=== PATIENT | male | born 1940 | race Caucasian/White ===

== ENCOUNTER → 2016-07-17 | Outpatient (CLI) | payer MEDICARE, BC ==
--- NOTE | 2016-07-17 11:35 | ECHOS ---
DATE OF SERVICE: 07/17/2016 AGE: 75Y SEX: M HT: 70" WT: 207 lbs. Protocol Paul: X Others: Stress Echo Stage: 1 Dur. of Exercise: 3:00 *Heart Rate Blood Pressure *Rest: 87 Rest: 161/63 * *Max. Achieved: 138 Maximum BP: 162/93 85% PMHR: 122 100% PMHR: 144 *METS: 3.8 INDICATIONS: Heart disease. MEDICATIONS: Metoprolol, Benazepril, Glipizide, atorvastatin. The test is being done to evaluate cardiac status. Patient had a history of previous bypass surgery. Baseline EKG showed a left bundle branch block pattern. Blood pressure at rest is 161/63 with a pulse rate of 87. Patient walked on the Paul protocol for about 3 minutes achieving a maximum heart rate of 138 with a blood pressure of 162/93. EKGs taken during and after the exercise did not reveal any significant changes from the baseline and continued to be showing left bundle branch block pattern. ECHO DATA: Baseline echo images showed atypical motion of the septum and the hypokinesia of the inferobasal segment. Exercise echo images showed augmentation of the wall motion and thickening in all the segments except mid and apical lateral wall. The inferobasal segment remained hypokinetic throughout its the test. FINAL IMPRESSION: 1. Inconclusive stress test because of left bundle branch block and also low workload. 2. Abnormal stress echo. There is evidence of hypokinesia of the inferobasal segment both on the stress and REST views suggestive of possible previous myocardial infarction. There also appears to be stress induced hypokinesia of the lateral wall suggestive of possible ischemia. This study was done with contrast because of suboptimal views. VAIBHAV
== END | disposition home or self-care (01) ==
LOC: RADNMMAIN 09:02
PROVIDERS: ATTEND Internal Medicine Geriatric Medicine
DX: I25.10 Atherosclerotic heart disease of native coronary artery without angina pectoris (principal)
CPT/HCPCS: 93017; C8928; Q9957; 93350

== ENCOUNTER 2016-08-12 10:43 | Day surgery (SDC) | payer MEDICARE, BC ==
[2016-08-07 15:10] VITALS: BMI 31.8
[~2016-08-12 10:43] MED LIST: ALPRAZolam 0.25 MG TAB PO PRN; ASPIRIN 325 MG TAB PO ONE; SODIUM CHLORIDE 0.9% 1,000 ML in EMPTY BAG 1 BAG IV ONE
[2016-08-12] MEDS ORDERED: SODIUM CHLORIDE 0.9% 500 ML IV ONE (12:17)
[2016-08-12] MEDS ORDERED: MIDAZOLAM 2 MG/2 ML VIAL IV ONE (12:31)
[2016-08-12] MEDS ORDERED: fentaNYL (PF) 50 MCG/ML 2 ML AMP IV ONE (12:32)
[2016-08-12] MEDS ORDERED: LIDOCAINE 2% INJ 20 MG/ML SQ ONE (12:37)
[2016-08-12] MEDS ORDERED: IOHEXOL 350 MG/ML 100 ML BOTTLE INJ ONE (13:36)
[2016-08-12 13:55] LABS: Glucose,Whole Blood 102 mg/dL (75-99)
[2016-08-12] MEDS ORDERED: RX INFO: IV CONTRAST WAS GIVEN 1 EACH MISC MISCELLANE PRN (14:59)
[2016-08-12] MEDS ORDERED: SODIUM CHLORIDE 0.9% 1,000 ML IV SCH (15:00)
[2016-08-12 17:18] LABS: Glucose,Whole Blood 230 mg/dL (75-99)
[2016-08-12] MEDS: ATORVASTATIN 20 MG TAB PO SCH (17:19)
[2016-08-12] MEDS: ASPIRIN 81 MG CHEW PO SCH (17:19)
[2016-08-12] MEDS: LISINOPRIL 10 MG TAB PO SCH (17:20)
[2016-08-12] MEDS: METOPROLOL TARTRATE 25 MG TAB PO SCH (20:17)
[2016-08-12 21:10] LABS: Glucose,Whole Blood 155 mg/dL (75-99)
--- NOTE | 2016-08-12 22:48 | CC ---
DATE OF SERVICE: Mr. Trinh is a 75-year-old gentleman who was seen in the office for the evaluation of the cardiac evaluation. Patient recently had a stress test which showed evidence of some apical lateral ischemia. Old inferior wall myocardial infarction. Patient has a past history of coronary artery bypass surgery with HERNANDEZ graft to the LAD and saphenous vein graft to the RCA and OM and diagonal branch. In view of the occasional angina and positive stress test, patient was recommended to have a cardiac catheterization for definitive diagnosis. PROCEDURE: The right groin was prepped and draped in the usual manner and the skin was infiltrated with 2% Xylocaine. The right femoral artery was entered using Seldinger technique. A #6 Arabic sheath was placed in. Subsequently selective coronary angiography as well as graft was made. Patient's aortic root was dilated and multiple catheters used. The JL 6 Catheter was used to engage to the left main coronary artery, Pasha catheter was used to engage to the HERNANDEZ and the right saphenous vein graft to the right coronary artery. Multiple catheters were used to selectively engage the saphenous vein graft to OM and diagonal branch, which were unsuccessful so the aortic root injection was performed which show that the grafts were patent, in the proximal and midportion. The distal anastomosis of the graft cannot be assess. The patient tolerated the procedure well. Total sedation time was one hour and 10 minutes. Sheath was removed and good hemostasis was achieved with the use of Angio-Seal. SELECTIVE CORONARY ANGIOGRAPHY: LEFT MAIN: Left main coronary artery is normal and patent. LEFT ANTERIOR DESCENDING CORONARY ARTERY: LAD is totally occluded in its proximal portion. There is a good-sized obtuse marginal branch, which is patent with mild irregularity is noted. RIGHT CORONARY ARTERY: Right coronary artery is totally occluded. The HERNANDEZ graft to the LAD is patent with good flow noted in the distal LAD and there is a retrograde flow noted in the proximal LAD. Saphenous vein graft to the right coronary artery is a large caliber vessel and it is patent to the PDA branch beyond the anastomosis is a small-caliber blood vessel. The saphenous vein graft to the obtuse marginal branch and diagonal branch are patent in the proximal and midportion. The distal anastomosis could not be assessed. RECOMMENDATIONS: We will recommend to continue the patient on medical treatment as all the grafts are patent and symptomatic medical therapy is suggested.
[2016-08-13 06:54] LABS: Glucose,Whole Blood 142 mg/dL (75-99)
[2016-08-13] MEDS: LISINOPRIL 10 MG TAB PO SCH (07:52)
[2016-08-13] MEDS: ASPIRIN 81 MG CHEW PO SCH (07:53)
[2016-08-13] MEDS: METOPROLOL TARTRATE 25 MG TAB PO SCH (07:53)
[2016-08-13] MEDS: ATORVASTATIN 20 MG TAB PO SCH (07:53)
[2016-08-13 07:59] VITALS: RESP 18
[2016-08-13] MEDS ORDERED: VIT A,C & E-LUTEIN-MINERALS 1 EACH TAB PO SCH (09:00)
[2016-08-13] MEDS ORDERED: NON-FORMULARY DRUG (Ubidecarenone [Co Q-10] 100 MG) PO SCH (09:00)
[2016-08-13 11:53] VITALS: BP 172/81; PULSE 55; TEMP 98.1
[2016-08-13 12:09] LABS: Glucose,Whole Blood 154 mg/dL (75-99)
--- NOTE | 2016-08-13 12:16 | PN ---
This patient was admitted in the hospital for cardiac catheterization because of the abnormal stress test. All the grafts were found to be patent. In view of that, the patient was advised medical treatment. He is feeling well. Right groin is normal. First and second heart sounds are normal. Lungs are clear to auscultation and percussion. Patient's cath findings were discussed with the patient. We will schedule him for a CT scan of the thoracic and abdominal aorta to rule out any aneurysm as an outpatient and patient would be seen in the office in one week.
== END 2016-08-13 13:31 | disposition home or self-care (01) ==
LOC: CATHCVL 10:43 → 3OBS 13:48 → CATHCVL 08-13 13:31
PROVIDERS: ATTEND Internal Medicine Cardiovascular Disease
DX: I25.110 Atherosclerotic heart disease of native coronary artery with unstable angina pectoris (principal); I25.82 Chronic total occlusion of coronary artery; I10 Essential (primary) hypertension; E78.2 Mixed hyperlipidemia; Z82.49 Family history of ischemic heart disease and other diseases of the circulatory system; E11.9 Type 2 diabetes mellitus without complications; Z79.84 Long term (current) use of oral hypoglycemic drugs; Z95.1 Presence of aortocoronary bypass graft; I25.2 Old myocardial infarction; Z79.82 Long term (current) use of aspirin; Z79.899 Other long term (current) drug therapy; Z88.0 Allergy status to penicillin
CPT/HCPCS: 93455; 93567; C1760; C1894; C1769; J2001; J2250; Q9967; J3010

== ENCOUNTER → 2016-08-28 | Outpatient (CLI) | payer MEDICARE, BC ==
[2016-08-28 13:37] LABS: Blood Urea Nitrogen 17 mg/dL (9-20); Non-African American GFR(MDRD) >60 (>60 ml/min/1.73 sqM)
--- NOTE | 2016-08-28 16:33 | CT ---
EXAMINATION TYPE: CT angio thoracic/abd aorta DATE OF EXAM: 08/28/2016 3:07 PM COMPARISON: NONE HISTORY: AAA CT DLP: 3250 mGycm Automated exposure control for dose reduction was used. CONTRAST: Performed without and with IV Contrast, patient injected with 100 ml mL of Omnipaque 350. FINDINGS: Study is performed without and with intravenous contrast. Three-D reconstructed images through the ao rta is performed by the technologist on the S[employer] computer. Three-D reconstructed images are reviewe d. The ascending thoracic aorta at the level of main pulmonary artery is 4.3 cm. The main pulmonary iris ry bifurcation is 3.4 cm. The descending thoracic aorta tapers normally through its visualized course . The celiac axis and superior mesenteric arteries appear normal. Renal arteries appear normal. The r ight renal artery is retrocaval. Plaquing is present. Aortic bifurcation is normal. Internal and exte rnal iliac vessels visualized normal. The common femoral arteries visualized are normal. Proximal pro balaji femoris and superficial femoral arteries present bilaterally are normal Incidental note is made of a right inguinal hernia. Portion of the thyroid visualized is normal. Lung windows appear clear. No enlarged mediastinal or hi lar adenopathy is evident. CT ABDOMEN: During this early phase contrast liver spleen pancreas and kidneys appear normal. Inferio r vena cava is unremarkable. Loops of bowel without contrast are unremarkable Diverticular changes are within the sigmoid colon. Urinary bladder appears normal. Prostate is promin ent. Facet changes are noted within the lumbar spine. Spondylosis within the thoracic spine. Vascular calcification is within the aorta as well as coronary vessels. 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 NO ANEURYSMAL DILATATION DESCENDING THORACIC AORTA OR ABDOMINAL AORTA. 2. RIGHT INGUINAL HERNIA WITHOUT LOOPS OF BOWEL INVOLVED.
== END ==
LOC: RADCTMAIN 12:48
PROVIDERS: ATTEND Internal Medicine Cardiovascular Disease
DX: I71.2 Thoracic aortic aneurysm, without rupture (principal)
CPT/HCPCS: 82565; 84520; 75635; 71275; 36415; Q9967

== ENCOUNTER 2016-11-10 16:09 | Emergency (ER) | payer MEDICARE, BC ==
--- NOTE | 2016-11-10 16:30 | ED ---
General Adult HPI - General Chief complaint: Extremity Problem,Nontraumatic Stated complaint: Swollen Leg, Leg Pain Time Seen by Provider: 11/10/16 16:16 Source: patient, RN notes reviewed Mode of arrival: ambulatory Limitations: no limitations - History of Present Illness Initial comments: 75-year-old male who presents emergency room today with chief complaint of pain in the right hip that radiates down into the right leg. He does admit that it seems to be into the right groin. He states it seems to be worse with certain positions. He is Is that when he standing up for long periods time. Also admits that was driving his car he felt some pain to this area that seemed to be worse when he was pumping gas or break. Patient denies any back pain. He denies any bowel or bladder incontinence retention. He denies any saddle anesthesia. Patient denies any other complaints. Patient denies any recent fever, chills, shortness of breath, chest pain, back pain, abdominal pain, nausea or vomiting, numbness or tingling, dysuria or hematuria, constipation or diarrhea, headaches or visual changes, or any other complaints. - Related Data Home Medications Medication Instructions Recorded Confirmed Aspirin 81 mg PO DAILY 08/07/16 11/10/16 Atorvastatin [Lipitor] 20 mg PO DAILY 08/07/16 11/10/16 Benazepril [Lotensin] 10 mg PO DAILY 08/07/16 11/10/16 Metoprolol Tartrate [Lopressor] 25 mg PO BID 08/07/16 11/10/16 glipiZIDE XL [Glucotrol Xl] 2.5 mg PO BID 11/10/16 11/10/16 Allergies Allergy/AdvReac Type Severity Reaction Status Date / Time Penicillins Allergy Rash/Hives Verified 11/10/16 16:27 Review of Systems ROS Statement: Those systems with pertinent positive or pertinent negative responses have been documented in the HPI. ROS Other: All systems not noted in ROS Statement are negative. Past Medical History Past Medical History: Cancer, Diabetes Mellitus, Hyperlipidemia, Hypertension Additional Past Medical History / Comment(s): had some kind of cancer removed as a teen-not sure what kind, no problems since History of Any Multi-Drug Resistant Organisms: None Reported Past Surgical History: Coronary Bypass/CABG, Heart Catheterization Additional Past Surgical History / Comment(s): open heart 2013 Past Anesthesia/Blood Transfusion Reactions: No Reported Reaction Past Psychological History: No Psychological Hx Reported Smoking Status: Unknown if ever smoked Past Alcohol Use History: Occasional Past Drug Use History: None Reported - Past Family History Mother Family Medical History: No Reported History General Exam - General Exam Comments Initial Comments: General: The patient is awake and alert, in no distress, and does not appear acutely ill. Eye: Pupils are equal, round and reactive to light, extra-ocular movements are intact. No nystagmus. There is normal conjunctiva bilaterally. No signs of icterus. Ears, nose, mouth and throat: There are moist mucous membranes and no oral lesions. Neck: The neck is supple, there is no tenderness or JVD. Cardiovascular: There is a regular rate and rhythm. No murmur, rub or gallop is appreciated. Respiratory: Lungs are clear to auscultation, respirations are non-labored, breath sounds are equal. No wheezes, stridor, rales, or rhonchi. Musculoskeletal: Normal appearance of the thoracic, lumbar spine. No step- offs forms appreciated. No tenderness of the lumbar spine. No bony tenderness. No point tenderness to the right hip. Shows full range of motion. Sensation intact. Pulses equal bilaterally 2+. Strength 5/5. Sensation intact. Pulses equal bilaterally 2+. Neurological: A&O x 3. CN II-XII intact, There are no obvious motor or sensory deficits. Coordination appears grossly intact. Speech is normal. Skin: Skin is warm and dry and no rashes or lesions are noted. Psychiatric: Cooperative, appropriate mood & affect, normal judgment. Limitations: no limitations Course Vital Signs 11/10/16 16:12 Temperature 97.3 F L Pulse Rate 92 Respiratory 18 Rate Blood Pressure 179/81 O2 Sat by Pulse 99 Oximetry Medical Decision Making - Medical Decision Making Patient reexamined at this time shows no signs of distress. Ultrasound is negative for any evidence of DVT. X-rays of were reviewed and are negative for any acute abnormalities. Results were discussed with the patient. At this time patient is advised to use Aleve for his pain. Advised to follow-up with his family doctor for further evaluation. Advised return here to the emergency room symptoms increase or worsen or for any other concerns. Disposition Clinical Impression: Lumbar radiculopathy, acute Disposition: HOME SELF-CARE Condition: Good Instructions: Lumbar Radiculopathy (ED) Additional Instructions: Please use medication as discussed. Please follow-up with family doctor in the next 2 days of symptoms have not improved. Please return to emergency room if the symptoms increase or worsen or for any other concerns. Referrals: Pantera Gomez MD [Primary Care Provider] - 1-2 days Time of Disposition: 17:48
--- NOTE | 2016-11-10 17:09 | XR ---
EXAMINATION TYPE: XR Hip RT and AP Pelvis DATE OF EXAM: 11/10/2016 4:42 PM COMPARISON: NONE HISTORY: Pain TECHNIQUE: A single AP view of the pelvis is obtained. Two views of the right hip are obtained. FINDINGS: The pelvic ring is intact. Proximal right femur and hip joint appear intact. I see no frac ture. Sacroiliac joints appear normal. IMPRESSION: Negative pelvis and right hip exam.
--- NOTE | 2016-11-10 17:10 | US ---
EXAMINATION TYPE: US venous doppler duplex LE RT DATE OF EXAM: 11/10/2016 4:56 PM COMPARISON: NONE CLINICAL HISTORY: Pain. Right leg pain and swelling SIDE PERFORMED: Right TECHNIQUE: The lower extremity deep venous system is examined utilizing real time linear array sonog franky with graded compression, doppler sonography and color-flow sonography. VESSELS IMAGED: External Iliac Vein (EIV) Common Femoral Vein Deep Femoral Vein Greater Saphenous Vein * Femoral Vein Popliteal Vein Small Saphenous Vein * Proximal Calf Veins (* superficial vessels) Right Leg: Appears negative for DVT IMPRESSION: Grayscale, color doppler, spectral doppler imaging performed of the deep veins of the lo wer extremities. There is normal flow, compressibility, vascular waveforms bilaterally. Normal exam. No evidence of deep venous thrombosis in the right leg.
--- NOTE | 2016-11-10 17:12 | XR ---
EXAMINATION TYPE: XR lumbar spine 2 or 3V DATE OF EXAM: 11/10/2016 4:42 PM COMPARISON: NONE HISTORY: Right hip pain TECHNIQUE: 3 views FINDINGS: Vertebra have fairly normal alignment. There is moderately severe narrowing at L4-5 L2-3 di sc spaces. There is extensive spurring at the endplates throughout the lumbar spine. Posterior elemen ts are intact. Sacroiliac joints appear intact. IMPRESSION: Severe multilevel spondylosis. No fracture.
[2016-11-10 18:02] VITALS: BP 165/79; PULSE 66; RESP 16; TEMP 97.7
== END 2016-11-10 18:03 | disposition home or self-care (01) ==
LOC: EC 16:09
DX: M54.16 Radiculopathy, lumbar region (principal); E11.9 Type 2 diabetes mellitus without complications; E78.5 Hyperlipidemia, unspecified; I10 Essential (primary) hypertension; Z85.9 Personal history of malignant neoplasm, unspecified; Z88.0 Allergy status to penicillin; Z79.82 Long term (current) use of aspirin; Z79.84 Long term (current) use of oral hypoglycemic drugs; Z79.899 Other long term (current) drug therapy
CPT/HCPCS: 72100; 73502; 99284

== ENCOUNTER 2017-09-12 08:30 | Emergency (ER) | payer MEDICARE, BC ==
[2017-09-12 08:35] VITALS: TEMP 98
[2017-09-12] MEDS ORDERED: IPRATROPIUM-ALBUTEROL 3 ML NEB INHALATION STA (08:41)
--- NOTE | 2017-09-12 08:51 | ED ---
SOB HPI - General Source: patient, RN notes reviewed Mode of arrival: ambulatory Limitations: no limitations <Solitario Mcdaniel - Last Filed: 09/12/17 10:58> <Rivera López - Last Filed: 09/12/17 11:04> - General Chief Complaint: Shortness of Breath Stated Complaint: SOB Time Seen by Provider: 09/12/17 08:36 - History of Present Illness Initial Comments: This a 76-year-old male presents emergency Department chief complaint of shortness of breath. Patient states shortness breath the last 3 days. He does admit to a cough and congestion. Patient states that he was outside in states he started having worsening shortness of breath and is having difficulty with activities at that time which became alarming. White did state that he keep she got he was sweaty during the car ride here but denies any chest pain or chest pressure. Patient's had a prior. Bypass in 2013, current private tutor is Dr. Mendez. Patient denies any known fever or chills night sweats. Patient denies any headache, dizziness, nausea vomiting diarrhea constipation. Patient has no known lung disease denies COPD, asthma. Patient denies orthopnea. (Solitario Mcdaniel) - Related Data Home Medications Medication Instructions Recorded Confirmed Aspirin 81 mg PO DAILY 08/07/16 11/10/16 Atorvastatin [Lipitor] 20 mg PO DAILY 08/07/16 11/10/16 Benazepril [Lotensin] 10 mg PO DAILY 08/07/16 11/10/16 Metoprolol Tartrate [Lopressor] 25 mg PO BID 08/07/16 11/10/16 glipiZIDE XL [Glucotrol Xl] 2.5 mg PO BID 11/10/16 11/10/16 Previous Rx's Medication Instructions Recorded Albuterol Sulfate [Proair Hfa] 1 - 2 puff INHALATION Q4HR PRN #1 09/12/17 inhaler Levofloxacin [Levaquin] 500 mg PO DAILY #10 tab 09/12/17 methylPREDNISolone [Medrol Dose 4 mg PO DIRECTED #1 pack 09/12/17 Pack] Allergies Allergy/AdvReac Type Severity Reaction Status Date / Time Penicillins Allergy Rash/Hives Verified 09/12/17 08:34 Review of Systems ROS Other: All systems not noted in ROS Statement are negative. <Solitario Mcdaniel - Last Filed: 09/12/17 10:58> ROS Other: All systems not noted in ROS Statement are negative. <Rivera López - Last Filed: 09/12/17 11:04> ROS Statement: Those systems with pertinent positive or pertinent negative responses have been documented in the HPI. Past Medical History Past Medical History: Cancer, Diabetes Mellitus, Hyperlipidemia, Hypertension Additional Past Medical History / Comment(s): had some kind of cancer removed as a teen-not sure what kind, no problems since History of Any Multi-Drug Resistant Organisms: None Reported Past Surgical History: Coronary Bypass/CABG, Heart Catheterization Additional Past Surgical History / Comment(s): open heart 2014 Past Anesthesia/Blood Transfusion Reactions: No Reported Reaction Past Psychological History: No Psychological Hx Reported Smoking Status: Never smoker Past Alcohol Use History: Occasional Past Drug Use History: None Reported - Past Family History Mother Family Medical History: No Reported History <Solitario Mcdaniel - Last Filed: 09/12/17 10:58> General Exam Limitations: no limitations General appearance: alert, in no apparent distress Head exam: Present: atraumatic, normocephalic, normal inspection Eye exam: Present: normal appearance, PERRL, EOMI. Absent: scleral icterus, conjunctival injection, periorbital swelling ENT exam: Present: normal exam, normal oropharynx, mucous membranes moist Neck exam: Present: normal inspection, full ROM. Absent: tenderness, meningismus, lymphadenopathy Respiratory exam: Present: wheezes. Absent: normal lung sounds bilaterally, respiratory distress, rales, rhonchi, stridor Cardiovascular Exam: Present: regular rate, normal rhythm, normal heart sounds. Absent: systolic murmur, diastolic murmur, rubs, gallop, clicks Neurological exam: Present: alert, oriented X3, CN II-XII intact Skin exam: Present: warm, dry, intact, normal color. Absent: rash <Solitario Mcdaniel - Last Filed: 09/12/17 10:58> Course <Solitario Mcdaniel - Last Filed: 09/12/17 10:58> <Rivera López - Last Filed: 09/12/17 11:04> Vital Signs 09/12/17 09/12/17 09/12/17 08:33 08:59 09:09 Temperature 98.0 F Pulse Rate 77 76 76 Respiratory 20 Rate Blood Pressure 166/84 O2 Sat by Pulse 96 Oximetry 09/12/17 10:01 Temperature Pulse Rate Respiratory 18 Rate Blood Pressure O2 Sat by Pulse Oximetry - Reevaluation(s) Reevaluation #1: 09/12/17 11:03 PA supervision I did personally do a [id number] evaluation the patient did discuss the findings with his and him. He did receive an updraft treatment he has symptoms of dyspnea when he goes outside from an warm environment to the outdoors. No chest pain. 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 He has any history of aneurysm is stable. CAT scan. CAT scan also showed groundglass appearance of the lingula. Reevaluation patient reveals good aeration with slight crepitation at the left base. He will be placed on steroids breathing treatment and follow-up with Dr. Gomez. He is invited to come back if any thing changes. He did have a cardiac stress test. One year ago that he did well on. (Rivera López) Medical Decision Making - Lab Data Result diagrams: 09/12/17 08:50 09/12/17 08:50 <Solitario Mcdaniel - Last Filed: 09/12/17 10:58> - Lab Data Result diagrams: 09/12/17 08:50 09/12/17 08:50 <Rivera López - Last Filed: 09/12/17 11:04> - Medical Decision Making 76-year-old male present emergency department for shortness of breath. Patient did had notable wheezing on exam. Patient was given region which is improved his symptoms. Patient lab work reviewed. CT shows groundglass appear of normal finger stable aneurysm. Patient has primary care physician Dr. Conn. Patient follow-up on Thursday. We discussed return parameters. (Solitario Mcdaniel) - Lab Data Lab Results 09/12/17 09/12/17 09/12/17 Range/Units 08:50 08:50 08:50 WBC 5.9 (3.8-10.6) k/uL RBC 4.79 (4.30-5.90) m/uL Hgb 14.4 (13.0-17.5) gm/dL Hct 43.6 (39.0-53.0) % MCV 91.2 (80.0-100.0) fL MCH 30.1 (25.0-35.0) pg MCHC 33.0 (31.0-37.0) g/dL RDW 12.8 (11.5-15.5) % Plt Count 195 (150-450) k/uL Neutrophils % 65 % Lymphocytes % 19 % Monocytes % 9 % Eosinophils % 4 % Basophils % 1 % Neutrophils # 3.9 (1.3-7.7) k/uL Lymphocytes # 1.1 (1.0-4.8) k/uL Monocytes # 0.5 (0-1.0) k/uL Eosinophils # 0.2 (0-0.7) k/uL Basophils # 0.0 (0-0.2) k/uL PT (9.0-12.0) sec INR (<1.2) APTT (22.0-30.0) sec D-Dimer (<0.60) mg/L FEU Sodium 139 (137-145) mmol/L Potassium 4.5 (3.5-5.1) mmol/L Chloride 103 (98-107) mmol/L Carbon Dioxide 23 (22-30) mmol/L Anion Gap 13 mmol/L BUN 15 (9-20) mg/dL Creatinine 0.65 L (0.66-1.25) mg/dL Est GFR (CKD-EPI)AfAm >90 (>60 ml/min/1.73 sqM) Est GFR (CKD-EPI)NonAf >90 (>60 ml/min/1.73 sqM) Glucose 156 H (74-99) mg/dL Calcium 8.9 (8.4-10.2) mg/dL Magnesium 1.8 (1.6-2.3) mg/dL Total Bilirubin 1.2 (0.2-1.3) mg/dL AST 34 (17-59) U/L ALT 31 (21-72) U/L Alkaline Phosphatase 48 (38-126) U/L Total Creatine Kinase 246 H (55-170) U/L CK-MB (CK-2) 3.7 H* (0.0-2.4) ng/mL CK-MB (CK-2) Rel Index 1.5 Troponin I <0.012 (0.000-0.034) ng/mL NT-Pro-B Natriuret Pep pg/mL Total Protein 6.9 (6.3-8.2) g/dL Albumin 4.0 (3.5-5.0) g/dL Influenza Type A RNA (Not Detectd) Influenza Type B (PCR) (Not Detectd) 09/12/17 09/12/17 09/12/17 Range/Units 08:50 08:50 08:50 WBC (3.8-10.6) k/uL RBC (4.30-5.90) m/uL Hgb (13.0-17.5) gm/dL Hct (39.0-53.0) % MCV (80.0-100.0) fL MCH (25.0-35.0) pg MCHC (31.0-37.0) g/dL RDW (11.5-15.5) % Plt Count (150-450) k/uL Neutrophils % % Lymphocytes % % Monocytes % % Eosinophils % % Basophils % % Neutrophils # (1.3-7.7) k/uL Lymphocytes # (1.0-4.8) k/uL Monocytes # (0-1.0) k/uL Eosinophils # (0-0.7) k/uL Basophils # (0-0.2) k/uL PT 9.9 (9.0-12.0) sec INR 1.0 (<1.2) APTT 22.6 (22.0-30.0) sec D-Dimer (<0.60) mg/L FEU Sodium (137-145) mmol/L Potassium (3.5-5.1) mmol/L Chloride (98-107) mmol/L Carbon Dioxide (22-30) mmol/L Anion Gap mmol/L BUN (9-20) mg/dL Creatinine (0.66-1.25) mg/dL Est GFR (CKD-EPI)AfAm (>60 ml/min/1.73 sqM) Est GFR (CKD-EPI)NonAf (>60 ml/min/1.73 sqM) Glucose (74-99) mg/dL Calcium (8.4-10.2) mg/dL Magnesium (1.6-2.3) mg/dL Total Bilirubin (0.2-1.3) mg/dL AST (17-59) U/L ALT (21-72) U/L Alkaline Phosphatase (38-126) U/L Total Creatine Kinase (55-170) U/L CK-MB (CK-2) (0.0-2.4) ng/mL CK-MB (CK-2) Rel Index Troponin I (0.000-0.034) ng/mL NT-Pro-B Natriuret Pep 1250 pg/mL Total Protein (6.3-8.2) g/dL Albumin (3.5-5.0) g/dL Influenza Type A RNA Not Detected (Not Detectd) Influenza Type B (PCR) Not Detected (Not Detectd) 09/12/17 Range/Units 09:10 WBC (3.8-10.6) k/uL RBC (4.30-5.90) m/uL Hgb (13.0-17.5) gm/dL Hct (39.0-53.0) % MCV (80.0-100.0) fL MCH (25.0-35.0) pg MCHC (31.0-37.0) g/dL RDW (11.5-15.5) % Plt Count (150-450) k/uL Neutrophils % % Lymphocytes % % Monocytes % % Eosinophils % % Basophils % % Neutrophils # (1.3-7.7) k/uL Lymphocytes # (1.0-4.8) k/uL Monocytes # (0-1.0) k/uL Eosinophils # (0-0.7) k/uL Basophils # (0-0.2) k/uL PT (9.0-12.0) sec INR (<1.2) APTT (22.0-30.0) sec D-Dimer 0.70 H (<0.60) mg/L FEU Sodium (137-145) mmol/L Potassium (3.5-5.1) mmol/L Chloride (98-107) mmol/L Carbon Dioxide (22-30) mmol/L Anion Gap mmol/L BUN (9-20) mg/dL Creatinine (0.66-1.25) mg/dL Est GFR (CKD-EPI)AfAm (>60 ml/min/1.73 sqM) Est GFR (CKD-EPI)NonAf (>60 ml/min/1.73 sqM) Glucose (74-99) mg/dL Calcium (8.4-10.2) mg/dL Magnesium (1.6-2.3) mg/dL Total Bilirubin (0.2-1.3) mg/dL AST (17-59) U/L ALT (21-72) U/L Alkaline Phosphatase (38-126) U/L Total Creatine Kinase (55-170) U/L CK-MB (CK-2) (0.0-2.4) ng/mL CK-MB (CK-2) Rel Index Troponin I (0.000-0.034) ng/mL NT-Pro-B Natriuret Pep pg/mL Total Protein (6.3-8.2) g/dL Albumin (3.5-5.0) g/dL Influenza Type A RNA (Not Detectd) Influenza Type B (PCR) (Not Detectd) - EKG Data EKG Comments: EKG performed at 8:52 sinus rhythm with sinus arrhythmia and left bundle tam block, rate of 69 [place] was 54 QRS 162, QT/QTC 4:30/460 (Solitario Mcdaniel) Disposition Time of Disposition: 11:03 <Solitario Mcdaniel - Last Filed: 09/12/17 10:58> <Rivera López - Last Filed: 09/12/17 11:04> Clinical Impression: Acute bronchitis with bronchospasm, Dyspnea Disposition: HOME SELF-CARE Instructions: Acute Bronchitis (ED), Bronchospasm (ED) Additional Instructions: Please return to the Emergency Department if symptoms worsen or any other concerns. Prescriptions: Albuterol Sulfate [Proair Hfa] 1 - 2 puff INHALATION Q4HR PRN #1 inhaler PRN Reason: difficulty in breathing Levofloxacin [Levaquin] 500 mg PO DAILY #10 tab methylPREDNISolone [Medrol Dose Pack] 4 mg PO DIRECTED #1 pack Referrals: Pantera Gomez MD [Primary Care Provider] - 1-2 days
[2017-09-12 09:04] LABS: Basophils % (A) 1 %; Eosinophils # (A) 0.2 k/uL (0-0.7); Eosinophils % (A) 4 %; HCT 43.6 % (39.0-53.0); HGB 14.4 gm/dL (13.0-17.5); Lymphocytes # (A) 1.1 k/uL (1.0-4.8); Lymphocytes % (A) 19 %; MCH 30.1 pg (25.0-35.0); MCV 91.2 fL (80.0-100.0); Mean Platelet Volume 8.7; Monocytes # (A) 0.5 k/uL (0-1.0); Monocytes % (A) 9 %; Neutrophils # (A) 3.9 k/uL (1.3-7.7); Neutrophils % (A) 65 %; Platelet Count 195 k/uL (150-450); RBC 4.79 m/uL (4.30-5.90); RDW 12.8 % (11.5-15.5); WBC 5.9 k/uL (3.8-10.6)
[2017-09-12 09:13] LABS: Partial Thromboplastin Time 22.6 sec (22.0-30.0); Prothrombin Time 9.9 sec (9.0-12.0)
[2017-09-12 09:15] LABS: ALT 31 U/L (21-72); AST 34 U/L (17-59); Alkaline Phosphatase 48 U/L (38-126); Anion Gap 13 mmol/L; Blood Urea Nitrogen 15 mg/dL (9-20); Calcium 8.9 mg/dL (8.4-10.2); Carbon Dioxide 23 mmol/L (22-30); Chloride 103 mmol/L (98-107); Glucose 156 mg/dL (74-99); Magnesium 1.8 mg/dL (1.6-2.3); Potassium 4.5 mmol/L (3.5-5.1); Sodium 139 mmol/L (137-145); Total Bilirubin 1.2 mg/dL (0.2-1.3); Total Protein 6.9 g/dL (6.3-8.2)
[2017-09-12 09:33] LABS: Creatine Kinase 246 U/L (55-170)
[2017-09-12] MEDS ORDERED: RX INFO: IV CONTRAST WAS GIVEN 1 EACH MISC MISCELLANE PRN (09:40)
[2017-09-12 09:45] LABS: Troponin I <0.012 ng/mL (0.000-0.034)
--- NOTE | 2017-09-12 09:50 | XR ---
EXAMINATION TYPE: XR chest 2V DATE OF EXAM: 09/12/2017 HISTORY: difficulty breathing. REFERENCE: Previous study dated 09/26/2013. FINDINGS: There has been a midline sternotomy. Lungs are overinflated. The heart is mildly enlarged. There is chronic interstitial change. Pleural s paces are clear. IMPRESSION: 1. COPD. 2. MILD CARDIOMEGALY.
[2017-09-12 09:51] LABS: Creatine Kinase MB 3.7 ng/mL (0.0-2.4)
[2017-09-12 10:02] VITALS: RESP 18
--- NOTE | 2017-09-12 10:33 | CT ---
EXAMINATION TYPE: CT chest angio for PE DATE OF EXAM: 09/12/2017 COMPARISON: Previous study dated 08/28/2016. HISTORY: SOB CT DLP: 430.9 mGycm Automated exposure control for dose reduction was used. CONTRAST: CT Chest for pulmonary embolism performed with with IV Contrast, patient injected with 100 mL of Omni paque 350. FINDINGS: There is atelectatic change present at the lung bases. There is groundglass consolidation i n the left lingula. The lungs are otherwise clear. There is a 1.4 cm right paratracheal lymph node. Previously this measured 1.1 cm. There is no other s ignificant adenopathy. There is no evidence of pulmonary embolus. The root of the aorta is dilated measuring 4.2 cm. Previously this measured 4 cm. The proximal arch m easures 4 cm. The proximal descending thoracic aorta measures 3.2 cm. At the level of the aortic hiat us, the aorta is normal in caliber measuring 2.6 cm. The heart is mildly enlarged. There are small, bilateral effusions. There is no pericardial effusion. There is some thickening of the distal esophagus. There is a small hiatal hernia. Visualized portions of the upper abdomen are otherwise unremarkable. There is degenerative disc disease and hypertrophic spondylosis within the spine. IMPRESSION: 1. Groundglass consolidation in the left lingula. 2. This examination is negative for pulmonary embolus. 3. Ascending thoracic aortic aneurysm with maximal transverse diameter 4.2 cm. 4. Cardiomegaly. 5. Small, bilateral effusions. 6. Thickening of the distal esophagus and a small hiatal hernia. 7. Degenerative changes within the spine.
[2017-09-12 11:22] VITALS: BP 137/73; PULSE 60
== END 2017-09-12 11:21 | disposition home or self-care (01) ==
LOC: EC 08:30
DX: J20.9 Acute bronchitis, unspecified (principal); E11.9 Type 2 diabetes mellitus without complications; E78.5 Hyperlipidemia, unspecified; I10 Essential (primary) hypertension; Z85.9 Personal history of malignant neoplasm, unspecified; Z95.1 Presence of aortocoronary bypass graft; Z95.5 Presence of coronary angioplasty implant and graft; Z79.82 Long term (current) use of aspirin; Z79.84 Long term (current) use of oral hypoglycemic drugs; Z79.899 Other long term (current) drug therapy; Z88.0 Allergy status to penicillin
CPT/HCPCS: 36415; 94640; 93005; 85379; 83880; 80053; 82550; 82553; 83735; 84484; 85025; 85610; 85730; 87040; 87502; 71046; 71275; 99285; Q9967

== ENCOUNTER 2017-09-13 20:46 | Inpatient (IN) | payer MEDICARE, BC ==
--- NOTE | 2017-09-13 21:21 | ED ---
General Adult HPI - General Chief complaint: Shortness of Breath Stated complaint: bronchitis/SOB-revisit Time Seen by Provider: 09/13/17 21:02 Source: EMS, RN notes reviewed, old records reviewed Mode of arrival: EMS Limitations: no limitations - History of Present Illness Initial comments: This is a 76-year-old male the ER for evasive severe shortness of breath severe cough, episodic fever. Patient was in ER yesterday for similar symptoms. Patient states his symptoms are progressively worse. Patient states he cannot breathe. He with activity. Denies any specific chest pain. Patient is doing treatment at home, symptoms not improving - Related Data Home Medications Medication Instructions Recorded Confirmed Aspirin 81 mg PO DAILY 08/07/16 09/13/17 Atorvastatin [Lipitor] 20 mg PO DAILY 08/07/16 09/13/17 Benazepril [Lotensin] 10 mg PO DAILY 08/07/16 09/13/17 Metoprolol Tartrate [Lopressor] 50 mg PO DAILY 08/07/16 09/13/17 Cholecalciferol [Vitamin D3] 1,000 unit PO DAILY 09/12/17 09/13/17 glipiZIDE/METFORMIN HCL 1 tab PO BID 09/12/17 09/13/17 [glipiZIDE/METFORMIN HCL 2.5-500 mg] Albuterol Sulfate [Proair Hfa] 1 - 2 puff INHALATION RT-Q4H PRN 09/13/17 methylPREDNISolone [Medrol Dose See Taper PO DIRECTED 09/13/17 09/13/17 Pack] Previous Rx's Medication Instructions Recorded Levofloxacin [Levaquin] 500 mg PO DAILY #10 tab 09/12/17 Allergies Allergy/AdvReac Type Severity Reaction Status Date / Time Penicillins Allergy Rash/Hives Verified 09/13/17 21:20 Review of Systems ROS Statement: Those systems with pertinent positive or pertinent negative responses have been documented in the HPI. ROS Other: All systems not noted in ROS Statement are negative. Past Medical History Past Medical History: Cancer, Diabetes Mellitus, Hyperlipidemia, Hypertension Additional Past Medical History / Comment(s): had some kind of cancer removed as a teen-not sure what kind, no problems since History of Any Multi-Drug Resistant Organisms: None Reported Past Surgical History: Coronary Bypass/CABG, Heart Catheterization Additional Past Surgical History / Comment(s): open heart 2014 Past Anesthesia/Blood Transfusion Reactions: No Reported Reaction Past Psychological History: No Psychological Hx Reported Smoking Status: Never smoker Past Alcohol Use History: Occasional Past Drug Use History: None Reported - Past Family History Mother Family Medical History: No Reported History General Exam Limitations: no limitations General appearance: alert, in no apparent distress Head exam: Present: atraumatic, normocephalic, normal inspection Eye exam: Present: normal appearance, PERRL, EOMI. Absent: scleral icterus, conjunctival injection, periorbital swelling ENT exam: Present: normal exam, mucous membranes moist Neck exam: Present: normal inspection. Absent: tenderness, meningismus, lymphadenopathy Respiratory exam: Present: normal lung sounds bilaterally. Absent: respiratory distress, wheezes, rales, rhonchi, stridor Cardiovascular Exam: Present: regular rate, normal rhythm, normal heart sounds. Absent: systolic murmur, diastolic murmur, rubs, gallop, clicks GI/Abdominal exam: Present: soft, normal bowel sounds. Absent: distended, tenderness, guarding, rebound, rigid Extremities exam: Present: normal inspection, full ROM, normal capillary refill. Absent: tenderness, pedal edema, joint swelling, calf tenderness Back exam: Present: normal inspection Neurological exam: Present: alert, oriented X3, CN II-XII intact Psychiatric exam: Present: normal affect, normal mood Skin exam: Present: warm, dry, intact, normal color. Absent: rash Course Vital Signs 09/13/17 09/13/17 09/13/17 20:54 21:14 22:17 Temperature 98.2 F Pulse Rate 85 78 Respiratory 18 18 18 Rate Blood Pressure 161/81 149/81 O2 Sat by Pulse 95 97 Oximetry - Reevaluation(s) Reevaluation #1: 09/13/17 22:40 ER visit from yesterday is reviewed Reevaluation #2: 09/13/17 22:40 Patient does have improvement in symptoms with breathing treatments EKG Findings - EKG Comments: EKG Findings:: EKG shows sinus rhythm rate of 98, MD 174, QRS 150, QTc 474 Medical Decision Making - Medical Decision Making 76 female to be admitted for treatment of pneumonia with severe shortness of breath. Patient be given breathing treatments and cardiopulmonary support - Lab Data Result diagrams: 09/13/17 21:10 03/25/18 21:10 Lab Results 09/13/17 09/13/17 09/13/17 Range/Units 21:10 21:10 21:10 WBC 7.7 (3.8-10.6) k/uL RBC 4.55 (4.30-5.90) m/uL Hgb 13.8 (13.0-17.5) gm/dL Hct 40.7 (39.0-53.0) % MCV 89.5 (80.0-100.0) fL MCH 30.4 (25.0-35.0) pg MCHC 34.0 (31.0-37.0) g/dL RDW 12.7 (11.5-15.5) % Plt Count 191 (150-450) k/uL Neutrophils % 84 % Lymphocytes % 8 % Monocytes % 6 % Eosinophils % 0 % Basophils % 0 % Neutrophils # 6.5 (1.3-7.7) k/uL Lymphocytes # 0.6 L (1.0-4.8) k/uL Monocytes # 0.5 (0-1.0) k/uL Eosinophils # 0.0 (0-0.7) k/uL Basophils # 0.0 (0-0.2) k/uL PT 10.3 (9.0-12.0) sec INR 1.1 (<1.2) APTT 23.1 (22.0-30.0) sec D-Dimer 0.70 H (<0.60) mg/L FEU Sodium 132 L (137-145) mmol/L Potassium 4.5 (3.5-5.1) mmol/L Chloride 95 L (98-107) mmol/L Carbon Dioxide 22 (22-30) mmol/L Anion Gap 15 mmol/L BUN 15 (9-20) mg/dL Creatinine 0.80 (0.66-1.25) mg/dL Est GFR (CKD-EPI)AfAm >90 (>60 ml/min/1.73 sqM) Est GFR (CKD-EPI)NonAf 87 (>60 ml/min/1.73 sqM) Glucose 169 H (74-99) mg/dL Calcium 9.4 (8.4-10.2) mg/dL Magnesium 1.6 (1.6-2.3) mg/dL Total Bilirubin 1.2 (0.2-1.3) mg/dL AST 31 (17-59) U/L ALT 25 (21-72) U/L Alkaline Phosphatase 50 (38-126) U/L Total Protein 6.7 (6.3-8.2) g/dL Albumin 4.0 (3.5-5.0) g/dL - Radiology Data Radiology results: report reviewed (Chest x-rays positive for pneumonia), image reviewed Disposition Clinical Impression: Acute bronchitis with bronchospasm, Dyspnea, Community acquired pneumonia Disposition: ADMITTED IP TO THIS HOSP Condition: Fair Referrals: Pantera Gomez MD [Primary Care Provider] - 1-2 days
[2017-09-13 21:54] LABS: Basophils % (A) 0 %; Eosinophils % (A) 0 %; HCT 40.7 % (39.0-53.0); HGB 13.8 gm/dL (13.0-17.5); Lymphocytes # (A) 0.6 k/uL (1.0-4.8); Lymphocytes % (A) 8 %; MCH 30.4 pg (25.0-35.0); MCV 89.5 fL (80.0-100.0); Mean Platelet Volume 8.9; Monocytes # (A) 0.5 k/uL (0-1.0); Monocytes % (A) 6 %; Neutrophils # (A) 6.5 k/uL (1.3-7.7); Neutrophils % (A) 84 %; Platelet Count 191 k/uL (150-450); RBC 4.55 m/uL (4.30-5.90); RDW 12.7 % (11.5-15.5); WBC 7.7 k/uL (3.8-10.6)
[2017-09-13 22:04] LABS: D-Dimer 0.7 mg/L FEU (<0.60)
--- NOTE | 2017-09-13 22:06 | XR ---
EXAMINATION TYPE: XR chest 2V DATE OF EXAM: 09/13/2017 COMPARISON: 09/12/2017 HISTORY: Bronchitis. Short of breath. TECHNIQUE: Frontal and lateral views of the chest are obtained. FINDINGS: There is some patchy pneumonic airspace infiltrate in the left lower lobe. There is no hea rt failure. Thoracic aorta is atheromatous. There is no pleural effusion. There are sternal wires. Th ere are chest leads. Bony thorax is intact. There is blunting of the posterior costophrenic angles. IMPRESSION: There is increasing left lower lobe pneumonia compared to yesterday. No gross heart fail ure. Small pleural effusions are slightly increased compared to yesterday.
[2017-09-13 22:10] LABS: ALT 25 U/L (21-72); AST 31 U/L (17-59); Alkaline Phosphatase 50 U/L (38-126); Anion Gap 15 mmol/L; Blood Urea Nitrogen 15 mg/dL (9-20); Calcium 9.4 mg/dL (8.4-10.2); Carbon Dioxide 22 mmol/L (22-30); Chloride 95 mmol/L (98-107); Glucose 169 mg/dL (74-99); Magnesium 1.6 mg/dL (1.6-2.3); Potassium 4.5 mmol/L (3.5-5.1); Sodium 132 mmol/L (137-145); Total Bilirubin 1.2 mg/dL (0.2-1.3); Total Protein 6.7 g/dL (6.3-8.2)
[2017-09-13 22:11] LABS: INR 1.1 (<1.2); Partial Thromboplastin Time 23.1 sec (22.0-30.0); Prothrombin Time 10.3 sec (9.0-12.0)
[2017-09-13] MEDS ORDERED: LEVOFLOXACIN 750MG-D5W PMX 750 MG in DEXTROSE/WATER 1 150ML.BAG IVPB STA (22:37)
[2017-09-13] MEDS ORDERED: PNEUMONIA PROTOCOL UTILIZED 1 EACH MISC PO PRN (22:37)
[2017-09-13 22:43] LABS: Creatine Kinase MB 1.7 ng/mL (0.0-2.4); Troponin I 0.017 ng/mL (0.000-0.034)
[2017-09-13] MEDS: SODIUM CHLORIDE 0.9% 1,000 ML IV SCH (23:13)
[2017-09-13 23:57] VITALS: BMI 29.2
[2017-09-14] MEDS: MELATONIN 3 MG TABLET PO SCH ×2 (00:37→21:25)
[2017-09-14 07:58] LABS: Glucose,Whole Blood 136 mg/dL (75-99)
[2017-09-14] MEDS: IPRATROPIUM-ALBUTEROL 3 ML NEB INHALATION SCH ×4 (08:17→19:40)
[2017-09-14] MEDS: INSULIN ASPART 100 UNIT/ML 1 ML 10 ML VIAL SQ SCH ×4 (08:33→21:24)
[2017-09-14] MEDS: SODIUM CHLORIDE 0.9% 1,000 ML IV SCH (08:33)
[2017-09-14] MEDS: ENOXAPARIN 40 MG/0.4 ML SYRINGE SQ SCH (08:33)
--- NOTE | 2017-09-14 11:11 | XR ---
EXAMINATION TYPE: XR chest 2V DATE OF EXAM: 09/14/2017 COMPARISON: Prior chest 09/13/[address] 09/12/2017. HISTORY: Pneumonia and shortness of breath TECHNIQUE: Frontal and lateral views of the chest are obtained. FINDINGS: Patient is post median sternotomy. Airspace disease persists in the left lower lobe. Inter stitium is prominent. Lung volumes are prominent. Heart is enlarged and stable. No pneumothorax or pl eural effusion. IMPRESSION: Correlate for left lower lobe pneumonia, follow-up is recommended. Aortic aneurysm.
[2017-09-14 11:41] LABS: Glucose,Whole Blood 141 mg/dL (75-99)
[2017-09-14] MEDS ORDERED: IPRATROPIUM-ALBUTEROL 3 ML NEB INHALATION PRN (14:14)
[2017-09-14] MEDS ORDERED: ACETAMINOPHEN TAB 325 MG TAB PO PRN (14:14)
--- NOTE | 2017-09-14 16:23 | P.HPIM ---
History of Present Illness H&P Date: 09/14/17 Chief Complaint: Shortness of breath 76 years old male patient of Dr. Gomez with past medical history of hypertension, type 2 diabetes, history of coronary artery disease status post CABG 3 years ago comes in with worsening shortness of breath associated with cough and episode of fever for the past 3 days. He was seen in the ER 2 days ago and was started on levofloxacin, steroids and albuterol treatments. Patient called the on-call pager and was concerned about the increased blood sugar on steroids. Since there was not any recovery or improvement of patient' s symptoms, patient decided to come to the ER. Chest x-ray suggested left lower lobe pneumonia. Patient continued on levofloxacin. On my evaluation, patient was found to be very wheezing, resting comfortably on 2 L of nasal cannula. He endorses cough which is productive with an episode of blood tinged sputum with shortness of breath at rest. Patient was reluctant to be on prednisone due to the side effects of jitteriness but was willing to try one dose. Sputum culture ordered. Patient initiated on Pulmicort and Perforomist nebulization. Review of Systems Constitutional: Denies chills, Denies fever, Denies lethargy, Denies malaise, Denies poor appetite, Denies weakness, Denies weight loss Eyes: denies decreased vision, denies diplopia, denies discharge, denies pain Ears: deny: decreased hearing Ears, nose, mouth and throat: Denies dental pain, Denies headache, Denies nasal discharge, Denies nose pain Cardiovascular: Denies chest pain, Denies decreased exercise tolerance, Denies edema, Denies high blood pressure, Denies irregular heart beat, Denies palpitations, Denies paroxysmal nocturnal dyspnea, Denies rapid heart beat, endorses shortness of breath Respiratory: Endorses congestion, cough or sputum production, dyspnea, wheezing denies home oxygen Gastrointestinal: Denies abdominal pain, Denies change in bowel habits, Denies coffee ground emesis, Denies early satiety, Denies excessive gas, Denies heartburn, Denies hematemesis, Denies hematochezia, Denies loss of appetite, Denies nausea, Denies vomiting Genitourinary: Denies dysuria, Denies flank pain, Denies kidney stones, Denies menorrhagia, Denies urgency, Denies urinary frequency Musculoskeletal: Denies gait dysfunction, Denies limitation of motion, Denies morning stiffness, Denies muscle cramps Integumentary: Denies rash, Denies wounds, Denies brittle nails, Denies change in hair/nails, Denies darkening of skin Neurological: Denies balance difficulties, Denies change in speech, Denies double vision, Denies gait dysfunction, Denies loss of vision, Denies motor disturbance, Denies numbness, Denies paralysis, Denies paresthesias, Denies seizures Psychiatric: Denies anxiety, Denies depression Endocrine: Denies excessive sweating, Denies excessive thirst, Denies high blood sugars, Denies palpitations Hematologic/Lymphatic: Denies easy bruising, Denies lymphadenopathy Past Medical History Past Medical History: Cancer, Diabetes Mellitus, Hyperlipidemia, Hypertension Additional Past Medical History / Comment(s): had some kind of cancer removed as a teen-not sure what kind, no problems since History of Any Multi-Drug Resistant Organisms: None Reported Past Surgical History: Coronary Bypass/CABG, Heart Catheterization Additional Past Surgical History / Comment(s): open heart 2014 Past Anesthesia/Blood Transfusion Reactions: No Reported Reaction Past Psychological History: No Psychological Hx Reported Smoking Status: Never smoker Past Alcohol Use History: Occasional Past Drug Use History: None Reported - Past Family History Mother Family Medical History: No Reported History, Diabetes Mellitus Father Family Medical History: Hypertension Brother(s) Family Medical History: Hypertension Son(s) Family Medical History: Coronary Artery Disease (CAD) Additional Family Medical History / Comment(s): Then of heart attack was stopped patient has 2 daughters with underlying COPD Medications and Allergies Home Medications Medication Instructions Recorded Confirmed Type Aspirin 81 mg PO DAILY 08/07/16 09/13/17 History Atorvastatin [Lipitor] 20 mg PO DAILY 08/07/16 09/13/17 History Benazepril [Lotensin] 10 mg PO DAILY 08/07/16 09/13/17 History Metoprolol Tartrate [Lopressor] 50 mg PO DAILY 08/07/16 09/13/17 History Cholecalciferol [Vitamin D3] 1,000 unit PO DAILY 09/12/17 09/13/17 History Levofloxacin [Levaquin] 500 mg PO DAILY #10 tab 09/12/17 09/13/17 Rx glipiZIDE/METFORMIN HCL 1 tab PO BID 09/12/17 09/13/17 History [glipiZIDE/METFORMIN HCL 2.5-500 mg] Albuterol Sulfate [Proair Hfa] 1 - 2 puff INHALATION RT-Q4H PRN 09/13/17 History methylPREDNISolone [Medrol Dose See Taper PO DIRECTED 09/13/17 09/13/17 History Pack] Allergies Allergy/AdvReac Type Severity Reaction Status Date / Time Penicillins Allergy Rash/Hives Verified 09/13/17 21:20 Physical Exam Vitals: Vital Signs Temp Pulse Pulse Resp BP BP Pulse Ox 09/14/17 11:35 77 09/14/17 11:25 76 09/14/17 08:27 82 09/14/17 08:17 80 09/14/17 05:52 99.1 F 74 16 127/67 97 09/14/17 01:14 18 09/13/17 23:19 97.9 F 82 18 143/72 96 09/13/17 23:15 95 09/13/17 22:17 78 18 149/81 97 09/13/17 21:14 18 09/13/17 20:54 98.2 F 85 18 161/81 95 Intake and Output 09/14/17 09/14/17 09/14/17 06:59 14:59 22:59 Other: # Voids 1 Weight 90 kg - Constitutional General appearance: average body habitus, mild distress - EENT Eyes: no edentulous, EOMI, PERRLA, no photophobia Ears: bilateral: normal - Neck Neck: no lymphadenopathy, no normal ROM, no rigidity Carotids: bilateral: upstroke normal Thyroid: bilateral: normal size - Respiratory Respiratory: bilateral: diminished, dullness, wheezing - Cardiovascular Rhythm: regular Heart sounds: normal: S1, S2 Abnormal Heart Sounds: no systolic murmur, no diastolic murmur, no S3 Gallop, no S4 Gallop foot Peripheral Edema: bilateral: None dorsalis pedis Peripheral Pulses: bilateral: Normal - Gastrointestinal General gastrointestinal: distended, normal bowel sounds, soft, no tenderness - Integumentary Integumentary: no calor, no cellulitis, no cyanotic - Neurologic Neurologic: CNII-XII intact - Musculoskeletal Musculoskeletal: gait normal, no generalized weakness, strength equal bilaterally - Psychiatric Psychiatric: A&O x's 3, appropriate affect Results CBC & Chem 7: 09/13/17 21:10 09/13/17 21:10 Labs: Abnormal Lab Results - Last 24 Hours (Table) 09/13/17 09/13/17 09/13/17 Range/Units 21:10 21:10 21:10 Lymphocytes # 0.6 L (1.0-4.8) k/uL D-Dimer (<0.60) mg/L FEU Sodium 132 L (137-145) mmol/L Chloride 95 L (98-107) mmol/L Glucose 169 H (74-99) mg/dL POC Glucose (mg/dL) (75-99) mg/dL Total Creatine Kinase 317 H (55-170) U/L 09/13/17 09/14/17 09/14/17 Range/Units 21:10 07:31 11:38 Lymphocytes # (1.0-4.8) k/uL D-Dimer 0.70 H (<0.60) mg/L FEU Sodium (137-145) mmol/L Chloride (98-107) mmol/L Glucose (74-99) mg/dL POC Glucose (mg/dL) 136 H 141 H (75-99) mg/dL Total Creatine Kinase (55-170) U/L Thrombosis Risk Factor Assmnt - DVT/VTE Prophylaxis DVT/VTE Prophylaxis: Pharmacologic Prophylaxis ordered - Choose All That Apply Each Risk Factor Represents 3 Points: Age 75 years or older Thrombosis Risk Factor Assessment Total Risk Factor Score: 3 Thrombosis Risk Factor Assessment Level: Moderate Risk Assessment and Plan Plan: #1 acute bronchitis with community-acquired pneumonia likely secondary to gram- positive bacteria. Sputum cultures sent. Continue telemetry treatment with levofloxacin 750 mg daily. Hold IV fluids. Continue incentive spirometry. DuoNeb as needed for shortness of breath. Pulmicort and Perforomist initiated. Started on low-dose of prednisone as patient feels jittery on methylprednisone. #2 type 2 diabetes hold glipizide and metformin can initiate insulin sliding scale while the patient in the hospital #3 hypertension continue metoprolol 50 mg and benazepril 10 mg daily #4 history of coronary artery disease with coronary artery bypass grafting 3 years ago. Continue aspirin, Lipitor, metoprolol. #5 DVT prophylaxis with heparin every 12 #6 GI prophylaxis with Pepcid 20 mg by mouth daily CODE STATUS full code Disposition patient need at least 2 inpatient nights for recovery
[2017-09-14 17:35] LABS: Glucose,Whole Blood 151 mg/dL (75-99)
[2017-09-14] MEDS: ATORVASTATIN 20 MG TAB PO SCH (17:47)
[2017-09-14] MEDS: predniSONE 20 MG TAB PO SCH (17:47)
[2017-09-14] MEDS: guaiFENesin 600 MG TABLET.ER PO SCH ×2 (17:47→20:27)
[2017-09-14] MEDS: METOPROLOL TARTRATE 50 MG TAB PO SCH (17:47)
[2017-09-14] MEDS: FORMOTEROL FUMARATE 20 MCG/2 ML NEBU INHALATION SCH (19:40)
[2017-09-14] MEDS: BUDESONIDE 0.5 MG/2 ML NEBU INHALATION SCH (19:40)
[2017-09-14 20:27] LABS: Glucose,Whole Blood 235 mg/dL (75-99)
[2017-09-14] MEDS: FAMOTIDINE 20 MG TAB PO SCH (20:27)
[2017-09-14] MEDS ORDERED: ALPRAZolam 0.25 MG TAB PO PRN (20:56)
[2017-09-14] MEDS ORDERED: HEPARIN SODIUM,PORCINE 5,000 UNIT/ML 1 ML VIAL SQ SCH (21:00)
[2017-09-14] MEDS ORDERED: LEVOFLOXACIN 750MG-D5W PMX 750 MG in DEXTROSE/WATER 1 150ML.BAG IVPB SCH (21:00)
[2017-09-14 23:01] VITALS: RESP 16
[2017-09-15 03:53] LABS: Basophils % (A) 0 %; Eosinophils % (A) 0 %; HCT 36.6 % (39.0-53.0); HGB 12.7 gm/dL (13.0-17.5); Lymphocytes # (A) 0.5 k/uL (1.0-4.8); Lymphocytes % (A) 11 %; MCH 31.7 pg (25.0-35.0); MCHC 34.7 g/dL (31.0-37.0); MCV 91.5 fL (80.0-100.0); Mean Platelet Volume 8.2; Monocytes # (A) 0.3 k/uL (0-1.0); Monocytes % (A) 6 %; Neutrophils # (A) 3.5 k/uL (1.3-7.7); Neutrophils % (A) 81 %; Platelet Count 156 k/uL (150-450); RDW 12.7 % (11.5-15.5); WBC 4.4 k/uL (3.8-10.6)
[2017-09-15 04:12] LABS: ALT 22 U/L (21-72); AST 27 U/L (17-59); Albumin 3.2 g/dL (3.5-5.0); Alkaline Phosphatase 38 U/L (38-126); Anion Gap 11 mmol/L; Blood Urea Nitrogen 16 mg/dL (9-20); Calcium 8.7 mg/dL (8.4-10.2); Carbon Dioxide 24 mmol/L (22-30); Chloride 99 mmol/L (98-107); Glucose 196 mg/dL (74-99); Potassium 4.5 mmol/L (3.5-5.1); Sodium 134 mmol/L (137-145); Total Bilirubin 0.8 mg/dL (0.2-1.3); Total Protein 5.7 g/dL (6.3-8.2)
[2017-09-15 05:53] VITALS: BP 131/67; TEMP 97.4
[2017-09-15 07:06] LABS: Glucose,Whole Blood 159 mg/dL (75-99)
[2017-09-15] MEDS: FORMOTEROL FUMARATE 20 MCG/2 ML NEBU INHALATION SCH (08:00)
[2017-09-15] MEDS: IPRATROPIUM-ALBUTEROL 3 ML NEB INHALATION SCH ×2 (08:00→11:59)
[2017-09-15] MEDS: BUDESONIDE 0.5 MG/2 ML NEBU INHALATION SCH (08:00)
[2017-09-15] MEDS: predniSONE 20 MG TAB PO SCH (08:13)
[2017-09-15] MEDS: guaiFENesin 600 MG TABLET.ER PO SCH (08:13)
[2017-09-15] MEDS: FAMOTIDINE 20 MG TAB PO SCH (08:13)
[2017-09-15] MEDS: ENOXAPARIN 40 MG/0.4 ML SYRINGE SQ SCH (08:13)
[2017-09-15] MEDS: ATORVASTATIN 20 MG TAB PO SCH (08:13)
[2017-09-15] MEDS: METOPROLOL TARTRATE 50 MG TAB PO SCH (08:13)
[2017-09-15] MEDS: INSULIN ASPART 100 UNIT/ML 1 ML 10 ML VIAL SQ SCH ×2 (08:14→12:40)
[2017-09-15 08:26] VITALS: PULSE 76
[2017-09-15] MEDS ORDERED: LISINOPRIL 10 MG TAB PO SCH (09:00)
[2017-09-15] MEDS ORDERED: predniSONE 20 MG TAB PO SCH (09:00)
[2017-09-15] MEDS ORDERED: ASPIRIN 81 MG PO SCH (09:00)
[2017-09-15] MEDS ORDERED: CHOLECALCIFEROL 1,000 UNIT TAB PO SCH (09:00)
[2017-09-15] MEDS ORDERED: CEFDINIR 300 MG CAP PO STA (11:58)
[2017-09-15 13:09] LABS: Glucose,Whole Blood 204 mg/dL (75-99)
--- NOTE | 2017-09-15 16:01 | P.DS ---
Providers Date of admission: 09/13/17 22:37 Attending physician: Pantera Gomez Primary care physician: [facility] Course: 76 years old male patient of Dr. Gomez with past medical history of hypertension, type 2 diabetes, history of coronary artery disease status post CABG 3 years ago comes in with worsening shortness of breath associated with cough and episode of fever for the past 3 days. He was seen in the ER 2 days ago and was started on levofloxacin, steroids and albuterol treatments. Patient called the on-call pager and was concerned about the increased blood sugar on steroids. Since there was not any recovery or improvement of patient' s symptoms, patient decided to come to the ER. Chest x-ray suggested left lower lobe pneumonia. Patient continued on levofloxacin. On my evaluation, patient was found to be very wheezing, resting comfortably on 2 L of nasal cannula. He endorses cough which is productive with an episode of blood tinged sputum with shortness of breath at rest. Patient was reluctant to be on prednisone due to the side effects of jitteriness but was willing to try one dose. Sputum culture ordered. Patient initiated on Pulmicort and Perforomist nebulization. 09/15: Patient was seen and evaluated today. He reports breathing has improved, he is tolerating oral prednisone. Patient noted to have a penicillin ALLERGY, 1 dose of Cefpodoxime given, no reactions were noted after 2 hours. Patient will be discharged on cefpodoxime and prednisone. #1 acute bronchitis with community-acquired pneumonia likely secondary to gram- positive bacteria. #2 type 2 diabetes #3 hypertension #4 history of coronary artery disease with coronary artery bypass grafting 3 years ago. The above impression and plan of care have been discussed and directed by signing physician. Terra Conway nurse practitioner acting as scribe for signing physician. Patient Condition at Discharge: Good Plan - Discharge Summary Discharge Rx Participant: Yes New Discharge Prescriptions: New Cefpodoxime Proxetil [Vantin] 100 mg PO Q12HR #10 tab Famotidine [Pepcid] 20 mg PO BID #60 tab guaiFENesin [Mucinex] 600 mg PO Q12HR #14 tablet.er predniSONE 40 mg PO DAILY #8 tab Continue Metoprolol Tartrate [Lopressor] 50 mg PO DAILY Benazepril [Lotensin] 10 mg PO DAILY Atorvastatin [Lipitor] 20 mg PO DAILY Aspirin 81 mg PO DAILY Cholecalciferol [Vitamin D3] 1,000 unit PO DAILY glipiZIDE/METFORMIN HCL [glipiZIDE/METFORMIN HCL 2.5-500 mg] 1 tab PO BID Albuterol Sulfate [Proair Hfa] 1 - 2 puff INHALATION RT-Q4H PRN PRN Reason: difficulty in breathing Discontinued Levofloxacin [Levaquin] 500 mg PO DAILY #10 tab methylPREDNISolone [Medrol Dose Pack] See Taper PO DIRECTED Discharge Medication List Aspirin 81 mg PO DAILY 08/07/16 [History] Atorvastatin [Lipitor] 20 mg PO DAILY 08/07/16 [History] Benazepril [Lotensin] 10 mg PO DAILY 08/07/16 [History] Metoprolol Tartrate [Lopressor] 50 mg PO DAILY 08/07/16 [History] Cholecalciferol [Vitamin D3] 1,000 unit PO DAILY 09/12/17 [History] glipiZIDE/METFORMIN HCL [glipiZIDE/METFORMIN HCL 2.5-500 mg] 1 tab PO BID [History] Albuterol Sulfate [Proair Hfa] 1 - 2 puff INHALATION RT-Q4H PRN 09/13/17 [ History] Cefpodoxime Proxetil [Vantin] 100 mg PO Q12HR #10 tab 09/15/17 [Rx] Famotidine [Pepcid] 20 mg PO BID #60 tab 09/15/17 [Rx] guaiFENesin [Mucinex] 600 mg PO Q12HR #14 tablet.er 09/15/17 [Rx] predniSONE 40 mg PO DAILY #8 tab 09/15/17 [Rx] Follow up Appointment(s)/Referral(s): Pantera Gomez MD [Primary Care Provider] - 09/21/17 2:00 pm Patient Instructions/Handouts: Acute Bronchitis (GEN) Activity/Diet/Wound Care/Special Instructions: Cardiac, diabetic diet. Activity as tolerated. Discharge Disposition: HOME SELF-CARE
[2017-09-15] MEDS ORDERED: LEVOFLOXACIN 750 MG TAB PO SCH (21:00)
== END 2017-09-15 14:25 | disposition home or self-care (01) | DRG 194 ==
LOC: EC 20:46 → 4MS4W 22:37
PROVIDERS: ADMIT Internal Medicine Geriatric Medicine; ATTEND Internal Medicine Geriatric Medicine
DX: J15.9 Unspecified bacterial pneumonia (principal); R04.2 Hemoptysis; E11.9 Type 2 diabetes mellitus without complications; J20.9 Acute bronchitis, unspecified; I10 Essential (primary) hypertension; I25.10 Atherosclerotic heart disease of native coronary artery without angina pectoris; Z88.0 Allergy status to penicillin; E78.5 Hyperlipidemia, unspecified; Z79.82 Long term (current) use of aspirin; Z79.84 Long term (current) use of oral hypoglycemic drugs; Z79.899 Other long term (current) drug therapy; Z85.9 Personal history of malignant neoplasm, unspecified; Z95.1 Presence of aortocoronary bypass graft
CPT/HCPCS: 36415; 71046; 71275; 80053; 82550; 82553; 83735; 83880; 84484; 85025; 85379; 85610; 85730; 87040; 87070; 87205; 87502; 93005; 94640; 94760; 99285

== ENCOUNTER → 2019-08-10 | Outpatient (CLI) | payer MEDICARE, BC ==
[2019-08-10 07:38] LABS: Basophils # (A) 0.1 k/uL (0-0.2); Basophils % (A) 1 %; Eosinophils # (A) 0.2 k/uL (0-0.7); Eosinophils % (A) 3 %; HCT 42.9 % (39.0-53.0); HGB 13.9 gm/dL (13.0-17.5); Lymphocytes % (A) 16 %; MCH 30.9 pg (25.0-35.0); MCHC 32.4 g/dL (31.0-37.0); MCV 95.2 fL (80.0-100.0); Mean Platelet Volume 9.2; Monocytes # (A) 0.4 k/uL (0-1.0); Monocytes % (A) 7 %; Neutrophils # (A) 4.4 k/uL (1.3-7.7); Neutrophils % (A) 71 %; Platelet Count 219 k/uL (150-450); RBC 4.51 m/uL (4.30-5.90); RDW 12.6 % (11.5-15.5); WBC 6.2 k/uL (3.8-10.6)
[2019-08-10 12:06] LABS: African American GFR (CKD) 93.8 (60.0-200.0); Albumin 4.5 g/dL (3.80-4.90); Albumin/Globulin Ratio 2.65 (1.60-3.17); Anion Gap 11.1 mmol/L (4.00-12.00); BUN/Creat Ratio 17.78 Ratio (12.00-20.00); Calcium 9.5 mg/dL (8.7-10.3); Carbon Dioxide 24.9 mmol/L (21.6-31.8); Globulin 1.7 g/dL (1.6-3.3); Non-African American GFR(CKD) 80.9 (60.0-200.0); Potassium 4.9 mmol/L (3.5-5.5); Total Bilirubin 1.9 mg/dL (0.3-1.2); Total Protein 6.2 g/dL (6.2-8.2)
== END | disposition home or self-care (01) ==
LOC: LABWHC1 06:54
PROVIDERS: ATTEND Internal Medicine Cardiovascular Disease
DX: I25.10 Atherosclerotic heart disease of native coronary artery without angina pectoris (principal); R07.9 Chest pain, unspecified
CPT/HCPCS: 36415; 80053; 85025

== ENCOUNTER 2019-08-15 06:33 | Day surgery (SDC) | payer MEDICARE, BC ==
[~2019-08-15 06:33] MED LIST changes: +ALPRAZolam 0.5 MG TAB PO PRN; -ASPIRIN 325 MG TAB PO ONE; +NITROGLYCERIN SL TABS 0.4 MG TAB SUBLINGUAL PRN
[2019-08-15] MEDS ORDERED: ASPIRIN 325 MG TAB PO ONE (07:00)
[2019-08-15] MEDS ORDERED: ATORVASTATIN 80 MG TAB PO ONE (07:00)
[2019-08-15] MEDS ORDERED: SODIUM CHLORIDE 0.9% 1,000 ML IV ONE ×2 (07:00→07:46)
[2019-08-15 07:02] LABS: Glucose,Whole Blood 150 mg/dL (75-99)
[2019-08-15] MEDS ORDERED: LIDOCAINE 1% INJ 10MG/ML (20 ML MDV) ONE (07:22)
[2019-08-15] MEDS ORDERED: fentaNYL (PF) 50 MCG/ML 2 ML AMP ONE (07:22)
[2019-08-15] MEDS ORDERED: fentaNYL (PF) 50 MCG/ML 2 ML AMP IV ONE (07:58)
[2019-08-15] MEDS ORDERED: MIDAZOLAM 2 MG/2 ML VIAL IVP ONE (07:58)
[2019-08-15] MEDS ORDERED: LIDOCAINE 1% INJ 10MG/ML (20 ML MDV) SQ ONE (08:02)
[2019-08-15] MEDS ORDERED: IOPAMIDOL-370 125ML BTL INJ ONE (08:34)
--- NOTE | 2019-08-15 09:20 | P.CARDCATH ---
Date of Procedure: 08/15/19 Preoperative Diagnosis: Exertional angina and history of previous bypass Postoperative Diagnosis: Total occlusion of the [place] vessels. Suspicious critical lesion involving the anastomosis of the RCA to the PDA Procedure(s) Performed: Left heart catheterization with selective coronary arteriography and selective injection of the 3 vein grafts and the HERNANDEZ graft. No LV gram Description of Procedure: HISTORY: This is a 78-year-old gentleman with history of ischemic heart disease with previous bypass surgery with the HERNANDEZ to the LAD, vein graft to the diagonal, vein graft to the OM branch and vein graft to the RCA. Patient was recently seen in the office with complaints of exertional shortness of breath and chest tightness. Patient is advised to have a cardiac catheterization for definitive diagnosis CONSENT:I have discussed the risks, benefits and alternative therapies for the above-mentioned procedure and for both sedation/analgesia as well as necessary blood product administration, if indicated, as they pertain to this patient. The patient has indicated understanding and acceptance of the risks and procedures discussed. [] PROCEDURE: Patient was brought to the lab in a fasting state. Patient was given some IV sedation. The right groin is infiltrated with lidocaine and right femoral artery was entered using Seldinger technique. A 6-Vietnamese catheter was left in place and selective coronary arteriography and selective injection of the 3 vein grafts and HERNANDEZ graft was performed. Patient tolerated the procedure well. Femoral angiogram was performed and Angio-Seal was applied for hemostasis. No immediate complications were noted and patient is waiting to have possible stenting of the junction of the vein graft to the PDA Conscious Sedation: Versed 1mg Fentanyl 50 g Duration 50 minutes HEMODYNAMICS:. The aortic pressure is about 130/70. The left ventricle end- diastolic pressure is about 10. There was no gradient across the aortic valve SELECTIVE CORONARY ARTERIOGRAPHY: LEFT MAIN: Long and calcified and difficult to engage the left main because of the tortuosity andremodeling and uncoiling of the aorta THE LEFT ANTERIOR DESCENDING CORONARY ARTERY: This seemed to be totally occluded in the proximal portion THE LEFT CIRCUMFLEX AND IS CORONARY ARTERY:. This seemed to be totally occluded in the proximal portion THE RIGHT CORONARY ARTERY:. This is totally occluded in the proximal portion THE INTERMEDIATE CORONARY ARTERY: This is a moderate caliber vessel and calcified and seems to be free of any significant focal lesions. THE VEIN GRAFT TO THE DIAGONAL: This is patent throughout its length and also at the proximal and distal anastomosis. THE VEIN GRAFT TO THE OM BRANCH: This is also patent at the proximal and distal anastomosis and throughout its length. THE VEIN GRAFT TO THE RCA: This is a huge caliber vessel and patent at the proximal anastomosis. There appears to be stenosis at the distal anastomosis to the PDA with filling defect. To be evaluated by Dr. Garcia for possible stenting. THE HERNANDEZ GRAFT TO THE LAD: This is a not selectively studied because of difficulty advancing the catheters. Subselectively injection showed a patent proximal portion of the HERNANDEZ. The distal portion is not well visualized LEFT VENTRICULOGRAPHY: Not performed FINAL IMPRESSION: Patent vein graft to the diagonal OM branch and also RCA with critical lesion at that distal anastomosis of the vein graft to the RCA. The HERNANDEZ graft is presumed to function normally. The proximal portion seems to be patent. The distal portion is not well visualized. PLAN: Dr. Allred' is going to evaluate patient for possible stenting of the distal anastomotic site of the RCA graft. PROGNOSIS: Guarded
[2019-08-15] MEDS ORDERED: BIVALIRUDIN BOLUS 250 MG/50 ML IV ONE (09:30)
[2019-08-15] MEDS ORDERED: BIVALIRUDIN 250 MG in SODIUM CHLORIDE 0.9% 50 ML IV ONE (09:30)
[2019-08-15] MEDS ORDERED: CLOPIDOGREL 75 MG TAB ONE (09:35)
[2019-08-15] MEDS ORDERED: NITROGLYCERIN 1000MCG/10ML SYRINGE INTRACORON ONE (09:36)
[2019-08-15] MEDS: niCARdipine Syringe (1,000 mcg/10 mL) INTRACORON ONE ×2 (09:37→09:43)
[2019-08-15] MEDS ORDERED: CLOPIDOGREL 75 MG TAB PO ONE (09:38)
[2019-08-15] MEDS ORDERED: IOPAMIDOL-370 100ML BTL INJ ONE (09:42)
[2019-08-15] MEDS ORDERED: IOPAMIDOL-370 50ML BTL INJ ONE (09:48)
[2019-08-15] MEDS ORDERED: ATROPINE SULFATE 0.1 MG/ML 10ML SYRINGE IV PRN (09:51)
[2019-08-15] MEDS ORDERED: ZOLPIDEM 5 MG TAB PO PRN (09:51)
[2019-08-15] MEDS ORDERED: MAG HYDROX/AL HYDROX/SIMETH 30 ML CUP PO PRN (09:51)
[2019-08-15] MEDS ORDERED: RX INFO: IV CONTRAST WAS GIVEN 1 EACH MISC MISCELLANE PRN (09:51)
[2019-08-15] MEDS ORDERED: SODIUM CHLORIDE 0.9% 1,000 ML IV SCH (10:00)
--- NOTE | 2019-08-15 10:08 | PTCA ---
PERCUTANEOUSTRANS CORORONARY ANGIOGRAPHY PERFORMING PHYSICIAN: Bud Allred MD. PROCEDURE PERFORMED: Successful stenting of the distal anastomosis of SVG to RCA using 2.25 x 12 mm Xience KYLEE with an excellent angiographic results. INDICATION: This is a 78-year-old gentleman who sees Dr. Haas in the office as an outpatient with coronary artery disease and prior coronary artery bypass grafting, who was experiencing symptoms of chest discomfort with exertion concerning for angina. He underwent a heart catheterization by Dr. Haas and was found to have severe disease involving the distal anastomosis of SVG to RCA. APPROACH: Right common femoral artery. COMPLICATION: None. LEVEL OF SEDATION: Moderate with sedation length of 15 minutes. PROCEDURE DESCRIPTION: Please refer to diagnostic heart catheterization was performed by Dr. Haas. Anticoagulation was initiated using Angiomax. Subsequently I did engage the graft using multipurpose catheter. I did wire it using a whisper wire. After that, I did direct stenting using x 12 mm Xience drug-eluting stent where the stent was positioned under fluoroscopy guidance and deployed under 18 atmospheres for 20 seconds with the following angiogram showing excellent angiographic results. The procedure was completed without any complication. POSTPROCEDURE MANAGEMENT: 1. Dual anti-platelet therapy. 2. Risk factors modifications. 3. Follow up with the patient. MMODL / IJN: [id number] /
[2019-08-15 11:42] VITALS: BMI 32.3
[2019-08-15 12:28] LABS: Glucose,Whole Blood 133 mg/dL (75-99)
--- NOTE | 2019-08-15 12:55 | P.CONS ---
History of Present Illness - Reason for Consult Consult date: 08/15/19 Medical management, post PCI and stent placement, ischemic cardiomyopathy. Requesting physician: Alison Haas - Chief Complaint Recurrent angina and chest pain with significant shortness of breath. - History of Present Illness 78-year-old male one of my office patient with past medical history of CAD, type 2 diabetes, hypertension, hyperlipidemia who had history of CABG 4 vessel back in 2013 has been doing well till lab last few weeks when he developed to have worsening symptom with exertion consistent with mild angina and significant shortness of breath with mild PND and orthopnea not feeling himself ended up going to see cardiology stress test and echo came back significantly abnormal with significant decrease in ejection fraction was referred to cardiology for possible intervention ended up coming to the hospital today and had an angiogram with Dr. Haas which found to have total occlusion of the RCA to the PDA. Patient ended up going for PCI and stent placement which was done successfully with Dr. Allred patient was admitted to the floor afterward feeling well no anginal chest pain no bleeding from the catheter site. Review of Systems CONSTITUTIONAL: Well-developed no acute respiratory distress. EYES: No icterus sclerae, no conjunctivitis. EARS, NOSE, MOUTH, THROAT, and FACE: No sore throat, lymphadenopathy, carotid bruits or deformity. RESPIRATORY: Positive chest pain with mild shortness of breath. CARDIOVASCULAR: Positive angina with palpitation mild orthopnea and PND GASTROINTESTINAL: No Abd pain, Nausea or vomiting, no Diarrhea or constipation, No GI Bleed, no distention or masses. GENITOURINARY: Negative for Hematuria or UTI, no kidney stones. INTEGUMENT/BREAST: Negative for any muscular injury with mild osteoarthritis.. HEMATOLOGIC/LYMPHATIC: Negative for bleed or purpura. MUSCULOSKELTAL: Negative for Myalgia or arthralgia. NEURLOGICAL: No LOC, Sz or syncope, blurred vision dizziness or abnormality.. BEHAVIORAL/PSYCH: Negative. ENDOCRINE: Negative. Past Medical History Past Medical History: Coronary Artery Disease (CAD), Cancer, Diabetes Mellitus, Hyperlipidemia, Hypertension Additional Past Medical History / Comment(s): See Dr Haas's H&P, had some kind of cancer removed as a teen-not sure what kind, no problems since History of Any Multi-Drug Resistant Organisms: None Reported Past Surgical History: Coronary Bypass/CABG, Heart Catheterization Additional Past Surgical History / Comment(s): open heart 2014 CABGX4 Past Anesthesia/Blood Transfusion Reactions: No Reported Reaction Past Psychological History: No Psychological Hx Reported Smoking Status: Never smoker Past Alcohol Use History: Occasional Past Drug Use History: None Reported - Past Family History Mother Family Medical History: No Reported History, Diabetes Mellitus Father Family Medical History: Hypertension Brother(s) Family Medical History: Hypertension Son(s) Family Medical History: Coronary Artery Disease (CAD) Additional Family Medical History / Comment(s): Then of heart attack was stopped patient has 2 daughters with underlying COPD Medications and Allergies Home Medications Medication Instructions Recorded Confirmed Type Atorvastatin [Lipitor] 20 mg PO DAILY 08/07/16 08/15/19 History Benazepril [Lotensin] 20 mg PO DAILY 08/07/16 08/15/19 History glipiZIDE/METFORMIN HCL 1 tab PO BID 09/12/17 08/15/19 History [glipiZIDE/METFORMIN HCL 2.5-500 mg] Cholecalciferol [Vitamin D3 (25 5,000 unit PO DAILY 08/10/19 08/15/19 History Mcg = 1000 Iu)] Spironolactone 12.5 mg PO DAILY 08/10/19 08/15/19 History Allergies Allergy/AdvReac Type Severity Reaction Status Date / Time Penicillins Allergy Rash/Hives Verified 08/10/19 12:06 Physical Exam Vitals: Vital Signs Temp Pulse Pulse Resp BP BP BP 08/15/19 11:36 59 L 20 123/69 08/15/19 11:05 62 20 125/69 08/15/19 10:36 56 L 20 126/69 08/15/19 10:21 60 20 125/66 08/15/19 10:06 59 L 20 139/65 08/15/19 08:50 12 08/15/19 07:00 97.5 F L 84 16 124/62 159/84 Pulse Ox 08/15/19 11:36 97 08/15/19 11:05 95 08/15/19 10:36 96 08/15/19 10:21 95 08/15/19 10:06 96 08/15/19 08:50 98 08/15/19 07:00 96 Intake and Output 08/14/19 08/15/19 08/15/19 22:59 06:59 14:59 Intake Total 300 Balance 300 Intake: IV 300 Other: # Voids 0 Weight 93.8 kg 93.8 kg General Appearance: Alert, cooperative, no distress, appears stated age. Neck HEENT: Supple, no lymphadenopathy, no thyroid enlargement, no carotid bruits. Lungs: Decreased breath some bilateral rhonchi no crackles possible mild expiratory wheezes. Chest Wall: Decrease expansion with deep inspiration no tenderness and no deformity was found on exam, no costochondral pain or discomfort. Heart: Regular rate and rhythm, S1, S2 normal, positive S3 positive JVD with ejection murmur in the Back: Symmetric, no curvature, ROM normal, no CVA tenderness. Abdomen: Soft, non-tender, bowel sounds active all four quadrants, no masses, no organomegaly. Extremities: Extremities normal, atraumatic, no cyanosis or edema. Pulses: 2+ and symmetric. Skin: Skin color, texture, tugor normal, no rashes or lesions. Neurologic: Alert oriented x3 cranial nerves II through XII intact, no motor deficit, no abnormal balance or gait. Results Labs: Abnormal Lab Results - Last 24 Hours (Table) 08/15/19 08/15/19 Range/Units 06:59 12:26 POC Glucose (mg/dL) 150 H 133 H (75-99) mg/dL Assessment and Plan Plan: 1 recurrent angina: With significant stenosis of the RCA to the PDA post angioplasty and stent placement today successfully with no complication. 2 ischemic cardiopathy: With low ejection fraction running around 55 percentile might require ICD at some point in the meanwhile continue medical management after angioplasty see if there is any improvement, patient remain on Benzapril, spironolactone, can benefit from adding smaller dose of beta ky if able to tolerate. 3 hypertension: Has been doing well on Benzapril previous 20 mg daily. 4 type 2 diabetes: Continue patient on glipizide and metformin continue Accu- Chek with sliding skill is coverage since angiogram done at this point patient will be off metformin for 48 hours we'll continue Accu-Chek with sliding scales coverage. 5 hyperlipidemia: Remain on atorvastatin 20 mg a day. 6 BPH watch for any retention. 7 GI prophylaxis: Can benefit from Pepcid 20 mg daily. CODE STATUS: Full code. Dr. Haas thank you much for the consult psych can be any further help to please him enough.
[2019-08-15 17:19] LABS: Glucose,Whole Blood 212 mg/dL (75-99)
[2019-08-15 20:08] LABS: Glucose,Whole Blood 176 mg/dL (75-99)
[2019-08-15 20:30] VITALS: TEMP 97.8
[2019-08-15] MEDS: INSULIN ASPART (NovoLOG) 100 UNIT/ML VIAL SQ SCH (20:44)
[2019-08-15] MEDS: METOPROLOL TARTRATE 12.5 MG TAB PO SCH (20:44)
[2019-08-15] MEDS ORDERED: ATORVASTATIN 80 MG TAB PO SCH (21:00)
[2019-08-16 06:12] LABS: Basophils # (A) 0.1 k/uL (0-0.2); Basophils % (A) 1 %; Eosinophils # (A) 0.2 k/uL (0-0.7); Eosinophils % (A) 2 %; HCT 42.2 % (39.0-53.0); HGB 13.6 gm/dL (13.0-17.5); Lymphocytes # (A) 1.3 k/uL (1.0-4.8); Lymphocytes % (A) 17 %; MCH 30.4 pg (25.0-35.0); MCHC 32.1 g/dL (31.0-37.0); MCV 94.4 fL (80.0-100.0); Mean Platelet Volume 9.3; Monocytes # (A) 0.6 k/uL (0-1.0); Monocytes % (A) 8 %; Neutrophils # (A) 5.2 k/uL (1.3-7.7); Neutrophils % (A) 70 %; Platelet Count 210 k/uL (150-450); RBC 4.47 m/uL (4.30-5.90); RDW 12.6 % (11.5-15.5); WBC 7.5 k/uL (3.8-10.6)
[2019-08-16 06:12] LABS: Glucose,Whole Blood 153 mg/dL (75-99)
[2019-08-16] MEDS: INSULIN ASPART (NovoLOG) 100 UNIT/ML VIAL SQ SCH (06:17)
[2019-08-16 06:25] LABS: African American GFR (CKD) >90 (>60 ml/min/1.73 sqM); Anion Gap 9 mmol/L; Blood Urea Nitrogen 18 mg/dL (9-20); Carbon Dioxide 24 mmol/L (22-30); Chloride 102 mmol/L (98-107); Glucose 165 mg/dL (74-99); Non-African American GFR(CKD) 88 (>60 ml/min/1.73 sqM); Potassium 4.5 mmol/L (3.5-5.1); Sodium 135 mmol/L (137-145)
[2019-08-16] MEDS: METOPROLOL TARTRATE 12.5 MG TAB PO SCH (08:35)
[2019-08-16 08:57] VITALS: BP 157/76; PULSE 79; RESP 20
[2019-08-16] MEDS ORDERED: FUROSEMIDE 10 MG/ML 4 ML VIAL IV SCH (09:00)
[2019-08-16] MEDS ORDERED: PNEUMOCOCCAL VACC-PNEUMOVAX 23 25 MCG/0.5 ML VIAL IM ONE (09:00)
[2019-08-16] MEDS ORDERED: LISINOPRIL 20 MG TAB PO SCH (09:00)
[2019-08-16] MEDS ORDERED: SPIRONOLACTONE 25 MG TAB PO SCH (09:00)
[2019-08-16] MEDS ORDERED: CHOLECALCIFEROL 1,000 UNIT TAB PO SCH (09:00)
[2019-08-16] MEDS ORDERED: ASPIRIN 325 MG TAB PO SCH (09:00)
[2019-08-16] MEDS ORDERED: CLOPIDOGREL 75 MG TAB PO SCH (09:53)
--- NOTE | 2019-08-16 13:28 | P.DS ---
Providers Date of admission: 08/15/19 Attending physician: Alison Haas Consults: 08/15/19 09:51 Consult Physician Routine Consulting Provider: [facility] Consult Reason/Comments: Post Interventional patient Do you want consulting provider notified?: Already Contacted Primary care physician: Pantera Gomez - Discharge Diagnosis(es) (1) Crescendo angina Status: Acute (2) Status post placement of stent in right coronary artery Status: Acute (3) History of four vessel coronary artery bypass graft Status: Acute (4) Ischemic cardiomyopathy Status: Acute Hospital Course: This patient with history of previous bypass surgery was recently seen in the office with complaints of exertional chest pain and shortness of breath. Patient was advised to have a cardiac catheterization. This revealed evidence of a critical lesion involving the junction of the vein graft to the distal RCA. The 2 vein grafts to the diagonal and OM branch were patent. The HERNANDEZ graft was studied is subselectively and seemed to be patent. Patient had stent placement of the RCA at the distal anastomotic site. The patient remains stable. His groin is soft. Denies any chest pain, still has some exertional shortness of breath. Patient has evidence of left bundle-branch block, cardiomyopathy and moderate to severe mitral regurgitation. If his symptoms don't improve, may consider biventricular pacemaker with AICD. Patient will have follow-up in the office in one week. We'll continue current medical therapy with the addition of Plavix daily and Lasix and metoprolol. Patient will avoid any AV exertional activities. His groin is soft without any hematoma. We will also hold metformin for 48 hours Patient Condition at Discharge: Stable Plan - Discharge Summary Discharge Rx Participant: Yes New Discharge Prescriptions: New Aspirin 81 mg PO DAILY tab Atorvastatin [Lipitor] 80 mg PO HS tab Metoprolol Tartrate [Lopressor] 12.5 mg PO BID #60 tab Nitroglycerin Sl Tabs [Nitrostat] 0.4 mg SUBLINGUAL Q5M PRN #100 tab PRN Reason: Chest Pain Furosemide [Lasix] 40 mg PO DAILY #30 tablet Clopidogrel Bisulfate [Plavix] 75 mg PO DAILY #30 tab Continue Benazepril [Lotensin] 20 mg PO DAILY glipiZIDE/METFORMIN HCL [glipiZIDE/METFORMIN HCL 2.5-500 mg] 1 tab PO BID Cholecalciferol [Vitamin D3 (25 Mcg = 1000 Iu)] 5,000 unit PO DAILY Spironolactone 12.5 mg PO DAILY Discharge Medication List Benazepril [Lotensin] 20 mg PO DAILY 08/07/16 [History] glipiZIDE/METFORMIN HCL [glipiZIDE/METFORMIN HCL 2.5-500 mg] 1 tab PO BID 09/12/17 [History] Cholecalciferol [Vitamin D3 (25 Mcg = 1000 Iu)] 5,000 unit PO DAILY 08/10/19 [History] Spironolactone 12.5 mg PO DAILY 08/10/19 [History] Aspirin 81 mg PO DAILY tab 08/16/19 [Rx] Atorvastatin [Lipitor] 80 mg PO HS tab 08/16/19 [Rx] Clopidogrel Bisulfate [Plavix] 75 mg PO DAILY #30 tab 08/16/19 [Rx] Furosemide [Lasix] 40 mg PO DAILY #30 tablet 08/16/19 [Rx] Metoprolol Tartrate [Lopressor] 12.5 mg PO BID #60 tab 08/16/19 [Rx] Nitroglycerin Sl Tabs [Nitrostat] 0.4 mg SUBLINGUAL Q5M PRN #100 tab 08/16/19 [Rx] Follow up Appointment(s)/Referral(s): Pantera Gomez MD [Primary Care Provider] - 1 Week (Spoke to pt's . She will call and make this appointment) Alison Haas MD [STAFF PHYSICIAN] - 08/25/19 4:15 pm () Patient Instructions/Handouts: *[facility] - After Heart Catheterization - Acute Specialist Instructions, Heart Healthy Diet (DC) Activity/Diet/Wound Care/Special Instructions: HOLD DIABETIC MEDICATION UNTIL THURSDAY Discharge Disposition: HOME SELF-CARE
== END 2019-08-16 10:32 | disposition home or self-care (01) ==
LOC: CATHCVL 06:33 → 3SCARD 09:46 → CATHCVL 08-16 10:32
PROVIDERS: ATTEND Internal Medicine Cardiovascular Disease
DX: I25.710 Atherosclerosis of autologous vein coronary artery bypass graft(s) with unstable angina pectoris (principal); I25.110 Atherosclerotic heart disease of native coronary artery with unstable angina pectoris; I25.84 Coronary atherosclerosis due to calcified coronary lesion; I25.82 Chronic total occlusion of coronary artery; I10 Essential (primary) hypertension; I77.1 Stricture of artery; R94.39 Abnormal result of other cardiovascular function study; I34.0 Nonrheumatic mitral (valve) insufficiency; I44.7 Left bundle-branch block, unspecified; I25.5 Ischemic cardiomyopathy; E78.2 Mixed hyperlipidemia; E11.9 Type 2 diabetes mellitus without complications; N40.0 Benign prostatic hyperplasia without lower urinary tract symptoms; Z82.49 Family history of ischemic heart disease and other diseases of the circulatory system; Z83.3 Family history of diabetes mellitus; Z82.5 Family history of asthma and other chronic lower respiratory diseases; Z95.1 Presence of aortocoronary bypass graft; Z79.84 Long term (current) use of oral hypoglycemic drugs; Z79.899 Other long term (current) drug therapy; Z88.0 Allergy status to penicillin
CPT/HCPCS: 93459; 80048; 85025; 90732; C9604; C1769 ×4; C1760; C1887; C1894; C1874; G0009; J2250; J2001; J3010; J0583; Q9967 ×3; 93458

== ENCOUNTER 2019-08-23 14:44 | Observation (INO) | payer MEDICARE, BC ==
[2019-08-23] MEDS ORDERED: ASPIRIN 81 MG PO STA (15:07)
--- NOTE | 2019-08-23 15:34 | ED ---
Chest Pain HPI - General Chief Complaint: Chest Pain Stated Complaint: Chest pain Time Seen by Provider: 08/23/19 15:06 Source: patient, RN notes reviewed Mode of arrival: ambulatory Limitations: no limitations - History of Present Illness Initial Comments: 78-year-old male presents emergency Department chief complaint of chest pressure, shortness of breath, fatigue. Patient states he had a stent placed by Dr. Allred on 08/15/2019. Patient states he just has not felt well he had some increasing chest pressure today which he took a nitro one hour prior arrival symptoms have resolved. He states that he has been very fatigued, tired at this time. Patient also had a cardiac bypass proximal 5-6 years ago. Patient denies any leg swelling, abdominal pain, nausea vomiting. - Related Data Home Medications Medication Instructions Recorded Confirmed Benazepril [Lotensin] 20 mg PO DAILY 08/07/16 08/15/19 glipiZIDE/METFORMIN HCL 1 tab PO BID 09/12/17 08/15/19 [glipiZIDE/METFORMIN HCL 2.5-500 mg] Cholecalciferol [Vitamin D3 (25 5,000 unit PO DAILY 08/10/19 08/15/19 Mcg = 1000 Iu)] Spironolactone 12.5 mg PO DAILY 08/10/19 08/15/19 Previous Rx's Medication Instructions Recorded Aspirin 81 mg PO DAILY tab 08/16/19 Atorvastatin [Lipitor] 80 mg PO HS tab 08/16/19 Clopidogrel Bisulfate [Plavix] 75 mg PO DAILY #30 tab 08/16/19 Furosemide [Lasix] 40 mg PO DAILY #30 tablet 08/16/19 Metoprolol Tartrate [Lopressor] 12.5 mg PO BID #60 tab 08/16/19 Nitroglycerin Sl Tabs [Nitrostat] 0.4 mg SUBLINGUAL Q5M PRN #100 tab 08/16/19 Allergies Allergy/AdvReac Type Severity Reaction Status Date / Time Penicillins Allergy Rash/Hives Verified 08/23/19 14:50 Review of Systems ROS Statement: Those systems with pertinent positive or pertinent negative responses have been documented in the HPI. ROS Other: All systems not noted in ROS Statement are negative. EKG Findings - EKG Comments: EKG Findings:: EKG interpreted by me performed at 14:59 sinus rhythm with first- degree AV block and a left bundle rate of 65 UT 210 QRS 178 QT/QTC 452/470 there are no acute changes from prior EKG on 03/16/2020 Past Medical History Past Medical History: Coronary Artery Disease (CAD), Cancer, Diabetes Mellitus, Hyperlipidemia, Hypertension Additional Past Medical History / Comment(s): See Dr Haas's H&P, had some kind of cancer removed as a teen-not sure what kind, no problems since History of Any Multi-Drug Resistant Organisms: None Reported Past Surgical History: Coronary Bypass/CABG, Heart Catheterization, Heart Catheterization With Stent Additional Past Surgical History / Comment(s): open heart 2014 CABGX4 Past Anesthesia/Blood Transfusion Reactions: No Reported Reaction Past Psychological History: No Psychological Hx Reported Smoking Status: Never smoker Past Alcohol Use History: Occasional Past Drug Use History: None Reported - Past Family History Mother Family Medical History: No Reported History, Diabetes Mellitus Father Family Medical History: Hypertension Brother(s) Family Medical History: Hypertension Son(s) Family Medical History: Coronary Artery Disease (CAD) Additional Family Medical History / Comment(s): Then of heart attack was stopped patient has 2 daughters with underlying COPD General Exam Limitations: no limitations General appearance: alert, in no apparent distress Head exam: Present: atraumatic, normocephalic, normal inspection Neck exam: Present: normal inspection. Absent: tenderness, meningismus, lymphadenopathy Respiratory exam: Present: normal lung sounds bilaterally. Absent: respiratory distress, wheezes, rales, rhonchi, stridor Cardiovascular Exam: Present: regular rate, normal rhythm, normal heart sounds. Absent: systolic murmur, diastolic murmur, rubs, gallop, clicks GI/Abdominal exam: Present: soft, normal bowel sounds. Absent: distended, tenderness, guarding, rebound, rigid Extremities exam: Absent: pedal edema Neurological exam: Present: alert, oriented X3, CN II-XII intact Skin exam: Present: warm, dry, intact, normal color. Absent: rash Course Vital Signs 08/23/19 08/23/19 14:48 15:35 Temperature 98.0 F Pulse Rate 66 60 Respiratory 16 18 Rate Blood Pressure 110/58 119/74 O2 Sat by Pulse 96 93 L Oximetry Chest Pain MDM - [facility] 78-year-old male presented for chest pain. Patient's chest and resolved after nitro. Patient recent stent placed. Patient will be admitted for further evaluation by cardiology. Disposition Clinical Impression: Chest pain, Status post placement of stent in right coronary artery Disposition: ADMITTED IP TO THIS HOSP Condition: Fair Referrals: Pantera Gomez MD [Primary Care Provider] - 1-2 days
[2019-08-23 15:36] VITALS: RESP 18
[2019-08-23 16:02] LABS: HCT 41.5 % (39.0-53.0); HGB 13.8 gm/dL (13.0-17.5); MCH 30.7 pg (25.0-35.0); MCHC 33.2 g/dL (31.0-37.0); MCV 92.5 fL (80.0-100.0); Mean Platelet Volume 9.1; Platelet Count 228 k/uL (150-450); RBC 4.49 m/uL (4.30-5.90); RDW 12.4 % (11.5-15.5); WBC 7.1 k/uL (3.8-10.6)
--- NOTE | 2019-08-23 16:02 | XR ---
EXAMINATION TYPE: XR chest 2V DATE OF EXAM: 08/23/2019 COMPARISON: 09/14/2017 HISTORY: Hypotension and lethargy. Chest pain. Recent cardiac stent placement. TECHNIQUE: Frontal and lateral views of the chest are obtained. FINDINGS: The enlarged cardiomediastinal silhouette does appear similar to the prior of 09/14/2017. P ost CABG changes are seen of the chest. Lungs are well aerated with eventration of the right hemidiap hragm. Moderate degenerative change of the spine. IMPRESSION: No acute cardiopulmonary process. Enlarged cardiac mediastinal silhouette appear stable from the prior of 09/14/2017.
[2019-08-23 16:08] LABS: Albumin 4.3 g/dL (3.5-5.0); Calcium 9.7 mg/dL (8.4-10.2); Magnesium 1.8 mg/dL (1.6-2.3); Potassium 4.8 mmol/L (3.5-5.1); Total Bilirubin 1.1 mg/dL (0.2-1.3); Total Protein 7.1 g/dL (6.3-8.2)
[2019-08-23 16:09] LABS: Partial Thromboplastin Time 22.3 sec (22.0-30.0); Prothrombin Time 10.3 sec (9.0-12.0)
[2019-08-23 16:19] LABS: Band Neutrophils % 1 %; Eosinophils # (M) 0.36 k/uL (0-0.7); Lymphocytes # (M) 1.14 k/uL (1.0-4.8); Monocytes # (M) 0.36 k/uL (0-1.0); Neutrophils % (M) 73 %; Nucleated Red Blood Cells 0 /100 WBC (0-0); Total Cells Counted 100
[2019-08-23 16:22] LABS: Poikilocytosis (M) Present
[2019-08-23] MEDS ORDERED: HEPARIN SODIUM,PORCINE 5,000 UNIT/ML 1 ML VIAL IV ONE (17:16)
[2019-08-23] MEDS ORDERED: HEPARIN SODIUM,PORCINE 5,000 UNIT/ML 1 ML VIAL IV PRN (17:16)
[2019-08-23] MEDS ORDERED: NITROGLYCERIN SL TABS 0.4 MG TAB SUBLINGUAL PRN (17:16)
--- NOTE | 2019-08-23 17:29 | ED ---
Medical Decision Making - Lab Data Result diagrams: 08/23/19 15:22 08/23/19 15:22 Lab Results 08/23/19 08/23/19 08/23/19 Range/Units 15:22 15:22 15:22 WBC 7.1 (3.8-10.6) k/uL RBC 4.49 (4.30-5.90) m/uL Hgb 13.8 (13.0-17.5) gm/dL Hct 41.5 (39.0-53.0) % MCV 92.5 (80.0-100.0) fL MCH 30.7 (25.0-35.0) pg MCHC 33.2 (31.0-37.0) g/dL RDW 12.4 (11.5-15.5) % Plt Count 228 (150-450) k/uL Neutrophils % (Manual) 73 % Band Neutrophils % 1 % Lymphocytes % (Manual) 16 % Monocytes % (Manual) 5 % Eosinophils % (Manual) 5 % Neutrophils # (Manual) 5.20 (1.3-7.7) k/uL Lymphocytes # (Manual) 1.14 (1.0-4.8) k/uL Monocytes # (Manual) 0.36 (0-1.0) k/uL Eosinophils # (Manual) 0.36 (0-0.7) k/uL Nucleated RBCs 0 (0-0) /100 WBC Manual Slide Review Performed Poikilocytosis (manual Present PT 10.3 (9.0-12.0) sec INR 1.0 (<1.2) APTT 22.3 (22.0-30.0) sec Sodium 134 L (137-145) mmol/L Potassium 4.8 (3.5-5.1) mmol/L Chloride 100 (98-107) mmol/L Carbon Dioxide 23 (22-30) mmol/L Anion Gap 11 mmol/L BUN 39 H (9-20) mg/dL Creatinine 1.00 (0.66-1.25) mg/dL Est GFR (CKD-EPI)AfAm 82 (>60 ml/min/1.73 sqM) Est GFR (CKD-EPI)NonAf 71 (>60 ml/min/1.73 sqM) Glucose 176 H (74-99) mg/dL Calcium 9.7 (8.4-10.2) mg/dL Magnesium 1.8 (1.6-2.3) mg/dL Total Bilirubin 1.1 (0.2-1.3) mg/dL AST 34 (17-59) U/L ALT 20 (4-49) U/L Alkaline Phosphatase 51 (38-126) U/L Troponin I (0.000-0.034) ng/mL NT-Pro-B Natriuret Pep pg/mL Total Protein 7.1 (6.3-8.2) g/dL Albumin 4.3 (3.5-5.0) g/dL Lipase 129 (23-300) U/L 08/23/19 08/23/19 Range/Units 15:22 15:22 WBC (3.8-10.6) k/uL RBC (4.30-5.90) m/uL Hgb (13.0-17.5) gm/dL Hct (39.0-53.0) % MCV (80.0-100.0) fL MCH (25.0-35.0) pg MCHC (31.0-37.0) g/dL RDW (11.5-15.5) % Plt Count (150-450) k/uL Neutrophils % (Manual) % Band Neutrophils % % Lymphocytes % (Manual) % Monocytes % (Manual) % Eosinophils % (Manual) % Neutrophils # (Manual) (1.3-7.7) k/uL Lymphocytes # (Manual) (1.0-4.8) k/uL Monocytes # (Manual) (0-1.0) k/uL Eosinophils # (Manual) (0-0.7) k/uL Nucleated RBCs (0-0) /100 WBC Manual Slide Review Poikilocytosis (manual PT (9.0-12.0) sec INR (<1.2) APTT (22.0-30.0) sec Sodium (137-145) mmol/L Potassium (3.5-5.1) mmol/L Chloride (98-107) mmol/L Carbon Dioxide (22-30) mmol/L Anion Gap mmol/L BUN (9-20) mg/dL Creatinine (0.66-1.25) mg/dL Est GFR (CKD-EPI)AfAm (>60 ml/min/1.73 sqM) Est GFR (CKD-EPI)NonAf (>60 ml/min/1.73 sqM) Glucose (74-99) mg/dL Calcium (8.4-10.2) mg/dL Magnesium (1.6-2.3) mg/dL Total Bilirubin (0.2-1.3) mg/dL AST (17-59) U/L ALT (4-49) U/L Alkaline Phosphatase (38-126) U/L Troponin I <0.012 (0.000-0.034) ng/mL NT-Pro-B Natriuret Pep 971 pg/mL Total Protein (6.3-8.2) g/dL Albumin (3.5-5.0) g/dL Lipase (23-300) U/L Critical Care Time Critical Care Time: Yes Total Critical Care Time: 35 Critical Care Time: 35 minutes of critical-care time her use initially evaluated patient, reviewed past medical history, ordered EKG, labs and chest x-ray. Patient had relief of symptoms with nitro. Patient was given his aspirin. Patient was started on heparin low-dose at this time. Troponin is negative, EKG shows left bundle and some old changes. Patient has unstable angina will be admitted for cardiac rule out, cardiology evaluation. Disposition Clinical Impression: Status post placement of stent in right coronary artery, Unstable angina Disposition: ADMITTED IP TO THIS HOSP Condition: Fair Referrals: Pantera Gomez MD [Primary Care Provider] - 1-2 days
[2019-08-23] MEDS ORDERED: HEPARIN SOD,PORK IN 0.45% NACL 25,000 UNIT in 0.45% NACL 1 250ML.BAG IV SCH (17:30)
[2019-08-24] MEDS: METOPROLOL TARTRATE 12.5 MG TAB PO SCH ×2 (00:50→09:09)
[2019-08-24 00:51] LABS: Glucose,Whole Blood 244 mg/dL (75-99)
[2019-08-24] MEDS: metFORMIN 500 MG TAB PO SCH ×2 (00:51→09:09)
[2019-08-24 03:36] LABS: Mean Platelet Volume 8.8; Platelet Count 203 k/uL (150-450)
[2019-08-24 06:21] LABS: Glucose,Whole Blood 123 mg/dL (75-99)
[2019-08-24] MEDS ORDERED: SODIUM CHLORIDE 0.9% 1,000 ML IV STA (08:20)
[2019-08-24] MEDS ORDERED: FUROSEMIDE 40 MG TAB PO SCH (09:00)
[2019-08-24] MEDS ORDERED: SPIRONOLACTONE 25 MG TAB PO SCH (09:00)
[2019-08-24] MEDS ORDERED: LISINOPRIL 20 MG TAB PO SCH (09:00)
[2019-08-24] MEDS ORDERED: CLOPIDOGREL 75 MG TAB PO SCH (09:00)
[2019-08-24] MEDS ORDERED: ASPIRIN 325 MG TAB PO SCH (09:00)
[2019-08-24] MEDS ORDERED: ASPIRIN 81 MG PO SCH (09:00)
--- NOTE | 2019-08-24 10:25 | P.CRDCN ---
History of Present Illness History of present illness: HISTORY OF PRESENTING ILLNESS This is a pleasant 78-year-old male past medical history significant for coronary artery disease s/p bypass grafting and recent PCI to the SVG-RCA 08/15, hypertension, chronic systolic and diastolic heart failure, diabetes mellitus and dyslipidemia. He follows in the office with Dr. Haas. We have been asked to see in consultation for chest pain. He states yesterday while driving to and from his rental units he felt an odd pressure sensation in his chest. The discomfort was brief and his descriptions is quite vague. He more complained of feeling overall fatigue and weakness as the day went on. He denies any shortness of breath, dizziness or palpitations. EKG on arrival reveal left bundle branch block, chest xray was unremarkable, laboratory data reviewed, cardiac enzymes negative x3, BUN 39, CBC unremarkable, sodium 134, potassium 4. 8, NTproBNP 971. On discharge after his recent PCI he was initiated on PO lasix along with dual anti-platelet therapy. Echocardiogram obtained in the office prior to PCI revealed impaired LV systolic function with EF 35%, ,mild-moderate AR, moderate MR and grade III diastolic dysfunction. REVIEW OF SYSTEMS At the time of my exam: CONSTITUTIONAL: Denies fever or chills. CARDIOVASCULAR: Denies chest pain, shortness of breath, orthopnea, PND or palpitations. RESPIRATORY: Denies cough. GASTROINTESTINAL: Denies abdominal pain, diarrhea, constipation, nausea or vomiting. MUSCULOSKELETAL: Denies myalgias. NEUROLOGIC: Denies numbness, tingling or weakness. ENDOCRINE: Denies fatigue, weight change, polydipsia or polyurina. GENITOURINARY: Denies burning, hematuria or urgency with micturation. HEMATOLOGIC: Denies history of anemia or bleeding. PHYSICAL EXAMINATION Blood pressure 135/69 heart rate 56 afebrile and maintaining oxygen saturation on room air. CONSTITUTIONAL: No apparent distress. HEENT: Head is normocephalic. Pupils are equal, round. Sclerae anicteric. Mucous membranes of the mouth are moist. No JVD. No carotid bruit. CHEST EXAMINATION: Lungs are clear to auscultation. No chest wall tenderness is noted on palpation or with deep breathing. HEART EXAMINATION: Regular rate and rhythm. S1, S2 heard. No murmurs, gallops or rub. ABDOMEN: Soft, nontender. Positive bowel sounds. EXTREMITIES: 2+ peripheral pulses, no lower extremity edema and no calf tenderness. NEUROLOGIC EXAMINATION: Patient is awake, alert and oriented x3. ASSESSMENT Chest pain, atypical. An acute coronary event has been ruled out. Dehydration secondary to diuretic therapy Coronary artery disease s/p recent PCI on dual anti-platelet therapy Hypertension Dyslipidemia Diabetes mellitus Chronic diastolic and systolic heart failure, currently euvolemic PLAN An acute coronary event has been ruled out. Repeat 2D echocardiogram. Symptoms of fatigue and weakness likely related to mild dehydration. Recommend holding lasix and hydrating the patient. Increase activity and likely discharge this afternoon if he is feeling better. Follow up with Dr. Haas in the office next week. Thank you kindly for this consultation. Nurse Practitioner note has been reviewed, I agree with a documented findings and plan of care. Patient was seen and examined. Past Medical History Past Medical History: Coronary Artery Disease (CAD), Cancer, Diabetes Mellitus, Hyperlipidemia, Hypertension Additional Past Medical History / Comment(s): See Dr Haas's H&P, had some kind of cancer removed as a teen-not sure what kind, no problems since History of Any Multi-Drug Resistant Organisms: None Reported Past Surgical History: Coronary Bypass/CABG, Heart Catheterization, Heart Catheterization With Stent Additional Past Surgical History / Comment(s): open heart 2014 CABGX4 Past Anesthesia/Blood Transfusion Reactions: No Reported Reaction Date of Last Stent Placement:: 08/11/2019 Past Psychological History: No Psychological Hx Reported Smoking Status: Never smoker Past Alcohol Use History: Occasional Past Drug Use History: None Reported - Past Family History Mother Family Medical History: No Reported History, Diabetes Mellitus Father Family Medical History: Hypertension Brother(s) Family Medical History: Hypertension Son(s) Family Medical History: Coronary Artery Disease (CAD) Additional Family Medical History / Comment(s): Then of heart attack was stopped patient has 2 daughters with underlying COPD Medications and Allergies Home Medications Medication Instructions Recorded Confirmed Type Benazepril [Lotensin] 20 mg PO DAILY 08/07/16 08/23/19 History glipiZIDE/METFORMIN HCL 1 tab PO BID 09/12/17 08/23/19 History [glipiZIDE/METFORMIN HCL 2.5-500 mg] Cholecalciferol [Vitamin D3 (25 5,000 unit PO DAILY 08/10/19 08/23/19 History Mcg = 1000 Iu)] Spironolactone 12.5 mg PO DAILY 08/10/19 08/23/19 History Aspirin 81 mg PO DAILY tab 08/16/19 08/23/19 Rx Atorvastatin [Lipitor] 80 mg PO HS tab 08/16/19 08/23/19 Rx Clopidogrel Bisulfate [Plavix] 75 mg PO DAILY #30 tab 08/16/19 08/23/19 Rx Furosemide [Lasix] 40 mg PO DAILY #30 tablet 08/16/19 08/23/19 Rx Nitroglycerin Sl Tabs [Nitrostat] 0.4 mg SUBLINGUAL Q5M PRN #100 tab 08/16/19 0 08/23/19 Rx ALPRAZolam [Xanax] 0.25 mg PO DAILY PRN 08/23/19 08/23/19 History Metoprolol Tartrate [Lopressor] 12.5 mg PO BID 08/23/19 08/23/19 History Allergies Allergy/AdvReac Type Severity Reaction Status Date / Time Penicillins Allergy Rash/Hives Verified 08/23/19 19:03 Physical Exam Vitals: Vital Signs Temp Pulse Pulse Resp BP BP Pulse Ox 08/24/19 06:59 97.9 F 56 L 18 135/69 99 08/24/19 04:42 98.2 F 74 18 148/79 98 08/24/19 03:30 70 18 08/23/19 23:58 98.2 F 70 18 118/51 97 08/23/19 23:31 63 18 08/23/19 21:00 97.7 F 63 18 164/82 97 08/23/19 20:00 98.0 F 58 L 63 18 117/80 96 08/23/19 19:00 98.0 F 62 18 137/82 98 08/23/19 17:30 97.9 F 63 18 125/58 95 08/23/19 15:35 60 18 119/74 93 L 08/23/19 14:48 98.0 F 66 16 110/58 96 Intake and Output 08/23/19 08/24/19 08/24/19 22:59 06:59 14:59 Intake Total 70.298 Balance 70.298 Intake: Intake, IV Titration 70.298 Amount Heparin Sod,Pork in 0.45% 70.298 NaCl 25,000 unit In 0.45 % NaCl 1 250ml.bag @ 11.3 UNITS/KG/HR 9.995 mls/hr IV .Q24H [facility] Rx#: [id number] Other: Voiding Method Toilet # Voids 1 Weight 88.451 kg 90.9 kg Results 08/24/19 03:20 08/23/19 15:22 Cardiac Enzymes 08/23/19 08/23/19 08/23/19 Range/Units 15:22 15:22 21:21 AST 34 (17-59) U/L Troponin I <0.012 <0.012 (0.000-0.034) ng/mL 08/24/19 Range/Units 03:20 AST (17-59) U/L Troponin I <0.012 (0.000-0.034) ng/mL Coagulation 08/23/19 08/23/19 Range/Units 15:22 23:42 PT 10.3 (9.0-12.0) sec APTT 22.3 30.4 H (22.0-30.0) sec CBC 08/23/19 08/24/19 Range/Units 15:22 03:20 WBC 7.1 (3.8-10.6) k/uL RBC 4.49 (4.30-5.90) m/uL Hgb 13.8 (13.0-17.5) gm/dL Hct 41.5 (39.0-53.0) % Plt Count 228 203 (150-450) k/uL Comprehensive Metabolic Panel 08/23/19 Range/Units 15:22 Sodium 134 L (137-145) mmol/L Potassium 4.8 (3.5-5.1) mmol/L Chloride 100 (98-107) mmol/L Carbon Dioxide 23 (22-30) mmol/L BUN 39 H (9-20) mg/dL Creatinine 1.00 (0.66-1.25) mg/dL Glucose 176 H (74-99) mg/dL Calcium 9.7 (8.4-10.2) mg/dL AST 34 (17-59) U/L ALT 20 (4-49) U/L Alkaline Phosphatase 51 (38-126) U/L Total Protein 7.1 (6.3-8.2) g/dL Albumin 4.3 (3.5-5.0) g/dL Current Medications Generic Name Dose Route Start Last Admin Trade Name Freq PRN Reason Stop Dose Admin Aspirin 81 mg 08/24/19 09:00 08/24/19 09:08 Aspirin PO 81 mg DAILY [facility] Administration Atorvastatin Calcium 80 mg 08/24/19 21:00 Lipitor PO HS [facility] Clopidogrel Bisulfate 75 mg 08/24/19 09:00 08/24/19 09:08 Plavix PO 75 mg DAILY [facility] Administration Glipizide 2.5 mg 08/24/19 09:00 08/24/19 10:10 Glucotrol PO 2.5 mg BID [facility] Administration Heparin Sodium (Porcine) 0 unit 08/23/19 17:16 08/24/19 00:51 Heparin IV 4,000 unit Q6HR PRN Administration Low PTT Protocol Sodium Chloride 1,000 mls @ 75 mls/hr 08/24/19 08:20 08/24/19 09:09 Saline 0.9% IV 08/24/19 21:39 75 mls/hr .[id number] [facility] Administration Lisinopril 20 mg 08/24/19 09:00 08/24/19 09:09 Zestril PO 20 mg DAILY [facility] Administration Metformin HCl 500 mg 08/24/19 00:30 08/24/19 09:09 Glucophage PO 500 mg BID [facility] Administration Metoprolol Tartrate 12.5 mg 08/24/19 00:30 08/24/19 09:09 Lopressor PO 12.5 mg BID [facility] Administration Nitroglycerin 0.4 mg 08/23/19 17:16 Nitrostat SUBLINGUAL Q5M PRN Chest Pain Spironolactone 12.5 mg 08/24/19 09:00 08/24/19 09:08 Aldactone PO 12.5 mg DAILY [facility] Administration Intake and Output 08/23/19 08/24/19 08/24/19 22:59 06:59 14:59 Intake Total 70.298 Balance 70.298 Intake: Intake, IV Titration 70.298 Amount Heparin Sod,Pork in 0.45% 70.298 NaCl 25,000 unit In 0.45 % NaCl 1 250ml.bag @ 11.3 UNITS/KG/HR 9.995 mls/hr IV .Q24H [facility] Rx#: [id number] Other: Voiding Method Toilet # Voids 1 Weight 88.451 kg 90.9 kg 08/24/19 03:20 08/23/19 15:22
[2019-08-24 11:29] LABS: Glucose,Whole Blood 271 mg/dL (75-99)
[2019-08-24 13:24] VITALS: BP 130/68; PULSE 59; TEMP 97.6
--- NOTE | 2019-08-24 13:32 | P.HPIM ---
History of Present Illness H&P Date: 08/24/19 Chief Complaint: chest pain HISTORY AND PHYSICAL AND DISCHARGE SUMMARY: This is a 78-year-old male patient of Dr. Gomez and Dr. Haas with past medical history of coronary artery disease s/p bypass grafting and recent PCI to the SVG-RCA 08/15, hypertension, chronic systolic and diastolic heart failure, diabetes mellitus and dyslipidemia. The patient complains of shortness of breath that he thought was age related. He states he has recently lost a little bit of weight. He states that he woke up he did not feel well. He states he gets up in the morning daily and has breakfast with his friends. He states he drinks coffee but does not drink any water. He states in general he started not feeling well feeling like he was hit by a semitruck. He did develop pressure in the chest area along with fatigue. At the time of this evaluation, patient states that he is feeling well and is anxious to be discharged home. Patient came into [facility] emergency center for evaluation. EKG revealed left bundle branch block, chest xray was unremarkable, troponins negative x3, BUN 39, CBC unremarkable, sodium 134, potassium 4.8, NTproBNP 971. The patient has been seen by cardiology with recommendations to discontinue Lasix and hydrate the patient. Repeat echocardiogram reveals EF 35%, mild- moderate AR, moderate MR and grade III diastolic dysfunction. Patient will be discharged home today in stable condition. Review of Systems Constitutional: Reports fatigue, Reports lethargy, Reports malaise, Reports weight loss, Denies anorexia, Denies chills, Denies fever Eyes: denies blurred vision, denies pain Ears, nose, mouth and throat: Denies headache, Denies sore throat, Denies vertigo Cardiovascular: Reports dyspnea on exertion, Denies chest pain, Denies shortness of breath, Denies syncope Respiratory: Denies cough, Denies cough with sputum, Denies dyspnea, Denies excessive sputum, Denies hemoptysis, Denies home oxygen, Denies respiratory infections, Denies wheezing Gastrointestinal: Denies abdominal pain, Denies diarrhea, Denies loss of appetite, Denies nausea, Denies vomiting Genitourinary: Denies dysuria, Denies urinary retention Musculoskeletal: Denies frequent falls, Denies gait dysfunction, Denies muscle weakness, Denies myalgias Integumentary: Denies pruritus, Denies rash, Denies wounds Neurological: Denies change in mentation, Denies change in speech, Denies numbness, Denies weakness Psychiatric: Denies anxiety, Denies confusion, Denies depression Endocrine: Denies fatigue, Denies weight change Past Medical History Past Medical History: Coronary Artery Disease (CAD), Cancer, Diabetes Mellitus, Hyperlipidemia, Hypertension Additional Past Medical History / Comment(s): See Dr Haas's H&P, had some kind of cancer removed as a teen-not sure what kind, no problems since History of Any Multi-Drug Resistant Organisms: None Reported Past Surgical History: Coronary Bypass/CABG, Heart Catheterization, Heart Catheterization With Stent Additional Past Surgical History / Comment(s): open heart 2014 CABGX4 Past Anesthesia/Blood Transfusion Reactions: No Reported Reaction Date of Last Stent Placement:: 08/11/2019 Past Psychological History: No Psychological Hx Reported Smoking Status: Never smoker Past Alcohol Use History: Occasional Additional Past Alcohol Use History / Comment(s): Patient is a lifelong nonsmoker. Patient drinks 3 ounces of wine every other day, no marijuana or illicit drug use. Patient was at home with his . Past Drug Use History: None Reported - Past Family History Mother Family Medical History: No Reported History, Diabetes Mellitus Additional Family Medical History / Comment(s): Mother at age 84 with history of diabetes. Father Family Medical History: Hypertension Additional Family Medical History / Comment(s): Father at age 86 from old age with history of hypertension. Brother(s) Family Medical History: Hypertension Additional Family Medical History / Comment(s): Patient has a total of 4 brothers. 2 brothers have passed, one from leukemia and one from liver cancer. Son(s) Family Medical History: Coronary Artery Disease (CAD) Additional Family Medical History / Comment(s): Then of heart attack was stopped patient has 1 daughter with underlying COPD Sister(s) Additional Family Medical History / Comment(s): Patient has 1 sister with no major medical problems. Medications and Allergies Home Medications Medication Instructions Recorded Confirmed Type Benazepril [Lotensin] 20 mg PO DAILY 08/07/16 08/23/19 History glipiZIDE/METFORMIN HCL 1 tab PO BID 09/12/17 08/23/19 History [glipiZIDE/METFORMIN HCL 2.5-500 mg] Cholecalciferol [Vitamin D3 (25 5,000 unit PO DAILY 08/10/19 08/23/19 History Mcg = 1000 Iu)] Spironolactone 12.5 mg PO DAILY 08/10/19 08/23/19 History Aspirin 81 mg PO DAILY tab 08/16/19 08/23/19 Rx Atorvastatin [Lipitor] 80 mg PO HS tab 08/16/19 08/23/19 Rx Clopidogrel Bisulfate [Plavix] 75 mg PO DAILY #30 tab 08/16/19 08/23/19 Rx Furosemide [Lasix] 40 mg PO DAILY #30 tablet 08/16/19 08/23/19 Rx Nitroglycerin Sl Tabs [Nitrostat] 0.4 mg SUBLINGUAL Q5M PRN #100 tab 08/16/19 08/23/19 Rx ALPRAZolam [Xanax] 0.25 mg PO DAILY PRN 08/23/19 08/23/19 History Metoprolol Tartrate [Lopressor] 12.5 mg PO BID 08/23/19 08/23/19 History Allergies Allergy/AdvReac Type Severity Reaction Status Date / Time Penicillins Allergy Rash/Hives Verified 08/23/19 19:03 Physical Exam Vitals: Vital Signs Temp Pulse Pulse Resp BP BP Pulse Ox 08/24/19 06:59 97.9 F 56 L 18 135/69 99 08/24/19 04:42 98.2 F 74 18 148/79 98 08/24/19 03:30 70 18 08/23/19 23:58 98.2 F 70 18 118/51 97 08/23/19 23:31 63 18 08/23/19 21:00 97.7 F 63 18 164/82 97 08/23/19 20:00 98.0 F 58 L 63 18 117/80 96 08/23/19 19:00 98.0 F 62 18 137/82 98 08/23/19 17:30 97.9 F 63 18 125/58 95 08/23/19 15:35 60 18 119/74 93 L 08/23/19 14:48 98.0 F 66 16 110/58 96 Intake and Output 08/23/19 08/24/19 08/24/19 22:59 06:59 14:59 Intake Total 70.298 Balance 70.298 Intake: Intake, IV Titration 70.298 Amount Heparin Sod,Pork in 0.45% 70.298 NaCl 25,000 unit In 0.45 % NaCl 1 250ml.bag @ 11.3 UNITS/KG/HR 9.995 mls/hr IV .Q24H JUD Rx#: [id number] Other: Voiding Method Toilet # Voids 1 1 Weight 88.451 kg 90.9 kg Gen: This is a 78-year-old male. Patient is resting in bed and appears to be in no acute distress. Patient's is at bedside. HEENT: Head is atraumatic, normocephalic. Pupils equal, round. Sclerae is anict víctor. NECK: Supple. No JVD. No lymphadenopathy. No thyromegaly. LUNGS: Clear to auscultation. No wheezes or rhonchi. No intercostal retractions. HEART: Regular rate and rhythm. No murmur. ABDOMEN: Soft. Bowel sounds are present. No masses. No tenderness. EXTREMITIES: No pedal edema. No calf tenderness. NEUROLOGICAL: Patient is awake, alert and oriented x3. Cranial nerves 2 through 12 are grossly intact. Results CBC & Chem 7: 08/24/19 03:20 08/23/19 15:22 Labs: Abnormal Lab Results - Last 24 Hours (Table) 08/23/19 08/23/19 08/24/19 Range/Units 15:22 23:42 00:49 APTT 30.4 H (22.0-30.0) sec Sodium 134 L (137-145) mmol/L BUN 39 H (9-20) mg/dL Glucose 176 H (74-99) mg/dL POC Glucose (mg/dL) 244 H (75-99) mg/dL 08/24/19 08/24/19 Range/Units 06:12 11:26 APTT (22.0-30.0) sec Sodium (137-145) mmol/L BUN (9-20) mg/dL Glucose (74-99) mg/dL POC Glucose (mg/dL) 123 H 271 H (75-99) mg/dL Thrombosis Risk Factor Assmnt - Choose All That Apply Any of the Below Risk Factors Present?: Yes Each Factor Represents 1 point: Acute [place], Obesity (BMI >25) Other Risk Factors: Yes Each Risk Factor Represents 3 Points: Age 75 years or older Other congenital or acquired thrombophilia - If yes, enter type in comment: No Thrombosis Risk Factor Assessment Total Risk Factor Score: 5 Thrombosis Risk Factor Assessment Level: High Risk Assessment and Plan Plan: 1. Chest pain. Acute coronary syndrome ruled out. Cardiology consult appreciated. 2. Dehydration secondary to diuretic use and poor oral intake of water. Lasix to be discontinued. 3. History of coronary artery disease with previous CABG with recent PCI. 4. Hypertension. 5. Hyperlipidemia. 6. Diabetes mellitus type 2. 7. Chronic systolic and diastolic heart failure, stable. Patient placed on the observation unit. Discharge plan: home Discharge Medication List Benazepril [Lotensin] 20 mg PO DAILY 08/07/16 [History] glipiZIDE/METFORMIN HCL [glipiZIDE/METFORMIN HCL 2.5-500 mg] 1 tab PO BID 09/12/17 [History] Cholecalciferol [Vitamin D3 (25 Mcg = 1000 Iu)] 5,000 unit PO DAILY 08/10/19 [History] Spironolactone 12.5 mg PO DAILY 08/10/19 [History] Aspirin 81 mg PO DAILY tab 08/16/19 [Rx] Atorvastatin [Lipitor] 80 mg PO HS tab 08/16/19 [Rx] Clopidogrel Bisulfate [Plavix] 75 mg PO DAILY #30 tab 08/16/19 [Rx] Nitroglycerin Sl Tabs [Nitrostat] 0.4 mg SUBLINGUAL Q5M PRN #100 tab 08/16/19 [Rx] ALPRAZolam [Xanax] 0.25 mg PO DAILY PRN 08/23/19 [History] Metoprolol Tartrate [Lopressor] 12.5 mg PO BID 08/23/19 [History] Impression and plan of care have been directed as dictated by the signing physician. Shayy Rolon nurse practitioner acting as scribe for signing physician.
--- NOTE | 2019-08-24 14:00 | ECHOF ---
Referral Reason:cp MEASUREMENTS -------- HEIGHT: 175.3 cm WEIGHT: 90.7 kg BP: 132/80 RVIDd: 3.4 cm (< 3.3) IVSd: 1.3 cm (0.6 - 1.1) LVIDd: 4.9 cm (3.9 - 5.3) LVPWd: 1.3 cm (0.6 - 1.1) IVSs: 1.7 cm LVIDs: 3.9 cm LVPWs: 1.2 cm LA Diam: 5.1 cm (2.7 - 3.8) Ao Diam: 4.0 cm (2.0 - 3.7) AV Cusp: 2.1 cm (1.5 - 2.6) MV EXCURSION: 18.162 mm (> 18.000) MV EF SLOPE: 72 mm/s (70 - 150) MV E David: 1.03 m/s MV DecT: 225 ms MV A David: 1.48 m/s MV E/A Ratio: 0.70 AV maxP.03 mmHg AV meanP.15 mmHg AR PHT: 447 ms RAP: 15.00 mmHg RVSP: 33.61 mmHg FINDINGS -------- Sinus rhythm. This was a technically good study. The left ventricle is mildly dilated. There is mild concentric left ventricular hypertrophy. Ther e is moderate global hypokinesis of LV . Overall left ventricular systolic function is moderate-sev erely impaired with, an EF between 30 - 35 %. The right ventricle is normal in size and function. The left atrium is mildly dilated. The right atrium is normal in size. 5.0mg of Lumason was utilized for enhancement of images There is moderate aortic valve sclerosis. There is moderate aortic regurgitation. Mild aortic clau nosis with peak/mean pressure gradient of 18.03mmHg / 9.15mmHg , the aortic valve area by continuity equation is 1.6cm. The aortic valve area by continuity equation is {DREA}. The maximum pressure g radient across the aortic valve is 18.03mmHg. The mitral valve is normal. Rvip-[id number]-[id number] mitral regurgitation is present. Mild tricuspid regurgitation present. Right ventricular systolic pressure is normal at < 35 mmHg. There is no evidence of pulmonary hypertension. Pulmonic valve appears structurally normal. The aortic root, ascending aorta and aortic arch are normal. The pericardium is normal. There is no pericardial effusion. CONCLUSIONS -------- 1. Sinus rhythm. 2. This was a technically good study. 3. The left ventricle is mildly dilated. 4. There is mild concentric left ventricular hypertrophy. 5. There is moderate global hypokinesis of LV . 6. Overall left ventricular systolic function is moderate-severely impaired with, an EF between 30 - 35 %. 7. The right ventricle is normal in size and function. 8. The left atrium is mildly dilated. 9. The right atrium is normal in size. 10. 5.0mg of Lumason was utilized for enhancement of images 11. There is moderate aortic valve sclerosis. 12. There is moderate aortic regurgitation. 13. Mild aortic stenosis with peak/mean pressure gradient of 18.03mmHg / 9.15mmHg , the aortic valve area by continuity equation is 1.6cm. 14. The aortic valve area by continuity equation is {DREA}. 15. The maximum pressure gradient across the aortic valve is 18.03mmHg. 16. The mitral valve is normal. 17. Svev-ub-pdhofmli mitral regurgitation is present. 18. Mild tricuspid regurgitation present. 19. Right ventricular systolic pressure is normal at < 35 mmHg. 20. There is no evidence of pulmonary hypertension. 21. Pulmonic valve appears structurally normal. 22. The aortic root, ascending aorta and aortic arch are normal. 23. The pericardium is normal. 24. There is no pericardial effusion. DOUBLE CUT OFF SAW OPERATOR: Akash Casas RDCS
[2019-08-24] MEDS ORDERED: ATORVASTATIN 80 MG TAB PO SCH (21:00)
== END 2019-08-24 14:20 | disposition home or self-care (01) ==
LOC: EC 14:44 → 1SOBS 17:36
PROVIDERS: ADMIT Internal Medicine Geriatric Medicine; ATTEND Internal Medicine Geriatric Medicine
DX: R07.89 Other chest pain (principal); E86.0 Dehydration; I25.10 Atherosclerotic heart disease of native coronary artery without angina pectoris; I11.0 Hypertensive heart disease with heart failure; I50.42 Chronic combined systolic (congestive) and diastolic (congestive) heart failure; Z95.1 Presence of aortocoronary bypass graft; Z95.5 Presence of coronary angioplasty implant and graft; E78.5 Hyperlipidemia, unspecified; E11.9 Type 2 diabetes mellitus without complications; Z82.49 Family history of ischemic heart disease and other diseases of the circulatory system; Z79.82 Long term (current) use of aspirin; Z79.899 Other long term (current) drug therapy; Z79.02 Long term (current) use of antithrombotics/antiplatelets; Z79.84 Long term (current) use of oral hypoglycemic drugs; Z88.0 Allergy status to penicillin; Z83.3 Family history of diabetes mellitus; Z80.6 Family history of leukemia; Z80.0 Family history of malignant neoplasm of digestive organs
CPT/HCPCS: 93005 ×2; 96366 ×3; 96376 ×2; 96365; 99291; 36415; 83880; 80053; 83690; 83735; 84484 ×2; 85025; 85049; 85610; 85730; 71046; G0378 ×2; C8929; J1644 ×3; Q9950; 93306

== ENCOUNTER 2020-09-18 21:12 | Inpatient (IN) | payer MEDICARE, BC ==
[2020-09-18] MEDS ORDERED: ALBUTEROL HFA INHALER INHALATION STA (21:26)
[2020-09-18] MEDS ORDERED: ACETAMINOPHEN TAB 500 MG TAB PO STA (21:26)
[2020-09-18] MEDS ORDERED: DEXAMETHASONE SOD PHOSPHATE 10 MG/ML 1 ML VIAL IV STA (21:26)
[2020-09-18] MEDS ORDERED: SODIUM CHLORIDE 0.9% 1,000 ML IV STA ×2 (21:26)
[2020-09-18] MEDS ORDERED: KETOROLAC 15 MG/ML 1 ML VIAL IVP STA (21:26)
--- NOTE | 2020-09-18 21:28 | ED ---
SOB HPI - General Chief Complaint: Shortness of Breath Stated Complaint: CARROLL Time Seen by Provider: 09/18/20 21:21 Source: patient, RN notes reviewed, old records reviewed Mode of arrival: ambulatory - History of Present Illness Initial Comments: This is an 79-year-old male to the ER presents today for evaluation. Patient Dese for evaluation regards to shortness of breath. Patient has significant history of shortness of breath with history of diabetes COPD high blood pressure cholesterol as well as fever today. Patient believes he may have coronavirus positive known sick contacts. MD Complaint: shortness of breath, cough, anxiety -: days(s) Severity: moderate Severity scale (1-10): 6 Quality: aching Consistency: constant Worsens With: exertion, movement Known History Of: congestive heart failure Context: recent URI, anxiety, recent illness Associated Symptoms: pain with inspiration, fever, cough, sputum production Treatments Prior to Arrival: none - Related Data Home Medications Medication Instructions Recorded Confirmed Benazepril [Lotensin] 10 mg PO BID 08/07/16 09/18/20 glipiZIDE/METFORMIN HCL 1 tab PO BID 09/12/17 09/18/20 [glipiZIDE/METFORMIN HCL 2.5-500 mg] Cholecalciferol [Vitamin D3 (25 5,000 unit PO DAILY 08/10/19 09/18/20 Mcg = 1000 Iu)] Spironolactone 12.5 mg PO DAILY 08/10/19 09/18/20 ALPRAZolam [Xanax] 0.25 mg PO BID PRN 08/23/19 09/18/20 Metoprolol Tartrate [Lopressor] 25 mg PO BID 08/23/19 09/18/20 Aspirin EC [Ecotrin Low Dose] 81 mg PO DAILY 09/18/20 09/18/20 Furosemide [Lasix] 40 mg PO DAILY 09/18/20 09/18/20 Previous Rx's Medication Instructions Recorded Atorvastatin [Lipitor] 80 mg PO HS tab 08/16/19 Clopidogrel Bisulfate [Plavix] 75 mg PO DAILY #30 tab 08/16/19 Nitroglycerin Sl Tabs [Nitrostat] 0.4 mg SUBLINGUAL Q5M PRN #100 tab 08/16/19 Allergies Allergy/AdvReac Type Severity Reaction Status Date / Time Penicillins Allergy Rash/Hives Verified 09/18/20 21:21 Review of Systems ROS Statement: Those systems with pertinent positive or pertinent negative responses have been documented in the HPI. ROS Other: All systems not noted in ROS Statement are negative. Past Medical History Past Medical History: Coronary Artery Disease (CAD), Cancer, Diabetes Mellitus, Hyperlipidemia, Hypertension Additional Past Medical History / Comment(s): See Dr Haas's H&P, had some kind of cancer removed as a teen-not sure what kind, no problems since History of Any Multi-Drug Resistant Organisms: None Reported Past Surgical History: Coronary Bypass/CABG, Heart Catheterization, Heart Catheterization With Stent Additional Past Surgical History / Comment(s): open heart 2014 CABGX4 Past Anesthesia/Blood Transfusion Reactions: No Reported Reaction Date of Last Stent Placement:: 08/11/2019 Past Psychological History: No Psychological Hx Reported Past Alcohol Use History: Occasional Past Drug Use History: None Reported - Past Family History Mother Family Medical History: No Reported History, Diabetes Mellitus Additional Family Medical History / Comment(s): Mother at age 84 with history of diabetes. Father Family Medical History: Hypertension Additional Family Medical History / Comment(s): Father at age 86 from old age with history of hypertension. Brother(s) Family Medical History: Hypertension Additional Family Medical History / Comment(s): Patient has a total of 4 brother s. 2 brothers have passed, one from leukemia and one from liver cancer. Son(s) Family Medical History: Coronary Artery Disease (CAD) Additional Family Medical History / Comment(s): Then of heart attack was stopped patient has 1 daughter with underlying COPD Sister(s) Additional Family Medical History / Comment(s): Patient has 1 sister with no major medical problems. General Exam General appearance: alert, in no apparent distress, anxious, in distress Head exam: Present: atraumatic, normocephalic, normal inspection Eye exam: Present: normal appearance, PERRL, EOMI. Absent: scleral icterus, conjunctival injection, periorbital swelling ENT exam: Present: normal exam, mucous membranes moist Neck exam: Present: normal inspection. Absent: tenderness, meningismus, lymphadenopathy Respiratory exam: Present: respiratory distress, decreased breath sounds, prolonged expiratory. Absent: wheezes, rales, rhonchi, stridor Cardiovascular Exam: Present: normal rhythm, tachycardia, normal heart sounds. Absent: systolic murmur, diastolic murmur, rubs, gallop, clicks GI/Abdominal exam: Present: soft, normal bowel sounds. Absent: distended, tenderness, guarding, rebound, rigid Extremities exam: Present: normal inspection, full ROM, normal capillary refill. Absent: tenderness, pedal edema, joint swelling, calf tenderness Back exam: Present: normal inspection Neurological exam: Present: alert, oriented X3, CN II-XII intact Psychiatric exam: Present: normal affect, normal mood Skin exam: Present: warm, dry, intact, normal color. Absent: rash Course Vital Signs 09/18/20 09/18/20 09/18/20 21:17 21:43 22:49 Temperature 100.4 F H 100.4 F H Pulse Rate 102 H 82 93 Respiratory 18 18 20 Rate Blood Pressure 127/70 136/79 117/72 O2 Sat by Pulse 98 97 96 Oximetry 09/19/20 00:00 Temperature Pulse Rate 65 Respiratory 18 Rate Blood Pressure 109/66 O2 Sat by Pulse 95 Oximetry - Reevaluation(s) Reevaluation #1: 09/18/20 22:23 Medical record is reviewed Reevaluation #2: 09/19/20 00:39 Patient is improving with supplemental care, fever control Reevaluation #3: 09/19/20 00:39 Spoke patient regarding findings and results, questions answered - Consultations Consultation #1: Spoke with Dr. Robin and Dr. Goemz regarding admission, agreeable Medical Decision Making - Medical Decision Making 79 male DF for evaluation patient is for shortness of breath fever, positive for coronavirus covert and pneumonia. Will admit for continued supportive care - Lab Data Result diagrams: 09/18/20 21:28 09/18/20 21:28 Lab Results 09/18/20 09/18/20 09/18/20 Range/Units 21:28 21:28 21:28 WBC 4.6 (3.8-10.6) k/uL RBC 3.79 L (4.30-5.90) m/uL Hgb 12.5 L (13.0-17.5) gm/dL Hct 34.6 L (39.0-53.0) % MCV 91.3 (80.0-100.0) fL MCH 33.0 (25.0-35.0) pg MCHC 36.2 (31.0-37.0) g/dL RDW 12.8 (11.5-15.5) % Plt Count 144 L (150-450) k/uL MPV 9.3 Neutrophils % 84 % Lymphocytes % 8 % Monocytes % 6 % Eosinophils % 0 % Basophils % 1 % Neutrophils # 3.8 (1.3-7.7) k/uL Lymphocytes # 0.4 L (1.0-4.8) k/uL Monocytes # 0.3 (0-1.0) k/uL Eosinophils # 0.0 (0-0.7) k/uL Basophils # 0.0 (0-0.2) k/uL PT 10.3 (9.0-12.0) sec INR 1.0 (<1.2) APTT 23.2 (22.0-30.0) sec D-Dimer 0.79 H (<0.60) mg/L FEU Sodium 132 L (137-145) mmol/L Potassium 4.3 (3.5-5.1) mmol/L Chloride 100 (98-107) mmol/L Carbon Dioxide 20 L (22-30) mmol/L Anion Gap 12 mmol/L BUN 28 H (9-20) mg/dL Creatinine 0.85 (0.66-1.25) mg/dL Est GFR (CKD-EPI)AfAm >90 (>60 ml/min/1.73 sqM) Est GFR (CKD-EPI)NonAf 82 (>60 ml/min/1.73 sqM) Glucose 228 H (74-99) mg/dL Plasma Lactic Acid Jefferson (0.7-2.0) mmol/L Calcium 8.5 (8.4-10.2) mg/dL Magnesium 1.4 L (1.6-2.3) mg/dL Total Bilirubin 0.9 (0.2-1.3) mg/dL AST 36 (17-59) U/L ALT 18 (4-49) U/L Alkaline Phosphatase 53 (38-126) U/L Lactate Dehydrogenase 631 H (313-618) U/L C-Reactive Protein 25.7 H (<10.0) mg/L Total Protein 6.3 (6.3-8.2) g/dL Albumin 3.7 (3.5-5.0) g/dL Coronavirus (PCR) (Not Detectd) 09/18/20 09/18/20 Range/Units 21:28 23:15 WBC (3.8-10.6) k/uL RBC (4.30-5.90) m/uL Hgb (13.0-17.5) gm/dL Hct (39.0-53.0) % MCV (80.0-100.0) fL MCH (25.0-35.0) pg MCHC (31.0-37.0) g/dL RDW (11.5-15.5) % Plt Count (150-450) k/uL MPV Neutrophils % % Lymphocytes % % Monocytes % % Eosinophils % % Basophils % % Neutrophils # (1.3-7.7) k/uL Lymphocytes # (1.0-4.8) k/uL Monocytes # (0-1.0) k/uL Eosinophils # (0-0.7) k/uL Basophils # (0-0.2) k/uL PT (9.0-12.0) sec INR (<1.2) APTT (22.0-30.0) sec D-Dimer (<0.60) mg/L FEU Sodium (137-145) mmol/L Potassium (3.5-5.1) mmol/L Chloride (98-107) mmol/L Carbon Dioxide (22-30) mmol/L Anion Gap mmol/L BUN (9-20) mg/dL Creatinine (0.66-1.25) mg/dL Est GFR (CKD-EPI)AfAm (>60 ml/min/1.73 sqM) Est GFR (CKD-EPI)NonAf (>60 ml/min/1.73 sqM) Glucose (74-99) mg/dL Plasma Lactic Acid Jefferson 1.6 (0.7-2.0) mmol/L Calcium (8.4-10.2) mg/dL Magnesium (1.6-2.3) mg/dL Total Bilirubin (0.2-1.3) mg/dL AST (17-59) U/L ALT (4-49) U/L Alkaline Phosphatase (38-126) U/L Lactate Dehydrogenase (313-618) U/L C-Reactive Protein (<10.0) mg/L Total Protein (6.3-8.2) g/dL Albumin (3.5-5.0) g/dL Coronavirus (PCR) Detected A (Not Detectd) - EKG Data -: EKG Interpreted by Me (EKG shows sinus rhythm 96 [place] 184 QRS 172 QTC 497) - Radiology Data Radiology results: report reviewed (Chest x-rays positive for coronavirus pneumonia), image reviewed Critical Care Time Critical Care Time: Yes Total Critical Care Time: 31 Disposition Clinical Impression: Acute bronchitis with bronchospasm, Coronavirus infection, Pneumonia due to COVID-19 virus, Hypoxia Disposition: ADMITTED IP TO THIS [facility] Condition: Serious Is patient prescribed a controlled substance at d/c from ED?: No Referrals: Pantera Gomez MD [Primary Care Provider] - 1-2 days
[2020-09-18 21:36] LABS: Basophils % (A) 1 %; Eosinophils % (A) 0 %; HCT 34.6 % (39.0-53.0); HGB 12.5 gm/dL (13.0-17.5); Lymphocytes # (A) 0.4 k/uL (1.0-4.8); Lymphocytes % (A) 8 %; MCHC 36.2 g/dL (31.0-37.0); MCV 91.3 fL (80.0-100.0); Mean Platelet Volume 9.3; Monocytes # (A) 0.3 k/uL (0-1.0); Monocytes % (A) 6 %; Neutrophils # (A) 3.8 k/uL (1.3-7.7); Neutrophils % (A) 84 %; Platelet Count 144 k/uL (150-450); RBC 3.79 m/uL (4.30-5.90); RDW 12.8 % (11.5-15.5); WBC 4.6 k/uL (3.8-10.6)
[2020-09-18 21:48] LABS: ALT 18 U/L (4-49); AST 36 U/L (17-59); African American GFR (CKD) >90 (>60 ml/min/1.73 sqM); Albumin 3.7 g/dL (3.5-5.0); Alkaline Phosphatase 53 U/L (38-126); Anion Gap 12 mmol/L; Blood Urea Nitrogen 28 mg/dL (9-20); C Reactive Protein 25.7 mg/L (<10.0); Calcium 8.5 mg/dL (8.4-10.2); Carbon Dioxide 20 mmol/L (22-30); Chloride 100 mmol/L (98-107); Glucose 228 mg/dL (74-99); LDH 631 U/L (313-618); Magnesium 1.4 mg/dL (1.6-2.3); Non-African American GFR(CKD) 82 (>60 ml/min/1.73 sqM); Potassium 4.3 mmol/L (3.5-5.1); Sodium 132 mmol/L (137-145); Total Bilirubin 0.9 mg/dL (0.2-1.3); Total Protein 6.3 g/dL (6.3-8.2)
[2020-09-18 21:53] LABS: Partial Thromboplastin Time 23.2 sec (22.0-30.0); Prothrombin Time 10.3 sec (9.0-12.0)
--- NOTE | 2020-09-18 22:16 | XR ---
EXAMINATION TYPE: XR chest 1V portable DATE OF EXAM: 09/18/2020 COMPARISON: 08/23/2019 HISTORY: Fever. Short of breath. TECHNIQUE: Single view FINDINGS: Heart is enlarged. The lungs are clear of consolidation. There are no hilar masses. There i s no heart failure. There are sternal wires. Thoracic aorta is atheromatous. Costophrenic angles are clear. IMPRESSION: No active cardiopulmonary disease. No adverse change.
[2020-09-19] MEDS ORDERED: IBUPROFEN 400 MG TAB PO PRN (00:37)
[2020-09-19] MEDS ORDERED: NALOXONE 0.4 MG/ML 1 ML VIAL IV PRN (00:37)
[2020-09-19] MEDS ORDERED: ACETAMINOPHEN TAB 325 MG TAB PO PRN (00:37)
[2020-09-19] MEDS: ALBUTEROL HFA INHALER INHALATION PRN ×3 (08:10→19:14)
[2020-09-19] MEDS: ENOXAPARIN 40 MG/0.4 ML SYRINGE SQ SCH (08:32)
[2020-09-19] MEDS: PANTOPRAZOLE 40 MG/10 ML VIAL IV SCH (08:32)
[2020-09-19] MEDS ORDERED: NITROGLYCERIN SL TABS 0.4 MG TAB SUBLINGUAL PRN (08:33)
[2020-09-19] MEDS: ASCORBIC ACID 500 MG TAB PO SCH (08:42)
[2020-09-19] MEDS: ZINC SULFATE 220 MG CAP PO SCH (08:43)
[2020-09-19] MEDS: CHOLECALCIFEROL 25 MCG (1000 IU) TABLET PO SCH (08:43)
[2020-09-19] MEDS: dexAMETHasone 2 MG TAB PO SCH (08:43)
[2020-09-19] MEDS: FUROSEMIDE 40 MG TAB PO SCH (09:04)
[2020-09-19] MEDS: SPIRONOLACTONE 25 MG TAB PO SCH (09:04)
[2020-09-19] MEDS: METOPROLOL TARTRATE 25 MG TAB PO SCH ×2 (09:04→21:20)
[2020-09-19] MEDS: ASPIRIN 81 MG PO SCH (09:05)
[2020-09-19] MEDS: lisinopriL 20 MG TAB PO SCH (09:05)
[2020-09-19] MEDS: CLOPIDOGREL 75 MG TAB PO SCH (09:05)
[2020-09-19 10:08] LABS: Ferritin 294.2 ng/mL (22.0-322.0)
[2020-09-19] MEDS ORDERED: BAMLANIVIMAB (EUA) 700 MG, ETESEVIMAB (EUA) 1,400 MG in SODIUM CHLORIDE 0.9% 50 ML IVPB ONE (10:30)
--- NOTE | 2020-09-19 10:38 | P.HPIM ---
History of Present Illness H&P Date: 09/19/20 HISTORY AND PHYSICAL AND DISCHARGE SUMMARY: HISTORY OF PRESENT ILLNESS This is a 79-year-old male patient of Dr. Gomez and Dr. Haas with past medical history of coronary artery disease s/p bypass grafting and recent PCI to the SVG-RCA 08/15/2019, hypertension, chronic systolic and diastolic heart failure, diabetes mellitus and dyslipidemia. Echocardiogram from 2019 revealed EF of 30-35%, moderate aortic regurgitation, mild to moderate mitral regurgitation, mild tricuspid regurgitation. The patient complains of shortness of breath, difficulty breathing with exertion, cough, sputum production, chest pain with deep inspiration and fever. Patient has known sick contacts with coronavirus symptoms started 2 days ago. Patient is seen today in the emergency center waiting for a bed, he has not required oxygen. He denies s hortness of breath, no significant cough, no fevers. He is most concerned about his who is at home and is asymptomatic as well. Patient came into [facility] emergency center for evaluation. Temperature max 100.4, heart rate 102, respiratory rate 18, blood pressure 127/70, pulse ox 98% WBC 4.6, hemoglobin 12.5, platelet count 144, lymphocytopenia at 0.4. Sodium 132, potassium 4.3, chloride 100, CO2 20, BUN 28 creatinine 0.85. Blood sugar 228. D-dimer 0.79. INR 1.0. Magnesium 1.4. Liver function tests are normal. LDH 631. C-reactive protein 25.7. COVID-19 positive. Lactic acid 1.6. EKG was sinus rhythm at rate of 96 with left bundle branch block. Chest x-ray reveals no active cardio pulmonary disease. Patient is status post 2 L of IV fluid, Toradol, IV Decadron, inhaler, placed to the MedSur floor awaiting for bed availability, consult with pulmonary medicine. Case discussed with Dr. Barclay and he is in agreement to start Bamlanivimab. Arm as he has been contacted to start medication. Anticipate discharge home later today. REVIEW OF SYSTEMS Constitutional: Reported fever, no chills, no night sweats. No weight change. No weakness, fatigue or lethargy. No daytime sleepiness. EENT: No headache. No blurred vision or double vision, no loss of vision. No loss of Hearing, no ringing in the ears, no dizziness. No nasal drainage or congestion. No epistaxis. No sore throat. Lungs: Reported shortness of breath, cough, no sputum production. No wheezing. Cardiovascular: No chest pain, no lower extremity edema. No palpitations. No paroxysmal nocturnal dyspnea. No orthopnea. No lightheadedness or dizziness. No syncopal episodes. Abdominal: No abdominal pain. No nausea, vomiting. No diarrhea. No constipat ion. No bloody or tarry stools.. No loss of appetite. Genitourinary: No dysuria, increased frequency, urgency. No urinary retention. Musculoskeletal: No myalgias. No muscle weakness, no gait dysfunction, no frequent falls. No back pain. No neck pain. Integumentary: No wounds, no lesions. No rash or pruritus. No unusual bruising. No change in hair or nails. Neurologic: No aphasia. No facial droop. No change in mentation. No head injury. No headache. No paralysis. No paresthesia. Psychiatric: No depression. No anxiety. No mood swings. Endocrine: No abnormal blood sugars. SOCIAL HISTORY Patient is a lifelong nonsmoker. Patient drinks 3 ounces of wine every other day, no marijuana or illicit drug use. Patient was at home with his . FAMILY HISTORY Mother at age 84 with history of diabetes. Father at age 86 from old age with history of hypertension. Patient has a total of 4 brothers. 2 brothers have passed, one from leukemia and one from liver cancer. Patient has 1 sister with no major medical problems. One son of heart attack. He has 1 daughter with underlying COPD PHYSICAL EXAMINATION Gen: This is a 79-year-old male. Patient is resting in bed and appears to be in no acute distress. Patient's is at bedside. HEENT: Head is atraumatic, normocephalic. Pupils equal, round. Sclerae is anicteric. NECK: Supple. No JVD. No lymphadenopathy. No thyromegaly. LUNGS: Clear to auscultation. No wheezes or rhonchi. No intercostal retractions. HEART: Regular rate and rhythm. No murmur. ABDOMEN: Soft. Bowel sounds are present. No masses. No tenderness. EXTREMITIES: No pedal edema. No calf tenderness. NEUROLOGICAL: Patient is awake, alert and oriented x3. Cranial nerves 2 through 12 are grossly intact. ASSESSMENT AND PLAN 1. Difficulty breathing secondary to Covid 19. Consult with pulmonary medicine appreciated, Bamlanivimab, dexamethasone 6 mg oral daily, Lovenox 40 mg subcu daily, vitamin C, vitamin D and zinc supplements. 2. Thrombocytopenia possibly related to Covid. Continue to monitor. 3. Elevated inflammatory markers secondary to COVID-19. 4. History of coronary artery disease with previous CABG with recent PCI. Continue aspirin 81 mg daily, atorvastatin, Lopressor 25 mg twice daily, Plavix 75 mg daily 5. Hypertension. Continue metoprolol 25 mg twice daily, benazepril 10 mg twice daily. 6. Hyperlipidemia. Continue atorvastatin 80 mg at bedtime. 7. Diabetes mellitus type 2. Continue glipizide/metformin 2.5/500 mg and NovoLog scale before meals and at bedtime 8. Chronic systolic and diastolic heart failure, stable. Continue Lasix 40 mg daily, Aldactone 12.5 mg daily. 9. Generalized anxiety disorder. Continue Xanax 0.25 mg twice daily as needed. 10. DVT prophylaxis. Lovenox 11. GI prophylaxis. Protonix. Patient placed as an OBV status. DISCHARGE PLAN Home later today if he remains stable. Impression and plan of care have been directed as dictated by the signing physician. Shayy Rolon nurse practitioner acting as scribe for signing physici an. Past Medical History Past Medical History: Coronary Artery Disease (CAD), Cancer, Diabetes Mellitus, Hyperlipidemia, Hypertension Additional Past Medical History / Comment(s): See Dr Haas's H&P, had some kind of cancer removed as a teen-not sure what kind, no problems since History of Any Multi-Drug Resistant Organisms: None Reported Past Surgical History: Coronary Bypass/CABG, Heart Catheterization, Heart Catheterization With Stent Additional Past Surgical History / Comment(s): open heart 2014 CABGX4 Past Anesthesia/Blood Transfusion Reactions: No Reported Reaction Date of Last Stent Placement:: 08/11/2019 Past Psychological History: No Psychological Hx Reported Past Alcohol Use History: Occasional Past Drug Use History: None Reported - Past Family History Mother Family Medical History: No Reported History, Diabetes Mellitus Additional Family Medical History / Comment(s): Mother at age 84 with history of diabetes. Father Family Medical History: Hypertension Additional Family Medical History / Comment(s): Father at age 86 from old age with history of hypertension. Brother(s) Family Medical History: Hypertension Additional Family Medical History / Comment(s): Patient has a total of 4 brothers. 2 brothers have passed, one from leukemia and one from liver cancer. Son(s) Family Medical History: Coronary Artery Disease (CAD) Additional Family Medical History / Comment(s): Then of heart attack was stopped patient has 1 daughter with underlying COPD Sister(s) Additional Family Medical History / Comment(s): Patient has 1 sister with no major medical problems. Medications and Allergies Home Medications Medication Instructions Recorded Confirmed Type Benazepril [Lotensin] 10 mg PO BID 08/07/16 09/18/20 History glipiZIDE/METFORMIN HCL 1 tab PO BID 09/12/17 09/18/20 History [glipiZIDE/METFORMIN HCL 2.5-500 mg] Cholecalciferol [Vitamin D3 (25 5,000 unit PO DAILY 08/10/19 09/18/20 History Mcg = 1000 Iu)] Spironolactone 12.5 mg PO DAILY 08/10/19 09/18/20 History Atorvastatin [Lipitor] 80 mg PO HS tab 08/16/19 09/18/20 Rx Clopidogrel Bisulfate [Plavix] 75 mg PO DAILY #30 tab 08/16/19 09/18/20 Rx Nitroglycerin Sl Tabs [Nitrostat] 0.4 mg SUBLINGUAL Q5M PRN #100 tab 08/16/19 09/18/20 Rx ALPRAZolam [Xanax] 0.25 mg PO BID PRN 08/23/19 09/18/20 History Metoprolol Tartrate [Lopressor] 25 mg PO BID 08/23/19 09/18/20 History Aspirin EC [Ecotrin Low Dose] 81 mg PO DAILY 09/18/20 09/18/20 History Furosemide [Lasix] 40 mg PO DAILY 09/18/20 09/18/20 History Allergies Allergy/AdvReac Type Severity Reaction Status Date / Time Penicillins Allergy Rash/Hives Verified 09/18/20 21:21 Physical Exam Vitals: Vital Signs Temp Pulse Resp BP Pulse Ox 09/19/20 07:41 98.1 F 77 18 132/71 96 09/19/20 06:00 51 L 18 09/19/20 05:00 50 L 18 09/19/20 01:29 98.7 F 74 18 132/75 98 09/19/20 00:00 65 18 109/66 95 09/18/20 22:49 100.4 F H 93 20 117/72 96 09/18/20 21:43 82 18 136/79 97 09/18/20 21:17 100.4 F H 102 H 18 127/70 98 Intake and Output 09/18/20 09/19/20 09/19/20 22:59 06:59 14:59 Other: Weight 88.451 kg Results CBC & Chem 7: 09/18/20 21:28 09/18/20 21:28 Labs: Abnormal Lab Results - Last 24 Hours (Table) 09/18/20 09/18/20 09/18/20 Range/Units 21:28 21:28 21:28 RBC 3.79 L (4.30-5.90) m/uL Hgb 12.5 L (13.0-17.5) gm/dL Hct 34.6 L (39.0-53.0) % Plt Count 144 L (150-450) k/uL Lymphocytes # 0.4 L (1.0-4.8) k/uL D-Dimer 0.79 H (<0.60) mg/L FEU Sodium 132 L (137-145) mmol/L Carbon Dioxide 20 L (22-30) mmol/L BUN 28 H (9-20) mg/dL Glucose 228 H (74-99) mg/dL Magnesium 1.4 L (1.6-2.3) mg/dL Lactate Dehydrogenase 631 H (313-618) U/L C-Reactive Protein 25.7 H (<10.0) mg/L Coronavirus (PCR) (Not Detectd) 09/18/20 Range/Units 23:15 RBC (4.30-5.90) m/uL Hgb (13.0-17.5) gm/dL Hct (39.0-53.0) % Plt Count (150-450) k/uL Lymphocytes # (1.0-4.8) k/uL D-Dimer (<0.60) mg/L FEU Sodium (137-145) mmol/L Carbon Dioxide (22-30) mmol/L BUN (9-20) mg/dL Glucose (74-99) mg/dL Magnesium (1.6-2.3) mg/dL Lactate Dehydrogenase (313-618) U/L C-Reactive Protein (<10.0) mg/L Coronavirus (PCR) Detected A (Not Detectd)
[2020-09-19 11:51] LABS: Glucose,Whole Blood 356 mg/dL (75-99)
[2020-09-19] MEDS: INSULIN ASPART (NovoLOG) 100 UNIT/ML VIAL SQ SCH ×3 (11:54→21:21)
[2020-09-19 17:29] LABS: Glucose,Whole Blood 217 mg/dL (75-99)
[2020-09-19 21:02] LABS: Glucose,Whole Blood 203 mg/dL (75-99)
[2020-09-19] MEDS: ATORVASTATIN 80 MG TAB PO SCH (21:20)
[2020-09-20 07:30] LABS: Glucose,Whole Blood 131 mg/dL (75-99)
[2020-09-20] MEDS: ALBUTEROL HFA INHALER INHALATION PRN ×2 (07:39→17:15)
[2020-09-20] MEDS: INSULIN ASPART (NovoLOG) 100 UNIT/ML VIAL SQ SCH ×4 (07:39→20:32)
[2020-09-20] MEDS: ENOXAPARIN 40 MG/0.4 ML SYRINGE SQ SCH (08:32)
[2020-09-20] MEDS: dexAMETHasone 2 MG TAB PO SCH (08:33)
[2020-09-20] MEDS: ASPIRIN 81 MG PO SCH (08:34)
[2020-09-20] MEDS: CHOLECALCIFEROL 25 MCG (1000 IU) TABLET PO SCH (08:34)
[2020-09-20] MEDS: METOPROLOL TARTRATE 25 MG TAB PO SCH ×2 (08:34→20:33)
[2020-09-20] MEDS: lisinopriL 20 MG TAB PO SCH (08:35)
[2020-09-20] MEDS: ASCORBIC ACID 500 MG TAB PO SCH (08:35)
[2020-09-20] MEDS: ZINC SULFATE 220 MG CAP PO SCH (08:35)
[2020-09-20] MEDS: SPIRONOLACTONE 25 MG TAB PO SCH (08:36)
[2020-09-20] MEDS: CLOPIDOGREL 75 MG TAB PO SCH (08:36)
[2020-09-20] MEDS: FUROSEMIDE 40 MG TAB PO SCH (08:37)
[2020-09-20] MEDS: ALPRAZolam 0.25 MG TAB PO PRN ×2 (08:37→20:33)
[2020-09-20] MEDS: PANTOPRAZOLE 40 MG/10 ML VIAL IV SCH (08:40)
[2020-09-20 11:09] LABS: Basophils # (A) 0.01 X 10*3/uL (0.00-0.10); Basophils % (A) 0.1 %; Eosinophils # (A) 0 X 10*3/uL (0.04-0.35); Eosinophils % (A) 0 %; HCT 38.7 % (39.6-50.0); HGB 12.6 g/dL (13.0-17.0); Lymphocytes # (A) 0.76 X 10*3/uL (0.90-5.00); MCH 30.7 pg (27.0-32.0); MCHC 32.6 g/dL (32.0-37.0); MCV 94.2 fL (80.0-97.0); Mean Platelet Volume 11.9 fL (9.5-12.2); Monocytes # (A) 0.37 X 10*3/uL (0.20-1.00); Monocytes % (A) 4.4 %; Neutrophils # (A) 7.26 X 10*3/uL (1.80-7.70); Platelet Count 160 X 10*3/uL (140-440); RBC 4.11 X 10*6/uL (4.40-5.60); RDW 13.3 % (11.5-14.5); WBC 8.44 X 10*3/uL (4.50-10.00)
[2020-09-20 11:46] LABS: Anion Gap 11.2 mmol/L (4.00-12.00); Calcium 8.5 mg/dL (8.7-10.3); Carbon Dioxide 23.8 mmol/L (21.6-31.8); Non-African American GFR(CKD) 70.8 (60.0-200.0)
--- NOTE | 2020-09-20 11:57 | P.PN ---
Subjective Progress Note Date: 09/20/20 HISTORY OF PRESENT ILLNESS This is a 79-year-old male patient of Dr. Gomez and Dr. Haas with past medical history of coronary artery disease s/p bypass grafting and recent PCI to the SVG-RCA 08/15/2019, hypertension, chronic systolic and diastolic heart failure, diabetes mellitus and dyslipidemia. Echocardiogram from 2019 revealed EF of 30-35%, moderate aortic regurgitation, mild to moderate mitral regurgitation, mild tricuspid regurgitation. The patient complains of shortness of breath, difficulty breathing with exertion, cough, sputum production, chest pain with deep inspiration and fever. Patient has known sick contacts with coronavirus symptoms started 2 days ago. Patient is seen today in the emergency center waiting for a bed, he has not required oxygen. He denies shortness of breath, no significant cough, no fevers. He is most concerned abou t his who is at home and is asymptomatic as well. Patient came into [facility] emergency center for evaluation. Temperature max 100.4, heart rate 102, respiratory rate 18, blood pressure 127/70, pulse ox 98% WBC 4.6, hemoglobin 12.5, platelet count 144, lymphocytopenia at 0.4. Sodium 132, potassium 4.3, chloride 100, CO2 20, BUN 28 creatinine 0.85. Blood sugar 228. D-dimer 0.79. INR 1.0. Magnesium 1.4. Liver function tests are normal. LDH 631. C-reactive protein 25.7. COVID-19 positive. Lactic acid 1.6. EKG was sinus rhythm at rate of 96 with left bundle branch block. Chest x-ray reveals no active cardio pulmonary disease. Patient is status post 2 L of IV fluid, Toradol, IV Decadron, inhaler, placed to the MedSur floor awaiting for bed availability, consult with pulmonary medicine. Case discussed with Dr. Barclay and he is in agreement to start Bamlanivimab. Arm as he has been contacted to start medication. Anticipate discharge home later today. 09/20: She received Bamlanivimab yesterday and his pulse ox was stable, and discharge was held for unclear reason. Patient states today that his breathing feels better and he does feel better today but when he gets up he is too weak to walk. He had difficulty getting from the stretcher to a chair. He states he did not get any sleep and then night because there is only people in the emergency center. He states he was feeling very down and depressed because of weakness. He states he does have a cough with phlegm production. He does have dizziness with standing. Patient has difficulty with balance. Patient has been afebrile, heart rate 90, blood pressure 132/78, pulse ox 93-97% on room air. Repeat blood work reveals hemoglobin 12.6, electrolytes normal. BUN 30 and creatinine 1, blood sugar running between 131 and 203. A repeat chest x-ray and inflammatory markers will be ordered. Patient will be placed on IV fluids at 75 mL per hour for now. REVIEW OF SYSTEMS Constitutional: Reported fever, no chills, no night sweats. No weight change. No weakness, fatigue or lethargy. No daytime sleepiness. EENT: No headache. No blurred vision or double vision, no loss of vision. No loss of Hearing, no ringing in the ears, no dizziness. No nasal drainage or congestion. No epistaxis. No sore throat. Lungs: Reported shortness of breath, cough, no sputum production. No wheezing. Cardiovascular: No chest pain, no lower extremity edema. No palpitations. No paroxysmal nocturnal dyspnea. No orthopnea. No lightheadedness or dizziness. No syncopal episodes. Abdominal: No abdominal pain. No nausea, vomiting. No diarrhea. No constipation. No bloody or tarry stools.. No loss of appetite. Genitourinary: No dysuria, increased frequency, urgency. No urinary retention. Musculoskeletal: No myalgias. No muscle weakness, no gait dysfunction, no freq uent falls. No back pain. No neck pain. Integumentary: No wounds, no lesions. No rash or pruritus. No unusual bruising. No change in hair or nails. Neurologic: No aphasia. No facial droop. No change in mentation. No head injury. No headache. No paralysis. No paresthesia. Psychiatric: No depression. No anxiety. No mood swings. Endocrine: No abnormal blood sugars. PHYSICAL EXAMINATION Gen: This is a 79-year-old male. Patient is resting in chair in the emergency center and appears to be in no acute distress at rest. HEENT: Head is atraumatic, normocephalic. Pupils equal, round. Sclerae is anicteric. NECK: Supple. No JVD. No lymphadenopathy. No thyromegaly. LUNGS: Bilateral crackles. No intercostal retractions. HEART: Regular rate and rhythm. No murmur. ABDOMEN: Soft. Bowel sounds are present. No masses. No tenderness. EXTREMITIES: No pedal edema. No calf tenderness. NEUROLOGICAL: Patient is awake, alert and oriented x3. Cranial nerves 2 through 12 are grossly intact. ASSESSMENT AND PLAN 1. Difficulty breathing secondary to Covid 19 pneumonia. Consult with pulmonary medicine appreciated, status post Bamlanivimab, continue dexamethasone 6 mg oral daily, Lovenox 40 mg subcu daily, vitamin C, vitamin D and zinc supplements. Add IV fluids 0.9 normal saline at 75 mL per hour, repeat chest x-ray. 2. Thrombocytopenia possibly related to Covid. Continue to monitor. 3. Elevated inflammatory markers secondary to COVID-19. Repeat inflammatory markers. 4. History of coronary artery disease with previous CABG with recent PCI. Continue aspirin 81 mg daily, atorvastatin, Lopressor 25 mg twice daily, Plavix 75 mg daily 5. Hypertension. Continue metoprolol 25 mg twice daily, benazepril 10 mg twice daily. 6. Hyperlipidemia. Continue atorvastatin 80 mg at bedtime. 7. Diabetes mellitus type 2. Continue glipizide/metformin 2.5/500 mg and NovoLog scale before meals and at bedtime 8. Chronic systolic and diastolic heart failure, stable. Continue Lasix 40 mg daily, Aldactone 12.5 mg daily. 9. Generalized anxiety disorder. Continue Xanax 0.25 mg twice daily as needed. 10. DVT prophylaxis. Lovenox 11. GI prophylaxis. Protonix. Patient placed as an OBV status. DISCHARGE PLAN Home Impression and plan of care have been directed as dictated by the signing physician. Shayy Rolon nurse practitioner acting as scribe for signing physician. Objective - Vital Signs Vital signs: Vital Signs Temp 98 F 09/20/20 08:14 Pulse 90 09/20/20 08:14 Resp 22 09/20/20 08:14 BP 132/78 09/20/20 08:14 Pulse Ox 97 09/20/20 08:14 - Labs CBC & Chem 7: 09/20/20 07:57 09/18/20 21:28 Labs: Abnormal Lab Results - Last 24 Hours (Table) 09/19/20 09/19/20 09/19/20 Range/Units 11:50 17:28 21:00 POC Glucose (mg/dL) 356 H 217 H 203 H (75-99) mg/dL 09/20/20 Range/Units 07:28 POC Glucose (mg/dL) 131 H (75-99) mg/dL Microbiology - Last 24 Hours (Table) 09/18/20 21:47 Blood Culture - Preliminary Blood No Growth after 24 hours 09/18/20 21:30 Blood Culture - Preliminary Blood No Growth after 24 hours
[2020-09-20 12:42] LABS: Glucose,Whole Blood 175 mg/dL (75-99)
--- NOTE | 2020-09-20 14:01 | XR ---
EXAMINATION TYPE: XR chest 1V portable DATE OF EXAM: 09/20/2020 COMPARISON: Chest x-ray 09/18/2020 HISTORY: Covid follow-up TECHNIQUE: Single frontal view of the chest is obtained. FINDINGS: Findings are similar to prior exam. Patient is again rotated. Suspect some patchy basilar density is present. Postop changes, cardiac mediastinal silhouette are again seen. IMPRESSION: Correlate for pneumonia.
[2020-09-20] MEDS: SODIUM CHLORIDE 0.9% 1,000 ML IV SCH (15:28)
[2020-09-20 16:26] LABS: Glucose,Whole Blood 236 mg/dL (75-99)
[2020-09-20 20:16] LABS: Glucose,Whole Blood 246 mg/dL (75-99)
[2020-09-20] MEDS: ATORVASTATIN 80 MG TAB PO SCH (20:33)
[2020-09-21] MEDS: SODIUM CHLORIDE 0.9% 1,000 ML IV SCH (03:05)
[2020-09-21 05:52] VITALS: RESP 18
[2020-09-21 07:15] LABS: Glucose,Whole Blood 143 mg/dL (75-99)
[2020-09-21] MEDS: ENOXAPARIN 40 MG/0.4 ML SYRINGE SQ SCH (07:53)
[2020-09-21] MEDS: INSULIN ASPART (NovoLOG) 100 UNIT/ML VIAL SQ SCH (07:53)
[2020-09-21] MEDS: SPIRONOLACTONE 25 MG TAB PO SCH (07:54)
[2020-09-21] MEDS: ZINC SULFATE 220 MG CAP PO SCH (07:54)
[2020-09-21] MEDS: PANTOPRAZOLE 40 MG/10 ML VIAL IV SCH (07:54)
[2020-09-21] MEDS: lisinopriL 20 MG TAB PO SCH (07:54)
[2020-09-21] MEDS: ASPIRIN 81 MG PO SCH (07:54)
[2020-09-21] MEDS: CHOLECALCIFEROL 25 MCG (1000 IU) TABLET PO SCH (07:54)
[2020-09-21] MEDS: CLOPIDOGREL 75 MG TAB PO SCH (07:55)
[2020-09-21] MEDS: ASCORBIC ACID 500 MG TAB PO SCH (07:55)
[2020-09-21] MEDS: dexAMETHasone 2 MG TAB PO SCH (07:55)
[2020-09-21] MEDS: FUROSEMIDE 40 MG TAB PO SCH (07:55)
[2020-09-21] MEDS: METOPROLOL TARTRATE 25 MG TAB PO SCH (07:55)
[2020-09-21] MEDS: ALBUTEROL HFA INHALER INHALATION PRN (08:10)
--- NOTE | 2020-09-21 10:14 | P.DS ---
Providers Date of admission: 09/20/20 09:46 Expected date of discharge: 09/21/20 Attending physician: Pantera Gomez Consults: 09/19/20 00:37 Consult Physician Routine Consulting Provider: Amari Mahoney Consult Reason/Comments: hypoxia Do you want consulting provider notified?: Yes Primary care physician: Pantera Jason [facility] Course: HISTORY OF PRESENT ILLNESS This is a 79-year-old male patient of Dr. Gomez and Dr. Haas with past medical history of coronary artery disease s/p bypass grafting and recent PCI to the SVG-RCA 08/15/2019, hypertension, chronic systolic and diastolic heart failure, diabetes mellitus and dyslipidemia. Echocardiogram from 2019 revealed EF of 30-35%, moderate aortic regurgitation, mild to moderate mitral regurgitation, mild tricuspid regurgitation. The patient complains of shortness of breath, difficulty breathing with exertion, cough, sputum production, chest pain with deep inspiration and fever. Patient has known sick contacts with coronavirus symptoms started 2 days ago. Patient is seen today in the emergency center waiting for a bed, he has not required oxygen. He denies shortness of breath, no significant cough, no fevers. He is most concerned about his who is at home and is asymptomatic as well. Patient came into [facility] emergency center for evaluation. Temperature max 100.4, heart rate 102, respiratory rate 18, blood pressure 127/70, pulse ox 98% WBC 4.6, hemoglobin 12.5, platelet count 144, lymphocytopenia at 0.4. Sodium 132, potassium 4.3, chloride 100, CO2 20, BUN 28 creatinine 0.85. Blood sugar 228. D-dimer 0.79. INR 1.0. Magnesium 1.4. Liver function tests are normal. LDH 631. C-reactive protein 25.7. COVID-19 positive. Lactic acid 1.6. EKG was sinus rhythm at rate of 96 with left bundle branch block. Chest x-ray reveals no active cardio pulmonary disease. Patient is status post 2 L of IV fluid, Toradol, IV Decadron, inhaler, placed to the MedSur floor awaiting for bed availability, consult with pulmonary medicine. Case discussed with Dr. Barclay and he is in agreement to start Bamlanivimab. Arm as he has been contacted to start medication. Anticipate discharge home later today. 09/20: She received Bamlanivimab yesterday and his pulse ox was stable, and discharge was held for unclear reason. Patient states today that his breathing feels better and he does feel better today but when he gets up he is too weak to walk. He had difficulty getting from the stretcher to a chair. He states he did not get any sleep and then night because there is only people in the emergency center. He states he was feeling very down and depressed because of weakness. He states he does have a cough with phlegm production. He does have dizziness with standing. Patient has difficulty with balance. Patient has been afebrile, heart rate 90, blood pressure 132/78, pulse ox 93-97% on room air. Repeat blood work reveals hemoglobin 12.6, electrolytes normal. BUN 30 and creatinine 1, blood sugar running between 131 and 203. A repeat chest x-ray and inflammatory markers will be ordered. Patient will be placed on IV fluids at 75 mL per hour for now. 09/21: Patient is feeling very well today. He denies any shortness of breath. He is not requiring oxygen. He has worked with physical therapy and has been ambulating without any difficulty. 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 He is very anxious to go home. Patient has been afebrile, heart rate 95, blood pressure 124/59, pulse ox 95% on room air. D-dimer 0.74. Blood sugars running between 140 357. Patient will be discharged home today in stable condition. ASSESSMENT AND PLAN 1. Difficulty breathing secondary to Covid 19 pneumonia. 2. Thrombocytopenia possibly related to Covid. 3. Elevated inflammatory markers secondary to COVID-19. 4. History of coronary artery disease with previous CABG with recent PCI. 5. Hypertension. 6. Hyperlipidemia. 7. Diabetes mellitus type 2. 8. Chronic systolic and diastolic heart failure, stable. 9. Generalized anxiety disorder. DISCHARGE PLAN Home Impression and plan of care have been directed as dictated by the signing physician. Shayy Rolon nurse practitioner acting as scribe for signing physician. Patient Condition at Discharge: Good Plan - Discharge Summary Discharge Rx Participant: Yes New Discharge Prescriptions: New Zinc Sulfate [Orazinc] 220 mg PO DAILY cap Ascorbic Acid [Vitamin C] 1,000 mg PO DAILY tab Continue Benazepril [Lotensin] 10 mg PO BID glipiZIDE/METFORMIN HCL [glipiZIDE/METFORMIN HCL 2.5-500 mg] 1 tab PO BID Cholecalciferol [Vitamin D3 (25 Mcg = 1000 Iu)] 5,000 unit PO DAILY Spironolactone 12.5 mg PO DAILY Atorvastatin [Lipitor] 80 mg PO HS tab Nitroglycerin Sl Tabs [Nitrostat] 0.4 mg SUBLINGUAL Q5M PRN #100 tab PRN Reason: Chest Pain Clopidogrel Bisulfate [Plavix] 75 mg PO DAILY #30 tab Metoprolol Tartrate [Lopressor] 25 mg PO BID ALPRAZolam [Xanax] 0.25 mg PO BID PRN PRN Reason: Anxiety Furosemide [Lasix] 40 mg PO DAILY Aspirin EC [Ecotrin Low Dose] 81 mg PO DAILY Discharge Medication List Benazepril [Lotensin] 10 mg PO BID 08/07/16 [History] glipiZIDE/METFORMIN HCL [glipiZIDE/METFORMIN HCL 2.5-500 mg] 1 tab PO BID 09/12/17 [History] Cholecalciferol [Vitamin D3 (25 Mcg = 1000 Iu)] 5,000 unit PO DAILY 08/10/19 [History] Spironolactone 12.5 mg PO DAILY 08/10/19 [History] Atorvastatin [Lipitor] 80 mg PO HS tab 08/16/19 [Rx] Clopidogrel Bisulfate [Plavix] 75 mg PO DAILY #30 tab 08/16/19 [Rx] Nitroglycerin Sl Tabs [Nitrostat] 0.4 mg SUBLINGUAL Q5M PRN #100 tab 08/16/19 [Rx] ALPRAZolam [Xanax] 0.25 mg PO BID PRN 08/23/19 [History] Metoprolol Tartrate [Lopressor] 25 mg PO BID 08/23/19 [History] Aspirin EC [Ecotrin Low Dose] 81 mg PO DAILY 09/18/20 [History] Furosemide [Lasix] 40 mg PO DAILY 09/18/20 [History] Ascorbic Acid [Vitamin C] 1,000 mg PO DAILY tab 09/19/20 [Rx] Zinc Sulfate [Orazinc] 220 mg PO DAILY cap 09/19/20 [Rx] Follow up Appointment(s)/Referral(s): Pantera Gomez MD [Primary Care Provider] - 1 Week (This is a virtual visit not in office with Sammie QUIÑONEZ If you have any questions about this visit please fell free to call the office before your appointment time) Patient Instructions/Handouts: Coronavirus Disease 2019 (COVID-19) Discharge Disposition: HOME SELF-CARE
[2020-09-21 10:29] VITALS: BP 124/59; PULSE 95; TEMP 98
[2020-09-21 11:21] LABS: Glucose,Whole Blood 151 mg/dL (75-99)
[2020-09-21 14:05] LABS: C Reactive Protein 2.8 mg/dL (0.0-0.8)
[2020-09-21 17:54] LABS: Ferritin 1477.9 ng/mL (22.0-322.0)
== END 2020-09-21 12:32 | disposition home or self-care (01) | DRG 177 ==
LOC: EC 21:12 → INTOOBSV 09-19 00:37 → 4SSUR 09-19 00:37 → OBSVTOIN 09-20 09:46 → 4SSUR 09-20 14:17
PROVIDERS: ADMIT Internal Medicine Geriatric Medicine; ATTEND Internal Medicine Geriatric Medicine
DX: U07.1 COVID-19 (principal); J12.82 Pneumonia due to coronavirus disease 2019; J44.0 Chronic obstructive pulmonary disease with (acute) lower respiratory infection; I50.42 Chronic combined systolic (congestive) and diastolic (congestive) heart failure; R09.02 Hypoxemia; J20.8 Acute bronchitis due to other specified organisms; D69.6 Thrombocytopenia, unspecified; D72.810 Lymphocytopenia; E11.9 Type 2 diabetes mellitus without complications; E78.5 Hyperlipidemia, unspecified; F41.1 Generalized anxiety disorder; I11.0 Hypertensive heart disease with heart failure; I25.10 Atherosclerotic heart disease of native coronary artery without angina pectoris; I44.7 Left bundle-branch block, unspecified; Z79.02 Long term (current) use of antithrombotics/antiplatelets; Z79.82 Long term (current) use of aspirin; Z79.899 Other long term (current) drug therapy; Z80.0 Family history of malignant neoplasm of digestive organs; Z80.6 Family history of leukemia; Z82.49 Family history of ischemic heart disease and other diseases of the circulatory system; Z83.3 Family history of diabetes mellitus; Z95.1 Presence of aortocoronary bypass graft; Z98.61 Coronary angioplasty status
CPT/HCPCS: 36415; 71045; 80053; 82728; 83036; 83605; 83615; 83735; 84145; 85025; 85379; 85610; 85730; 86140; 87040; 87635; 93005; 94640; 96361; 96374; 96375; 99285

== ENCOUNTER → 2021-01-17 | Outpatient (CLI) | payer MEDICARE, BC ==
--- NOTE | 2021-01-18 09:51 | XR ---
EXAMINATION TYPE: XR chest 2V DATE OF EXAM: 01/17/2021 COMPARISON: 09/20/2020 TECHNIQUE: PA and lateral views submitted. HISTORY: Shortness of breath FINDINGS: The lungs are clear and there is no pneumothorax, pleural effusion, or focal pneumonia. The heart i s enlarged. Postoperative change with ectasia of the aorta. No overt failure. Hypertrophic and degene rative changes of the spine. Atherosclerotic change aorta. IMPRESSION: 1. No acute process. 2. 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
== END | disposition home or self-care (01) ==
LOC: RADXRMAIN 16:18
PROVIDERS: ATTEND Internal Medicine Geriatric Medicine
DX: I77.819 Aortic ectasia, unspecified site (principal)
CPT/HCPCS: 71046

== ENCOUNTER 2022-04-28 14:17 | Emergency (ER) | payer MEDICARE, BC ==
[2022-04-28 14:50] VITALS: RESP 18; TEMP 98.6
[2022-04-28] MEDS ORDERED: IPRATROPIUM-ALBUTEROL 3 ML NEB INHALATION STA (15:17)
--- NOTE | 2022-04-28 15:19 | ED ---
General Adult HPI - General Chief complaint: Shortness of Breath Stated complaint: Chest Cold Time Seen by Provider: 04/28/22 15:01 Source: patient, family, RN notes reviewed Mode of arrival: ambulatory Limitations: no limitations - History of Present Illness Initial comments: Patient is a pleasant 81-year-old male presenting to the emergency department with difficulty breathing. Onset of symptoms was a couple of days ago. Patient does have cough with morillo sputum. No fever. Patient feels mildly short of breath. No history of chronic lung problems however patient does have history of CHF. No calf pain. No leg swelling. - Related Data Home Medications Medication Instructions Recorded Confirmed glipiZIDE/METFORMIN HCL 1 tab PO BID 09/12/17 04/28/22 [glipiZIDE/METFORMIN HCL 2.5-500 mg] Spironolactone 12.5 mg PO DAILY 08/10/19 04/28/22 Metoprolol Tartrate [Lopressor] 25 mg PO BID 08/23/19 04/28/22 Furosemide [Lasix] 40 mg PO DAILY 09/18/20 04/28/22 Clopidogrel Bisulfate [Plavix] 75 mg PO HS 04/28/22 04/28/22 Sacubitril/Valsartan [Entresto 24 1 tab PO BID 04/28/22 04/28/22 mg-26 mg Tablet] Previous Rx's Medication Instructions Recorded Atorvastatin [Lipitor] 80 mg PO HS tab 08/16/19 Nitroglycerin Sl Tabs [Nitrostat] 0.4 mg SUBLINGUAL Q5M PRN #100 tab 08/16/19 Albuterol Inhaler [Ventolin Hfa 2 puff INHALATION Q4HR PRN #1 each 04/28/22 Inhaler] Azithromycin [Zithromax Z Pack] 250 mg PO DAILY #6 tab 04/28/22 methylPREDNISolone Dose Pack 4 mg PO DIRECTED #21 tab 04/28/22 [Medrol Dose Pack] Allergies Allergy/AdvReac Type Severity Reaction Status Date / Time Penicillins Allergy Rash/Hives Verified 04/28/22 16:52 Review of Systems ROS Statement: Those systems with pertinent positive or pertinent negative responses have been documented in the HPI. ROS Other: All systems not noted in ROS Statement are negative. Constitutional: Denies: fever Eyes: Denies: eye pain ENT: Denies: ear pain Respiratory: Reports: as per HPI, cough Cardiovascular: Denies: chest pain Endocrine: Denies: fatigue Gastrointestinal: Denies: abdominal pain Genitourinary: Denies: dysuria Musculoskeletal: Denies: back pain Skin: Denies: rash Neurological: Denies: weakness Past Medical History Past Medical History: Coronary Artery Disease (CAD), Cancer, Diabetes Mellitus, Hyperlipidemia, Hypertension Additional Past Medical History / Comment(s): See Dr Haas's H&P, had some kind of cancer removed as a teen-not sure what kind, no problems since History of Any Multi-Drug Resistant Organisms: None Reported Past Surgical History: Coronary Bypass/CABG, Heart Catheterization, Heart Catheterization With Stent Additional Past Surgical History / Comment(s): open heart 2014 CABGX4 Past Anesthesia/Blood Transfusion Reactions: No Reported Reaction Date of Last Stent Placement:: 08/11/2019 Past Psychological History: No Psychological Hx Reported Past Alcohol Use History: Occasional Past Drug Use History: None Reported - Past Family History Mother Family Medical History: No Reported History, Diabetes Mellitus Additional Family Medical History / Comment(s): Mother at age 84 with history of diabetes. Father Family Medical History: Hypertension Additional Family Medical History / Comment(s): Father at age 86 from old age with history of hypertension. Brother(s) Family Medical History: Hypertension Additional Family Medical History / Comment(s): Patient has a total of 4 brothers. 2 brothers have passed, one from leukemia and one from liver cancer. Son(s) Family Medical History: Coronary Artery Disease (CAD) Additional Family Medical History / Comment(s): Then of heart attack was stopped patient has 1 daughter with underlying COPD Sister(s) Additional Family Medical History / Comment(s): Patient has 1 sister with no major medical problems. General Exam Limitations: no limitations General appearance: alert, in no apparent distress Head exam: Present: normocephalic Eye exam: Present: normal appearance Respiratory exam: Present: wheezes (Mild expiratory). Absent: respiratory distress Cardiovascular Exam: Present: regular rate, normal rhythm GI/Abdominal exam: Present: soft. Absent: tenderness Extremities exam: Present: normal inspection. Absent: pedal edema, calf te nderness Neurological exam: Present: alert Psychiatric exam: Present: normal affect, normal mood Skin exam: Present: normal color Course Vital Signs 04/28/22 04/28/22 04/28/22 14:47 15:50 15:59 Temperature 98.6 F Pulse Rate 65 62 63 Respiratory 18 Rate Blood Pressure 133/62 O2 Sat by Pulse 96 Oximetry 04/28/22 17:33 Temperature Pulse Rate 67 Respiratory 18 Rate Blood Pressure 111/60 O2 Sat by Pulse 95 Oximetry EKG Findings - EKG Comments: EKG Findings:: Sinus rhythm rate 64. First-degree AV block AK 235. QRS 173. QT 435. QTC 444. Normal axis. Left bundle branch block. Nonspecific ST-T. Medical Decision Making - Medical Decision Making Patient reevaluated and feeling somewhat better. Patient updated on results. Patient requests discharge home - Lab Data Result diagrams: 04/28/22 15:08 04/28/22 15:08 Lab Results 04/28/22 04/28/22 04/28/22 Range/Units 15:08 15:08 15:08 WBC 6.0 (3.8-10.6) k/uL RBC 3.93 L (4.30-5.90) m/uL Hgb 12.9 L (13.0-17.5) gm/dL Hct 36.7 L (39.0-53.0) % MCV 93.5 (80.0-100.0) fL MCH 32.9 (25.0-35.0) pg MCHC 35.3 (31.0-37.0) g/dL RDW 12.6 (11.5-15.5) % Plt Count 188 (150-450) k/uL MPV 9.0 Neutrophils % 65 % Lymphocytes % 19 % Monocytes % 10 % Eosinophils % 2 % Basophils % 1 % Neutrophils # 3.9 (1.3-7.7) k/uL Lymphocytes # 1.1 (1.0-4.8) k/uL Monocytes # 0.6 (0-1.0) k/uL Eosinophils # 0.2 (0-0.7) k/uL Basophils # 0.0 (0-0.2) k/uL PT 10.7 (9.0-12.0) sec INR 1.0 (<1.2) APTT 22.1 (22.0-30.0) sec D-Dimer 0.46 (<0.60) mg/L FEU Sodium 136 L (137-145) mmol/L Potassium 5.1 (3.5-5.1) mmol/L Chloride 105 (98-107) mmol/L Carbon Dioxide 23 (22-30) mmol/L Anion Gap 8 mmol/L BUN 23 H (9-20) mg/dL Creatinine 0.79 (0.66-1.25) mg/dL Est GFR (CKD-EPI)AfAm >90 (>60 ml/min/1.73 sqM) Est GFR (CKD-EPI)NonAf 84 (>60 ml/min/1.73 sqM) Glucose 163 H (74-99) mg/dL Plasma Lactic Acid Jefferson (0.7-2.0) mmol/L Calcium 8.8 (8.4-10.2) mg/dL Total Bilirubin 0.8 (0.2-1.3) mg/dL AST 30 (17-59) U/L ALT 28 (4-49) U/L Alkaline Phosphatase 47 (38-126) U/L Troponin I (0.000-0.034) ng/mL NT-Pro-B Natriuret Pep pg/mL Total Protein 6.6 (6.3-8.2) g/dL Albumin 4.2 (3.5-5.0) g/dL Coronavirus (PCR) (Not Detectd) Influenza Type A RNA (Not Detectd) Influenza Type B (PCR) (Not Detectd) 04/28/22 04/28/22 04/28/22 Range/Units 15:08 15:08 15:08 WBC (3.8-10.6) k/uL RBC (4.30-5.90) m/uL Hgb (13.0-17.5) gm/dL Hct (39.0-53.0) % MCV (80.0-100.0) fL MCH (25.0-35.0) pg MCHC (31.0-37.0) g/dL RDW (11.5-15.5) % Plt Count (150-450) k/uL MPV Neutrophils % % Lymphocytes % % Monocytes % % Eosinophils % % Basophils % % Neutrophils # (1.3-7.7) k/uL Lymphocytes # (1.0-4.8) k/uL Monocytes # (0-1.0) k/uL Eosinophils # (0-0.7) k/uL Basophils # (0-0.2) k/uL PT (9.0-12.0) sec INR (<1.2) APTT (22.0-30.0) sec D-Dimer (<0.60) mg/L FEU Sodium (137-145) mmol/L Potassium (3.5-5.1) mmol/L Chloride (98-107) mmol/L Carbon Dioxide (22-30) mmol/L Anion Gap mmol/L BUN (9-20) mg/dL Creatinine (0.66-1.25) mg/dL Est GFR (CKD-EPI)AfAm (>60 ml/min/1.73 sqM) Est GFR (CKD-EPI)NonAf (>60 ml/min/1.73 sqM) Glucose (74-99) mg/dL Plasma Lactic Acid Jefferson 1.5 (0.7-2.0) mmol/L Calcium (8.4-10.2) mg/dL Total Bilirubin (0.2-1.3) mg/dL AST (17-59) U/L ALT (4-49) U/L Alkaline Phosphatase (38-126) U/L Troponin I <0.012 (0.000-0.034) ng/mL NT-Pro-B Natriuret Pep 1940 pg/mL Total Protein (6.3-8.2) g/dL Albumin (3.5-5.0) g/dL Coronavirus (PCR) (Not Detectd) Influenza Type A RNA (Not Detectd) Influenza Type B (PCR) (Not Detectd) 04/28/22 04/28/22 Range/Units 15:20 15:20 WBC (3.8-10.6) k/uL RBC (4.30-5.90) m/uL Hgb (13.0-17.5) gm/dL Hct (39.0-53.0) % MCV (80.0-100.0) fL MCH (25.0-35.0) pg MCHC (31.0-37.0) g/dL RDW (11.5-15.5) % Plt Count (150-450) k/uL MPV Neutrophils % % Lymphocytes % % Monocytes % % Eosinophils % % Basophils % % Neutrophils # (1.3-7.7) k/uL Lymphocytes # (1.0-4.8) k/uL Monocytes # (0-1.0) k/uL Eosinophils # (0-0.7) k/uL Basophils # (0-0.2) k/uL PT (9.0-12.0) sec INR (<1.2) APTT (22.0-30.0) sec D-Dimer (<0.60) mg/L FEU Sodium (137-145) mmol/L Potassium (3.5-5.1) mmol/L Chloride (98-107) mmol/L Carbon Dioxide (22-30) mmol/L Anion Gap mmol/L BUN (9-20) mg/dL Creatinine (0.66-1.25) mg/dL Est GFR (CKD-EPI)AfAm (>60 ml/min/1.73 sqM) Est GFR (CKD-EPI)NonAf (>60 ml/min/1.73 sqM) Glucose (74-99) mg/dL Plasma Lactic Acid Jefferson (0.7-2.0) mmol/L Calcium (8.4-10.2) mg/dL Total Bilirubin (0.2-1.3) mg/dL AST (17-59) U/L ALT (4-49) U/L Alkaline Phosphatase (38-126) U/L Troponin I (0.000-0.034) ng/mL NT-Pro-B Natriuret Pep pg/mL Total Protein (6.3-8.2) g/dL Albumin (3.5-5.0) g/dL Coronavirus (PCR) Not Detected (Not Detectd) Influenza Type A RNA Not Detected (Not Detectd) Influenza Type B (PCR) Not Detected (Not Detectd) - Radiology Data Radiology results: image reviewed (Chest x-ray shows no acute process) Disposition Clinical Impression: Bronchitis Disposition: HOME SELF-CARE Condition: Stable Instructions (If sedation given, give patient instructions): Acute Bronchitis (ED) Additional Instructions: Please do follow-up to primary care physician in the next day or 2 for recheck. Return for difficulty in breathing, fevers, worsening symptoms or other concerns. Prescription sent to pharmacy. Prescriptions: methylPREDNISolone Dose Pack [Medrol Dose Pack] 4 mg PO DIRECTED #21 tab Albuterol Inhaler [Ventolin Hfa Inhaler] 2 puff INHALATION Q4HR PRN #1 each PRN Reason: Dyspnea Azithromycin [Zithromax Z Pack] 250 mg PO DAILY #6 tab Is patient prescribed a controlled substance at d/c from ED?: No Referrals: Pantera oGmez MD [Primary Care Provider] - 1-2 days Time of Disposition: 17:38
[2022-04-28 15:46] LABS: Basophils % (A) 1 %; Eosinophils # (A) 0.2 k/uL (0-0.7); Eosinophils % (A) 2 %; HCT 36.7 % (39.0-53.0); HGB 12.9 gm/dL (13.0-17.5); Lymphocytes # (A) 1.1 k/uL (1.0-4.8); Lymphocytes % (A) 19 %; MCH 32.9 pg (25.0-35.0); MCHC 35.3 g/dL (31.0-37.0); MCV 93.5 fL (80.0-100.0); Monocytes # (A) 0.6 k/uL (0-1.0); Monocytes % (A) 10 %; Neutrophils # (A) 3.9 k/uL (1.3-7.7); Neutrophils % (A) 65 %; Platelet Count 188 k/uL (150-450); RBC 3.93 m/uL (4.30-5.90); RDW 12.6 % (11.5-15.5)
[2022-04-28 16:00] LABS: ALT 28 U/L (4-49); AST 30 U/L (17-59); African American GFR (CKD) >90 (>60 ml/min/1.73 sqM); Albumin 4.2 g/dL (3.5-5.0); Alkaline Phosphatase 47 U/L (38-126); Anion Gap 8 mmol/L; Blood Urea Nitrogen 23 mg/dL (9-20); Calcium 8.8 mg/dL (8.4-10.2); Carbon Dioxide 23 mmol/L (22-30); Chloride 105 mmol/L (98-107); Glucose 163 mg/dL (74-99); Non-African American GFR(CKD) 84 (>60 ml/min/1.73 sqM); Potassium 5.1 mmol/L (3.5-5.1); Sodium 136 mmol/L (137-145); Total Bilirubin 0.8 mg/dL (0.2-1.3); Total Protein 6.6 g/dL (6.3-8.2)
[2022-04-28 16:06] LABS: Partial Thromboplastin Time 22.1 sec (22.0-30.0); Prothrombin Time 10.7 sec (9.0-12.0)
--- NOTE | 2022-04-28 16:18 | XR ---
EXAMINATION TYPE: XR chest 2V DATE OF EXAM: 04/28/2022 COMPARISON: Chest/January 17, 2021 HISTORY: Difficulty breathing. TECHNIQUE: Frontal and lateral views of the chest are obtained. FINDINGS: Overlying sternal wires are redemonstrated. There is chronic changes bilaterally without s uspicious focal air space opacity, pleural effusion, or pneumothorax seen. Stable cardiomegaly with e ctatic thoracic aorta. The osseous structures are intact. IMPRESSION: Chronic changes and cardiomegaly without acute pulmonary process.
[2022-04-28 17:34] VITALS: BP 111/60; PULSE 67
== END 2022-04-28 18:06 | disposition home or self-care (01) ==
LOC: EC 14:17
DX: J20.9 Acute bronchitis, unspecified (principal); I11.0 Hypertensive heart disease with heart failure; I50.9 Heart failure, unspecified; Z88.0 Allergy status to penicillin; E11.9 Type 2 diabetes mellitus without complications; E78.5 Hyperlipidemia, unspecified; Z79.02 Long term (current) use of antithrombotics/antiplatelets; Z79.84 Long term (current) use of oral hypoglycemic drugs; Z85.9 Personal history of malignant neoplasm, unspecified; Z95.1 Presence of aortocoronary bypass graft; Z95.5 Presence of coronary angioplasty implant and graft; I25.10 Atherosclerotic heart disease of native coronary artery without angina pectoris; Z79.899 Other long term (current) drug therapy; Z20.822 Contact with and (suspected) exposure to COVID-19
CPT/HCPCS: 36415; 71046; 80053; 83605; 83880; 84484; 85025; 85379; 85610; 85730; 87502; 87635; 93005; 94640; 99285

== ENCOUNTER → 2022-10-22 | Outpatient (CLI) | payer MEDICARE, BC ==
--- NOTE | 2022-10-22 11:40 | XR ---
EXAM TYPE: LUMBAR SPINE X RAY SERIES COMPARISON: NONE HISTORY: Pain TECHNIQUE: 3 views are submitted. FINDINGS: Alignment is anatomic. The pedicles are intact. The transverse processes are intact. There is zak re degenerative disc disease at levels L2-S1 with retrolisthesis L2 on L3 by approximately 5 mm an ap proximate 4 mm at L3-L4. There is severe facet arthropathy at multiple levels most marked at L4-L5 wi th bilateral foraminal encroachment suspected. Sclerosis involving the left sacrum likely on the basi s of bone island. IMPRESSION: 1. Severe multilevel degenerative disc disease and facet arthropathy with multilevel foraminal encroa chment suspected.
== END | disposition home or self-care (01) ==
LOC: RADXRMAIN 10:40
PROVIDERS: ATTEND Internal Medicine Geriatric Medicine
DX: M51.36 Other intervertebral disc degeneration, lumbar region (principal); M47.816 Spondylosis without myelopathy or radiculopathy, lumbar region; M48.061 Spinal stenosis, lumbar region without neurogenic claudication
CPT/HCPCS: 72100

== ENCOUNTER 2023-03-29 15:23 | Emergency (ER) | payer MEDICARE, BC ==
--- NOTE | 2023-03-29 15:43 | ED ---
Chest Pain HPI - General Source: patient, family, RN notes reviewed Mode of arrival: wheelchair Limitations: no limitations - History of Present Illness MD Complaint: chest pain <Talita Muhammad - Last Filed: 03/29/23 15:43> <Derick Beckett - Last Filed: 03/29/23 18:51> - General Chief Complaint: Chest Pain Stated Complaint: chest pressure SOB Time Seen by Provider: 03/29/23 15:39 - History of Present Illness Initial Comments: This is an 82 year old male who presents to the emergency department for chest pain. Also reports shortness of breath. Symptoms started 2 days ago. He does have a cardiac history, including a CABG in 2013. His is concerned that he may be downplaying his symptoms because he does not want to be here. (Talita Muhammad) Dictation was produced using [employer] dictation software. please excuse any grammatical, word or spelling errors. Chief Complaint: 82-year-old male presents with cough, generalized weakness shortness of breath History of Present Illness: Patient is an 82-year-old male presents to the department with chest pain and shortness of breath. Patient states that he feels weak. Patient has been having symptoms for the last 1-2 days. He has had a cough. States that whenever he coughs he has sharp pain to his anterior chest. No associated nausea or diaphoresis. Pain is not radiating. Patient denies any obvious sick contacts. Denies any fever or constitutional symptoms. Patient has history of CABG coronary artery disease. The ROS documented in this emergency department record has been reviewed and confirmed by me. Those systems with pertinent positive or negative responses have been documented in the HPI. All other systems are other negative and/or noncontributory. (Derick Beckett) - Related Data Home Medications Medication Instructions Recorded Confirmed glipiZIDE/METFORMIN HCL 1 tab PO BID 09/12/17 04/28/22 [glipiZIDE/METFORMIN HCL 2.5-500 mg] Spironolactone 12.5 mg PO DAILY 08/10/19 04/28/22 Metoprolol Tartrate [Lopressor] 25 mg PO BID 08/23/19 04/28/22 Furosemide [Lasix] 40 mg PO DAILY 09/18/20 04/28/22 Clopidogrel Bisulfate [Plavix] 75 mg PO HS 04/28/22 04/28/22 Sacubitril/Valsartan [Entresto 24 1 tab PO BID 04/28/22 04/28/22 mg-26 mg Tablet] Previous Rx's Medication Instructions Recorded Atorvastatin [Lipitor] 80 mg PO HS tab 08/16/19 Nitroglycerin Sl Tabs [Nitrostat] 0.4 mg SUBLINGUAL Q5M PRN #100 tab 08/16/19 Albuterol Inhaler [Ventolin Hfa 2 puff INHALATION Q4HR PRN #1 each 04/28/22 Inhaler] Azithromycin [Zithromax Z Pack] 250 mg PO DAILY #6 tab 04/28/22 methylPREDNISolone Dose Pack 4 mg PO DIRECTED #21 tab 04/28/22 [Medrol Dose Pack] Albuterol Inhaler [Ventolin Hfa 1 - 2 puff INHALATION RT-Q6H PRN 03/29/23 Inhaler] #1 each Azithromycin [Zithromax Z Pack] 1 tab PO DIRECTED #6 tab 03/29/23 methylPREDNISolone Dose Pack 4 mg PO DIRECTED #1 packet 03/29/23 [Medrol Dose Pack] Allergies Allergy/AdvReac Type Severity Reaction Status Date / Time Penicillins Allergy Rash/Hives Verified 04/28/22 16:52 Review of Systems ROS Other: All systems not noted in ROS Statement are negative. <Talita Muhammad - Last Filed: 03/29/23 15:43> ROS Other: All systems not noted in ROS Statement are negative. <Derick Beckett - Last Filed: 03/29/23 18:51> ROS Statement: Those systems with pertinent positive or pertinent negative responses have been documented in the HPI. EKG Findings - EKG Comments: EKG Findings:: My EKG interpretation: Ventricular rate 72, sinus rhythm,. Interval tonight, QRS 168, QTc 448. No NV prolongation, no QTC prolongation, no ST or T-wave changes noted. EKG compared to 04/28/2022 showing no changes. Overall, this EKG is unremarkable <Derick Beckett - Last Filed: 03/29/23 18:51> Past Medical History Past Medical History: Coronary Artery Disease (CAD), Cancer, Diabetes Mellitus, Hyperlipidemia, Hypertension Additional Past Medical History / Comment(s): See Dr Haas's H&P, had some kind of cancer removed as a teen-not sure what kind, no problems since History of Any Multi-Drug Resistant Organisms: None Reported Past Surgical History: Coronary Bypass/CABG, Heart Catheterization, Heart Catheterization With Stent Additional Past Surgical History / Comment(s): open heart 2014 CABGX4 Past Anesthesia/Blood Transfusion Reactions: No Reported Reaction Date of Last Stent Placement:: 08/11/2019 Past Psychological History: No Psychological Hx Reported Past Alcohol Use History: Occasional Past Drug Use History: None Reported - Past Family History Mother Family Medical History: No Reported History, Diabetes Mellitus Additional Family Medical History / Comment(s): Mother at age 84 with history of diabetes. Father Family Medical History: Hypertension Additional Family Medical History / Comment(s): Father at age 86 from old age with history of hypertension. Brother(s) Family Medical History: Hypertension Additional Family Medical History / Comment(s): Patient has a total of 4 brothers. 2 brothers have passed, one from leukemia and one from liver cancer. Son(s) Family Medical History: Coronary Artery Disease (CAD) Additional Family Medical History / Comment(s): Then of heart attack was stopped patient has 1 daughter with underlying COPD Sister(s) Additional Family Medical History / Comment(s): Patient has 1 sister with no major medical problems. <Talita Muhammad - Last Filed: 03/29/23 15:43> General Exam <Talita Muhammad - Last Filed: 03/29/23 15:43> <Derick Beckett - Last Filed: 03/29/23 18:51> - General Exam Comments Initial Comments: Visual Physical Exam Vital signs reviewed General: Well-appearing, nontoxic, no acute distress. Head: Normocephalic, atraumatic Eyes: PERRLA, EOMI ENT: Airway patent Chest: Nonlabored breathing Skin: No visual rash, normal skin tone Neuro: Alert and oriented 3 Musculoskeletal: No gross abnormalities I performed the QuickNote portion of this chart. Signed Talita Muhammad PA-C. (Talita Muhammad) PHYSICAL EXAM: General Impression: Alert and oriented x3, not in acute distress HEENT: Normocephalic atraumatic, extra-ocular movements intact, pupils equal and reactive to light bilaterally, mucous membranes moist. Cardiovascular: Heart regular rate and rhythm Chest: Able to complete full sentences, no retractions, no tachypnea, diffuse lung auscultatory wheezing Abdomen: abdomen soft, non-tender, non-distended, no organomegaly Musculoskeletal: Pulses present and equal in all extremities, no peripheral edema Motor: no focal deficits noted Neurological: CN II-XII grossly intact, no focal motor or sensory deficits noted Skin: Intact with no visualized rashes Psych: Normal affect and mood (Derick Beckett) Course Vital Signs 03/29/23 03/29/23 03/29/23 15:39 15:47 16:00 Temperature 97.7 F Pulse Rate 71 70 68 Respiratory 16 18 18 Rate Blood Pressure 115/63 143/74 143/74 O2 Sat by Pulse 96 96 95 Oximetry 03/29/23 03/29/23 03/29/23 16:30 17:00 17:25 Temperature Pulse Rate 72 67 73 Respiratory 16 18 Rate Blood Pressure 139/70 142/81 O2 Sat by Pulse 98 94 L Oximetry 03/29/23 03/29/23 17:30 17:34 Temperature Pulse Rate 75 74 Respiratory 16 Rate Blood Pressure 131/65 O2 Sat by Pulse 100 Oximetry Chest Pain MDM <Derick Beckett - Last Filed: 03/29/23 18:51> - MDM Was pt. sent in by a medical professional or institution (, PA, TOBACCO STRIPPER, urgent care, hospital, or half-way...) When possible be specific @ -No Did you speak to anyone other than the patient for history (EMS, parent, family, police, friend...)? What history was obtained from this source @ -No Did you review nursing and triage notes (agree or disagree)? Why? @ -I reviewed and agree with nursing and triage notes Were old charts reviewed (outside hosp., previous admission, EMS record, old EKG, old radiological studies, urgent care reports/EKG's, half-way records)? Report findings @ -No old charts were reviewed Differential Diagnosis (chest pain, altered mental status, abdominal pain women, abdominal pain men, vaginal bleeding, musculoskeletal, weakness, fever, dyspnea, syncope, headache, dizziness, GI bleed, back pain, seizure, CVA, palpatations, mental health)? @ -Differential Dyspnea: Coronary syndrome, arrhythmia, tamponade, asthma, COPD, pulmonary embolism, pneumonia, pneumothorax, pulmonary effusion, anaphylaxis, diabetic ketoacidosis, flailed chest, pulmonary contusion, diaphragmatic rupture, anemia, neuromuscular, this is not meant to be an all-inclusive list. EKG interpreted by me (3pts min.). @ -See above X-rays interpreted by me (1pt min.). @ -No acute processes CT interpreted by me (1pt min.). @ -None done U/S interpreted by me (1pt. min.). @ -None done What testing was considered but not performed or refused? (CT, X-rays, U/S, labs)? Why? @ -None What meds were considered but not given or refused? Why? @ -None Did you discuss the management of the patient with other professionals (professionals i.e. , PA, TOBACCO STRIPPER, lab, RT, psych nurse, public health social worker, latin american studies director, teacher, guest services officer, ed case manager)? Give summary @ -No Was smoking cessation discussed for >3mins.? @ -No Was critical care preformed (if so, how long)? @ -No Were there social determinants of health that impacted care today? How? (Homelessness, low income, unemployed, alcoholism, drug addiction, transportation, low edu. Level, literacy, decrease access to med. care, custodial, rehab)? @ -No Was there de-escalation of care discussed even if they declined (Discuss DNR or withdrawal of care, Hospice)? DNR status @ -No What co-morbidities impacted this encounter? (DM, HTN, Smoking, COPD, CAD, Cancer, CVA, ARF, Chemo, Hep., AIDS, mental health diagnosis, sleep apnea, morbid obesity)? @ -None Was patient admitted / discharged? Hospital course, mention meds given and route, prescriptions, significant lab abnormalities, going to OR and other pertinent info. @ -82-year-old male presents to the emergency Department with wheezing cough. Vital signs upon arrival are within acceptable limits. Patient does have history of heart failure seen on echo cardiac exam from 2019. Patient however does not have symptoms to suggest heart failure. He has a cough with URI type symptoms. Vital signs are stable. Laboratory evaluation obtained. No leukocytosis. Labs are within acceptable limits. BNP slightly elevated however clinically his symptoms more consistent with acute bronchitis. Given breathing treatment with significant improvement of his symptoms. Patient given Decadron. He is reevaluated at bedside at 6:50 PM found to be in stable medical co ndition. Patient is agreeable with discharge advised follow-up with primary care doctor. Undiagnosed new problem with uncertain prognosis? @ -No Drug Therapy requiring intensive monitoring for toxicity (Heparin, Nitro, Insulin, Cardizem)? @ -No Were any procedures done? @ -No Diagnosis/symptom? Acute, or Chronic, or Acute on Chronic? Uncomplicated (without systemic symptoms) or Complicated (systemic symptoms)? @ -Acute bronchitis Side effects of treatment? @ -No Exacerbation, Progression, or Severe Exacerbation? @ -No Poses a threat to life or bodily function? How? (Chest pain, [place], [place], pneumonia, PE, COPD, DKA, ARF, appy, cholecystitis, CVA, Diverticulitis, Homicidal, Suicidal, threat to staff... and all critical care pts) @ -No (Derick Beckett) Disposition <Talita Muhammad - Last Filed: 03/29/23 15:43> Is patient prescribed a controlled substance at d/c from ED?: No Time of Disposition: 18:51 <Derick Beckett - Last Filed: 03/29/23 18:51> Clinical Impression: Acute bronchitis Disposition: HOME SELF-CARE Condition: Good Instructions (If sedation given, give patient instructions): Acute Bronchitis (ED) Prescriptions: methylPREDNISolone Dose Pack [Medrol Dose Pack] 4 mg PO DIRECTED #1 packet Albuterol Inhaler [Ventolin Hfa Inhaler] 1 - 2 puff INHALATION RT-Q6H PRN #1 each PRN Reason: Dyspnea Azithromycin [Zithromax Z Pack] 1 tab PO DIRECTED #6 tab Referrals: Pantera Gomez MD [Primary Care Provider] - 1-2 days
[2023-03-29 16:26] VITALS: TEMP 97.7
--- NOTE | 2023-03-29 16:26 | XR ---
EXAMINATION TYPE: XR chest 2V DATE OF EXAM: 03/29/2023 COMPARISON: 04/28/2022 HISTORY: Chest pain TECHNIQUE: Frontal and lateral views of the chest are obtained. FINDINGS: There are median sternotomy wires. There is tortuosity of the thoracic aorta is stable. There is no focal air space opacity, pleural eff usion, or pneumothorax seen. The cardiac silhouette size is within normal limits. The osseous stru ctures are intact. IMPRESSION: No acute cardiopulmonary process.
[2023-03-29 16:48] LABS: Basophils % (A) 0 %; Eosinophils # (A) 0.3 k/uL (0-0.7); Eosinophils % (A) 3 %; HCT 39.1 % (39.0-53.0); HGB 12.9 gm/dL (13.0-17.5); Lymphocytes # (A) 0.9 k/uL (1.0-4.8); Lymphocytes % (A) 12 %; MCH 31.1 pg (25.0-35.0); MCHC 32.9 g/dL (31.0-37.0); MCV 94.5 fL (80.0-100.0); Mean Platelet Volume 8.7; Monocytes # (A) 0.6 k/uL (0-1.0); Monocytes % (A) 8 %; Neutrophils # (A) 5.8 k/uL (1.3-7.7); Neutrophils % (A) 74 %; Platelet Count 224 k/uL (150-450); RBC 4.14 m/uL (4.30-5.90); RDW 12.7 % (11.5-15.5); WBC 7.9 k/uL (3.8-10.6)
[2023-03-29] MEDS ORDERED: IPRATROPIUM-ALBUTEROL 3 ML NEB INHALATION STA (16:52)
[2023-03-29 17:12] LABS: ALT 26 U/L (4-49); AST 37 U/L (17-59); African American GFR (CKD) >90 (>60 ml/min/1.73 sqM); Albumin 4.3 g/dL (3.5-5.0); Alkaline Phosphatase 49 U/L (38-126); Anion Gap 13 mmol/L; Blood Urea Nitrogen 31 mg/dL (9-20); Calcium 9.7 mg/dL (8.4-10.2); Carbon Dioxide 23 mmol/L (22-30); Chloride 98 mmol/L (98-107); Glucose 146 mg/dL (74-99); Magnesium 1.5 mg/dL (1.6-2.3); Non-African American GFR(CKD) 79 (>60 ml/min/1.73 sqM); Sodium 134 mmol/L (137-145); Total Protein 7.2 g/dL (6.3-8.2)
[2023-03-29 17:14] LABS: Partial Thromboplastin Time 23.3 sec (22.0-30.0); Prothrombin Time 10.4 sec (9.0-12.0)
[2023-03-29 17:20] LABS: NT-Pro-B-Type Natriuretic Pept 2440 pg/mL
[2023-03-29] MEDS ORDERED: DEXAMETHASONE SOD PHOSPHATE 10 MG/ML 1 ML VIAL IV STA (18:45)
[2023-03-29 19:10] VITALS: BP 118/71; PULSE 73; RESP 19
== END 2023-03-29 19:19 | disposition home or self-care (01) ==
LOC: EC 15:23
DX: J20.9 Acute bronchitis, unspecified (principal); I25.10 Atherosclerotic heart disease of native coronary artery without angina pectoris; E11.9 Type 2 diabetes mellitus without complications; I10 Essential (primary) hypertension; Z79.84 Long term (current) use of oral hypoglycemic drugs; Z88.0 Allergy status to penicillin; Z95.1 Presence of aortocoronary bypass graft; Z20.822 Contact with and (suspected) exposure to COVID-19; Z79.01 Long term (current) use of anticoagulants
CPT/HCPCS: 36415; 94640; 93005; 83880; 80053; 83605; 83735; 84484; 85025; 85610; 85730; 87636; 71046; 99285; 96374; J1100

== ENCOUNTER 2023-05-09 12:25 | Inpatient (IN) | payer MEDICARE, BC ==
[2023-05-09] MEDS ORDERED: SODIUM CHLORIDE 0.9% 1,000 ML IV STA (12:52)
[2023-05-09 13:28] LABS: Basophils % (A) 1 %; Eosinophils # (A) 0.1 k/uL (0-0.7); Eosinophils % (A) 1 %; HGB 12.2 gm/dL (13.0-17.5); Lymphocytes # (A) 0.5 k/uL (1.0-4.8); Lymphocytes % (A) 7 %; MCH 31.4 pg (25.0-35.0); MCHC 33.8 g/dL (31.0-37.0); MCV 92.8 fL (80.0-100.0); Mean Platelet Volume 8.6; Monocytes # (A) 0.6 k/uL (0-1.0); Monocytes % (A) 8 %; Neutrophils # (A) 5.4 k/uL (1.3-7.7); Neutrophils % (A) 82 %; Platelet Count 200 k/uL (150-450); RBC 3.88 m/uL (4.30-5.90); RDW 13.4 % (11.5-15.5); WBC 6.7 k/uL (3.8-10.6)
--- NOTE | 2023-05-09 13:29 | ED ---
URI HPI - General Chief Complaint: Upper Respiratory Infection Stated Complaint: weakness/coughing Time Seen by Provider: 05/09/23 12:47 Source: patient, RN notes reviewed, old records reviewed, Caregiver Mode of arrival: ambulatory Limitations: no limitations - History of Present Illness Initial Comments: This is an 82-year-old male to the emergency department for shortness of breath today. Patient has mild underlying COPD. Patient comes in from being at a a [employer] camp With some friends and he noted that the friend upon leaving was not feeling well and didn't of testing positive for coronavirus. Patient feels weak with a cough and congestion is mainly complaining of upper respiratory type symptoms MD Complaint: cough, sore throat, nasal congestion, sinus pain -: days(s) Severity: moderate Severity scale (1-10): 5 Consistency: constant Improves With: nothing Worsens With: nothing Context: sick contacts, recent travel (Recent exposure to coronavirus) Associated Symptoms: chills, myalgias, nasal congestion, sore throat Treatments Prior to Arrival: none - Related Data Home Medications Medication Instructions Recorded Confirmed glipiZIDE/METFORMIN HCL 1 tab PO HS 09/12/17 05/09/23 [glipiZIDE/METFORMIN HCL 2.5-500 mg] Spironolactone 12.5 mg PO DAILY 08/10/19 05/09/23 Metoprolol Tartrate [Lopressor] 25 mg PO BID 08/23/19 05/09/23 Furosemide [Lasix] 40 mg PO DAILY PRN 09/18/20 05/09/23 Clopidogrel Bisulfate [Plavix] 75 mg PO HS 04/28/22 05/09/23 Sacubitril/Valsartan [Entresto 24 1 tab PO BID 04/28/22 05/09/23 mg-26 mg Tablet] glipiZIDE/METFORMIN HCL 2 tab PO DAILY 05/09/23 05/09/23 [glipiZIDE/METFORMIN HCL 2.5-500 mg] Previous Rx's Medication Instructions Recorded Atorvastatin [Lipitor] 80 mg PO HS tab 08/16/19 Nitroglycerin Sl Tabs [Nitrostat] 0.4 mg SUBLINGUAL Q5M PRN #100 tab 08/16/19 Albuterol Inhaler [Ventolin Hfa 2 puff INHALATION RT-Q6H #1 each 05/11/23 Inhaler] Aspirin 81 mg PO DAILY #30 tab 05/11/23 Cholecalciferol [Vitamin D3 (25 25 mcg PO DAILY #30 tab 05/11/23 Mcg = 1000 Iu)] Tiotropium 2.5 Mcg/Puff [Spiriva 2 puff INHALATION RT-DAILY #1 each 05/11/23 Respimat 2.5 Mcg] Zinc Sulfate [Orazinc] 220 mg PO DAILY #15 cap 05/11/23 dexAMETHasone [Decadron] 6 mg PO DAILY 8 Days #8 tab 05/11/23 guaiFENesin-DM 100-10MG/5ML 10 ml PO Q6HR PRN #120 ml 05/11/23 [Robitussin DM] Allergies Allergy/AdvReac Type Severity Reaction Status Date / Time Penicillins Allergy Rash/Hives Verified 05/09/23 15:11 Review of Systems ROS Statement: Those systems with pertinent positive or pertinent negative responses have been documented in the HPI. ROS Other: All systems not noted in ROS Statement are negative. Past Medical History Past Medical History: Coronary Artery Disease (CAD), Cancer, Diabetes Mellitus, Hyperlipidemia, Hypertension Additional Past Medical History / Comment(s): See Dr Haas's H&P, had some kind of cancer removed as a teen-not sure what kind, no problems since History of Any Multi-Drug Resistant Organisms: None Reported Past Surgical History: Coronary Bypass/CABG, Heart Catheterization, Heart Ca theterization With Stent Additional Past Surgical History / Comment(s): open heart 2014 CABGX4 Past Anesthesia/Blood Transfusion Reactions: No Reported Reaction Date of Last Stent Placement:: 08/11/2019 Past Psychological History: No Psychological Hx Reported Smoking Status: Never smoker Past Alcohol Use History: Occasional Past Drug Use History: None Reported - Past Family History Mother Family Medical History: No Reported History, Diabetes Mellitus Additional Family Medical History / Comment(s): Mother at age 84 with history of diabetes. Father Family Medical History: Hypertension Additional Family Medical History / Comment(s): Father at age 86 from old age with history of hypertension. Brother(s) Family Medical History: Hypertension Additional Family Medical History / Comment(s): Patient has a total of 4 brot hers. 2 brothers have passed, one from leukemia and one from liver cancer. Son(s) Family Medical History: Coronary Artery Disease (CAD) Additional Family Medical History / Comment(s): Then of heart attack was stopped patient has 1 daughter with underlying COPD Sister(s) Additional Family Medical History / Comment(s): Patient has 1 sister with no major medical problems. General Exam Limitations: no limitations General appearance: alert, in no apparent distress Head exam: Present: atraumatic, normocephalic, normal inspection Eye exam: Present: normal appearance, PERRL, EOMI. Absent: scleral icterus, conjunctival injection, periorbital swelling ENT exam: Present: normal exam, mucous membranes moist Neck exam: Present: normal inspection. Absent: tenderness, meningismus, lymphadenopathy Respiratory exam: Present: normal lung sounds bilaterally. Absent: respiratory distress, wheezes, rales, rhonchi, stridor Cardiovascular Exam: Present: regular rate, normal rhythm, normal heart sounds. Absent: systolic murmur, diastolic murmur, rubs, gallop, clicks GI/Abdominal exam: Present: soft, normal bowel sounds. Absent: distended, tenderness, guarding, rebound, rigid Extremities exam: Present: normal inspection, full ROM, normal capillary refill. Absent: tenderness, pedal edema, joint swelling, calf tenderness Back exam: Present: normal inspection Neurological exam: Present: alert, oriented X3, CN II-XII intact Psychiatric exam: Present: normal affect, normal mood Skin exam: Present: warm, dry, intact, normal color. Absent: rash Course Vital Signs 05/09/23 05/09/23 05/09/23 12:43 13:18 16:40 Temperature 99.0 F Pulse Rate 82 108 H Respiratory 17 18 20 Rate Blood Pressure 111/65 107/56 O2 Sat by Pulse 97 95 Oximetry 05/09/23 16:52 Temperature Pulse Rate 100 Respiratory Rate Blood Pressure O2 Sat by Pulse Oximetry - Reevaluation(s) Reevaluation #1: 05/09/23 16:30 Medical record is reviewed Reevaluation #2: 05/09/23 16:31 Patient symptoms relatively unchanged still feeling weak Reevaluation #3: 05/09/23 16:31 Patient informed results questions answered Reevaluation #4: 05/09/23 13:29 Was pt. sent in by a medical professional or institution (, PA, SUPERVISORY INVESTIGATIVE SPECIALIST, urgent care, hospital, or residential...) When possible be specific @ -no Did you speak to anyone other than the patient for history (EMS, parent, family, police, friend...)? What history was obtained from this source @ -no Did you review nursing and triage notes (agree or disagree)? Why? @ -agree Are old charts reviewed (outside hosp., previous admission, EMS record, old EKG, old radiological studies, urgent care reports/EKG's, residential records)? Report findings @ -yes Differential Diagnosis (chest pain, altered mental status, abdominal pain women, abdominal pain men, vaginal bleeding, weakness, fever, dyspnea, syncope, headache, dizziness, GI bleed, back pain, seizure, CVA, palpatations, mental health, musculoskeletal)? @ -prior EKG interpreted by me (3pts min.). @ -yes X-rays interpreted by me (1pt min.). @ -yes CT interpreted by me (1pt min.). @ -yes U/S interpreted by me (1pt. min.). @ -yes What testing was considered but not performed or refused? (CT, X-rays, U/S, labs)? Why? @ -none What meds were considered but not given or refused? Why? @ -none Did you discuss the management of the patient with other professionals (professionals i.e. , PA, SUPERVISORY INVESTIGATIVE SPECIALIST, lab, RT, psych nurse, social sciences chair, complaint operator, teacher, chief learning officer, case aide)? Give summary @ -no Was smoking cessation discussed for >3mins.? @ -no Was critical care preformed (if so, how long)? @ -no Were there social determinants of health that impacted care today? How? (Homelessness, low income, unemployed, alcoholism, drug addiction, transportation, low edu. Level, literacy, decrease access to med. care, intermediate, rehab)? @ -none Was there de-escalation of care discussed even if they declined (Discuss DNR or withdrawal of care, Hospice)? DNR status @ -no What co-morbidities impacted this encounter? (DM, HTN, Smoking, COPD, CAD, Cancer, CVA, ARF, Chemo, Hep., AIDS, mental health diagnosis, sleep apnea, morbid obesity)? @ -none Was patient admitted / discharged? Hospital course, mention meds given and route, prescriptions, significant lab abnormalities, going to OR and other pertinent info. @ - 82 male to the emergency department for evaluation of weakness uprespiratorynfection positive for coronavirus. Patient will be admitted for supportive care breathing treatments as needed and supportive oxygenation, patient does have elevated troponin which will admit and have cardiology see Admitted Undiagnosed new problem with uncertain prognosis? @ -no Drug Therapy requiring intensive monitoring for toxicity (Heparin, Nitro, Insulin, Cardizem)? @ -no Were any procedures done? @ -no Diagnosis/symptom? @ -Coronavirus non-STEMI Acute, or Chronic, or Acute on Chronic? @ -Acute Uncomplicated (without systemic symptoms) or Complicated (systemic symptoms)? @ -Complicated Side effects of treatment? @ -no Exacerbation, Progression, or Severe Exacerbation? @ -exacerbation Poses a threat to life or bodily function? How? (Chest pain, USA, CT, pneumonia, PE, COPD, DKA, ARF, appy, cholecystitis, CVA, Diverticulitis, Homicidal, Suicidal, threat to staff... and all critical care pts) @ -yes with significant respiratory distress coronavirus Reevaluation #5: 05/09/23 13:29 Differential Weakness: Hypoglycemia, shock, sepsis, hyponatremia, anemia, infection, CT, ETOH, adverse medicine reaction, overdose, stroke, this is not meant to be an all-inclusive list. - Consultations Consultation #1: Spoke with [facility] were agrees to admit the patient Medical Decision Making - Medical Decision Making 82 male to the emergency department for evaluation of weakness upres piratorynfection positive for coronavirus. Patient will be admitted for supportive care breathing treatments as needed and supportive oxygenation, patient does have elevated troponin which will admit and have cardiology see - Lab Data Result diagrams: 05/11/23 07:51 05/11/23 07:51 Lab Results 05/09/23 05/09/23 05/09/23 Range/Units 13:19 13:19 13:19 WBC 6.7 (3.8-10.6) k/uL RBC 3.88 L (4.30-5.90) m/uL Hgb 12.2 L (13.0-17.5) gm/dL Hct 36.0 L (39.0-53.0) % MCV 92.8 (80.0-100.0) fL MCH 31.4 (25.0-35.0) pg MCHC 33.8 (31.0-37.0) g/dL RDW 13.4 (11.5-15.5) % Plt Count 200 (150-450) k/uL MPV 8.6 Neutrophils % 82 % Lymphocytes % 7 % Monocytes % 8 % Eosinophils % 1 % Basophils % 1 % Neutrophils # 5.4 (1.3-7.7) k/uL Lymphocytes # 0.5 L (1.0-4.8) k/uL Monocytes # 0.6 (0-1.0) k/uL Eosinophils # 0.1 (0-0.7) k/uL Basophils # 0.0 (0-0.2) k/uL PT (10.0-12.5) sec INR (<1.2) APTT (22.0-30.0) sec D-Dimer (<0.60) mg/L FEU Sodium 136 L (137-145) mmol/L Potassium 4.0 (3.5-5.1) mmol/L Chloride 100 (98-107) mmol/L Carbon Dioxide 24 (22-30) mmol/L Anion Gap 12 mmol/L BUN 25 H (9-20) mg/dL Creatinine 0.90 (0.66-1.25) mg/dL Est GFR (CKD-EPI)AfAm >90 (>60 ml/min/1.73 sqM) Est GFR (CKD-EPI)NonAf 79 (>60 ml/min/1.73 sqM) Glucose 130 H (74-99) mg/dL Calcium 9.2 (8.4-10.2) mg/dL Phosphorus 3.2 (2.5-4.5) mg/dL Magnesium 1.4 L (1.6-2.3) mg/dL Total Bilirubin 0.9 (0.2-1.3) mg/dL AST 37 (17-59) U/L ALT 25 (4-49) U/L Alkaline Phosphatase 45 (38-126) U/L Troponin I (0.000-0.034) ng/mL NT-Pro-B Natriuret Pep 4730 pg/mL Total Protein 6.6 (6.3-8.2) g/dL Albumin 3.9 (3.5-5.0) g/dL Urine Color Colorless Urine Appearance Clear (Clear) Urine pH 5.0 (5.0-8.0) Ur Specific [place] 1.014 (1.001-1.035) Urine Protein Negative (Negative) Urine Glucose (UA) Negative (Negative) Urine Ketones Negative (Negative) Urine Blood Negative (Negative) Urine Nitrite Negative (Negative) Urine Bilirubin Negative (Negative) Urine Urobilinogen <2.0 (<2.0) mg/dL Ur Leukocyte Esterase Negative (Negative) Influenza Type A (PCR) (Not Detectd) Influenza Type B (PCR) (Not Detectd) RSV (PCR) (Not Detectd) SARS-CoV-2 (PCR) (Not Detectd) 05/09/23 05/09/23 05/09/23 Range/Units 13:19 13:19 14:15 WBC (3.8-10.6) k/uL RBC (4.30-5.90) m/uL Hgb (13.0-17.5) gm/dL Hct (39.0-53.0) % MCV (80.0-100.0) fL MCH (25.0-35.0) pg MCHC (31.0-37.0) g/dL RDW (11.5-15.5) % Plt Count (150-450) k/uL MPV Neutrophils % % Lymphocytes % % Monocytes % % Eosinophils % % Basophils % % Neutrophils # (1.3-7.7) k/uL Lymphocytes # (1.0-4.8) k/uL Monocytes # (0-1.0) k/uL Eosinophils # (0-0.7) k/uL Basophils # (0-0.2) k/uL PT 11.4 (10.0-12.5) sec INR 1.0 (<1.2) APTT 23.2 (22.0-30.0) sec D-Dimer (<0.60) mg/L FEU Sodium (137-145) mmol/L Potassium (3.5-5.1) mmol/L Chloride (98-107) mmol/L Carbon Dioxide (22-30) mmol/L Anion Gap mmol/L BUN (9-20) mg/dL Creatinine (0.66-1.25) mg/dL Est GFR (CKD-EPI)AfAm (>60 ml/min/1.73 sqM) Est GFR (CKD-EPI)NonAf (>60 ml/min/1.73 sqM) Glucose (74-99) mg/dL Calcium (8.4-10.2) mg/dL Phosphorus (2.5-4.5) mg/dL Magnesium (1.6-2.3) mg/dL Total Bilirubin (0.2-1.3) mg/dL AST (17-59) U/L ALT (4-49) U/L Alkaline Phosphatase (38-126) U/L Troponin I 0.654 H* (0.000-0.034) ng/mL NT-Pro-B Natriuret Pep pg/mL Total Protein (6.3-8.2) g/dL Albumin (3.5-5.0) g/dL Urine Color Urine Appearance (Clear) Urine pH (5.0-8.0) Ur Specific [place] (1.001-1.035) Urine Protein (Negative) Urine Glucose (UA) (Negative) Urine Ketones (Negative) Urine Blood (Negative) Urine Nitrite (Negative) Urine Bilirubin (Negative) Urine Urobilinogen (<2.0) mg/dL Ur Leukocyte Esterase (Negative) Influenza Type A (PCR) Not Detected (Not Detectd) Influenza Type B (PCR) Not Detected (Not Detectd) RSV (PCR) Not Detected (Not Detectd) SARS-CoV-2 (PCR) Detected A (Not Detectd) 05/09/23 Range/Units 14:15 WBC (3.8-10.6) k/uL RBC (4.30-5.90) m/uL Hgb (13.0-17.5) gm/dL Hct (39.0-53.0) % MCV (80.0-100.0) fL MCH (25.0-35.0) pg MCHC (31.0-37.0) g/dL RDW (11.5-15.5) % Plt Count (150-450) k/uL MPV Neutrophils % % Lymphocytes % % Monocytes % % Eosinophils % % Basophils % % Neutrophils # (1.3-7.7) k/uL Lymphocytes # (1.0-4.8) k/uL Monocytes # (0-1.0) k/uL Eosinophils # (0-0.7) k/uL Basophils # (0-0.2) k/uL PT (10.0-12.5) sec INR (<1.2) APTT (22.0-30.0) sec D-Dimer 0.64 H (<0.60) mg/L FEU Sodium (137-145) mmol/L Potassium (3.5-5.1) mmol/L Chloride (98-107) mmol/L Carbon Dioxide (22-30) mmol/L Anion Gap mmol/L BUN (9-20) mg/dL Creatinine (0.66-1.25) mg/dL Est GFR (CKD-EPI)AfAm (>60 ml/min/1.73 sqM) Est GFR (CKD-EPI)NonAf (>60 ml/min/1.73 sqM) Glucose (74-99) mg/dL Calcium (8.4-10.2) mg/dL Phosphorus (2.5-4.5) mg/dL Magnesium (1.6-2.3) mg/dL Total Bilirubin (0.2-1.3) mg/dL AST (17-59) U/L ALT (4-49) U/L Alkaline Phosphatase (38-126) U/L Troponin I (0.000-0.034) ng/mL NT-Pro-B Natriuret Pep pg/mL Total Protein (6.3-8.2) g/dL Albumin (3.5-5.0) g/dL Urine Color Urine Appearance (Clear) Urine pH (5.0-8.0) Ur Specific [place] (1.001-1.035) Urine Protein (Negative) Urine Glucose (UA) (Negative) Urine Ketones (Negative) Urine Blood (Negative) Urine Nitrite (Negative) Urine Bilirubin (Negative) Urine Urobilinogen (<2.0) mg/dL Ur Leukocyte Esterase (Negative) Influenza Type A (PCR) (Not Detectd) Influenza Type B (PCR) (Not Detectd) RSV (PCR) (Not Detectd) SARS-CoV-2 (PCR) (Not Detectd) - EKG Data -: EKG Interpreted by Me (EKG is sinus 83 MT 250 QRS 174 QTc 430) - Radiology Data Radiology results: report reviewed (Chest x-rays negative for acute disease), image reviewed Critical Care Time Critical Care Time: Yes Total Critical Care Time: 31 Disposition Clinical Impression: Coronavirus infection, Dyspnea, COPD (chronic obstructive pulmonary disease), Acute bronchitis with bronchospasm, Elevated troponin, NSTEMI (non-ST elevated myocardial infarction) Disposition: ADMITTED IP TO THIS HOSP Condition: Fair Is patient prescribed a controlled substance at d/c from ED?: No Time of Disposition: 16:30
[2023-05-09 13:47] LABS: ALT 25 U/L (4-49); AST 37 U/L (17-59); African American GFR (CKD) >90 (>60 ml/min/1.73 sqM); Albumin 3.9 g/dL (3.5-5.0); Alkaline Phosphatase 45 U/L (38-126); Anion Gap 12 mmol/L; Blood Urea Nitrogen 25 mg/dL (9-20); Calcium 9.2 mg/dL (8.4-10.2); Carbon Dioxide 24 mmol/L (22-30); Chloride 100 mmol/L (98-107); Glucose 130 mg/dL (74-99); Magnesium 1.4 mg/dL (1.6-2.3); Non-African American GFR(CKD) 79 (>60 ml/min/1.73 sqM); Phosphorus 3.2 mg/dL (2.5-4.5); Sodium 136 mmol/L (137-145); Total Bilirubin 0.9 mg/dL (0.2-1.3); Total Protein 6.6 g/dL (6.3-8.2)
[2023-05-09 13:50] LABS: NT-Pro-B-Type Natriuretic Pept 4730 pg/mL
--- NOTE | 2023-05-09 14:20 | XR ---
EXAMINATION TYPE: XR chest 2V DATE OF EXAM: 05/09/2023 COMPARISON: 03/29/2023 HISTORY: 82-year-old male with cough and weakness TECHNIQUE: PA and lateral views FINDINGS: Heart mildly enlarged. Tortuous/ectatic thoracic aorta. Mild hyperinflation. Mild interstitial promin ence is unchanged. No consolidation or pleural effusion. Median sternotomy wires. IMPRESSION: 1. Similar mild cardiomegaly, tortuous/ectatic thoracic aorta, and COPD. 2. There are chronic changes without acute process seen.
[2023-05-09 14:33] LABS: Partial Thromboplastin Time 23.2 sec (22.0-30.0); Prothrombin Time 11.4 sec (10.0-12.5)
[2023-05-09 15:44] LABS: Appearance,Urine Clear (Clear); Bilirubin,Urine Negative (Negative); Blood,Urine Negative (Negative); Color,Urine Colorless; Glucose,Urine (UA) Negative (Negative); Ketones,Urine Negative (Negative); Leukocyte Esterase,Urine Negative (Negative); Nitrite,Urine Negative (Negative); Protein,Urine Negative (Negative); Specific Gravity,Urine 1.014 (1.001-1.035); Urobilinogen,Urine <2.0 mg/dL (<2.0)
[2023-05-09] MEDS ORDERED: IPRATROPIUM-ALBUTEROL 3 ML NEB INHALATION STA (16:23)
[2023-05-09] MEDS ORDERED: IPRATROPIUM-ALBUTEROL 3 ML NEB INHALATION PRN (16:23)
[2023-05-09] MEDS ORDERED: methylPREDNISolone SOD SUCCI 125 MG/2 ML VIAL IV STA (16:23)
[2023-05-09] MEDS ORDERED: DEXAMETHASONE SOD PHOSPHATE 10 MG/ML 1 ML VIAL IVP STA (16:23)
[2023-05-09] MEDS ORDERED: MORPHINE SULFATE 4 MG/ML SYRINGE IV PRN (16:24)
[2023-05-09] MEDS ORDERED: NALOXONE 0.4 MG/ML 1 ML VIAL IV PRN (16:24)
[2023-05-09] MEDS ORDERED: ONDANSETRON 4 MG/2 ML VIAL IVP PRN (16:24)
[2023-05-09] MEDS: SODIUM CHLORIDE 0.9% 1,000 ML IV SCH (16:38)
--- NOTE | 2023-05-09 16:56 | CT ---
EXAMINATION TYPE: CT angio chest DATE OF EXAM: 05/09/2023 4:36 PM COMPARISON: 09/12/2017 HISTORY: cough, +covid CT DLP: 470.1 mGycm Automated exposure control for dose reduction was used. CONTRAST: CTA scan of the thorax is performed with IV Contrast, patient injected with 100 mL of Isovue 370, pul monary embolism protocol. 3-D postprocessing was performed.. FINDINGS: Lungs are clear of consolidative/airspace density or abnormal interstitial density. There is no pleural effusion, pleural thickening or pneumothorax. There is moderate to marked cardiomegaly with marked enlargement of the left atrium. There are no filling defects within the pulmonary arteries or branches to suggest pulmonary embolism. There is a small to moderate hiatal hernia. There is no mediastinal, hilar or axillary adenopathy. The osseous structures are intact. IMPRESSION: 1. No evidence of pulmonary embolism. 2. No acute cardiopulmonary disease. 3. Marked cardiomegaly with marked enlargement of the left atrium. 4. Small to moderate hiatal hernia.
--- NOTE | 2023-05-09 18:44 | US ---
EXAMINATION TYPE: US venous doppler duplex LE BI DATE OF EXAM: 05/09/2023 6:06 PM COMPARISON: NONE CLINICAL INDICATION: Male, 82 years old with history of dvt; Covid +. Not on blood thinners. No leg redness or swelling. SIDE PERFORMED: Bilateral TECHNIQUE: The lower extremity deep venous system is examined utilizing real time linear array sonog franky with graded compression, doppler sonography and color-flow sonography. Vessels imaged from the groin to the upper calf. VESSELS IMAGED: Common Femoral Vein Deep Femoral Vein Greater Saphenous Vein * Femoral Vein Popliteal Vein Small Saphenous Vein * Proximal Calf Veins (* superficial vessels) Right Leg: Negative for DVT Left Leg: Negative for DVT IMPRESSION: No sonographic evidence of DVT in either lower extremity.
[2023-05-09] MEDS ORDERED: ALBUTEROL HFA INHALER INHALATION PRN (20:06)
[2023-05-09] MEDS ORDERED: TIOTROPIUM 2.5 MCG INHALER INHALATION PRN (20:07)
[2023-05-09] MEDS: ATORVASTATIN 80 MG TAB PO SCH (22:23)
[2023-05-09] MEDS: CLOPIDOGREL 75 MG TAB PO SCH (22:23)
[2023-05-09] MEDS: DEXAMETHASONE SOD PHOSPHATE 4 MG/ML 1 ML VIAL IVP SCH (23:42)
[2023-05-10 05:50] LABS: Glucose,Whole Blood 289 mg/dL (70-110)
[2023-05-10] MEDS: SODIUM CHLORIDE 0.9% 1,000 ML IV SCH (05:53)
[2023-05-10] MEDS: DEXAMETHASONE SOD PHOSPHATE 4 MG/ML 1 ML VIAL IVP SCH ×3 (06:35→17:16)
[2023-05-10] MEDS: INSULIN ASPART (NovoLOG) 100 UNIT/ML VIAL SQ SCH ×4 (06:35→21:52)
[2023-05-10] MEDS: METOPROLOL TARTRATE 25 MG TAB PO SCH ×2 (08:38→21:52)
[2023-05-10] MEDS: SPIRONOLACTONE 25 MG TAB PO SCH (08:38)
[2023-05-10] MEDS: SACUBITRIL/VALSARTAN 24 MG-26 MG TABLET PO SCH ×2 (08:39→22:11)
[2023-05-10 08:41] LABS: Basophils # (A) 0.01 X 10*3/uL (0.00-0.10); Basophils % (A) 0.2 %; Eosinophils # (A) 0 X 10*3/uL (0.04-0.35); Eosinophils % (A) 0 %; HCT 32.4 % (39.6-50.0); HGB 10.8 g/dL (13.0-17.0); Lymphocytes # (A) 0.51 X 10*3/uL (0.90-5.00); Lymphocytes % (A) 10.1 %; MCH 30.1 pg (27.0-32.0); MCHC 33.3 g/dL (32.0-37.0); MCV 90.3 FL (80.0-97.0); Mean Platelet Volume 11.3 FL (9.5-12.2); NRBC Per 100 WBC 0 X 10*3/uL (0.00-0.01); Neutrophils # (A) 4.31 X 10*3/uL (1.80-7.70); Neutrophils % (A) 85.1 %; Platelet Count 186 X 10*3/uL (140-440); RBC 3.59 X 10*6/uL (4.40-5.60); RDW 13.6 % (11.5-14.5); WBC 5.06 X 10*3/uL (4.50-10.00)
[2023-05-10 08:50] LABS: BUN/Creat Ratio 23.56 Ratio (12.00-20.00); Blood Urea Nitrogen 21.2 mg/dL (9.0-27.0); Chloride 102 mmol/L (96-109); Glucose 259 mg/dL (70-110); Magnesium 1.6 mg/dL (1.5-2.4); Phosphorus 3.6 mg/dL (2.4-5.1); Potassium 4.1 mmol/L (3.5-5.5); Sodium 135 mmol/L (135-145)
[2023-05-10 08:51] LABS: ALT 22 U/L (10-49); AST 64 U/L (14-35); Albumin 3.6 g/dL (3.8-4.9); Albumin/Globulin Ratio 1.71 Ratio (1.60-3.17); Alkaline Phosphatase 46 U/L (41-126); Calcium 8.7 mg/dL (8.7-10.3); Carbon Dioxide 20.3 mmol/L (21.6-31.8); Globulin 2.1 g/dL (1.6-3.3); Total Bilirubin 0.7 mg/dL (0.3-1.2); Total Protein 5.7 g/dL (6.2-8.2)
[2023-05-10] MEDS ORDERED: HEPARIN SODIUM 1,000 UN/ML (10ML VL) IV PRN (09:48)
[2023-05-10] MEDS ORDERED: HEPARIN SODIUM 1,000 UN/ML (10ML VL) IV ONE (09:48)
[2023-05-10] MEDS ORDERED: NITROGLYCERIN SL TABS 0.4 MG TAB SUBLINGUAL PRN (11:24)
[2023-05-10] MEDS ORDERED: FUROSEMIDE 40 MG TAB PO PRN (11:24)
[2023-05-10 11:50] LABS: Glucose,Whole Blood 208 mg/dL (70-110)
--- NOTE | 2023-05-10 12:09 | HP ---
HISTORY AND PHYSICAL CHIEF COMPLAINT: Weakness and cough. HISTORY OF PRESENT ILLNESS: An 82-year-old gentleman with a past medical history of multiple medical problems, apparently was deer hunting and the friend with him was apparently sick and the patient is having cough and sputum for the last several days. The patient is extremely weak and the patient came back and found to have positive COVID-19 and admitted for evaluation and treatment. The patient also had COVID-19 pneumonia, bilateral. The patient also has a troponin elevated up to 5, indicating acute [id number]-elevation myocardial infarction also. D-dimer is elevated, but there is no evidence of pulmonary embolism. There is no history of any fever, rigors, or chills. PAST MEDICAL HISTORY: Reviewed include CAD, diabetes mellitus. Rest of the chart and rest of the history reviewed. MEDICATIONS: Aldactone, doses and rest of medications reviewed. ALLERGIES: Penicillin. FAMILY HISTORY: Diabetes mellitus in the family. SOCIAL HISTORY: Occasional alcohol intake. REVIEW OF SYSTEMS: Fourteen-point review of systems negative except as mentioned earlier. PHYSICAL EXAMINATION: VITAL SIGNS: Pulse is 65, blood pressure 114/57, respirations 16. HEENT: Conjunctivae normal. NECK: No jugular venous distention. CARDIOVASCULAR: S1 and S2. RESPIRATIONS: Few scattered rhonchi. ABDOMEN: Soft and nontender. LEGS: No edema, no cyanosis. NEUROLOGIC: No focal deficit. SKIN: No ulcer, rash, or swelling. JOINTS: No active deforming arthropathy. LABORATORY DATA: Reviewed. ASSESSMENT: 1. Acute COVID-19 infection with acute COVID-19 bilateral pneumonia. 2. Troponin elevated at 5.480, possibly acute jni-GE-midlnjz elevation myocardial infarction. 3. Diabetes mellitus, type 2. 4. History of coronary artery disease. 5. Hypertension. 6. Hyperlipidemia. RECOMMENDATIONS AND DISCUSSION: This 82-year-old gentleman presented with multiple complex medical issues, we will monitor the patient closely and recommend to continue the current medications and symptomatic treatment. I would recommend bronchodilators. Continue with heparin for now, steroids. Pulmonary, Infectious Disease, Cardiology evaluation, 2D echo with Doppler. Prognosis extremely guarded because of multiple complex medical conditions. Further recommendations to follow. See orders for details. MMODL / IJN: [id number] /
[2023-05-10 12:19] LABS: Partial Thromboplastin Time 24.3 sec (22.0-30.0); Prothrombin Time 11.2 sec (10.0-12.5)
[2023-05-10 12:25] LABS: Basophils % (A) 0 %; Eosinophils % (A) 0 %; HGB 11.2 gm/dL (13.0-17.5); Lymphocytes # (A) 0.6 k/uL (1.0-4.8); Lymphocytes % (A) 10 %; MCH 31.5 pg (25.0-35.0); MCV 92.6 fL (80.0-100.0); Mean Platelet Volume 9.3; Monocytes # (A) 0.4 k/uL (0-1.0); Monocytes % (A) 7 %; Neutrophils # (A) 5.2 k/uL (1.3-7.7); Neutrophils % (A) 83 %; Platelet Count 186 k/uL (150-450); RBC 3.57 m/uL (4.30-5.90); RDW 13.3 % (11.5-15.5); WBC 6.3 k/uL (3.8-10.6)
[2023-05-10] MEDS: ZINC SULFATE 220 MG CAP PO SCH (12:41)
[2023-05-10] MEDS: CHOLECALCIFEROL 25 MCG (1000 IU) TABLET PO SCH (12:41)
[2023-05-10] MEDS: ASPIRIN 81 MG PO SCH (12:41)
[2023-05-10] MEDS: HEPARIN SOD,PORK IN 0.45% NACL 25,000 UNIT in 0.45% NACL 1 250ML.BAG IV SCH (12:41)
[2023-05-10] MEDS: PANTOPRAZOLE 40 MG TABLET PO SCH (12:41)
--- NOTE | 2023-05-10 12:52 | P.CRDCN ---
History of Present Illness Consult date: 05/10/23 Reason for Consult (text): Elevated troponin History of present illness: This is Estrada Parham NP, I'm dictating on behalf of Dr. Conner's H&P and A&P The patient was interviewed and examined. HPI: Patient is a pleasant 82-year-old male with a past medical history of coronary artery disease, cancer, diabetes, hyperlipidemia, hypertension, coronary artery bypass, and heart catheterization who presented to the hospital with shortness of breath. Patient reports that he was at [facility], and states that another participant reported that he was positive for Covid-19 while there. Patient reports over the last couple days he noticed increasing shortness of breath with a cough. After he became significantly short of breath, the patient presented to the hospital for evaluation. He is mainly complaining of cough, sore throat, nasal congestion and some sinus pain. Patient did test positive for Covid in the emergency department. He also demonstrated an elevated troponin at 5.48. EKG was negative for any obvious STEMI criteria. D-dimer was elevated, CT and grandmother the chest was negative for pulmonary embolism. Cardiology was consulted for the elevated troponin. This morning the patient reports that he's feeling okay. He is currently denying chest pain, dizziness, lightheadedness, cough, phlegm production. Patient appears asymptomatic with the elevated troponin. ROS: [No fever, chills, or rigors] [no cough, phlegm, or expectoration] [no nausea, vomiting, or diarrhea] [no hematuria, dysuria] [no musculoskelatal complaints] [no strokes or seizures] [no skin lesions] EXAMINATION: GENERAL: Well-appearing, well-nourished and in no acute distress. NECK: Supple without JVD or thyromegaly. LUNGS: Breath sounds clear to auscultation bilaterally. Respiration equal and unlabored. No wheezes, rales or rhonchi. HEART: Regular rate and rhythm without murmurs, rubs or gallops. S1 and S2 heard. EXTREMITIES: Normal range of motion, no edema. No clubbing or cyanosis. Peripheral pulses intact and strong. REVIEW OF LABS, ECG & MEDICAL DATA: LABS: White count 6.3, hemoglobin 11.2, platelet 26, d-dimer 0.64, sodium 135, potassium 4.1, B1 21.2, creatinine 0.9, magnesium 1.6, troponin 5.480 EKG: Normal sinus rhythm with first-degree AV block, left bundle branch block IMAGING: Chest x-ray dated 05/09/2023 demonstrates similar mild cardiomegaly, tortuous/ectatic thoracic aorta, and COPD, there are chronic changes without acute processes seen. CT angiogram of the chest dated 05/09/2023 demonstrates no evidence of pulmonary and wasn't, no acute cardiopulmonary disease, marked cardiomegaly with marked enlargement of the left atrium, small to moderate hiatal hernia. Venous Doppler dated 05/09/2023 demonstrates no DVT bilaterally. VITALS: IMPRESSION: 1. COVID-19 infection 2. Shortness of breath 3. Elevated troponin PLAN: Start IV heparin per [facility] protocol as a precautionary measure. Obtain echocardiogram tomorrow area Further recommendations based on patient's clinical course. Thank you for the consult and allowing us to participate in the care of this patient. Past Medical History Past Medical History: Coronary Artery Disease (CAD), Cancer, Diabetes Mellitus, Hyperlipidemia, Hypertension Additional Past Medical History / Comment(s): See Dr Haas's H&P, had some kind of cancer removed as a teen-not sure what kind, no problems since History of Any Multi-Drug Resistant Organisms: None Reported Past Surgical History: Coronary Bypass/CABG, Heart Catheterization, Heart Catheterization With Stent Additional Past Surgical History / Comment(s): open heart 2014 CABGX4 Past Anesthesia/Blood Transfusion Reactions: No Reported Reaction Date of Last Stent Placement:: 08/11/2019 Past Psychological History: No Psychological Hx Reported Smoking Status: Never smoker Past Alcohol Use History: Occasional Additional Past Alcohol Use History / Comment(s): Patient is a lifelong nonsmoker. Patient drinks 3 ounces of wine every other day, no marijuana or illicit drug use. Patient was at home with his . Past Drug Use History: None Reported - Past Family History Mother Family Medical History: No Reported History, Diabetes Mellitus Additional Family Medical History / Comment(s): Mother at age 84 with history of diabetes. Father Family Medical History: Hypertension Additional Family Medical History / Comment(s): Father at age 86 from old age with history of hypertension. Brother(s) Family Medical History: Hypertension Additional Family Medical History / Comment(s): Patient has a total of 4 brothers. 2 brothers have passed, one from leukemia and one from liver cancer. Son(s) Family Medical History: Coronary Artery Disease (CAD) Additional Family Medical History / Comment(s): Then of heart attack was stopped patient has 1 daughter with underlying COPD Sister(s) Additional Family Medical History / Comment(s): Patient has 1 sister with no major medical problems. Medications and Allergies Home Medications Medication Instructions Recorded Confirmed Type glipiZIDE/METFORMIN HCL 1 tab PO HS 09/12/17 05/09/23 History [glipiZIDE/METFORMIN HCL 2.5-500 mg] Spironolactone 12.5 mg PO DAILY 08/10/19 05/09/23 History Atorvastatin [Lipitor] 80 mg PO HS tab 08/16/19 05/09/23 Rx Nitroglycerin Sl Tabs [Nitrostat] 0.4 mg SUBLINGUAL Q5M PRN #100 tab 08/16/19 05/09/23 Rx Metoprolol Tartrate [Lopressor] 25 mg PO BID 08/23/19 05/09/23 History Furosemide [Lasix] 40 mg PO DAILY PRN 09/18/20 05/09/23 History Clopidogrel Bisulfate [Plavix] 75 mg PO HS 04/28/22 05/09/23 History Sacubitril/Valsartan [Entresto 24 1 tab PO BID 04/28/22 05/09/23 History mg-26 mg Tablet] Albuterol Inhaler [Ventolin Hfa 1 - 2 puff INHALATION RT-Q6H PRN 03/29/23 05/09/23 Rx Inhaler] #1 each glipiZIDE/METFORMIN HCL 2 tab PO DAILY 05/09/23 05/09/23 History [glipiZIDE/METFORMIN HCL 2.5-500 mg] Allergies Allergy/AdvReac Type Severity Reaction Status Date / Time Penicillins Allergy Rash/Hives Verified 05/09/23 15:11 Physical Exam Vitals: Vital Signs Temp Pulse Pulse Resp BP BP Pulse Ox 05/10/23 08:40 97 05/10/23 08:33 97.7 F 65 16 114/57 96 05/10/23 07:21 98.0 F 86 18 119/68 93 L 05/10/23 01:20 99.1 F 91 18 107/65 92 L 05/09/23 19:58 99.0 F 94 18 133/44 91 L 05/09/23 16:52 100 05/09/23 16:40 108 H 20 107/56 95 05/09/23 13:18 18 05/09/23 12:43 99.0 F 82 17 111/65 97 Intake and Output 05/09/23 05/10/23 05/10/23 22:59 06:59 14:59 Other: # Voids 3 # Bowel Movements 1 Weight 87.09 kg Results 05/10/23 11:27 05/10/23 06:00 Cardiac Enzymes 05/09/23 05/09/23 05/10/23 Range/Units 13:19 13:19 06:00 AST 37 64 H (17-59) U/L Troponin I 0.654 H* (0.000-0.034) ng/mL 05/10/23 Range/Units 06:00 AST (17-59) U/L Troponin I 5.480 H* (0.000-0.034) ng/mL Coagulation 05/09/23 05/10/23 Range/Units 14:15 11: PT 11.4 11.2 (10.0-12.5) sec APTT 23.2 24.3 (22.0-30.0) sec CBC 05/09/23 05/10/23 05/10/23 Range/Units 13:19 06:00 11:27 WBC 6.7 5.06 6.3 (3.8-10.6) k/uL RBC 3.88 L 3.59 L 3.57 L (4.30-5.90) m/uL Hgb 12.2 L 10.8 L 11.2 L (13.0-17.5) gm/dL Hct 36.0 L 32.4 L 33.0 L (39.0-53.0) % Plt Count 200 186 186 (150-450) k/uL Comprehensive Metabolic Panel 05/09/23 05/10/23 Range/Units 13:19 06:00 Sodium 136 L 135 (137-145) mmol/L Potassium 4.0 4.1 (3.5-5.1) mmol/L Chloride 100 102 (98-107) mmol/L Carbon Dioxide 24 20.3 L (22-30) mmol/L BUN 25 H 21.2 (9-20) mg/dL Creatinine 0.90 0.9 (0.66-1.25) mg/dL Glucose 130 H 259 H (74-99) mg/dL Calcium 9.2 8.7 (8.4-10.2) mg/dL AST 37 64 H (17-59) U/L ALT 25 22 (4-49) U/L Alkaline Phosphatase 45 46 (38-126) U/L Total Protein 6.6 5.7 L (6.3-8.2) g/dL Albumin 3.9 3.6 L (3.5-5.0) g/dL Current Medications Generic Name Dose Route Start Last Admin Trade Name Freq PRN Reason Stop Dose Admin Albuterol Sulfate 2 puff 05/09/23 20:06 Albuterol Hfa Inhaler INHALATION RT-QID PRN Shortness Of Breath Or Wheezing Albuterol Sulfate 2 puff 05/10/23 14:00 Albuterol Hfa Inhaler INHALATION RT-Q6H [facility] Aspirin 81 mg 05/10/23 11:30 Aspirin 81 Mg PO DAILY JUD Atorvastatin Calcium 80 mg 05/09/23 22:00 05/09/23 22:23 Atorvastatin 80 Mg Tab PO 80 mg HS JUD Administration Cholecalciferol 25 mcg 05/10/23 11:30 Cholecalciferol 25 Mcg (1000 Iu) Tablet PO DAILY [facility] Clopidogrel Bisulfate 75 mg 05/09/23 22:00 05/09/23 22:23 Clopidogrel 75 Mg Tab PO 75 mg HS JUD Administration Dexamethasone Sodium Phosphate 6 mg 05/10/23 00:00 05/10/23 11:18 Dexamethasone Sod Phosphate 4 Mg/Ml 1 Ml Vial IVP 6 mg Q6HR JUD Administration Furosemide 40 mg 05/10/23 11:24 Furosemide 40 Mg Tab PO DAILY PRN Edema Heparin Sodium (Porcine) 0 unit 05/10/23 09:48 Heparin Sodium 1,000 Un/Ml (10ml Vl) IV PER PROTOCOL PRN Low PTT Protocol Sodium Chloride 1,000 mls @ 75 mls/hr 05/09/23 16:30 05/10/23 05:53 Saline 0.9% IV Not Given .[id number] [facility] Heparin Sodium/Sodium Chloride 250 mls @ 10.015 mls/hr 05/10/23 10:00 25,000 unit/ Sodium Chloride IV .Q24H [facility] Protocol 11.5 UNITS/KG/HR Insulin Aspart 0 unit 05/10/23 07:30 05/10/23 06:35 Insulin Aspart (Novolog) 100 Unit/Ml Vial SQ 6 unit ACHS JUD Administration Protocol Metoprolol Tartrate 25 mg 05/10/23 09:00 05/10/23 08:38 Metoprolol Tartrate 25 Mg Tab PO 25 mg BID JUD Administration Morphine Sulfate 4 mg 05/09/23 16:24 Morphine Sulfate 4 Mg/Ml Syringe IV Q4HR PRN Severe Pain (Scale 7 to 10) Naloxone HCl 0.2 mg 05/09/23 16:24 Naloxone 0.4 Mg/Ml 1 Ml Vial IV Q2M PRN Opioid Reversal Nitroglycerin 0.4 mg 05/10/23 11:24 Nitroglycerin Sl Tabs 0.4 Mg Tab SUBLINGUAL Q5M PRN Chest Pain Ondansetron HCl 4 mg 05/09/23 16:24 Ondansetron 4 Mg/2 Ml Vial IVP Q8HR PRN Nausea And Vomiting Pantoprazole Sodium 40 mg 05/10/23 11:30 Pantoprazole 40 Mg Tablet PO [id number] [facility] Sacubitril/Valsartan 1 each 05/10/23 09:00 05/10/23 08:39 Sacubitril/Valsartan 24 Mg-26 Mg Tablet PO 1 each BID JUD Administration Spironolactone 12.5 mg 05/10/23 09:00 05/10/23 08:38 Spironolactone 25 Mg Tab PO 12.5 mg DAILY JUD Administration Tiotropium [place] 2 puff 05/09/23 20:07 Tiotropium 2.5 Mcg Inhaler INHALATION RT-DAILY PRN Shortness Of Breath Or Wheezing Zinc Sulfate 220 mg 05/10/23 11:30 Zinc Sulfate 220 Mg Cap PO DAILY JUD Intake and Output 05/09/23 05/10/23 05/10/23 22:59 06:59 14:59 Other: # Voids 3 # Bowel Movements 1 Weight 87.09 kg 05/10/23 11:27 05/10/23 06:00
--- NOTE | 2023-05-10 15:19 | P.CNPUL ---
History of Present Illness Consult date: 05/10/23 Reason for consult: dyspnea History of present illness: 82-year-old male patient, hospitalized for shortness of breath and was found to have Covid 19 infection. A pulmonary consultation was requested. The patient is known to have CAD, diabetes mellitus type 2, hypertension hyperlipidemia and the patient has undergone previous coronary artery bypass surgery. The patient's has been complaining of cough and sore throat and nasal congestion and sinus congestion and drainage. He had a positive Covid 19 testing in emergency department. Patient reports that he was at [facility], and states that another participant reported that he was positive for Covid-19 while there. The patient has also been infected with Covid 19 and required hospitalization back in 2020. At that time, the patient was given a monoclonal antibodies and the patient was discharged. During this current admission, the patient's family chest pain. At the same time, the patient's troponin came back elevated at 5.48. EKG showed acute non-ST segment elevation myocardial infarction. D-dimer was 0.6. The white cell count 6.3 with a hemoglobin of 11.2 and a platelet count of 186. Creatinine was 0.9 with a BUN of 21. The CT antigram of the chest was done and it showed no evidence of any pulmonary embolism. No evidence of any acute cardiac pulmonary process. There was cardiomegaly and there is a small to moderate-sized hiatal hernia. Review of Systems Constitutional: Reported fever, no chills, no night sweats. No weight change. No weakness, fatigue or lethargy. No daytime sleepiness. EENT: No headache. No blurred vision or double vision, no loss of vision. No loss of Hearing, no ringing in the ears, no dizziness. No nasal drainage or congestion. No epistaxis. No sore throat. Lungs: Reported shortness of breath, cough, no sputum production. No wheezing. Cardiovascular: No chest pain, no lower extremity edema. No palpitations. No paroxysmal nocturnal dyspnea. No orthopnea. No lightheadedness or dizziness. No syncopal episodes. Abdominal: No abdominal pain. No nausea, vomiting. No diarrhea. No constipation. No bloody or tarry stools.. No loss of appetite. Genitourinary: No dysuria, increased frequency, urgency. No urinary retention. Musculoskeletal: No myalgias. No muscle weakness, no gait dysfunction, no frequent falls. No back pain. No neck pain. Integumentary: No wounds, no lesions. No rash or pruritus. No unusual bruising. No change in hair or nails. Neurologic: No aphasia. No facial droop. No change in mentation. No head injury. No headache. No paralysis. No paresthesia. Psychiatric: No depression. No anxiety. No mood swings. Endocrine: No abnormal blood sugars. Past Medical History Past Medical History: Coronary Artery Disease (CAD), Cancer, Diabetes Mellitus, Hyperlipidemia, Hypertension Additional Past Medical History / Comment(s): See Dr Haas's H&P, had some kind of cancer removed as a teen-not sure what kind, no problems since History of Any Multi-Drug Resistant Organisms: None Reported Past Surgical History: Coronary Bypass/CABG, Heart Catheterization, Heart Catheterization With Stent Additional Past Surgical History / Comment(s): open heart 2014 CABGX4 Past Anesthesia/Blood Transfusion Reactions: No Reported Reaction Date of Last Stent Placement:: 08/11/2019 Past Psychological History: No Psychological Hx Reported Smoking Status: Never smoker Past Alcohol Use History: Occasional Additional Past Alcohol Use History / Comment(s): Patient is a lifelong nonsmoker. Patient drinks 3 ounces of wine every other day, no marijuana or illicit drug use. Patient was at home with his . Past Drug Use History: None Reported - Past Family History Mother Family Medical History: No Reported History, Diabetes Mellitus Additional Family Medical History / Comment(s): Mother at age 84 with history of diabetes. Father Family Medical History: Hypertension Additional Family Medical History / Comment(s): Father at age 86 from old age with history of hypertension. Brother(s) Family Medical History: Hypertension Additional Family Medical History / Comment(s): Patient has a total of 4 brothers. 2 brothers have passed, one from leukemia and one from liver cancer. Son(s) Family Medical History: Coronary Artery Disease (CAD) Additional Family Medical History / Comment(s): Then of heart attack was stopped patient has 1 daughter with underlying COPD Sister(s) Additional Family Medical History / Comment(s): Patient has 1 sister with no major medical problems. Medications and Allergies Home Medications Medication Instructions Recorded Confirmed Type glipiZIDE/METFORMIN HCL 1 tab PO HS 09/12/17 05/09/23 History [glipiZIDE/METFORMIN HCL 2.5-500 mg] Spironolactone 12.5 mg PO DAILY 08/10/19 05/09/23 History Atorvastatin [Lipitor] 80 mg PO HS tab 08/16/19 05/09/23 Rx Nitroglycerin Sl Tabs [Nitrostat] 0.4 mg SUBLINGUAL Q5M PRN #100 tab 08/16/19 05/09/23 Rx Metoprolol Tartrate [Lopressor] 25 mg PO BID 08/23/19 05/09/23 History Furosemide [Lasix] 40 mg PO DAILY PRN 09/18/20 05/09/23 History Clopidogrel Bisulfate [Plavix] 75 mg PO HS 04/28/22 05/09/23 History Sacubitril/Valsartan [Entresto 24 1 tab PO BID 04/28/22 05/09/23 History mg-26 mg Tablet] Albuterol Inhaler [Ventolin Hfa 1 - 2 puff INHALATION RT-Q6H PRN 03/29/2305/09 Rx Inhaler] #1 each glipiZIDE/METFORMIN HCL 2 tab PO DAILY 05/09/23 05/09/23 History [glipiZIDE/METFORMIN HCL 2.5-500 mg] Allergies Allergy/AdvReac Type Severity Reaction Status Date / Time Penicillins Allergy Rash/Hives Verified 05/09/23 15:11 Physical Exam Vitals: Vital Signs Temp Pulse Pulse Resp BP BP Pulse Ox 05/10/23 12:30 59 L 16 111/61 93 L 05/10/23 08:40 97 05/10/23 08:33 97.7 F 65 16 114/57 96 05/10/23 07:21 98.0 F 86 18 119/68 93 L 05/10/23 01:20 99.1 F 91 18 107/65 92 L 05/09/23 19:58 99.0 F 94 18 133/44 91 L 05/09/23 16:52 100 05/09/23 16:40 108 H 20 107/56 95 Intake and Output 05/09/23 05/10/23 05/10/23 22:59 06:59 14:59 Intake Total 118 Balance 118 Intake: Oral 118 Other: # Voids 3 # Bowel Movements 1 Weight 87.09 kg Gen: This is a 82-year-old male. Patient is resting in chair in the emergency center and appears to be in no acute distress at rest. Head exam was generally normal. There was no scleral icterus or corneal arcus. Mucous membranes were moist. HEENT: Head is atraumatic, normocephalic. Pupils equal, round. Sclerae is anicteric. NECK: Supple. No JVD. No lymphadenopathy. No thyromegaly. LUNGS: Bilateral crackles. No intercostal retractions. HEART: Regular rate and rhythm. No murmur. ABDOMEN: Soft. Bowel sounds are present. No masses. No tenderness. EXTREMITIES: No pedal edema. No calf tenderness. NEUROLOGICAL: Patient is awake, alert and oriented x3. Cranial nerves 2 through 12 are grossly intact. Results - Laboratory Findings CBC and BMP: 05/10/23 11:05/10/23 06:00 PT/INR, D-dimer PT 11.2 sec (10.0-12.5) 05/10/23 11: INR 1.0 (<1.2) 05/10/23 11: D-Dimer 0.64 mg/L FEU (<0.60) H 05/09/23 14:15 Abnormal lab findings: Abnormal Labs 05/09/23 05/09/23 05/09/23 13:19 13:19 13:19 RBC 3.88 L Hgb 12.2 L Hct 36.0 L Lymphocytes # 0.5 L Eosinophils # D-Dimer Sodium 136 L Carbon Dioxide Anion Gap BUN 25 H BUN/Creatinine Ratio Glucose 130 H POC Glucose (mg/dL) Magnesium 1.4 L AST Troponin I 0.654 H* Total Protein Albumin SARS-CoV-2 (PCR) 05/09/23 05/09/23 05/10/23 13:19 14:15 05:49 RBC Hgb Hct Lymphocytes # Eosinophils # D-Dimer 0.64 H Sodium Carbon Dioxide Anion Gap BUN BUN/Creatinine Ratio Glucose POC Glucose (mg/dL) 289 H Magnesium AST Troponin I Total Protein Albumin SARS-CoV-2 (PCR) Detected A 05/10/23 05/10/23 05/10/23 06:00 06:00 06:00 RBC 3.59 L Hgb 10.8 L Hct 32.4 L Lymphocytes # 0.51 L Eosinophils # 0 L D-Dimer Sodium Carbon Dioxide 20.3 L Anion Gap 12.70 H BUN BUN/Creatinine Ratio 23.56 H Glucose 259 H POC Glucose (mg/dL) Magnesium AST 64 H Troponin I 5.480 H* Total Protein 5.7 L Albumin 3.6 L SARS-CoV-2 (PCR) 05/10/23 05/10/23 11:27 11:48 RBC 3.57 L Hgb 11.2 L Hct 33.0 L Lymphocytes # 0.6 L Eosinophils # D-Dimer Sodium Carbon Dioxide Anion Gap BUN BUN/Creatinine Ratio Glucose POC Glucose (mg/dL) 208 H Magnesium AST Troponin I Total Protein Albumin SARS-CoV-2 (PCR) - Diagnostic Findings Chest x-ray: image reviewed CT scan - chest: image reviewed Assessment and Plan Plan: Acute Covid 19 infection, no evidence of viral pneumonia or pulmonary embolism based on CT angiogram of the chest. Noted the patient was infected in the past with Covid 19 and the patient had a hospitalization back in 2020 for the same. At that time, the patient was treated with monoclonal antibodies. He was also given steroids. Acute non-ST segment elevation myocardial infarction Coronary artery disease, previous bypass surgery and previous PCI to the SVG-RCA 08/15/2019 Chronic systolic heart failure with ejection fraction of 35% and moderate aortic regurgitation and moderate mitral regurgitation and mild tricuspid regurgitation Diabetes mellitus type 2 Hypertension Hyperlipidemia Plan Agree on Decadron regarding his Covid 19 infection Add multivitamins IV heparin regarding the acute non-ST segment elevation myocardial infarction Repeat echocardiogram Continue aspirin Continue Lipitor Continue metoprolol Continue Entresto We'll continue to follow
[2023-05-10 16:38] LABS: Glucose,Whole Blood 230 mg/dL (70-110)
[2023-05-10] MEDS: guaiFENesin-DM 100-10MG/5ML 10 ML CUP PO PRN (18:33)
[2023-05-10] MEDS: ALBUTEROL HFA INHALER INHALATION SCH (18:56)
[2023-05-10 19:58] LABS: Glucose,Whole Blood 205 mg/dL (70-110)
[2023-05-10] MEDS: CLOPIDOGREL 75 MG TAB PO SCH (21:52)
[2023-05-10] MEDS: ATORVASTATIN 80 MG TAB PO SCH (21:52)
[2023-05-11] MEDS: guaiFENesin-DM 100-10MG/5ML 10 ML CUP PO PRN ×2 (00:07→21:54)
[2023-05-11] MEDS: ALBUTEROL HFA INHALER INHALATION SCH ×4 (05:43→19:42)
[2023-05-11 05:48] LABS: Glucose,Whole Blood 159 mg/dL (70-110)
[2023-05-11] MEDS: DEXAMETHASONE SOD PHOSPHATE 4 MG/ML 1 ML VIAL IVP SCH ×5 (06:27→23:16)
[2023-05-11] MEDS: INSULIN ASPART (NovoLOG) 100 UNIT/ML VIAL SQ SCH ×4 (06:28→21:33)
[2023-05-11] MEDS: PANTOPRAZOLE 40 MG TABLET PO SCH (06:28)
[2023-05-11 08:31] LABS: Basophils % (A) 0 %; Eosinophils % (A) 0 %; HCT 37.8 % (39.0-53.0); HGB 12.6 gm/dL (13.0-17.5); Lymphocytes % (A) 9 %; MCH 31.6 pg (25.0-35.0); MCHC 33.3 g/dL (31.0-37.0); MCV 94.9 fL (80.0-100.0); Mean Platelet Volume 9.3; Monocytes # (A) 0.5 k/uL (0-1.0); Monocytes % (A) 4 %; Neutrophils # (A) 9.7 k/uL (1.3-7.7); Neutrophils % (A) 87 %; Platelet Count 216 k/uL (150-450); RBC 3.99 m/uL (4.30-5.90); RDW 13.4 % (11.5-15.5); WBC 11.3 k/uL (3.8-10.6)
--- NOTE | 2023-05-11 08:43 | P.CONS ---
History of Present Illness - Reason for Consult Consult date: 05/10/23 covid 19 Requesting physician: Marcel Whitmore - Chief Complaint feeling weak and tired x few days - History of Present Illness Patient is a 82-year-old male with a past medical history significant for coronary artery disease diabetes mellitus hypertension hyperlipidemia recently came back from [facility] and is presenting to the hospital yesterday afternoon for evaluation of not feeling well patient complaining of feeling weak tired no energy he did have some runny nose congestion and did have a cough mild to moderate intensity dry in nature not bringing up any sputum denies any chest pain no nausea vomiting no abdominal pain or any diarrhea with the symptoms the patient has been evaluated on presentation to the hospital he did have a low-grade fever of 99 F patient was not tachycardic hypotensive did have mild hypoxemia with O2 sats of 91 however currently 97% on room air patient did have normal white count with lymphopenia creatinine has been normal AST was mildly elevated urine has been negative he did tested positive for COVID influe nza RSV was negative patient did have a chest x-ray mild cardiomegaly chronic changes without acute process CT angiogram of the chest evidence of pulm embolism no acute cardiopulmonary disease patient has been admitted to the hospital infectious disease was consulted regarding need for remdesivir or antibiotic therapy Review of Systems Positive point and negatives has been mentioned in the HPI, complete review of systems was performed and all other systems are negative Past Medical History Past Medical History: Coronary Artery Disease (CAD), Cancer, Diabetes Mellitus, Hyperlipidemia, Hypertension Additional Past Medical History / Comment(s): See Dr Haas's H&P, had some kind of cancer removed as a teen-not sure what kind, no problems since History of Any Multi-Drug Resistant Organisms: None Reported Past Surgical History: Coronary Bypass/CABG, Heart Catheterization, Heart Catheterization With Stent Additional Past Surgical History / Comment(s): open heart 2014 CABGX4 Past Anesthesia/Blood Transfusion Reactions: No Reported Reaction Date of Last Stent Placement:: 08/11/2019 Past Psychological History: No Psychological Hx Reported Smoking Status: Never smoker Past Alcohol Use History: Occasional Additional Past Alcohol Use History / Comment(s): Patient is a lifelong nonsmoker. Patient drinks 3 ounces of wine every other day, no marijuana or illicit drug use. Patient was at home with his . Past Drug Use History: None Reported - Past Family History Mother Family Medical History: No Reported History, Diabetes Mellitus Additional Family Medical History / Comment(s): Mother at age 84 with history of diabetes. Father Family Medical History: Hypertension Additional Family Medical History / Comment(s): Father at age 86 from old age with history of hypertension. Brother(s) Family Medical History: Hypertension Additional Family Medical History / Comment(s): Patient has a total of 4 brothers. 2 brothers have passed, one from leukemia and one from liver cancer. Son(s) Family Medical History: Coronary Artery Disease (CAD) Additional Family Medical History / Comment(s): Then of heart attack was stopped patient has 1 daughter with underlying COPD Sister(s) Additional Family Medical History / Comment(s): Patient has 1 sister with no major medical problems. Medications and Allergies Home Medications Medication Instructions Recorded Confirmed Type glipiZIDE/METFORMIN HCL 1 tab PO HS 09/12/17 05/09/23 History [glipiZIDE/METFORMIN HCL 2.5-500 mg] Spironolactone 12.5 mg PO DAILY 08/10/19 05/09/23 History Atorvastatin [Lipitor] 80 mg PO HS tab 08/16/19 05/09/23 Rx Nitroglycerin Sl Tabs [Nitrostat] 0.4 mg SUBLINGUAL Q5M PRN #100 tab 08/16/19 05/09/23 Rx Metoprolol Tartrate [Lopressor] 25 mg PO BID 08/23/19 05/09/23 History Furosemide [Lasix] 40 mg PO DAILY PRN 09/18/20 05/09/23 History Clopidogrel Bisulfate [Plavix] 75 mg PO HS 04/28/22 05/09/23 History Sacubitril/Valsartan [Entresto 24 1 tab PO BID 04/28/22 05/09/23 History mg-26 mg Tablet] glipiZIDE/METFORMIN HCL 2 tab PO DAILY 05/09/23 05/09/23 History [glipiZIDE/METFORMIN HCL 2.5-500 mg] Albuterol Inhaler [Ventolin Hfa 2 puff INHALATION RT-Q6H #1 each 05/11/23 Rx Inhaler] Aspirin 81 mg PO DAILY #30 tab 05/11/23 Rx Cholecalciferol [Vitamin D3 (25 25 mcg PO DAILY #30 tab 05/11/23 Rx Mcg = 1000 Iu)] Tiotropium 2.5 Mcg/Puff [Spiriva 2 puff INHALATION RT-DAILY #1 each 05/11/23 Rx Respimat 2.5 Mcg] Zinc Sulfate [Orazinc] 220 mg PO DAILY #15 cap 05/11/23 Rx dexAMETHasone [Decadron] 6 mg PO DAILY 8 Days #8 tab 05/11/23 Rx guaiFENesin-DM 100-10MG/5ML 10 ml PO Q6HR PRN #120 ml 05/11/23 Rx [Robitussin DM] Allergies Allergy/AdvReac Type Severity Reaction Status Date / Time Penicillins Allergy Rash/Hives Verified 05/09/23 15:11 Physical Exam Vitals: Vital Signs Temp Pulse Pulse Resp BP BP Pulse Ox 05/10/23 08:40 97 05/10/23 08:33 97.7 F 65 16 114/57 96 05/10/23 07:21 98.0 F 86 18 119/68 93 L 05/10/23 01:20 99.1 F 91 18 107/65 92 L 05/09/23 19:58 99.0 F 94 18 133/44 91 L 05/09/23 16:52 100 05/09/23 16:40 108 H 20 107/56 95 05/09/23 13:18 18 05/09/23 12:43 99.0 F 82 17 111/65 97 Intake and Output 05/09/23 05/10/23 05/10/23 22:59 06:59 14:59 Other: # Voids 3 # Bowel Movements 1 Weight 87.09 kg GENERAL DESCRIPTION: elderly male lying in bed, no distress. No tachypnea or accessory muscle of respiration use. HEENT: Shows Pallor , no scleral icterus. Oral mucous membrane is dry. NECK: Trachea central, no thyromegaly. LUNGS: Unlabored breathing. course breath sounds bilaterally with occasional wheeze HEART: S1, S2, regular rate and rhythm. No loud murmur ABDOMEN: Soft, no tenderness , EXTREMITIES: No edema of feet. SKIN: No rash, no masses palpable. NEUROLOGICAL: The patient is awake, alert, oriented x3, mood and affect normal. Results CBC & Chem 7: 05/11/23 07:51 05/11/23 07:51 Labs: Abnormal Lab Results - Last 24 Hours (Table) 05/09/23 05/09/23 05/09/23 Range/Units 13:19 13:19 13:19 RBC 3.88 L (4.30-5.90) m/uL Hgb 12.2 L (13.0-17.5) gm/dL Hct 36.0 L (39.0-53.0) % Lymphocytes # 0.5 L (1.0-4.8) k/uL Eosinophils # (0.04-0.35) X 10*3/uL D-Dimer (<0.60) mg/L FEU Sodium 136 L (137-145) mmol/L Carbon Dioxide (21.6-31.8) mmol/L Anion Gap (4.00-12.00) mmol/L BUN 25 H (9-20) mg/dL BUN/Creatinine Ratio (12.00-20.00) Ratio Glucose 130 H (74-99) mg/dL POC Glucose (mg/dL) (70-110) mg/dL Magnesium 1.4 L (1.6-2.3) mg/dL AST (14-35) U/L Troponin I 0.654 H* (0.000-0.034) ng/mL Total Protein (6.2-8.2) g/dL Albumin (3.8-4.9) g/dL SARS-CoV-2 (PCR) (Not Detectd) 05/09/23 05/09/23 05/10/23 Range/Units 13:19 14:15 05:49 RBC (4.30-5.90) m/uL Hgb (13.0-17.5) gm/dL Hct (39.0-53.0) % Lymphocytes # (1.0-4.8) k/uL Eosinophils # (0.04-0.35) X 10*3/uL D-Dimer 0.64 H (<0.60) mg/L FEU Sodium (137-145) mmol/L Carbon Dioxide (21.6-31.8) mmol/L Anion Gap (4.00-12.00) mmol/L BUN (9-20) mg/dL BUN/Creatinine Ratio (12.00-20.00) Ratio Glucose (74-99) mg/dL POC Glucose (mg/dL) 289 H (70-110) mg/dL Magnesium (1.6-2.3) mg/dL AST (14-35) U/L Troponin I (0.000-0.034) ng/mL Total Protein (6.2-8.2) g/dL Albumin (3.8-4.9) g/dL SARS-CoV-2 (PCR) Detected A (Not Detectd) 05/10/23 05/10/23 05/10/23 Range/Units 06:00 06:00 06:00 RBC 3.59 L (4.30-5.90) m/uL Hgb 10.8 L (13.0-17.5) gm/dL Hct 32.4 L (39.0-53.0) % Lymphocytes # 0.51 L (1.0-4.8) k/uL Eosinophils # 0 L (0.04-0.35) X 10*3/uL D-Dimer (<0.60) mg/L FEU Sodium (137-145) mmol/L Carbon Dioxide 20.3 L (21.6-31.8) mmol/L Anion Gap 12.70 H (4.00-12.00) mmol/L BUN (9-20) mg/dL BUN/Creatinine Ratio 23.56 H (12.00-20.00) Ratio Glucose 259 H (74-99) mg/dL POC Glucose (mg/dL) (70-110) mg/dL Magnesium (1.6-2.3) mg/dL AST 64 H (14-35) U/L Troponin I 5.480 H* (0.000-0.034) ng/mL Total Protein 5.7 L (6.2-8.2) g/dL Albumin 3.6 L (3.8-4.9) g/dL SARS-CoV-2 (PCR) (Not Detectd) 05/10/23 05/10/23 Range/Units 11:27 11:48 RBC 3.57 L (4.30-5.90) m/uL Hgb 11.2 L (13.0-17.5) gm/dL Hct 33.0 L (39.0-53.0) % Lymphocytes # 0.6 L (1.0-4.8) k/uL Eosinophils # (0.04-0.35) X 10*3/uL D-Dimer (<0.60) mg/L FEU Sodium (137-145) mmol/L Carbon Dioxide (21.6-31.8) mmol/L Anion Gap (4.00-12.00) mmol/L BUN (9-20) mg/dL BUN/Creatinine Ratio (12.00-20.00) Ratio Glucose (74-99) mg/dL POC Glucose (mg/dL) 208 H (70-110) mg/dL Magnesium (1.6-2.3) mg/dL AST (14-35) U/L Troponin I (0.000-0.034) ng/mL Total Protein (6.2-8.2) g/dL Albumin (3.8-4.9) g/dL SARS-CoV-2 (PCR) (Not Detectd) Assessment and Plan (1) Coronavirus infection Status: Acute Code(s): B34.2 - CORONAVIRUS INFECTION, UNSPECIFIED SNOMED Code(s): 996053660 Plan: 1patient presented to hospital with generalized weakness and did have p redominantly URI symptoms and mild cough in this patient tested positive for COVID-19 however both the chest x-ray as well as CT angiogram of the chest did not showed evidence of pneumonia or groundglass opacities likely morning for COVID-19 pneumonia, patient is currently not hypoxic and will not qualify for remdesivir per [facility] policy 2-patient to continue with heparin zinc ascorbic acid and steroid for underlying COPD exacerbation 3-we will check inflammatory markers 4-no need for systemic antibiotic therapy We will follow on clinical condition and cultures to further adjust medication if needed Thank you for this consultation we will follow the patient along with you Dictation was produced using [employer] dictation software. please excuse any grammatical, word or spelling errors. Time with Patient: Greater than 30
[2023-05-11 09:05] LABS: Prothrombin Time 11.1 sec (10.0-12.5)
[2023-05-11] MEDS: METOPROLOL TARTRATE 25 MG TAB PO SCH ×2 (09:32→21:33)
[2023-05-11] MEDS: SPIRONOLACTONE 25 MG TAB PO SCH (09:32)
[2023-05-11] MEDS: ASPIRIN 81 MG PO SCH (09:32)
[2023-05-11] MEDS: SACUBITRIL/VALSARTAN 24 MG-26 MG TABLET PO SCH ×2 (09:32→21:54)
[2023-05-11] MEDS: ZINC SULFATE 220 MG CAP PO SCH (09:33)
[2023-05-11] MEDS: CHOLECALCIFEROL 25 MCG (1000 IU) TABLET PO SCH (09:33)
[2023-05-11 09:36] LABS: ALT 35 U/L (4-49); AST 77 U/L (17-59); African American GFR (CKD) >90 (>60 ml/min/1.73 sqM); Albumin 3.3 g/dL (3.5-5.0); Alkaline Phosphatase 49 U/L (38-126); Anion Gap 13 mmol/L; Blood Urea Nitrogen 24 mg/dL (9-20); Calcium 8.2 mg/dL (8.4-10.2); Carbon Dioxide 16 mmol/L (22-30); Chloride 105 mmol/L (98-107); Glucose 287 mg/dL (74-99); Non-African American GFR(CKD) 83 (>60 ml/min/1.73 sqM); Potassium 3.8 mmol/L (3.5-5.1); Sodium 134 mmol/L (137-145); Total Bilirubin 0.7 mg/dL (0.2-1.3); Total Protein 5.8 g/dL (6.3-8.2)
[2023-05-11 11:37] LABS: Glucose,Whole Blood 304 mg/dL (70-110)
--- NOTE | 2023-05-11 12:19 | P.PN ---
Subjective Progress Note Date: 05/11/23 Principal diagnosis: Reason for follow-up is covid 19 Patient is a 82-year-old male with a past medical history significant for coronary artery disease diabetes mellitus hypertension hyperlipidemia recently came back from [facility], presented to the hospital with increasing weakness URI symptoms patient has been diagnosed with covid 19 On today's evaluation and that is 05/11/2023, the patient remains to be afebrile, the patient is breathing comfortably on room air and denies any shortness of breath, the patient denies chest pain did have mild dry cough, patient denies abdominal pain, no nausea/vomiting and no diarrhea, patient is feeling better and wants to go home Patient did have a white count of 11.3, creatinine 0.79 Objective - Vital Signs Vital signs: Vital Signs Temp 98.5 F 05/10/23 20:00 Pulse 64 05/11/23 08:00 Resp 16 05/11/23 08:00 BP 171/69 05/11/23 08:00 Pulse Ox 98 05/11/23 08:44 FiO2 Intake & Output 05/10/23 05/11/23 05/11/23 18:59 06:59 18:59 Intake Total 236 106.979 118 Balance 236 106.979 118 Intake: IV 10 Invasive Line 2 10 Intake, IV Titration 96.979 Amount Heparin Sod,Pork in 0.45% 96.979 NaCl 25,000 unit In 0.45 % NaCl 1 250ml.bag @ 11.5 UNITS/KG/HR 10.015 mls/ hr IV .Q24H JUD Rx#: [id number] Oral 236 118 Other: # Voids 2 1 - Exam GENERAL DESCRIPTION: An elderly male lying in bed in no distress RESPIRATORY SYSTEM: Unlabored breathing , occasional wheeze bilaterally HEART: S1 S2 regular rate and rhythm , ABDOMEN: Soft , no tenderness EXTREMITIES: No edema feet - Labs CBC & Chem 7: 05/11/23 07:51 05/11/23 07:51 Labs: Abnormal Lab Results - Last 24 Hours (Table) 05/10/23 05/10/23 05/10/23 Range/Units 11:27 16:30 19:17 WBC (3.8-10.6) k/uL RBC 3.57 L (4.30-5.90) m/uL Hgb 11.2 L (13.0-17.5) gm/dL Hct 33.0 L (39.0-53.0) % Neutrophils # (1.3-7.7) k/uL Lymphocytes # 0.6 L (1.0-4.8) k/uL APTT 65.2 H (22.0-30.0) sec Sodium (137-145) mmol/L Carbon Dioxide (22-30) mmol/L BUN (9-20) mg/dL Glucose (74-99) mg/dL POC Glucose (mg/dL) 230 H (70-110) mg/dL Calcium (8.4-10.2) mg/dL AST (17-59) U/L Total Protein (6.3-8.2) g/dL Albumin (3.5-5.0) g/dL 05/10/23 05/11/23 05/11/23 Range/Units 19:57 05:47 07:51 WBC 11.3 H (3.8-10.6) k/uL RBC 3.99 L (4.30-5.90) m/uL Hgb 12.6 L (13.0-17.5) gm/dL Hct 37.8 L (39.0-53.0) % Neutrophils # 9.7 H (1.3-7.7) k/uL Lymphocytes # (1.0-4.8) k/uL APTT (22.0-30.0) sec Sodium (137-145) mmol/L Carbon Dioxide (22-30) mmol/L BUN (9-20) mg/dL Glucose (74-99) mg/dL POC Glucose (mg/dL) 205 H 159 H (70-110) mg/dL Calcium (8.4-10.2) mg/dL AST (17-59) U/L Total Protein (6.3-8.2) g/dL Albumin (3.5-5.0) g/dL 05/11/23 05/11/23 05/11/23 Range/Units 07:51 07:51 11:35 WBC (3.8-10.6) k/uL RBC (4.30-5.90) m/uL Hgb (13.0-17.5) gm/dL Hct (39.0-53.0) % Neutrophils # (1.3-7.7) k/uL Lymphocytes # (1.0-4.8) k/uL APTT 78.7 H (22.0-30.0) sec Sodium 134 L (137-145) mmol/L Carbon Dioxide 16 L (22-30) mmol/L BUN 24 H (9-20) mg/dL Glucose 287 H (74-99) mg/dL POC Glucose (mg/dL) 304 H (70-110) mg/dL Calcium 8.2 L (8.4-10.2) mg/dL AST 77 H (17-59) U/L Total Protein 5.8 L (6.3-8.2) g/dL Albumin 3.3 L (3.5-5.0) g/dL Assessment and Plan (1) Coronavirus infection Current Visit: Yes Status: Acute Code(s): B34.2 - CORONAVIRUS INFECTION, UNSPECIFIED SNOMED Code(s): 874265083 Plan: 1patient presented to hospital with generalized weakness and did have predominantly URI symptoms and mild cough in this patient tested positive for COVID-19 however both the chest x-ray as well as CT angiogram of the chest did not showed evidence of pneumonia or groundglass opacities likely morning for COVID-19 pneumonia, patient is currently not hypoxic and will not qualify for remdesivir per [facility] policy 2-patient to continue with heparin zinc ascorbic acid and steroid for underlying COPD exacerbation, there is no need for systemic antibiotic therapy Dictation was produced using [employer] dictation software. please excuse any grammatical, word or spelling errors. Time with Patient: Less than 30
[2023-05-11] MEDS: SODIUM CHLORIDE 0.9% 1,000 ML IV SCH ×2 (13:14)
--- NOTE | 2023-05-11 13:55 | P.PN ---
Subjective Progress Note Date: 05/11/23 This is a pleasant 82-year-old male who was having a cough with congestion and not feeling well over the last few days taken with extreme weakness found to have COVID-19 and admitted with concerns of possible COVID-19 bilateral pneumonia. Troponins are elevated and repeat troponin is up at 5 and cardiology has been consulted and repeat 2-D echo was ordered and pending at this time. Patient is maintained on IV heparin and will continue for now. Patient does have significant past medical history of coronary artery disease and most recent EF was less than 40%. Infectious disease along with pulmonary and cardiology are following. Patient is maintained on IV steroids along with sliding scale and will continue along with vitamin and zinc supplementation. Patient is currently on room air denies chest pain or shortness of breath and asking if he can go home. Pulmonary has cleared the patient although awaiting cardiology clearance. Again 2-D echo was ordered and remains pending. Review of systems: Constitutional: No reports of fatigue, fever, or chills Cardiovascular: No reports of chest pain or palpitations Respiratory: No reports of shortness of breath or cough GI: No reports of nausea, no reports of vomiting, no diarrhea : No reports of dysuria or retention Neurovascular: No reports of generalized weakness, patient reports feeling improved and asking to go home All medications have been reviewed Active Medications Albuterol Sulfate (Albuterol Hfa Inhaler) 2 puff INHALATION RT-QID PRN PRN Reason: Shortness Of Breath Or Wheezing Albuterol Sulfate (Albuterol Hfa Inhaler) 2 puff INHALATION RT-Q6H [facility] Last Admin: 05/11/23 12:59 Dose: 2 puff Aspirin (Aspirin 81 Mg) 81 mg PO DAILY [facility] Last Admin: 05/11/23 09:32 Dose: 81 mg Atorvastatin Calcium (Atorvastatin 80 Mg Tab) 80 mg PO HS [facility] Last Admin: 05/10/23 21:52 Dose: 80 mg Cholecalciferol (Cholecalciferol 25 Mcg (1000 Iu) Tablet) 25 mcg PO DAILY [facility] Last Admin: 05/11/23 09:33 Dose: 25 mcg Clopidogrel Bisulfate (Clopidogrel 75 Mg Tab) 75 mg PO HS [facility] Last Admin: 05/10/23 21:52 Dose: 75 mg Dexamethasone Sodium Phosphate (Dexamethasone Sod Phosphate 4 Mg/Ml 1 Ml Vial) 6 mg IVP Q6HR [facility] Last Admin: 05/11/23 13:14 Dose: 6 mg Furosemide (Furosemide 40 Mg Tab) 40 mg PO DAILY PRN PRN Reason: Edema Guaifenesin/Dextromethorphan (Guaifenesin-Dm 100-10mg/5ml 10 Ml Cup) 10 ml PO Q6HR PRN PRN Reason: Cough Last Admin: 05/11/23 00:07 Dose: 10 ml Heparin Sodium (Porcine) (Heparin Sodium 1,000 Un/Ml (10ml Vl)) 0 unit IV PER PROTOCOL PRN; Protocol PRN Reason: Low PTT Sodium Chloride (Saline 0.9%) 1,000 mls @ 75 mls/hr IV .[id number] [facility] Last Admin: 05/11/23 13:14 Dose: 75 mls/hr Heparin Sodium/Sodium Chloride (25,000 unit/ Sodium Chloride) 250 mls @ 10.015 mls/hr IV .Q24H [facility]; Protocol Last Titration: 05/10/23 22:22 Dose: 11.5 units/kg/hr, 10.015 mls/hr Insulin Aspart (Insulin Aspart (Novolog) 100 Unit/Ml Vial) 0 unit SQ ACHS [facility]; Protocol Last Admin: 05/11/23 13:14 Dose: 8 unit Metoprolol Tartrate (Metoprolol Tartrate 25 Mg Tab) 25 mg PO BID [facility] Last Admin: 05/11/23 09:32 Dose: 25 mg Morphine Sulfate (Morphine Sulfate 4 Mg/Ml Syringe) 4 mg IV Q4HR PRN PRN Reason: Severe Pain (Scale 7 to 10) Naloxone HCl (Naloxone 0.4 Mg/Ml 1 Ml Vial) 0.2 mg IV Q2M PRN PRN Reason: Opioid Reversal Nitroglycerin (Nitroglycerin Sl Tabs 0.4 Mg Tab) 0.4 mg SUBLINGUAL Q5M PRN PRN Reason: Chest Pain Ondansetron HCl (Ondansetron 4 Mg/2 Ml Vial) 4 mg IVP Q8HR PRN PRN Reason: Nausea And Vomiting Pantoprazole Sodium (Pantoprazole 40 Mg Tablet) 40 mg PO [id number] [facility] Last Admin: 05/11/23 06:28 Dose: 40 mg Sacubitril/Valsartan (Sacubitril/Valsartan 24 Mg-26 Mg Tablet) 1 each PO BID [facility] Last Admin: 05/11/23 09:32 Dose: 1 each Spironolactone (Spironolactone 25 Mg Tab) 12.5 mg PO DAILY [facility] Last Admin: 05/11/23 09:32 Dose: 12.5 mg Tiotropium [place] (Tiotropium 2.5 Mcg Inhaler) 2 puff INHALATION RT-DAILY PRN PRN Reason: Shortness Of Breath Or Wheezing Zinc Sulfate (Zinc Sulfate 220 Mg Cap) 220 mg PO DAILY [facility] Last Admin: 05/11/23 09:33 Dose: 220 mg PHYSICAL EXAMINATION: GENERAL: The patient is alert and oriented x4, Well developed, well nourished. Elderly-appearing HEENT: Pupils are round and equally reacting to light. EOMI. no scleral icterus. No conjunctival pallor. Normocephalic, atraumatic. No pharyngeal erythema. No thyromegaly. CARDIOVASCULAR: S1 and S2 muffled PULMONARY: diminished breath sounds bilaterally with no wheezing or rhonchi noted. ABDOMEN: soft. Nontender on exam. obese. non-distended, normoactive bowel sounds. No palpable organomegaly. MUSCULOSKELETAL: No joint swelling or deformity. EXTREMITIES: No cyanosis, clubbing, or pedal edema. NEUROLOGICAL: Gross neurological examination did not reveal any focal deficits. SKIN: No rashes. Assessment: Acute COVID-19 infection with acute COVID-19 bilateral pneumonia Troponin elevated at 5.480, acute non-ST segment elevation myocardial infarction History of significant coronary artery disease Diabetes mellitus, type II, elevated with hyperglycemia possible steroid effect Hypertension history Hyperlipidemia GI prophylaxis DVT prophylaxis Full code Plan: Recommend to continue with current medications and management with infectious disease along with pulmonary and cardiology following Patient is continued on IV heparin and awaiting 2-D echo as troponin is up above 5 awaiting cardiology input recommendations Pulmonary has seen and evaluated the patient and patient is denying chest pain or shortness of breath on room air and has cleared the patient for discharge once cleared by other consultations Infectious disease following maintained on vitamin C supplementation along with IV steroids Continue Accu-Cheks before meals and at bedtime with sliding scale Encouraged increased activity as tolerated Will await cardiology input and recommendations and clearance prior to discharge as patient is asking to be discharged today reporting he feels well The impression and plan of care has been dictated by Anisa Garcia, nurse practitioner as directed. Dr. Haim MD I have performed a history and examination and MDM of this patient, discussed the same with the dictator, and agree with the dictator's assessment and plan as written ,documented as a scribe. Based on total visit time, I have performed more than 50% of the visit. Any additional findings or plans will be noted. Objective - Vital Signs Vital signs: Vital Signs Temp 98.5 F 05/10/23 20:00 Pulse 57 L 05/11/23 12:00 Resp 16 05/11/23 12:00 BP 128/62 05/11/23 12:00 Pulse Ox 96 05/11/23 12:00 FiO2 Intake & Output 05/10/23 05/11/23 05/11/23 18:59 06:59 18:59 Intake Total 236 106.979 118 Balance 236 106.979 118 Intake: IV 10 Invasive Line 2 10 Intake, IV Titration 96.979 Amount Heparin Sod,Pork in 0.45% 96.979 NaCl 25,000 unit In 0.45 % NaCl 1 250ml.bag @ 11.5 UNITS/KG/HR 10.015 mls/ hr IV .Q24H [facility] Rx#: [id number] Oral 236 118 Other: # Voids 2 1 - Labs CBC & Chem 7: 05/11/23 07:51 05/11/23 07:51 Labs: Abnormal Lab Results - Last 24 Hours (Table) 05/10/23 05/10/23 05/10/23 Range/Units 16:30 19:17 19:57 WBC (3.8-10.6) k/uL RBC (4.30-5.90) m/uL Hgb (13.0-17.5) gm/dL Hct (39.0-53.0) % Neutrophils # (1.3-7.7) k/uL APTT 65.2 H (22.0-30.0) sec Sodium (137-145) mmol/L Carbon Dioxide (22-30) mmol/L BUN (9-20) mg/dL Glucose (74-99) mg/dL POC Glucose (mg/dL) 230 H 205 H (70-110) mg/dL Calcium (8.4-10.2) mg/dL AST (17-59) U/L Total Protein (6.3-8.2) g/dL Albumin (3.5-5.0) g/dL 05/11/23 05/11/23 05/11/23 Range/Units 05:47 07:51 07:51 WBC 11.3 H (3.8-10.6) k/uL RBC 3.99 L (4.30-5.90) m/uL Hgb 12.6 L (13.0-17.5) gm/dL Hct 37.8 L (39.0-53.0) % Neutrophils # 9.7 H (1.3-7.7) k/uL APTT (22.0-30.0) sec Sodium 134 L (137-145) mmol/L Carbon Dioxide 16 L (22-30) mmol/L BUN 24 H (9-20) mg/dL Glucose 287 H (74-99) mg/dL POC Glucose (mg/dL) 159 H (70-110) mg/dL Calcium 8.2 L (8.4-10.2) mg/dL AST 77 H (17-59) U/L Total Protein 5.8 L (6.3-8.2) g/dL Albumin 3.3 L (3.5-5.0) g/dL 05/11/23 05/11/23 Range/Units 07:51 11:35 WBC (3.8-10.6) k/uL RBC (4.30-5.90) m/uL Hgb (13.0-17.5) gm/dL Hct (39.0-53.0) % Neutrophils # (1.3-7.7) k/uL APTT 78.7 H (22.0-30.0) sec Sodium (137-145) mmol/L Carbon Dioxide (22-30) mmol/L BUN (9-20) mg/dL Glucose (74-99) mg/dL POC Glucose (mg/dL) 304 H (70-110) mg/dL Calcium (8.4-10.2) mg/dL AST (17-59) U/L Total Protein (6.3-8.2) g/dL Albumin (3.5-5.0) g/dL
--- NOTE | 2023-05-11 15:24 | P.PN ---
Subjective Progress Note Date: 05/11/23 82-year-old male patient, hospitalized for shortness of breath and was found to have Covid 19 infection. A pulmonary consultation was requested. The patient is known to have CAD, diabetes mellitus type 2, hypertension hyperlipidemia and the patient has undergone previous coronary artery bypass surgery. The patient's has been complaining of cough and sore throat and nasal congestion and sinus congestion and drainage. He had a positive Covid 19 testing in emergency department. Patient reports that he was at [facility], and states that another participant reported that he was positive for Covid-19 while there. The patient has also been infected with Covid 19 and required hospitalization back in 2020. At that time, the patient was given a monoclonal antibodies and the patient was discharged. During this current admission, the patient's family chest pain. At the same time, the patient's troponin came back elevated at 5.48. EKG showed acute non-ST segment elevation myocardial infarction. D-dimer was 0.6. The white cell count 6.3 with a hemoglobin of 11.2 and a platelet count of 186. Creatinine was 0.9 with a BUN of 21. The CT antigram of the chest was done and it showed no evidence of any pulmonary embolism. No evidence of any acute cardiac pulmonary process. There was cardiomegaly and there is a small to moderate-sized hiatal hernia. The patient is seen today 05/11/2023 in follow-up on the selective care unit. He is currently sitting up in bed. Awake and alert in no acute distress. He is maintaining O2 saturations in the 90s on room air. His troponins did peak grea ter than 5.0. Echocardiogram is pending. He is currently on a heparin drip. ProBNP was 4730. White count 11.3. Hemoglobin 12.6. Platelets 216. Sodium 134. Potassium 3.8. Bicarb 16. BUN 24. Creatinine 0.79. Glucose 287. He is continued on Decadron, bronchodilators and vitamin supplements. Objective - Vital Signs Vital signs: Vital Signs Temp 98.5 F 05/10/23 20:00 Pulse 57 L 05/11/23 12:00 Resp 16 05/11/23 12:00 BP 128/62 05/11/23 12:00 Pulse Ox 96 05/11/23 12:00 FiO2 Intake & Output 11/05/11/23 05/11/23 18:59 06:59 18:59 Intake Total 236 106.979 236 Balance 236 106.979 236 Intake: IV 10 Invasive Line 2 10 Intake, IV Titration 96.979 Amount Heparin Sod,Pork in 0.45% 96.979 NaCl 25,000 unit In 0.45 % NaCl 1 250ml.bag @ 11.5 UNITS/KG/HR 10.015 mls/ hr IV .Q24H [facility] Rx#: [id number] Oral 236 236 Other: # Voids 2 1 - Exam GENERAL EXAM: Alert, pleasant 82-year-old male, on room air, comfortable in no apparent distress. HEAD: Normocephalic. EYES: Normal reaction of pupils, equal size. NOSE: Clear with pink turbinates. THROAT: No erythema or exudates. NECK: No masses, no JVD. CHEST: No chest wall deformity. LUNGS: Equal air entry with no crackles, wheeze, rhonchi or dullness. CVS: S1 and S2 normal with no audible murmur, regular rhythm. ABDOMEN: No hepatosplenomegaly, normal bowel sounds, no guarding or rigidity. SPINE: No scoliosis or deformity SKIN: No rashes CENTRAL NERVOUS SYSTEM: No focal deficits, tone is normal in all 4 extremities. EXTREMITIES: There is no peripheral edema. No clubbing, no cyanosis. Peripheral pulses are intact. - Labs CBC & Chem 7: 05/11/23 07:51 05/11/23 07:51 Labs: Abnormal Lab Results - Last 24 Hours (Table) 05/10/23 05/10/23 05/10/23 Range/Units 16:30 19:17 19:57 WBC (3.8-10.6) k/uL RBC (4.30-5.90) m/uL Hgb (13.0-17.5) gm/dL Hct (39.0-53.0) % Neutrophils # (1.3-7.7) k/uL APTT 65.2 H (22.0-30.0) sec Sodium (137-145) mmol/L Carbon Dioxide (22-30) mmol/L BUN (9-20) mg/dL Glucose (74-99) mg/dL POC Glucose (mg/dL) 230 H 205 H (70-110) mg/dL Calcium (8.4-10.2) mg/dL AST (17-59) U/L Total Protein (6.3-8.2) g/dL Albumin (3.5-5.0) g/dL 05/11/23 05/11/23 05/11/23 Range/Units 05:47 07:51 07:51 WBC 11.3 H (3.8-10.6) k/uL RBC 3.99 L (4.30-5.90) m/uL Hgb 12.6 L (13.0-17.5) gm/dL Hct 37.8 L (39.0-53.0) % Neutrophils # 9.7 H (1.3-7.7) k/uL APTT (22.0-30.0) sec Sodium 134 L (137-145) mmol/L Carbon Dioxide 16 L (22-30) mmol/L BUN 24 H (9-20) mg/dL Glucose 287 H (74-99) mg/dL POC Glucose (mg/dL) 159 H (70-110) mg/dL Calcium 8.2 L (8.4-10.2) mg/dL AST 77 H (17-59) U/L Total Protein 5.8 L (6.3-8.2) g/dL Albumin 3.3 L (3.5-5.0) g/dL 05/11/23 05/11/23 Range/Units 07:51 11:35 WBC (3.8-10.6) k/uL RBC (4.30-5.90) m/uL Hgb (13.0-17.5) gm/dL Hct (39.0-53.0) % Neutrophils # (1.3-7.7) k/uL APTT 78.7 H (22.0-30.0) sec Sodium (137-145) mmol/L Carbon Dioxide (22-30) mmol/L BUN (9-20) mg/dL Glucose (74-99) mg/dL POC Glucose (mg/dL) 304 H (70-110) mg/dL Calcium (8.4-10.2) mg/dL AST (17-59) U/L Total Protein (6.3-8.2) g/dL Albumin (3.5-5.0) g/dL Assessment and Plan Assessment: Acute Covid 19 infection, no evidence of viral pneumonia or pulmonary embolism based on CT angiogram of the chest. Noted the patient was infected in the past with Covid 19 and the patient had a hospitalization back in 2020 for the same. At that time, the patient was treated with monoclonal antibodies. He was also given steroids. Acute non-ST segment elevation myocardial infarction Coronary artery disease, previous bypass surgery and previous PCI to the SVG-RCA 08/15/2019 Chronic systolic heart failure with ejection fraction of 35% and moderate aortic regurgitation and moderate mitral regurgitation and mild tricuspid regurgitation Diabetes mellitus type 2 Hypertension Hyperlipidemia Plan: The patient was seen and evaluated Medications and labs reviewed Continue the current treatment plan Stable and on room air Remains on a heparin drip Echocardiogram pending Procalcitonin pending Continue Decadron, vitamin supplements We will continue to follow I have personally seen and examined the patient, performed the documentation and the assessment and plan as written. Number of minutes spent on the visit: 10.
[2023-05-11 16:34] LABS: Glucose,Whole Blood 240 mg/dL (70-110)
--- NOTE | 2023-05-11 16:39 | P.PN ---
Subjective Progress Note Date: 05/11/23 HPI: Patient is a pleasant 82-year-old male with a past medical history of coronary artery disease, cancer, diabetes, hyperlipidemia, hypertension, coronary artery bypass, and heart catheterization who presented to the hospital with shortness of breath. Patient reports that he was at [facility], and states that another participant reported that he was positive for Covid-19 while there. Patient reports over the last couple days he noticed increasing shortness of breath with a cough. After he became significantly short of breath, the patient presented to the hospital for evaluation. He is mainly complaining of cough, sore throat, nasal congestion and some sinus pain. Patient did test positive f or Covid in the emergency department. He also demonstrated an elevated troponin at 5.48. EKG was negative for any obvious STEMI criteria. D-dimer was elevated, CT and grandmother the chest was negative for pulmonary embolism. Cardiology was consulted for the elevated troponin. This morning the patient reports that he's feeling okay. He is currently denying chest pain, dizziness, lightheadedness, cough, phlegm production. Patient appears asymptomatic with the elevated troponin. REVIEW OF LABS, ECG & MEDICAL DATA: LABS: White count 6.3, hemoglobin 11.2, platelet 26, d-dimer 0.64, sodium 135, potassium 4.1, B1 21.2, creatinine 0.9, magnesium 1.6, troponin 5.480 EKG: Normal sinus rhythm with first-degree AV block, left bundle branch block IMAGING: Chest x-ray dated 05/09/2023 demonstrates similar mild cardiomegaly, tortuous/ectatic thoracic aorta, and COPD, there are chronic changes without acute processes seen. CT angiogram of the chest dated 05/09/2023 demonstrates no evidence of pulmonary and wasn't, no acute cardiopulmonary disease, marked cardiomegaly with marked enlargement of the left atrium, small to moderate hiatal hernia. Venous Doppler dated 05/09/2023 demonstrates no DVT bilaterally. 05/11 Patient is seen today in follow-up. He remains in Covid isolation. He's been in a sinus rhythm and vital signs have been stable. He denies having any chest pain. He is currently on a heparin drip, aspirin 81 mg daily, atorvastatin 80 mg at bedtime, Lopressor 25 mg twice daily, Entresto 2426 milligrams one twice daily, Aldactone 12.5 mg daily. Patient had significant elevation of his second troponin of 5.48. He continues to deny any chest pain however. He states he does have dyspnea on exertion which is worse since he's been here and possibly just worse from Covid. Echocardiogram is pending and will be changed to limited study. EXAMINATION: GENERAL: Well-appearing, well-nourished and in no acute distress. NECK: Supple without JVD or thyromegaly. LUNGS: Breath sounds clear to auscultation bilaterally. Respiration equal and unlabored. No wheezes, rales or rhonchi. HEART: Regular rate and rhythm without murmurs, rubs or gallops. S1 and S2 heard. EXTREMITIES: Normal range of motion, no edema. No clubbing or cyanosis. Peripheral pulses intact and strong. IMPRESSION: 1. COVID-19 infection 2. Shortness of breath Possible non-ST elevated myocardial infarction History of coronary artery disease with previous CABG and stenting Hypertension Hyperlipidemia Diabetes mellitus type 2 PLAN: Continue heparin drip Continue other cardiac medications Obtain limited echocardiogram Further recommendations based on patient's clinical course. Nurse practitioner note has been reviewed, I agree with the documented findings and plan of care. Patient was seen and examined. Objective - Vital Signs Vital signs: Vital Signs Temp 98.5 F 05/10/23 20:00 Pulse 57 L 05/11/23 12:00 Resp 16 05/11/23 12:00 BP 128/62 05/11/23 12:00 Pulse Ox 96 05/11/23 12:00 FiO2 Intake & Output 05/10/23 05/11/23 05/11/23 18:59 06:59 18:59 Intake Total 236 106.979 118 Balance 236 106.979 118 Intake: IV 10 Invasive Line 2 10 Intake, IV Titration 96.979 Amount Heparin Sod,Pork in 0.45% 96.979 NaCl 25,000 unit In 0.45 % NaCl 1 250ml.bag @ 11.5 UNITS/KG/HR 10.015 mls/ hr IV .Q24H [facility] Rx#: [id number] Oral 236 118 Other: # Voids 2 1 - Labs CBC & Chem 7: 05/11/23 07:51 05/11/23 07:51 Labs: Abnormal Lab Results - Last 24 Hours (Table) 05/10/23 05/10/2305/10/23 Range/Units 16:30 19:17 19:57 WBC (3.8-10.6) k/uL RBC (4.30-5.90) m/uL Hgb (13.0-17.5) gm/dL Hct (39.0-53.0) % Neutrophils # (1.3-7.7) k/uL APTT 65.2 H (22.0-30.0) sec Sodium (137-145) mmol/L Carbon Dioxide (22-30) mmol/L BUN (9-20) mg/dL Glucose (74-99) mg/dL POC Glucose (mg/dL) 230 H 205 H (70-110) mg/dL Calcium (8.4-10.2) mg/dL AST (17-59) U/L Total Protein (6.3-8.2) g/dL Albumin (3.5-5.0) g/dL 05/11/23 05/11/23 05/11/23 Range/Units 05:47 07:51 07:51 WBC 11.3 H (3.8-10.6) k/uL RBC 3.99 L (4.30-5.90) m/uL Hgb 12.6 L (13.0-17.5) gm/dL Hct 37.8 L (39.0-53.0) % Neutrophils # 9.7 H (1.3-7.7) k/uL APTT (22.0-30.0) sec Sodium 134 L (137-145) mmol/L Carbon Dioxide 16 L (22-30) mmol/L BUN 24 H (9-20) mg/dL Glucose 287 H (74-99) mg/dL POC Glucose (mg/dL) 159 H (70-110) mg/dL Calcium 8.2 L (8.4-10.2) mg/dL AST 77 H (17-59) U/L Total Protein 5.8 L (6.3-8.2) g/dL Albumin 3.3 L (3.5-5.0) g/dL 05/11/23 05/11/23 Range/Units 07:51 11:35 WBC (3.8-10.6) k/uL RBC (4.30-5.90) m/uL Hgb (13.0-17.5) gm/dL Hct (39.0-53.0) % Neutrophils # (1.3-7.7) k/uL APTT 78.7 H (22.0-30.0) sec Sodium (137-145) mmol/L Carbon Dioxide (22-30) mmol/L BUN (9-20) mg/dL Glucose (74-99) mg/dL POC Glucose (mg/dL) 304 H (70-110) mg/dL Calcium (8.4-10.2) mg/dL AST (17-59) U/L Total Protein (6.3-8.2) g/dL Albumin (3.5-5.0) g/dL
--- NOTE | 2023-05-11 17:47 | CA ---
Transthoracic Echo Report Name: Anibal Trinh Age: 82 Gender: M : 1940 Exam Date: 05/11/2023 14:26 Exam Location: [facility] Ht (in): 69 Wt (lb): 192 Ordering Physician: Estrada Parham Attending/Referring Phys: Plasterer Helper Madelin Harvey RDCS Procedure CPT: Indications: elevated troponin Cardiac Hx: Technical Quality: Technically difficult study Contrast 1: Definity Total Dose (mL): 1 Contrast 2: Total Dose (mL): MEASUREMENTS (Male / Female) Normal Values 2D ECHO LV Diastolic Diameter PLAX 6.1 cm 4.2 - 5.9 / 3.9 - 5.3 cm LV Systolic Diameter PLAX 4.8 cm IVS Diastolic Thickness 1.4 cm 0.6 - 1.0 / 0.6 - 0.9 cm LVPW Diastolic Thickness 1.4 cm 0.6 - 1.0 / 0.6 - 0.9 cm LV Relative Wall Thickness 0.5 RV Internal Dim ED PLAX 3.9 cm LVOT Diameter 2.6 cm LA Systolic Diameter LX 4.4 cm 3.0 - 4.0 / 2.7 - 3.8 cm LV Diastolic Volume MOD BP 126.1 cm??? 67 - 155 / 56 - 104 cm??? LV Systolic Volume MOD BP 81.7 cm??? - 58 / 19 - 49 cm??? LV Ejection Fraction MOD BP 35.2 % >= 55 % LV Cardiac Index MOD BP 1239.6 cm???/min???m??? LV Diastolic Volume MOD 4C 87.2 cm??? LV Systolic Volume MOD 4C 55.8 cm??? LV Ejection Fraction MOD 4C 36.0 % LV Cardiac Index MOD 4C 875.2 cm???/min???m??? LV Diastolic Length 4C 8.1 cm LV Systolic Length 4C 7.3 cm LV Diastolic Volume MOD 2C 165.8 cm??? LV Systolic Volume MOD 2C 116.4 cm??? LV Ejection Fraction MOD 2C 29.8 % LV Cardiac Index MOD 2C 1379.2 cm???/min???m??? LV Diastolic Length 2C 9.3 cm LV Systolic Length 2C 7.7 cm LA Volume 119.5 cm??? 18 - 58 / 22 - 52 cm??? LA Volume Index 57.5 cm???/m??? 16 - 28 cm???/m??? M-MODE Aortic Root Diameter MM 3.9 cm AV Cusp Separation MM 1.9 cm DOPPLER AV Peak Velocity 299.9 cm/s AV Peak Gradient 36.0 mmHg AV Mean Velocity 225.0 cm/s AV Mean Gradient 22.0 mmHg AV Velocity Time Integral 80.7 cm AI Peak Velocity 412.4 cm/s AI Peak Gradient 68.0 mmHg AI Pressure Half Time 519.4 ms LVOT Peak Velocity 104.9 cm/s LVOT Peak Gradient 4.4 mmHg AV Area Cont Eq pk 1.9 cm??? MV Area PHT 2.6 cm??? Mitral E Point Velocity 106.9 cm/s Mitral A Point Velocity 117.2 cm/s Mitral E to A Ratio 0.9 MV Deceleration Time 288.8 ms FINDINGS Left Ventricle Left ventricular ejection fraction is estimated at 30-35 %. Mildly increased septal wall thickness. Mildly increased left ventricular diastolic diameter. Moderately increased left ventricular systolic volume. Moderately decreased left ventricular ejection fraction. Apical anterior , apical septal hypokinesis Right Ventricle Moderate right ventricular dilatation. Unable to estimate the right ventricular systolic pressure. Right Atrium Right atrium not well visualized. Left Atrium Mildly increased left atrial diameter. Severely increased left atrial volume. Moderately increased left atrial area. Mitral Valve Mitral valve thickened. Mild mitral annular calcification. Aortic Valve Aortic valve sclerosis. Moderate aortic stenosis with a peak gradient of 36 mmHg and a mean gradient of 22 mmHg. Mild aortic regurgitation. Tricuspid Valve Tricuspid valve not well visualized. Pulmonic Valve Pulmonic valve not well visualized. Pericardium No pericardial effusion. Aorta Mild aortic dilatation at the level of the sinuses of valsalva 39 mm CONCLUSIONS Technically suboptimal study Severe LV systolic dysfunction with an ejection fraction of 30-35 pleasant Moderate aortic stenosis with a peak gradient of 36 mm and a mean gradient of 22 mm Inferior wall is hypokinetic suggestive of prior myocardial infarction Dilated aortic root Previewed by: Dr. Mihai Jovel MD (Electronically Signed) Final Date: 11 May 2023 17:46
[2023-05-11] MEDS: HEPARIN SOD,PORK IN 0.45% NACL 25,000 UNIT in 0.45% NACL 1 250ML.BAG IV SCH (17:51)
[2023-05-11 20:55] LABS: Glucose,Whole Blood 172 mg/dL (70-110)
[2023-05-11] MEDS: ATORVASTATIN 80 MG TAB PO SCH (21:33)
[2023-05-11] MEDS: CLOPIDOGREL 75 MG TAB PO SCH (21:33)
[2023-05-11] MEDS ORDERED: MELATONIN 5 MG TABLET PO PRN (23:35)
[2023-05-12] MEDS: ALBUTEROL HFA INHALER INHALATION SCH ×4 (02:33→21:27)
[2023-05-12 05:56] LABS: Glucose,Whole Blood 182 mg/dL (70-110)
[2023-05-12] MEDS: DEXAMETHASONE SOD PHOSPHATE 4 MG/ML 1 ML VIAL IVP SCH ×4 (06:09→23:03)
[2023-05-12] MEDS: PANTOPRAZOLE 40 MG TABLET PO SCH (06:09)
[2023-05-12] MEDS: INSULIN ASPART (NovoLOG) 100 UNIT/ML VIAL SQ SCH ×4 (06:09→20:38)
[2023-05-12] MEDS: ASPIRIN 81 MG PO SCH (08:57)
[2023-05-12] MEDS: METOPROLOL TARTRATE 25 MG TAB PO SCH ×2 (08:57→20:38)
[2023-05-12] MEDS: ZINC SULFATE 220 MG CAP PO SCH (08:57)
[2023-05-12] MEDS: CHOLECALCIFEROL 25 MCG (1000 IU) TABLET PO SCH (08:57)
[2023-05-12] MEDS: SPIRONOLACTONE 25 MG TAB PO SCH (08:57)
[2023-05-12] MEDS: SACUBITRIL/VALSARTAN 24 MG-26 MG TABLET PO SCH ×2 (08:57→20:50)
--- NOTE | 2023-05-12 11:57 | P.PN ---
Subjective Progress Note Date: 05/12/23 HPI: Patient is a pleasant 82-year-old male with a past medical history of coronary artery disease, cancer, diabetes, hyperlipidemia, hypertension, coronary artery bypass, and heart catheterization who presented to the hospital with shortness of breath. Patient reports that he was at [place] [facility], and states that another participant reported that he was positive for Covid-19 while there. Patient reports over the last couple days he noticed increasing shortness of breath with a cough. After he became significantly short of breath, the patient presented to the hospital for evaluation. He is mainly complaining of cough, sore throat, nasal congestion and some sinus pain. Patient did test positive f or Covid in the emergency department. He also demonstrated an elevated troponin at 5.48. EKG was negative for any obvious STEMI criteria. D-dimer was elevated, CT and grandmother the chest was negative for pulmonary embolism. Cardiology was consulted for the elevated troponin. This morning the patient reports that he's feeling okay. He is currently denying chest pain, dizziness, lightheadedness, cough, phlegm production. Patient appears asymptomatic with the elevated troponin. REVIEW OF LABS, ECG & MEDICAL DATA: LABS: White count 6.3, hemoglobin 11.2, platelet 26, d-dimer 0.64, sodium 135, potassium 4.1, B1 21.2, creatinine 0.9, magnesium 1.6, troponin 5.480 EKG: Normal sinus rhythm with first-degree AV block, left bundle branch block IMAGING: Chest x-ray dated 05/09/2023 demonstrates similar mild cardiomegaly, tortuous/ectatic thoracic aorta, and COPD, there are chronic changes without acute processes seen. CT angiogram of the chest dated 05/09/2023 demonstrates no evidence of pulmonary and wasn't, no acute cardiopulmonary disease, marked cardiomegaly with marked enlargement of the left atrium, small to moderate hiatal hernia. Venous Doppler dated 05/09/2023 demonstrates no DVT bilaterally. 05/11 Patient is seen today in follow-up. He remains in Covid isolation. He's been in a sinus rhythm and vital signs have been stable. He denies having any chest pain. He is currently on a heparin drip, aspirin 81 mg daily, atorvastatin 80 mg at bedtime, Lopressor 25 mg twice daily, Entresto 2426 milligrams one twice daily, Aldactone 12.5 mg daily. Patient had significant elevation of his second troponin of 5.48. He continues to deny any chest pain however. He states he does have dyspnea on exertion which is worse since he's been here and possibly just worse from Covid. Echocardiogram is pending and will be changed to limited study. 05/12 Patient states he does not have any chest pain. Breathing status is improved. He is not requiring oxygen. Heart rate is in the 50s to 70s, blood pressure 135/60. Patient remains on a heparin drip which will be 48 hours. Patient would like to be discharged today but in light of the elevated troponin and possible non-ST elevated AL, discussed with the patient that we would like him to stay another 24 hours for monitoring. The patient will require cardiac catheterization most likely once Covid has cleared. Echocardiogram reveals EF of 30-35%. Moderate aortic stenosis with peak gradient of 36 mm and mean gradient of 22 mm. Inferior wall is hypokinetic suggestive prior AL. Dilated aortic root. Results reviewed with the patient. Also reviewed previous echocardiogram performed in 2019 which also revealed an EF of 30-35%, mild to moderate mitral regurgitation, mild aortic stenosis. EXAMINATION: GENERAL: Well-appearing, well-nourished and in no acute distress. NECK: Supple without JVD or thyromegaly. LUNGS: Breath sounds clear to auscultation bilaterally. Respiration equal and unlabored. No wheezes, rales or rhonchi. HEART: Regular rate and rhythm without murmurs, rubs or gallops. S1 and S2 hear d. EXTREMITIES: Normal range of motion, no edema. No clubbing or cyanosis. Peripheral pulses intact and strong. IMPRESSION: 1. COVID-19 infection 2. Shortness of breath Possible non-ST elevated myocardial infarction History of coronary artery disease with previous CABG and stenting Hypertension Hyperlipidemia Diabetes mellitus type 2 PLAN: Discontinue heparin drip Continue other cardiac medications Monitor another 24 hours if patient is willing to stay in the hospital. Further recommendations based on patient's clinical course. Nurse practitioner note has been reviewed, I agree with the documented findings and plan of care. Patient was seen and examined. Objective - Vital Signs Vital signs: Vital Signs Temp 97.6 F 05/11/23 20:00 Pulse 58 L 05/12/23 08:00 Resp 16 05/12/23 08:00 BP 135/60 05/12/23 08:00 Pulse Ox 98 05/12/23 09:07 FiO2 Intake & Output 05/11/23 05/12/23 05/12/23 18:59 06:59 18:59 Intake Total 507.021 269.727 Balance 507.021 269.727 Intake: Intake, IV Titration 153.021 151.727 Amount Heparin Sod,Pork in 0.45% 153.021 151.727 NaCl 25,000 unit In 0.45 % NaCl 1 250ml.bag @ 11.5 UNITS/KG/HR 10.015 mls/ hr IV .Q24H [facility] Rx#: [id number] Oral 354 [id number] Other: # Voids 2 - Labs CBC & Chem 7: 05/11/23 07:51 05/11/23 07:51 Labs: Abnormal Lab Results - Last 24 Hours (Table) 05/11/23 05/11/23 05/12/23 Range/Units 16:33 20:54 05:55 APTT (22.0-30.0) sec POC Glucose (mg/dL) 240 H 172 H 182 H (70-110) mg/dL 05/12/23 Range/Units 06:45 APTT 173.2 H* (22.0-30.0) sec POC Glucose (mg/dL) (70-110) mg/dL
[2023-05-12 11:59] LABS: Glucose,Whole Blood 212 mg/dL (70-110)
--- NOTE | 2023-05-12 14:24 | P.PN ---
Subjective Progress Note Date: 05/12/23 Principal diagnosis: Reason for follow-up is covid 19 Patient is a 82-year-old male with a past medical history significant for coronary artery disease diabetes mellitus hypertension hyperlipidemia recently came back from [facility], presented to the hospital with increasing weakness URI symptoms patient has been diagnosed with covid 19 On today's evaluation and that is 05/12/2023, the patient continues to be afebrile, the patient is breathing comfortably on room air without the need for supplemental oxygen, the patient denies shortness of breath chest pain and no significant cough or sputum production , patient denies nausea/vomiting, no abdominal pain and no diarrhea Patient did have a white count of 11.3, creatinine 0.79 as of 05/11/2023 Objective - Vital Signs Vital signs: Vital Signs Temp 97.6 F 05/11/23 20:00 Pulse 57 L 05/12/23 12:00 Resp 16 05/12/23 12:00 BP 109/64 05/12/23 12:00 Pulse Ox 95 05/12/23 12:00 FiO2 Intake & Output 05/11/23 05/12/23 05/12/23 18:59 06:59 18:59 Intake Total 507.021 269.727 Balance 507.021 269.727 Intake: Intake, IV Titration 153.021 151.727 Amount Heparin Sod,Pork in 0.45% 153.021 151.727 NaCl 25,000 unit In 0.45 % NaCl 1 250ml.bag @ 11.5 UNITS/KG/HR 10.015 mls/ hr IV .Q24H [facility] Rx#: [id number] Oral 354 [id number] Other: # Voids 2 - Exam GENERAL DESCRIPTION: An elderly male lying in bed in no distress RESPIRATORY SYSTEM: Unlabored breathing , occasional wheeze bilaterally HEART: S1 S2 regular rate and rhythm , ABDOMEN: Soft , no tenderness EXTREMITIES: No edema feet - Labs CBC & Chem 7: 05/11/23 07:51 05/11/23 07:51 Labs: Abnormal Lab Results - Last 24 Hours (Table) 05/11/23 05/11/23 05/12/23 Range/Units 16:33 20:54 05:55 APTT (22.0-30.0) sec POC Glucose (mg/dL) 240 H 172 H 182 H (70-110) mg/dL 05/12/23 05/12/23 Range/Units 06:45 11:57 APTT 173.2 H* (22.0-30.0) sec POC Glucose (mg/dL) 212 H (70-110) mg/dL Assessment and Plan (1) Coronavirus infection Current Visit: Yes Status: Acute Code(s): B34.2 - CORONAVIRUS INFECTION, UNSPECIFIED SNOMED Code(s): 896631428 Plan: 1patient presented to hospital with generalized weakness and did have predominantly URI symptoms and mild cough in this patient tested positive for COVID-19 however both the chest x-ray as well as CT angiogram of the chest did not showed evidence of pneumonia or groundglass opacities likely morning for COVID-19 pneumonia, patient is currently not hypoxic and will not qualify for remdesivir per [facility] policy 2-patient has shown clinical improvement and will continue with heparin zinc ascorbic acid and steroid for underlying COPD exacerbation, there is no need for systemic antibiotic therapy on discharge Dictation was produced using [employer] dictation software. please excuse any grammatical, word or spelling errors. Time with Patient: Less than 30
--- NOTE | 2023-05-12 15:20 | P.PN ---
Subjective Progress Note Date: 05/12/23 82-year-old male patient, hospitalized for shortness of breath and was found to have Covid 19 infection. A pulmonary consultation was requested. The patient is known to have CAD, diabetes mellitus type 2, hypertension hyperlipidemia and the patient has undergone previous coronary artery bypass surgery. The patient's has been complaining of cough and sore throat and nasal congestion and sinus congestion and drainage. He had a positive Covid 19 testing in emergency department. Patient reports that he was at [facility], and states that another participant reported that he was positive for Covid-19 while there. The patient has also been infected with Covid 19 and required hospitalization back in 2020. At that time, the patient was given a monoclonal antibodies and the patient was discharged. During this current admission, the patient's family chest pain. At the same time, the patient's troponin came back elevated at 5.48. EKG showed acute non-ST segment elevation myocardial infarction. D-dimer was 0.6. The white cell count 6.3 with a hemoglobin of 11.2 and a platelet count of 186. Creatinine was 0.9 with a BUN of 21. The CT antigram of the chest was done and it showed no evidence of any pulmonary embolism. No evidence of any acute cardiac pulmonary process. There was cardiomegaly and there is a small to moderate-sized hiatal hernia. The patient is seen today 05/11/2023 in follow-up on the selective care unit. He is currently sitting up in bed. Awake and alert in no acute distress. He is maintaining O2 saturations in the 90s on room air. His troponins did peak grea ter than 5.0. Echocardiogram is pending. He is currently on a heparin drip. ProBNP was 4730. White count 11.3. Hemoglobin 12.6. Platelets 216. Sodium 134. Potassium 3.8. Bicarb 16. BUN 24. Creatinine 0.79. Glucose 287. He is continued on Decadron, bronchodilators and vitamin supplements. The patient is seen today 05/12/2023 in follow-up on the selective care unit. He is currently sitting up in bed. Awake and alert in no acute distress. Maintaining O2 saturations in the 90s on room air. Echocardiogram reveals severe left ventricular systolic dysfunction with ejection fraction of 30-35%. Moderate aortic stenosis with a mean gradient of 22 mm. Inferior wall is hypokinetic suggestive of prior myocardial infarction. Blood sugar 182. He is continued on Ventolin, Spiriva, Decadron, vitamin supplements. He remains on a heparin drip. Objective - Vital Signs Vital signs: Vital Signs Temp 97.6 F 05/11/23 20:00 Pulse 57 L 05/12/23 12:00 Resp 16 05/12/23 12:00 BP 109/64 05/12/23 12:00 Pulse Ox 95 05/12/23 12:00 FiO2 Intake & Output 05/11/23 05/12/23 05/12/23 18:59 06:59 18:59 Intake Total 507.021 809.727 Balance 507.021 809.727 Intake: Intake, IV Titration 153.021 151.727 Amount Heparin Sod,Pork in 0.45% 153.021 151.727 NaCl 25,000 unit In 0.45 % NaCl 1 250ml.bag @ 11.5 UNITS/KG/HR 10.015 mls/ hr IV .Q24H [facility] Rx#: [id number] Oral [id number] Other: # Voids 2 - Exam GENERAL EXAM: Alert, oriented 82-year-old male, on room air, comfortable in no apparent distress. HEAD: Normocephalic. EYES: Normal reaction of pupils, equal size. NOSE: Clear with pink turbinates. THROAT: No erythema or exudates. NECK: No masses, no JVD. CHEST: No chest wall deformity. LUNGS: Equal air entry with no crackles, wheeze, rhonchi or dullness. CVS: S1 and S2 normal with an audible murmur, regular rhythm. ABDOMEN: No hepatosplenomegaly, normal bowel sounds, no guarding or rigidity. SPINE: No scoliosis or deformity SKIN: No rashes CENTRAL NERVOUS SYSTEM: No focal deficits, tone is normal in all 4 extremities. EXTREMITIES: There is no peripheral edema. No clubbing, no cyanosis. Peripheral pulses are intact. - Labs CBC & Chem 7: 05/11/23 07:51 05/11/23 07:51 Labs: Abnormal Lab Results - Last 24 Hours (Table) 05/11/23 05/11/23 05/12/23 Range/Units 16:33 20:54 05:55 APTT (22.0-30.0) sec POC Glucose (mg/dL) 240 H 172 H 182 H (70-110) mg/dL 05/12/23 05/12/23 Range/Units 06:45 11:57 APTT 173.2 H* (22.0-30.0) sec POC Glucose (mg/dL) 212 H (70-110) mg/dL Assessment and Plan Assessment: Acute Covid 19 infection, no evidence of viral pneumonia or pulmonary embolism based on CT angiogram of the chest. Noted the patient was infected in the past with Covid 19 and the patient had a hospitalization back in 2020 for the same. At that time, the patient was treated with monoclonal antibodies. He was also given steroids. ProCalcitonin 0.08. Acute non-ST segment elevation myocardial infarction echocardiogram reveals severely impaired left ventricle systolic function with ejection fraction 30- 35%. Moderate aortic stenosis. Inferior wall global hypokinesia. Currently on a heparin drip Coronary artery disease, previous bypass surgery and previous PCI to the SVG-RCA 08/15/2019 Chronic systolic heart failure with ejection fraction of 35% and moderate aortic regurgitation and moderate mitral regurgitation and mild tricuspid regurgitation Diabetes mellitus type 2 Hypertension Hyperlipidemia Plan: The patient was seen and evaluated Medications, echocardiogram and labs reviewed Stable and on room air Procalcitonin is in normal limits Home once cleared by cardiology I have personally seen and examined the patient, performed the documentation and the assessment and plan as written. Number of minutes spent on the visit: 10.
[2023-05-12 16:27] LABS: Glucose,Whole Blood 278 mg/dL (70-110)
[2023-05-12] MEDS: HEPARIN SOD,PORK IN 0.45% NACL 25,000 UNIT in 0.45% NACL 1 250ML.BAG IV SCH (17:07)
[2023-05-12 20:15] LABS: Glucose,Whole Blood 266 mg/dL (70-110)
[2023-05-12] MEDS: SODIUM CHLORIDE 0.9% 1,000 ML IV SCH (20:32)
[2023-05-12] MEDS: CLOPIDOGREL 75 MG TAB PO SCH (20:38)
[2023-05-12] MEDS: ATORVASTATIN 80 MG TAB PO SCH (20:38)
[2023-05-12] MEDS: guaiFENesin-DM 100-10MG/5ML 10 ML CUP PO PRN (20:50)
[2023-05-12] MEDS ORDERED: ALBUTEROL HFA INHALER INHALATION PRN (21:28)
[2023-05-13] MEDS: DEXAMETHASONE SOD PHOSPHATE 4 MG/ML 1 ML VIAL IVP SCH (04:52)
[2023-05-13] MEDS: PANTOPRAZOLE 40 MG TABLET PO SCH (04:52)
[2023-05-13 06:02] LABS: Glucose,Whole Blood 208 mg/dL (70-110)
--- NOTE | 2023-05-13 06:13 | P.PN ---
Subjective Progress Note Date: 05/12/23 This is a pleasant 82-year-old male who was having a cough with congestion and not feeling well over the last few days taken with extreme weakness found to have COVID-19 and admitted with concerns of possible COVID-19 bilateral pneumonia. Troponins are elevated and repeat troponin is up at 5 and cardiology has been consulted and repeat 2-D echo was ordered and pending at this time. Patient is maintained on IV heparin and will continue for now. Patient does have significant past medical history of coronary artery disease and most recent EF was less than 40%. Infectious disease along with pulmonary and cardiology are following. Patient is maintained on IV steroids along with sliding scale and will continue along with vitamin and zinc supplementation. Patient is currently on room air denies chest pain or shortness of breath and asking if he can go home. Pulmonary has cleared the patient although awaiting cardiology clearance. Again 2-D echo was ordered and remains pending. 05/12/2023 Patient is seen in follow-up today with multiple medical consultations including pulmonary cardiology following. Patient did have a bump in troponin and maintained on IV heparin with concerns of nstemi An reporting chest pain. Patient will likely need cardiac catheterization and cardiology recommending monitoring overnight and continued IV heparin to monitor for any worsening chest pain. Patient will likely follow-up with his wine specialist Dr. Osorio in the outpatient setting once Covid has recovered for cardiac catheterization unless symptoms persist. Patient is afebrile with no reported chest pain or palpitations. Patient is on room air denying shortness of breath other than mildly with exertion but not requiring oxygen. Patient is extremely keen on going home until cardiology would like to monitor overnight. After discussion patient and family are agreeable and will follow-up in a.m. 2-D echo reported an EF of 35% with moderate aortic regurgitation and moderate mitral regur gitation along with mild tricuspid regurgitation noted. Patient and family report they were unaware of impaired heart function. Patient with extensive coronary artery disease and previous bypass surgery with stenting in 2019. Review of systems: Constitutional: No reports of fatigue, fever, or chills Cardiovascular: No reports of chest pain or palpitations Respiratory: No reports of worsening shortness of breath or cough GI: No reports of nausea, no reports of vomiting, no diarrhea : No reports of dysuria or retention Neurovascular: No reports of generalized weakness, patient reports feeling improved and asking to go home All medications have been reviewed PHYSICAL EXAMINATION: GENERAL: The patient is alert and oriented x4, Well developed, well nourished. Elderly-appearing HEENT: Pupils are round and equally reacting to light. EOMI. no scleral icterus. No conjunctival pallor. Normocephalic, atraumatic. No pharyngeal erythema. No thyromegaly. CARDIOVASCULAR: S1 and S2 muffled PULMONARY: diminished breath sounds bilaterally with no wheezing or rhonchi noted. ABDOMEN: soft. Nontender on exam. obese. non-distended, normoactive bowel sounds. No palpable organomegaly. MUSCULOSKELETAL: No joint swelling or deformity. EXTREMITIES: No cyanosis, clubbing, or pedal edema. NEUROLOGICAL: Gross neurological examination did not reveal any focal deficits. SKIN: No rashes. Assessment: Acute COVID-19 infection Troponin elevated at 5.480, acute non-ST segment elevation myocardial infarction History of significant coronary artery disease With previous bypass surgery and stenting in 2019 Chronic systolic heart failure with an EF of 35% with moderate aortic and mitral regurgitation along with mild tricuspid regurgitation Diabetes mellitus, type II, elevated with hyperglycemia possible steroid effect Hypertension history Hyperlipidemia GI prophylaxis DVT prophylaxis Full code Plan: Recommend to continue with current medications and management with infectious disease along with pulmonary and cardiology following Patient is continued on IV heparin and 2-D echo revealed severely impaired left ventricular systolic function with an EF of 30-35% with moderate aortic stenosis and inferior wall hypokinesia with moderate mitral regurgitation and mild tricuspid regurgitation along with moderate aortic regurgitation noted. Patient and report they were unaware of the extent of his impaired cardiac function although follows with Dr. Osorio outpatient. Patient continues on IV heparin and cardiology recommending monitoring overnight for any further episodes of chest pain and patient will likely require repeat cardiac catheterization once Covid has recovered. Patient is agreeable to stay overnight on telemetry monitoring. Will discuss further with cardiology about discharge planning 24 hours Pulmonaryfollowing and has evaluated the patient and patient is denying shortness of breath, continued on room air.pulmonary has cleared the patient for discharge once cleared by other consultations Infectious disease following maintained on vitamin C supplementation along with IV steroids Continue Accu-Cheks before meals and at bedtime with sliding scale Encouraged increased activity as tolerated Will await cardiology input and recommendations and clearance prior to discharge as patient is asking to be discharged today reporting he feels well. Continue telemetry monitoring overnight and again will discuss discharge planning in 24 hours Patient will need close outpatient follow-up with cardiology with Dr. Osorio in 1-2 weeks The impression and plan of care has been dictated by Anisa Garcia, nurse practitioner as directed. Dr. Marjorie MD I have performed a history and examination and MDM of this patient, discussed the same with the dictator, and agree with the dictator's assessment and plan as written ,documented as a scribe. Based on total visit time, I have performed more than 50% of the visit. Any additional findings or plans will be noted. Objective - Vital Signs Vital signs: Vital Signs Temp 97.6 F 05/11/23 20:00 Pulse 58 L 05/13/23 04:00 Resp 16 05/13/23 04:00 BP 132/65 05/13/23 04:00 Pulse Ox 95 05/13/23 04:00 FiO2 Intake & Output 05/12/23 05/12/23 05/13/23 06:59 18:59 06:59 Intake Total 1129.571 Balance 1129.571 Intake: Intake, IV Titration 231.571 Amount Heparin Sod,Pork in 0.45% 231.571 NaCl 25,000 unit In 0.45 % NaCl 1 250ml.bag @ 11.5 UNITS/KG/HR 10.015 mls/ hr IV .Q24H [facility] Rx#: [id number] Oral 898 Other: # Voids 2 1 - Labs CBC & Chem 7: 05/11/23 07:51 05/11/23 07:51 Labs: Abnormal Lab Results - Last 24 Hours (Table) 05/12/23 05/12/23 05/12/23 Range/Units 06:45 11:57 16:25 APTT 173.2 H* (22.0-30.0) sec POC Glucose (mg/dL) 212 H 278 H (70-110) mg/dL 05/12/23 05/12/23 05/13/23 Range/Units 17:37 20:14 01:12 APTT 84.3 H 75.4 H (22.0-30.0) sec POC Glucose (mg/dL) 266 H (70-110) mg/dL 05/13/23 Range/Units 06:00 APTT (22.0-30.0) sec POC Glucose (mg/dL) 208 H (70-110) mg/dL
[2023-05-13] MEDS: INSULIN ASPART (NovoLOG) 100 UNIT/ML VIAL SQ SCH (06:19)
[2023-05-13] MEDS: guaiFENesin-DM 100-10MG/5ML 10 ML CUP PO PRN (06:20)
[2023-05-13] MEDS ORDERED: ALBUTEROL HFA INHALER INHALATION SCH (08:00)
--- NOTE | 2023-05-13 08:37 | P.PN ---
Subjective Progress Note Date: 05/13/23 Principal diagnosis: CAD The patient is an 82-year-old gentleman with a CAD status post revascularization as well as cardiomyopathy and valvular heart disease was admitted to the hospital with COVID-19 infection. We consulted to see the patient because of abnormal cardiac enzymes. The echo showed cardiomyopathy with an ejection fraction around 55%. The patient remains asymptomatic in terms of chest pain or shortness of breath. May 132022 The patient was seen and evaluated this morning. He remains asymptomatic from a cardiac vascular standpoint overview. The patient would like to go home. I will suggest DC heparin and continue dual antiplatelet therapy and statin maximize medical treatment for cardiomyopathy as an outpatient for possible bleeding of severe CAD as an outpatient with either stress test or heart catheterization. The examination is remarkable for a systolic murmur. Assessment COVID-19 infection Evidence of myocardial injury Cardiomyopathy CAD with prior revascularization Multiple comorbid conditions Plan Continue the current medical regimen The patient can potentially be discharged Objective - Vital Signs Vital signs: Vital Signs Temp 97.6 F 05/11/23 20:00 Pulse 58 L 05/13/23 04:00 Resp 16 05/13/23 04:00 BP 132/65 05/13/23 04:00 Pulse Ox 95 05/13/23 04:00 FiO2 Intake & Output 05/12/23 05/13/23 05/13/23 18:59 06:59 18:59 Intake Total 1129.571 118 Balance 1129.571 118 Intake: Intake, IV Titration 231.571 Amount Heparin Sod,Pork in 0.45% 231.571 NaCl 25,000 unit In 0.45 % NaCl 1 250ml.bag @ 11.5 UNITS/KG/HR 10.015 mls/ hr IV .Q24H [facility] Rx#: [id number] Oral 898 118 Other: # Voids 1 - Labs CBC & Chem 7: 05/11/23 07:51 05/11/23 07:51 Labs: Abnormal Lab Results - Last 24 Hours (Table) 05/12/23 05/12/23 05/12/23 Range/Units 11:57 16:25 17:37 APTT 84.3 H (22.0-30.0) sec POC Glucose (mg/dL) 212 H 278 H (70-110) mg/dL 11/21/23 11/22/23 11/22/23 Range/Units 20:14 01:12 06:00 APTT 75.4 H (22.0-30.0) sec POC Glucose (mg/dL) 266 H 208 H (70-110) mg/dL
[2023-05-13] MEDS: ASPIRIN 81 MG PO SCH (09:41)
[2023-05-13] MEDS: SACUBITRIL/VALSARTAN 24 MG-26 MG TABLET PO SCH (09:41)
[2023-05-13] MEDS: ZINC SULFATE 220 MG CAP PO SCH (09:41)
[2023-05-13] MEDS: SPIRONOLACTONE 25 MG TAB PO SCH (09:41)
[2023-05-13] MEDS: CHOLECALCIFEROL 25 MCG (1000 IU) TABLET PO SCH (09:41)
[2023-05-13] MEDS: METOPROLOL TARTRATE 25 MG TAB PO SCH (09:41)
[2023-05-13 09:52] VITALS: BP 160/70; PULSE 65; RESP 18; TEMP 97.9
--- NOTE | 2023-05-13 12:18 | P.PN ---
Subjective Progress Note Date: 05/13/23 Principal diagnosis: Acute COVID-19 infection and acute non-ST elevation myocardial infarction 82-year-old male patient, hospitalized for shortness of breath and was found to have Covid 19 infection. A pulmonary consultation was requested. The patient is known to have CAD, diabetes mellitus type 2, hypertension hyperlipidemia and the patient has undergone previous coronary artery bypass surgery. The patient's has been complaining of cough and sore throat and nasal congestion and sinus congestion and drainage. He had a positive Covid 19 testing in emergency department. Patient reports that he was at [facility], and states that another participant reported that he was positive for Covid-19 while there. The patient has also been infected with Covid 19 and required hospitalization back in 2020. At that time, the patient was given a monoclonal antibodies and the patient was discharged. During this current admission, the patient's family chest pain. At the same time, the patient's troponin came back elevated at 5.48. EKG showed acute non-ST segment elevation myocardial infarction. D-dimer was 0.6. The white cell count 6.3 with a hemoglobin of 11.2 and a platelet count of 186. Creatinine was 0.9 with a BUN of 21. The CT antigram of the chest was done and it showed no evidence of any pulmonary embolism. No evidence of any acute cardiac pulmonary process. There was cardiomegaly and there is a small to moderate-sized hiatal hernia. The patient is seen today 05/11/2023 in follow-up on the selective care unit. He is currently sitting up in bed. Awake and alert in no acute distress. He is maintaining O2 saturations in the 90s on room air. His troponins did peak greater than 5.0. Echocardiogram is pending. He is currently on a heparin drip. ProBNP was 4730. White count 11.3. Hemoglobin 12.6. Platelets 216. Sodium 134. Potassium 3.8. Bicarb 16. BUN 24. Creatinine 0.79. Glucose 287. He is continued on Decadron, bronchodilators and vitamin supplements. The patient is seen today 05/12/2023 in follow-up on the selective care unit. He is currently sitting up in bed. Awake and alert in no acute distress. Maintaining O2 saturations in the 90s on room air. Echocardiogram reveals severe left ventricular systolic dysfunction with ejection fraction of 30-35%. Moderate aortic stenosis with a mean gradient of 22 mm. Inferior wall is hypokinetic suggestive of prior myocardial infarction. Blood sugar 182. He is continued on Ventolin, Spiriva, Decadron, vitamin supplements. He remains on a heparin drip. Patient was reevaluated today on 05/13/23, patient is doing well, he still wants to go home, pulmonary-li and clearing the patient to go home, and apparently he was cleared by cardiology and recommended outpatient workup for his cardiomyopathy and LV dysfunction as well as moderate aortic stenosis pulmonary- li no cough no wheezing no shortness of breath, patient is on room air, and relatively asymptomatic Objective - Vital Signs Vital signs: Vital Signs Temp 97.9 F 05/13/23 08:00 Pulse 65 05/13/23 08:00 Resp 18 05/13/23 08:00 BP 160/70 05/13/23 08:00 Pulse Ox 96 05/13/23 09:31 FiO2 Intake & Output 05/12/23 05/13/23 05/13/23 18:59 06:59 18:59 Intake Total 1129.571 216.524 Balance 1129.571 216.524 Intake: Intake, IV Titration 231.571 98.524 Amount Heparin Sod,Pork in 0.45% 231.571 98.524 NaCl 25,000 unit In 0.45 % NaCl 1 250ml.bag @ 11.5 UNITS/KG/HR 10.015 mls/ hr IV .Q24H [facility] Rx#: [id number] Oral 898 118 Other: # Voids 1 - Exam Physical Exam: Revealed an 82-year-old in no distress on Head: Atraumatic HEENT:[Neck is supple.] [No neck masses.] [No thyromegaly.] [No JVD.] Chest: [Clear throughout, no crackles, no rhonchi, no wheezes.] Cardiac Exam: [Normal S1 and S2, no S3 gallop, 2/6 systolic murmur thought the precordium Abdomen: [Soft, nontender, no megaly, no rebound, no guarding, normal bowel sounds.] Extremities: [No clubbing, no edema, no cyanosis.] Neurological Exam: [No focal neurologic deficit.] Alert and oriented 3 Psychiatric: Normal mood affect and normal mental status examination Skin: No - Labs CBC & Chem 7: 05/11/23 07:51 05/11/23 07:51 Labs: Abnormal Lab Results - Last 24 Hours (Table) 05/12/23 05/12/23 05/12/23 Range/Units 16:25 17:37 20:14 APTT 84.3 H (22.0-30.0) sec POC Glucose (mg/dL) 278 H 266 H (70-110) mg/dL 05/13/23 05/13/23 Range/Units 01:12 06:00 APTT 75.4 H (22.0-30.0) sec POC Glucose (mg/dL) 208 H (70-110) mg/dL Assessment and Plan Assessment: Impression: Acute Covid 19 infection Acute non-ST segment elevation myocardial infarction Severe cardiomyopathy and LV dysfunction possibly ischemic in nature Coronary artery disease, previous bypass surgery and previous PCI to the SVG-RCA 08/15/2019 Chronic systolic heart failure with ejection fraction of 35% and moderate aortic regurgitation and moderate mitral regurgitation and mild tricuspid regurgitation Diabetes mellitus type 2 Hypertension Hyperlipidemia Recommendation: Pulmonary-li the patient be cleared for discharge Needs further clearance by cardiology and follow up with a electrical designer drafter His pro-consider level was normal Will follow as needed Time with Patient: Less than 30
--- NOTE | 2023-05-18 04:35 | P.DS ---
Providers Date of admission: 05/09/23 16:24 Expected date of discharge: 05/13/23 Attending physician: Marcel Whitmore Consults: 05/09/23 16:24 Consult Physician Routine Consulting Provider: Isabel Mireles Consult Reason/Comments: elevTrop Do you want consulting provider notified?: Yes 05/10/23 11:23 Consult Physician Routine Consulting Provider: Aquilino Roberts Consult Reason/Comments: covid Do you want consulting provider notified?: Yes 05/10/23 11:24 Consult Physician Routine Consulting Provider: Amari Mahoney Consult Reason/Comments: covid Do you want consulting provider notified?: Yes Primary care physician: [facility] Course: Final diagnosis Acute COVID-19 infection Troponin elevated at 5.480, acute non-ST segment elevation myocardial infarction History of significant coronary artery disease With previous bypass surgery and stenting in 2019 Chronic systolic heart failure with an EF of 35% with moderate aortic and mitral regurgitation along with mild tricuspid regurgitation Diabetes mellitus, type II, elevated with hyperglycemia possible steroid effect Hypertension history Hyperlipidemia GI prophylaxis DVT prophylaxis Full code Discharge disposition Patient is being discharged in a stable condition with guarded prognosis to home. Patient will follow-up with Dr. Gomez in the outpatient setting upon discharge. Patient is to continue with medications and close outpatient follow- up with cardiology as scheduled. Patient to continue on vitamin and zinc supplements. Total time taken is greater than 35 minutes. Hospital course This is a 82-year-old male who was recently admitted with feelings of generalized weakness and not feeling well found to have acute COVID-19 infection. Patient reports was deer hunting with friends and friend was reportedly sick and had a Covid recently. Patient maintained on vitamin and zinc supplements also found to have a troponin that was elevated and evaluated by cardiology. Patient continued to have no chest pain and was feeling better wanting to go home and evaluated by cardiology recommending outpatient follow-up in the next 1-[address] Osorio for possible repeat stress testing and/or cardiac catheterization. Patient not requiring any oxygen and has been cleared by cardiology for discharge home. Please refer to consultation note for further HPI. Currently no reports of chest pain, shortness of breath, or palpitations. Patient is afebrile. No reports of nausea or vomiting and patient is tolerating diet. Patient will be discharged home today. Physical exam: Gen: This is a 82-year-old male who is awake, alert and oriented 3, well- nourished, well-developed HEENT: Head is atraumatic, normocephalic. Pupils equal, round. Sclerae is anicteric. NECK: Supple. No JVD. No lymphadenopathy. No thyromegaly. LUNGS: Clear to auscultation. No wheezes or rhonchi. No intercostal retractions. HEART: Regular rate and rhythm. No murmur. ABDOMEN: Soft. Bowel sounds are present. No masses. No tenderness. EXTREMITIES: No pedal edema. No calf tenderness. NEUROLOGICAL: Patient is awake, alert and oriented x3. Cranial nerves 2 through 12 are grossly intact. Please refer to medication reconciliation sheet for a list of medications. The impression and plan of care has been dictated by Anisa Garcia, Nurse Practitioner as directed. Dr. Marjorie MD I have performed a history and examination and MDM of this patient, discussed the same with the dictator, and agree with the dictator's assessment and plan as written ,documented as a scribe. Based on total visit time, I have performed more than 50% of the visit. Patient Condition at Discharge: Fair Plan - Discharge Summary Discharge Rx Participant: No New Discharge Prescriptions: New Zinc Sulfate [Orazinc] 220 mg PO DAILY #15 cap guaiFENesin-DM 100-10MG/5ML [Robitussin DM] 10 ml PO Q6HR PRN #120 ml PRN Reason: Cough Tiotropium 2.5 Mcg/Puff [Spiriva Respimat 2.5 Mcg] 2 puff INHALATION RT-DAILY #1 each Aspirin 81 mg PO DAILY #30 tab dexAMETHasone [Decadron] 6 mg PO DAILY 8 Days #8 tab Cholecalciferol [Vitamin D3 (25 Mcg = 1000 Iu)] 25 mcg PO DAILY #30 tab Continue glipiZIDE/METFORMIN HCL [glipiZIDE/METFORMIN HCL 2.5-500 mg] 1 tab PO HS Spironolactone 12.5 mg PO DAILY Atorvastatin [Lipitor] 80 mg PO HS tab Nitroglycerin Sl Tabs [Nitrostat] 0.4 mg SUBLINGUAL Q5M PRN #100 tab PRN Reason: Chest Pain Metoprolol Tartrate [Lopressor] 25 mg PO BID Furosemide [Lasix] 40 mg PO DAILY PRN PRN Reason: Edema glipiZIDE/METFORMIN HCL [glipiZIDE/METFORMIN HCL 2.5-500 mg] 2 tab PO DAILY Clopidogrel Bisulfate [Plavix] 75 mg PO HS Sacubitril/Valsartan [Entresto 24 mg-26 mg Tablet] 1 tab PO BID Changed Albuterol Inhaler [Ventolin Hfa Inhaler] 2 puff INHALATION RT-Q6H #1 each Discharge Medication List glipiZIDE/METFORMIN HCL [glipiZIDE/METFORMIN HCL 2.5-500 mg] 1 tab PO HS 09/12/17 [History] Spironolactone 12.5 mg PO DAILY 08/10/19 [History] Atorvastatin [Lipitor] 80 mg PO HS tab 08/16/19 [Rx] Nitroglycerin Sl Tabs [Nitrostat] 0.4 mg SUBLINGUAL Q5M PRN #100 tab 08/16/19 [Rx] Metoprolol Tartrate [Lopressor] 25 mg PO BID 08/23/19 [History] Furosemide [Lasix] 40 mg PO DAILY PRN 09/18/20 [History] Clopidogrel Bisulfate [Plavix] 75 mg PO HS 04/28/22 [History] Sacubitril/Valsartan [Entresto 24 mg-26 mg Tablet] 1 tab PO BID 04/28/22 [History] glipiZIDE/METFORMIN HCL [glipiZIDE/METFORMIN HCL 2.5-500 mg] 2 tab PO DAILY 05/09/23 [History] Albuterol Inhaler [Ventolin Hfa Inhaler] 2 puff INHALATION RT-Q6H #1 each 05/11/23 [Rx] Aspirin 81 mg PO DAILY #30 tab 05/11/23 [Rx] Cholecalciferol [Vitamin D3 (25 Mcg = 1000 Iu)] 25 mcg PO DAILY #30 tab 05/11/23 [Rx] Tiotropium 2.5 Mcg/Puff [Spiriva Respimat 2.5 Mcg] 2 puff INHALATION RT-DAILY #1 each 05/11/23 [Rx] Zinc Sulfate [Orazinc] 220 mg PO DAILY #15 cap 05/11/23 [Rx] dexAMETHasone [Decadron] 6 mg PO DAILY 8 Days #8 tab 05/11/23 [Rx] guaiFENesin-DM 100-10MG/5ML [Robitussin DM] 10 ml PO Q6HR PRN #120 ml 05/11/23 [Rx] Follow up Appointment(s)/Referral(s): [facility] [facility] [NON-STAFF] - Arthur Osorio DO [STAFF PHYSICIAN] - 05/27/23 2:30 pm (Follow-up with cardiology in 1-2 weeks for possible stress test and/or cardiac catheterization) Pantera Gomez MD [Primary Care Provider] - 05/22/23 2:30 pm (please wear mask and social distant in office ) Patient Instructions/Handouts: COPD (Chronic Obstructive Pulmonary Disease) (DC), COVID-19 (Coronavirus Disease 2019) (DC) Discharge/Stand Alone Forms: Who Do I Call? Discharge Disposition: HOME SELF-CARE
--- NOTE | 2023-05-20 18:18 | P.PN ---
Subjective Progress Note Date: 05/13/23 Principal diagnosis: Reason for follow-up is covid 19 Patient is a 82-year-old male with a past medical history significant for coronary artery disease diabetes mellitus hypertension hyperlipidemia recently came [facility], presented to the hospital with increasing weakness URI symptoms patient has been diagnosed with covid 19 On today's evaluation and that is 05/13/2023, the patient remains to be afebrile, the patient is breathing comfortably on room air and the patient denies any shortness of breath, the patient denies chest pain , did have occasional dry cough , patient denies abdominal pain, no nausea/vomiting and no diarrhea Patient did have a white count of 11.3, creatinine 0.79 as of 05/11/2023, no labs drawn today Objective - Vital Signs Vital signs: Vital Signs Temp 97.9 F 05/13/23 08:00 Pulse 65 05/13/23 08:00 Resp 18 05/13/23 08:00 BP 160/70 05/13/23 08:00 Pulse Ox 96 05/13/23 09:31 FiO2 Intake & Output 05/12/23 05/13/23 05/13/23 18:59 06:59 18:59 Intake Total 1129.571 216.524 Balance 1129.571 216.524 Intake: Intake, IV Titration 231.571 98.524 Amount Heparin Sod,Pork in 0.45% 231.571 98.524 NaCl 25,000 unit In 0.45 % NaCl 1 250ml.bag @ 11.5 UNITS/KG/HR 10.015 mls/ hr IV .Q24H [facility] Rx#: [id number] Oral [id number] Other: # Voids 1 - Exam GENERAL DESCRIPTION: An elderly male lying in bed in no distress RESPIRATORY SYSTEM: Unlabored breathing , occasional wheeze bilaterally HEART: S1 S2 regular rate and rhythm , ABDOMEN: Soft , no tenderness EXTREMITIES: No edema feet - Labs CBC & Chem 7: 05/11/23 07:51 05/11/23 07:51 Labs: Abnormal Lab Results - Last 24 Hours (Table) 05/12/23 05/12/23 05/12/23 Range/Units 11:57 16:25 17:37 APTT 84.3 H (22.0-30.0) sec POC Glucose (mg/dL) 212 H 278 H (70-110) mg/dL 05/12/23 05/13/23 05/13/23 Range/Units 20:14 01:12 06:00 APTT 75.4 H (22.0-30.0) sec POC Glucose (mg/dL) 266 H 208 H (70-110) mg/dL Assessment and Plan (1) Coronavirus infection Status: Acute Code(s): B34.2 - CORONAVIRUS INFECTION, UNSPECIFIED SNOMED Code(s): 914209053 Plan: 1patient presented to hospital with generalized weakness and did have predominantly URI symptoms and mild cough in this patient tested positive for C OVID-19 however both the chest x-ray as well as CT angiogram of the chest did not showed evidence of pneumonia or groundglass opacities likely morning for COVID-19 pneumonia, patient is currently not hypoxic and will not qualify for remdesivir per [facility] policy 2-patient has shown clinical improvement , to continue with current supportive treatment of heparin zinc ascorbic acid and steroid for underlying COPD exacerbation, there is no need for systemic antibiotic therapy on discharge, questions concerned were answered Dictation was produced using [employer] dictation software. please excuse any grammatical, word or spelling errors. Time with Patient: Less than 30
== END 2023-05-13 11:21 | disposition home or self-care (01) | DRG 177 ==
LOC: EC 12:25 → 4SSUR 16:24 → 3SCARD 05-10 08:08
PROVIDERS: ADMIT Hospitalist; ATTEND Hospitalist
PROC: 3E0333Z Introduction of Anti-inflammatory into Peripheral Vein, Percutaneous Approach (ICD-10-PCS; principal; 2023-05-09)
DX: U07.1 COVID-19 (principal); I21.4 Non-ST elevation (NSTEMI) myocardial infarction; J12.82 Pneumonia due to coronavirus disease 2019; I42.9 Cardiomyopathy, unspecified; I50.22 Chronic systolic (congestive) heart failure; J44.0 Chronic obstructive pulmonary disease with (acute) lower respiratory infection; I11.0 Hypertensive heart disease with heart failure; E11.65 Type 2 diabetes mellitus with hyperglycemia; I77.810 Thoracic aortic ectasia; I08.0 Rheumatic disorders of both mitral and aortic valves; T49.6X5A Adverse effect of otorhinolaryngological drugs and preparations, initial encounter; I25.10 Atherosclerotic heart disease of native coronary artery without angina pectoris; E78.5 Hyperlipidemia, unspecified; I44.0 Atrioventricular block, first degree; I44.7 Left bundle-branch block, unspecified; K44.9 Diaphragmatic hernia without obstruction or gangrene; Z95.1 Presence of aortocoronary bypass graft; Z95.5 Presence of coronary angioplasty implant and graft; Z79.84 Long term (current) use of oral hypoglycemic drugs; Z79.51 Long term (current) use of inhaled steroids; I25.2 Old myocardial infarction; Z79.899 Other long term (current) drug therapy; Z82.49 Family history of ischemic heart disease and other diseases of the circulatory system
CPT/HCPCS: 36415; 71046; 71275; 80053; 81003; 83735; 83880; 84100; 84145; 84484; 85025; 85379; 85610; 85730; 87636; 93005; 93306; 93970; 94640; 94760; 96374; 96375; 99291

== ENCOUNTER 2023-11-20 11:16 | Day surgery (SDC) | payer MEDICARE, BC ==
[2023-11-19 10:34] VITALS: BMI 28.0
[~2023-11-20 11:16] MED LIST changes: +ASPIRIN 325 MG TAB PO STA; -SODIUM CHLORIDE 0.9% 1,000 ML in EMPTY BAG 1 BAG IV ONE
[2023-11-20 12:02] LABS: Glucose,Whole Blood 165 mg/dL (70-110)
[2023-11-20] MEDS: SODIUM CHLORIDE 0.9% 1,000 ML in EMPTY BAG 1 BAG IV SCH (12:12)
[2023-11-20 12:14] LABS: Basophils # (A) 0.1 k/uL (0-0.2); Basophils % (A) 1 %; Eosinophils # (A) 0.2 k/uL (0-0.7); Eosinophils % (A) 3 %; HCT 38.8 % (39.0-53.0); HGB 12.8 gm/dL (13.0-17.5); Lymphocytes # (A) 1.5 k/uL (1.0-4.8); Lymphocytes % (A) 21 %; MCH 31.2 pg (25.0-35.0); MCHC 33.1 g/dL (31.0-37.0); MCV 94.5 fL (80.0-100.0); Mean Platelet Volume 8.8; Monocytes # (A) 0.5 k/uL (0-1.0); Monocytes % (A) 7 %; Neutrophils # (A) 4.7 k/uL (1.3-7.7); Neutrophils % (A) 66 %; Platelet Count 231 k/uL (150-450); RBC 4.11 m/uL (4.30-5.90); RDW 13.3 % (11.5-15.5); WBC 7.1 k/uL (3.8-10.6)
[2023-11-20 12:27] VITALS: TEMP 97.6
[2023-11-20 12:30] LABS: African American GFR (CKD) >90 (>60 ml/min/1.73 sqM); Anion Gap 7 mmol/L; Blood Urea Nitrogen 26 mg/dL (9-20); Calcium 9.2 mg/dL (8.4-10.2); Carbon Dioxide 25 mmol/L (22-30); Chloride 103 mmol/L (98-107); Glucose 148 mg/dL (74-99); Non-African American GFR(CKD) 86 (>60 ml/min/1.73 sqM); Potassium 4.6 mmol/L (3.5-5.1); Sodium 135 mmol/L (137-145)
[2023-11-20] MEDS ORDERED: fentaNYL (PF) 50 MCG/ML 2 ML AMP ONE (13:34)
[2023-11-20] MEDS ORDERED: LIDOCAINE 1% INJ 10MG/ML (20 ML MDV) ONE (13:34)
[2023-11-20] MEDS ORDERED: VERAPAMIL 2.5 MG/ML 2 ML AMP ONE (13:34)
[2023-11-20] MEDS: fentaNYL (PF) 50 MCG/ML 2 ML AMP IVP ONE (13:55)
[2023-11-20] MEDS: MIDAZOLAM 2 MG/2 ML VIAL IVP ONE (13:55)
[2023-11-20] MEDS: LIDOCAINE 1% INJ 10MG/ML (20 ML MDV) SQ ONE (13:59)
[2023-11-20] MEDS: VERAPAMIL SYRINGE (5 MG/10 ML) INTRAARTER ONE (14:00)
[2023-11-20] MEDS: HEPARIN SODIUM 1,000 UN/ML (10ML VL) IVP ONE (14:06)
[2023-11-20] MEDS: IOPAMIDOL-370 100ML BTL INJ ONE ×2 (14:24→14:30)
--- NOTE | 2023-11-20 15:20 | P.CARDCATH ---
Description of Procedure: PROCEDURES PERFORMED: Left coronary angiography, ultrasound guided arterial access, SVG to diagonal, SVG to ramus, SVG to PDA and HERNANDEZ to LAD angiography INDICATION: Abnormal stress test CONSENT:I have discussed the risks, benefits and alternative therapies for the above-mentioned procedure and for both sedation/analgesia as well as necessary blood product administration, if indicated, as they pertain to this patient. The patient has indicated understanding and acceptance of the risks and procedures discussed. PROCEDURE: After the risks, benefits and alternatives of the above mentioned procedure explained in detail with the patient, informed consent was obtained. Patient was taken to the catheterization lab and prepped and draped in usual fashion. Ultrasound guidance was used to assess for arterial access. 1% lidocaine was used to anesthetize the right radial artery. A 6-Greenlandic sheath was placed in the left radial artery using modified Seldinger technique and ultrasound guidance. Left coronary angiography was performed with a 6-Green[place]ic CLS 3.5 guide catheter. Right coronary angiography was not performed as is known to be 100% occluded. SVG to PDA angio was performed with a multipurpose B2, SVG to diagonal and SVG to ramus angio was performed with a 5Fr FR 5. HERNANDEZ to LAD was performed with a 6 FR BIJAN catheter. The left radial sheath was removed and a TR band was placed with hemostasis achieved. The patient tolerated the procedure well. Patient was transported back to the post catheterization holding area in stable condition. Conscious Sedation: Patient was monitored under the direct supervision of myself for conscious sedation using Versed and fentanyl for a total duration of 32 minutes HEMODYNAMICS: Ao: 107/61 SELECTIVE CORONARY ARTERIOGRAPHY: LEFT MAIN: The left main is a large caliber vessel which trifurcates (and nearly splits into 4) into the LAD, ramus and circumflex/ high OM1. There is mild 10- 20% calcified left main stenosis LEFT ANTERIOR DESCENDING CORONARY ARTERY: LAD is a large caliber vessel which wraps around to the apex. There is 100% ostial LAD stenosis. RAMUS INTERMEDIUS: The ramus is a moderate heavily calcified 80% stenosis LEFT CIRCUMFLEX CORONARY ARTERY: Left circumflex is a moderate caliber vessel without significant stenosis. There is a "high" OM1 with 99% calcified stenosis and a mid OM1 95% stenosis. The circumflex itself is small caliber and gives off AV circumflex and small caliber OM2 RIGHT CORONARY ARTERY: The right coronary artery was not imaged however known to be 100% occluded SVG to PDA: patent with patent stent at the anastamosis SVG to ramus: patent SVG to diagonal 1: patent HERNANDEZ to LAD: patent FINAL IMPRESSION: 1. [place] CAD as described above including 100% LAD, 80% ramus, 99% OM1, 100% RCA stenosis 2. Patent SVG x 3 and HERNANDEZ to LAD PLAN: 1. Aggressive risk factor modification per most recent ACC/AHA guidelines. 2. Continue with antianginals as tolerated. Heavily calcified OM1 at a trifurcation is only unprotected artery. If having consistent angina may consider intervention however appears chronic and would continued medical therapy at this time with likely difficult intervention
[2023-11-20 15:57] VITALS: RESP 18
[2023-11-20 17:31] VITALS: BP 111/75; PULSE 64
== END 2023-11-20 17:32 | disposition home or self-care (01) ==
LOC: CATHCVL 11:16
PROVIDERS: ATTEND Internal Medicine
DX: I25.10 Atherosclerotic heart disease of native coronary artery without angina pectoris (principal); I25.5 Ischemic cardiomyopathy
CPT/HCPCS: 93455; 76937; 80048; 85025; C1887; C1769; C1894; J2250; J2001; J3010; J1644; Q9967

== ENCOUNTER → 2024-02-05 | Outpatient (CLI) | payer MEDICARE, BC ==
--- NOTE | 2024-02-29 15:22 | MR ---
Patient: Anibal Trinh J Ordering Physician: Unknown, Unknown ID: [id number] Phone, Pager: Phone: N/A Pager: N/A : [phone] Age/Gender: 83Y, M Primary Location: N/A Procedure: MR cervical spine w o con Study Date: 02/05/2024 2:51:18 PM EXAMINATION TYPE: MR cervical spine wo con DATE OF EXAM: 02/08/2024 10:06 PM CLINICAL INDICATION: Spinal stenosis, neck pain COMPARISON: None TECHNIQUE: Multi planar, multi sequence imaging was performed utilizing: Interval healing with early no significant, T2-weighted, and turbo inversion recovery imaging of the cervical spine. IV Contrast: cc (none if empty) FINDINGS: Alignment: The cervical vertebral bodies have preserved heights. There is mild scoliosis alignment of the cervical spine. Grade 1 anterolisthesis of C4 on C5 and C7 on T1, and T1 on T2. Bones: Bone signal is within normal limits. No abnormal bone marrow edema on inversion recovery seque nces. Cord: The spinal cord is unremarkable with regards to their signal intensity and morphology. Discs: Intervertebral disc signal is maintained. C2-C3: A disc osteophyte complex is present with moderate spinal canal stenosis. Bilateral facet and uncovertebral joint arthropathy are present with moderate to severe right and mild left neural alex inal stenosis. C3-C4: A disc osteophyte complex is present with severe spinal canal stenosis. Bilateral facet and u ncovertebral joint arthropathy are present with severe left and moderate to severe right neural alxe inal stenosis. C4-C5: No significant disc pathology. The spinal canal is patent. Bilateral facet and uncovertebral joint arthropathy are present with moderate to severe left and moderate right neural foraminal stenos is. C5-C6: No significant disc pathology. The spinal canal is patent. Bilateral facet and uncovertebral joint arthropathy are present with mild right and mild to moderate left neural foraminal stenosis. C6-C7: A disc osteophyte complex is present with moderate spinal canal stenosis. Bilateral facet and uncovertebral joint arthropathy are present with mild bilateral neural foraminal stenosis. C7-T1: No significant disc pathology. The spinal canal is patent. No neural foraminal stenosis. Other: None. IMPRESSION: 1. Severe degeneration changes throughout the spine. 2. C3-C4 severe spinal canal stenosis. 3. C2-C3 and C6-C7 moderate spinal canal stenosis. 4. Multilevel moderate neural foraminal stenosis throughout spine as described above worse at C3-C4 with severe left, C4-C5 with moderate to severe left, C2-C3 with severe right stenosis. 5. Grade 1 anterolisthesis of C4 on C5, C7 on T1, and T1 on T2.
== END | disposition home or self-care (01) ==
LOC: RADMRIMAIN 15:27
PROVIDERS: ATTEND Internal Medicine Geriatric Medicine
DX: M48.02 Spinal stenosis, cervical region (principal); M43.12 Spondylolisthesis, cervical region; M47.812 Spondylosis without myelopathy or radiculopathy, cervical region; M50.31 Other cervical disc degeneration, high cervical region
CPT/HCPCS: 72141

== ENCOUNTER 2024-05-23 09:44 | Emergency (ER) | payer MEDICARE, BC ==
[2024-05-23 09:52] VITALS: RESP 18
--- NOTE | 2024-05-23 10:16 | ED ---
URI HPI - General Chief Complaint: Upper Respiratory Infection Stated Complaint: Cough Time Seen by Provider: 05/23/24 10:02 Source: patient, RN notes reviewed Mode of arrival: ambulatory Limitations: no limitations - History of Present Illness Initial Comments: This is an 83-year-old male with history of CAD, DM and cancer diagnosis presenting with for adductive cough, fatigue, wheezing and nasal congestion x 10 days. Patient endorses white/morillo sputum without hemoptysis. Also endorses dyspnea with exertion but denies dyspnea/shortness of breath at rest. Denies recent sick contact. Patient denies history of asthma or COPD. Endorses use of Mucinex with minimal relief. Patient denies the orthopnea, pleuritic chest pain, fever, chills. Denies chest pain, abdominal pain, N/V/D, dizziness. MD Complaint: cough, rhinorrhea, nasal congestion Onset/Timin -: days(s) Associated Symptoms: rhinorrhea, nasal congestion, cough Treatments Prior to Arrival: other (Mucinex) - Related Data Home Medications Medication Instructions Recorded Confirmed glipiZIDE/METFORMIN HCL 1 tab PO HS 09/12/11/19/23 [glipiZIDE/METFORMIN HCL 2.5-500 mg] Spironolactone 12.5 mg PO DAILY 08/10/19 11/19/23 Metoprolol Tartrate [Lopressor] 25 mg PO BID 08/23/19 11/19/23 Furosemide [Lasix] 40 mg PO DAILY PRN 09/18/20 11/19/23 Clopidogrel Bisulfate [Plavix] 75 mg PO HS 04/28/22 11/19/23 Sacubitril/Valsartan [Entresto 24 1 tab PO BID 04/28/22 11/19/23 mg-26 mg Tablet] glipiZIDE/METFORMIN HCL 2 tab PO DAILY 05/09/23 11/19/23 [glipiZIDE/METFORMIN HCL 2.5-500 mg] Aspirin 81 mg PO DAILY PRN 11/20/23 11/20/23 Previous Rx's Medication Instructions Recorded Atorvastatin [Lipitor] 80 mg PO HS tab 08/16/19 Nitroglycerin Sl Tabs [Nitrostat] 0.4 mg SUBLINGUAL Q5M PRN #100 tab 08/16/19 Cholecalciferol [Vitamin D3 (25 25 mcg PO DAILY #30 tab 05/11/23 Mcg = 1000 Iu)] Zinc Sulfate [Orazinc] 220 mg PO DAILY #15 cap 05/11/23 Albuterol Inhaler [Ventolin Hfa 1 - 2 puff INHALATION Q6H PRN #1 05/23/24 Inhaler] each Azithromycin [Zithromax Z Pack] 250 mg PO DAILY #4 tab 05/23/24 Allergies Allergy/AdvReac Type Severity Reaction Status Date / Time Penicillins Allergy Rash/Hives Verified 05/23/24 09:52 Review of Systems ROS Statement: Those systems with pertinent positive or pertinent negative responses have been documented in the HPI. ROS Other: All systems not noted in ROS Statement are negative. Past Medical History Past Medical History: Coronary Artery Disease (CAD), Cancer, Diabetes Mellitus, Hyperlipidemia, Hypertension Additional Past Medical History / Comment(s): See Dr Haas's H&P, had some kind of skin cancer removed as a teen-not sure what kind, no problems since. History of Any Multi-Drug Resistant Organisms: None Reported Past Surgical History: Coronary Bypass/CABG, Heart Catheterization, Heart Catheterization With Stent Additional Past Surgical History / Comment(s): open heart 2014 [id number] Past Anesthesia/Blood Transfusion Reactions: No Reported Reaction Date of Last Stent Placement:: 08/11/2019 Past Psychological History: No Psychological Hx Reported Smoking Status: Never smoker Past Alcohol Use History: Rare Past Drug Use History: None Reported - Past Family History Mother Family Medical History: No Reported History, Diabetes Mellitus Additional Family Medical History / Comment(s): Mother at age 84 with history of diabetes. Father Family Medical History: Hypertension Additional Family Medical History / Comment(s): Father at age 86 from old age with history of hypertension. Brother(s) Family Medical History: Hypertension Additional Family Medical History / Comment(s): Patient has a total of 4 brothers. 2 brothers have passed, one from leukemia and one from liver cancer. Son(s) Family Medical History: Coronary Artery Disease (CAD) Additional Family Medical History / Comment(s): Then of heart attack was stopped patient has 1 daughter with underlying COPD Sister(s) Additional Family Medical History / Comment(s): Patient has 1 sister with no major medical problems. General Exam Limitations: no limitations General appearance: alert, in no apparent distress Head exam: Present: atraumatic, normocephalic, normal inspection Eye exam: Present: normal appearance, PERRL, EOMI. Absent: scleral icterus, conjunctival injection, periorbital swelling ENT exam: Present: normal exam, normal oropharynx, mucous membranes moist, TM's normal bilaterally (Bilateral hearing aids noted) Neck exam: Present: normal inspection. Absent: tenderness, meningismus, lymphadenopathy Respiratory exam: Present: normal lung sounds bilaterally, wheezes, rhonchi, decreased breath sounds, prolonged expiratory. Absent: respiratory distress, rales, stridor Cardiovascular Exam: Present: regular rate, normal rhythm, normal heart sounds. Absent: systolic murmur, diastolic murmur, rubs, gallop, clicks GI/Abdominal exam: Present: soft, normal bowel sounds. Absent: distended, tenderness, guarding, rebound, rigid Extremities exam: Present: normal inspection, full ROM, normal capillary refill. Absent: tenderness, pedal edema, joint swelling, calf tenderness Back exam: Present: normal inspection Neurological exam: Present: alert, oriented X3, CN II-XII intact Psychiatric exam: Present: normal affect, normal mood Skin exam: Present: warm, dry, intact, normal color. Absent: rash, cyanosis Course Vital Signs 05/23/24 05/23/24 05/23/24 09:49 09:56 11:26 Temperature 97.5 F L Pulse Rate 71 62 Respiratory 18 18 18 Rate Blood Pressure 135/70 O2 Sat by Pulse 97 Oximetry 05/23/24 05/23/24 11:34 11:57 Temperature Pulse Rate 67 64 Respiratory 18 18 Rate Blood Pressure 119/65 O2 Sat by Pulse 93 L Oximetry Medical Decision Making - Medical Decision Making Was pt. sent in by a medical professional or institution (, PA, POT SANDER, urgent care, hospital, or care home...) When possible be specific @ -[No] Did you speak to anyone other than the patient for history (EMS, parent, family, police, friend...)? What history was obtained from this source @ -[No] Did you review nursing and triage notes (agree or disagree)? Why? @ -[I reviewed and agree with nursing and triage notes] Were old charts reviewed (outside hosp., previous admission, EMS record, old EKG, old radiological studies, urgent care reports/EKG's, care home records)? Report findings @ -[No old charts were reviewed] Differential Diagnosis (chest pain, altered mental status, abdominal pain women, abdominal pain men, vaginal bleeding, weakness, fever, dyspnea, syncope, headache, dizziness, GI bleed, back pain, seizure, CVA, palpatations, mental health, musculoskeletal)? @ -Differential Dyspnea: Coronary syndrome, arrhythmia, tamponade, asthma, COPD, pulmonary embolism, pneumonia, pneumothorax, pulmonary effusion, anaphylaxis, diabetic ketoacidosis, flailed chest, pulmonary contusion, diaphragmatic rupture, anemia, neuromuscular, this is not meant to be an all-inclusive list. EKG interpreted by me (3pts min.). @ -Sinus rhythm with first-degree AV block and left bundle branch block. T wave inversion noted in inferior and lateral leads. No ST changes. Ventricular rate 67 bpm, JAYLEEN 260 ms, QRS duration 174 ms, QTc 452 ms. EKG comparison to May 11, 2023 shows similar left bundle branch block with T wave inversion in same leads at that time. X-rays interpreted by me (1pt min.). @ -[None done] CT interpreted by me (1pt min.). @ -[None done] U/S interpreted by me (1pt. min.). @ -[None done] What testing was considered but not performed or refused? (CT, X-rays, U/S, labs)? Why? @ -[None] What meds were considered but not given or refused? Why? @ -[None] Did you discuss the management of the patient with other professionals (professionals i.e. , PA, POT SANDER, lab, RT, psych nurse, school social worker, ice cream mixer, teacher, unclaimed property officer, human services case manager)? Give summary @ -[No] Was smoking cessation discussed for >3mins.? @ -[No] Was critical care preformed (if so, how long)? @ -[No] Were there social determinants of health that impacted care today? How? (Homelessness, low income, unemployed, alcoholism, drug addiction, transportation, low edu. Level, literacy, decrease access to med. care, mcc, rehab)? @ -[No] Was there de-escalation of care discussed even if they declined (Discuss DNR or withdrawal of care, Hospice)? DNR status @ -[No] What co-morbidities impacted this encounter? (DM, HTN, Smoking, COPD, CAD, Cancer, CVA, ARF, Chemo, Hep., AIDS, mental health diagnosis, sleep apnea, morbid obesity)? @ -[None] Was patient admitted / discharged? Hospital course, mention meds given and route, prescriptions, significant lab abnormalities, going to OR and other pertinent info. @ -[hospital course] Undiagnosed new problem with uncertain prognosis? @ -[No] Drug Therapy requiring intensive monitoring for toxicity (Heparin, Nitro, Insulin, Cardizem)? @ -[No] Were any procedures done? @ -[No] Diagnosis/symptom? @ -[default] Acute, or Chronic, or Acute on Chronic? @ -Acute Uncomplicated (without systemic symptoms) or Complicated (systemic symptoms)? @ -Uncomplicated Side effects of treatment? @ -[No] Exacerbation, Progression, or Severe Exacerbation? @ -[No] Poses a threat to life or bodily function? How? (Chest pain, [place], [place], pneumonia, PE, COPD, DKA, ARF, appy, cholecystitis, CVA, Diverticulitis, Homicidal, Suicidal, threat to staff... and all critical care pts) @ -[No] - Lab Data Result diagrams: 05/23/24 10:31 05/23/24 10:31 Lab Results 05/23/24 05/23/24 05/23/24 Range/Units 10:31 10:31 10:31 WBC 11.9 H (3.8-10.6) k/uL RBC 4.23 L (4.30-5.90) m/uL Hgb 13.2 (13.0-17.5) gm/dL Hct 39.9 (39.0-53.0) % MCV 94.3 (80.0-100.0) fL MCH 31.3 (25.0-35.0) pg MCHC 33.2 (31.0-37.0) g/dL RDW 12.7 (11.5-15.5) % Plt Count 231 (150-450) k/uL MPV 8.8 Neutrophils % 80 % Lymphocytes % 12 % Monocytes % 5 % Eosinophils % 1 % Basophils % 0 % Neutrophils # 9.5 H (1.3-7.7) k/uL Lymphocytes # 1.4 (1.0-4.8) k/uL Monocytes # 0.6 (0-1.0) k/uL Eosinophils # 0.2 (0-0.7) k/uL Basophils # 0.0 (0-0.2) k/uL D-Dimer (<0.60) mg/L FEU Sodium 137 (137-145) mmol/L Potassium 4.4 (3.5-5.1) mmol/L Chloride 105 (98-107) mmol/L Carbon Dioxide 23 (22-30) mmol/L Anion Gap 9 mmol/L BUN 29 H (9-20) mg/dL Creatinine 0.78 (0.66-1.25) mg/dL Est GFR (CKD-EPI)AfAm >90 (>60 ml/min/1.73 sqM) Est GFR (CKD-EPI)NonAf 83 (>60 ml/min/1.73 sqM) Glucose 174 H (74-99) mg/dL Calcium 9.0 (8.4-10.2) mg/dL Total Bilirubin 1.3 (0.2-1.3) mg/dL AST 25 (17-59) U/L ALT 20 (4-49) U/L Alkaline Phosphatase 54 (38-126) U/L Troponin I (0.000-0.034) ng/mL Total Protein 6.7 (6.3-8.2) g/dL Albumin 4.0 (3.5-5.0) g/dL Influenza Type A (PCR) Not Detected (Not Detectd) Influenza Type B (PCR) Not Detected (Not Detectd) RSV (PCR) Not Detected (Not Detectd) SARS-CoV-2 (PCR) Not Detected (Not Detectd) 05/23/24 05/23/24 Range/Units 10:58 10:58 WBC (3.8-10.6) k/uL RBC (4.30-5.90) m/uL Hgb (13.0-17.5) gm/dL Hct (39.0-53.0) % MCV (80.0-100.0) fL MCH (25.0-35.0) pg MCHC (31.0-37.0) g/dL RDW (11.5-15.5) % Plt Count (150-450) k/uL MPV Neutrophils % % Lymphocytes % % Monocytes % % Eosinophils % % Basophils % % Neutrophils # (1.3-7.7) k/uL Lymphocytes # (1.0-4.8) k/uL Monocytes # (0-1.0) k/uL Eosinophils # (0-0.7) k/uL Basophils # (0-0.2) k/uL D-Dimer 0.70 H (<0.60) mg/L FEU Sodium (137-145) mmol/L Potassium (3.5-5.1) mmol/L Chloride (98-107) mmol/L Carbon Dioxide (22-30) mmol/L Anion Gap mmol/L BUN (9-20) mg/dL Creatinine (0.66-1.25) mg/dL Est GFR (CKD-EPI)AfAm (>60 ml/min/1.73 sqM) Est GFR (CKD-EPI)NonAf (>60 ml/min/1.73 sqM) Glucose (74-99) mg/dL Calcium (8.4-10.2) mg/dL Total Bilirubin (0.2-1.3) mg/dL AST (17-59) U/L ALT (4-49) U/L Alkaline Phosphatase (38-126) U/L Troponin I <0.012 (0.000-0.034) ng/mL Total Protein (6.3-8.2) g/dL Albumin (3.5-5.0) g/dL Influenza Type A (PCR) (Not Detectd) Influenza Type B (PCR) (Not Detectd) RSV (PCR) (Not Detectd) SARS-CoV-2 (PCR) (Not Detectd) Disposition Clinical Impression: Pneumonia Disposition: HOME SELF-CARE Condition: Good Instructions (If sedation given, give patient instructions): Community Acquired Pneumonia (ED) Prescriptions: Albuterol Inhaler [Ventolin Hfa Inhaler] 1 - 2 puff INHALATION Q6H PRN #1 each PRN Reason: Wheezing Azithromycin [Zithromax Z Pack] 250 mg PO DAILY #4 tab Is patient prescribed a controlled substance at d/c from ED?: No Referrals: Pantera Gomez MD [Primary Care Provider] - 1-2 days Time of Disposition: 12:25
[2024-05-23 10:35] LABS: Basophils % (A) 0 %; Eosinophils # (A) 0.2 k/uL (0-0.7); Eosinophils % (A) 1 %; HCT 39.9 % (39.0-53.0); HGB 13.2 gm/dL (13.0-17.5); Lymphocytes # (A) 1.4 k/uL (1.0-4.8); Lymphocytes % (A) 12 %; MCH 31.3 pg (25.0-35.0); MCHC 33.2 g/dL (31.0-37.0); MCV 94.3 fL (80.0-100.0); Mean Platelet Volume 8.8; Monocytes # (A) 0.6 k/uL (0-1.0); Monocytes % (A) 5 %; Neutrophils # (A) 9.5 k/uL (1.3-7.7); Neutrophils % (A) 80 %; Platelet Count 231 k/uL (150-450); RBC 4.23 m/uL (4.30-5.90); RDW 12.7 % (11.5-15.5); WBC 11.9 k/uL (3.8-10.6)
[2024-05-23 11:01] LABS: ALT 20 U/L (4-49); AST 25 U/L (17-59); African American GFR (CKD) >90 (>60 ml/min/1.73 sqM); Alkaline Phosphatase 54 U/L (38-126); Anion Gap 9 mmol/L; Blood Urea Nitrogen 29 mg/dL (9-20); Carbon Dioxide 23 mmol/L (22-30); Chloride 105 mmol/L (98-107); Glucose 174 mg/dL (74-99); Non-African American GFR(CKD) 83 (>60 ml/min/1.73 sqM); Potassium 4.4 mmol/L (3.5-5.1); Sodium 137 mmol/L (137-145); Total Bilirubin 1.3 mg/dL (0.2-1.3); Total Protein 6.7 g/dL (6.3-8.2)
[2024-05-23] MEDS: IPRATROPIUM-ALBUTEROL 3 ML NEB INHALATION STA (11:25)
--- NOTE | 2024-05-23 11:32 | XR ---
EXAMINATION TYPE: XR chest 2V DATE OF EXAM: 05/23/2024 10:36 AM COMPARISON: Chest radiographs from 05/09/2023, CTA chest 05/09/2023 TECHNIQUE: XR chest 2V Frontal and lateral views of the chest. CLINICAL INDICATION:Male, 83 years old with history of Cough; FINDINGS: Lungs/Pleura: There is flattening of the diaphragm with increased lucency of the lungs. No evidence o f pneumothorax, pleural effusion or focal consolidation. Pulmonary vascularity: Unremarkable. Heart/mediastinum: Cardiomediastinal silhouette is enlarged and stable. Musculoskeletal: Multiple level degenerative disc disease changes seen throughout the spine. Midline sternotomy wires are noted and stable. IMPRESSION: 1. No acute cardiopulmonary disease process. 2. COPD changes. 3. Similar mild cardiomegaly. [facility], , 05/23/2024 11:30 AM
[2024-05-23] MEDS: SODIUM CHLORIDE 0.9% 1,000 ML IV STA (11:55)
[2024-05-23] MEDS: methylPREDNISolone SOD SUCCI 125 MG/2 ML VIAL IV STA (11:56)
[2024-05-23] MEDS: AZITHROMYCIN 500 MG TAB PO STA (12:41)
[2024-05-23 12:48] VITALS: BP 135/73; PULSE 69; TEMP 98.1
== END 2024-05-23 12:48 | disposition home or self-care (01) ==
LOC: EC 09:44
DX: J18.9 Pneumonia, unspecified organism (principal); E11.9 Type 2 diabetes mellitus without complications; I25.10 Atherosclerotic heart disease of native coronary artery without angina pectoris; Z88.0 Allergy status to penicillin; Z79.84 Long term (current) use of oral hypoglycemic drugs; Z95.1 Presence of aortocoronary bypass graft; Z95.5 Presence of coronary angioplasty implant and graft
CPT/HCPCS: 36415; 94640; 93005; 85379; 80053; 84484; 85025; 87636; 71046; 99284; 96374; 96361; J2919

== ENCOUNTER 2024-05-24 19:37 | Observation (INO) | payer MEDICARE, BC ==
--- NOTE | 2024-05-24 20:00 | ED ---
General Adult HPI - General Chief complaint: Shortness of Breath Stated complaint: CARROLL Time Seen by Provider: 05/24/24 19:42 Source: patient Mode of arrival: wheelchair Limitations: no limitations - History of Present Illness Initial comments: Dictation was produced using Upptalk dictation software. please excuse any grammatical, word or spelling errors. Chief Complaint: 83-year-old male presents emergency department with dyspnea and cough History of Present Illness: 83-year-old male he was seen here in the emergency department yesterday for similar issues. States that he has been having uncontrollable cough and shortness of breath. Patient [place] any history of COPD or asthma. Had workup yesterday had age-adjusted normal D-dimer. He had a no rmal x-ray at that time. He was given a dose of antibiotics and breathing treatment. States that he at home started to have some wheezing that pressure got worse today. Patient has been having some coughing. at the bedside states that patient has been having significant trouble breathing. The ROS documented in this emergency department record has been reviewed and confirmed by me. Those systems with pertinent positive or negative responses have been documented in the HPI. All other systems are other negative and/or noncontributory. - Related Data Home Medications Medication Instructions Recorded Confirmed glipiZIDE/METFORMIN HCL 1 tab PO DAILY 09/12/17 05/24/24 [glipiZIDE/METFORMIN HCL 2.5-500 mg] Spironolactone 12.5 mg PO DAILY 08/10/19 05/24/24 Metoprolol Tartrate [Lopressor] 25 mg PO BID 08/23/19 05/24/24 Clopidogrel Bisulfate [Plavix] 75 mg PO DAILY 04/28/22 05/24/24 Sacubitril/Valsartan [Entresto 24 1 tab PO BID 04/28/22 05/24/24 mg-26 mg Tablet] glipiZIDE/METFORMIN HCL 2 tab PO HS 05/09/23 05/24/24 [glipiZIDE/METFORMIN HCL 2.5-500 mg] Albuterol Inhaler [Ventolin Hfa 2 puff INHALATION RT-Q6H PRN 05/24/24 05/24/24 Inhaler] Previous Rx's Medication Instructions Recorded Atorvastatin [Lipitor] 80 mg PO HS tab 08/16/19 Azithromycin [Zithromax Z Pack] 250 mg PO DAILY #4 tab 05/23/24 Allergies Allergy/AdvReac Type Severity Reaction Status Date / Time Penicillins Allergy Rash/Hives Verified 05/24/24 20:12 Review of Systems ROS Statement: Those systems with pertinent positive or pertinent negative responses have been documented in the HPI. ROS Other: All systems not noted in ROS Statement are negative. Past Medical History Past Medical History: Coronary Artery Disease (CAD), Cancer, Diabetes Mellitus, Hyperlipidemia, Hypertension Additional Past Medical History / Comment(s): See Dr Haas's H&P, had some kind of skin cancer removed as a teen-not sure what kind, no problems since. History of Any Multi-Drug Resistant Organisms: None Reported Past Surgical History: Coronary Bypass/CABG, Heart Catheterization, Heart Catheterization With Stent Additional Past Surgical History / Comment(s): open heart 2014 CABGX4 Past Anesthesia/Blood Transfusion Reactions: No Reported Reaction Date of Last Stent Placement:: 08/11/2019 Past Psychological History: No Psychological Hx Reported Smoking Status: Never smoker Past Alcohol Use History: Rare Past Drug Use History: None Reported - Past Family History Mother Family Medical History: No Reported History, Diabetes Mellitus Additional Family Medical History / Comment(s): Mother at age 84 with history of diabetes. Father Family Medical History: Hypertension Additional Family Medical History / Comment(s): Father at age 86 from old age with history of hypertension. Brother(s) Family Medical History: Hypertension Additional Family Medical History / Comment(s): Patient has a total of 4 brothers. 2 brothers have passed, one from leukemia and one from liver cancer. Son(s) Family Medical History: Coronary Artery Disease (CAD) Additional Family Medical History / Comment(s): Then of heart attack was stopped patient has 1 daughter with underlying COPD Sister(s) Additional Family Medical History / Comment(s): Patient has 1 sister with no major medical problems. General Exam - General Exam Comments Initial Comments: PHYSICAL EXAM: General Impression: Alert and oriented x3, second distress secondary to coughing and dyspnea HEENT: Normocephalic atraumatic, extra-ocular movements intact, pupils equal and reactive to light bilaterally, mucous membranes moist. Cardiovascular: Heart regular rate and rhythm Chest: Diffuse lung end expiratory wheezing Abdomen: abdomen soft, non-tender, non-distended, no organomegaly Musculoskeletal: Pulses present and equal in all extremities, no peripheral edema Motor: no focal deficits noted Neurological: CN II-XII grossly intact, no focal motor or sensory deficits noted Skin: Intact with no visualized rashes Psych: Normal affect and mood Limitations: no limitations Course Vital Signs 05/24/24 05/24/24 05/24/24 19:39 20:28 20:36 Temperature 98.1 F Pulse Rate 82 76 72 Respiratory 16 Rate Blood Pressure 125/81 O2 Sat by Pulse 93 L Oximetry 05/24/24 21:30 Temperature Pulse Rate 64 Respiratory 18 Rate Blood Pressure 111/88 O2 Sat by Pulse 98 Oximetry EKG Findings - EKG Comments: EKG Findings:: My EKG interpretation: Ventricular rate 75, sinus rhythm, left bundle branch block, ND interval 223, cures 180, QTc 450. No ND prolongation, no QTC prolongation, no ST or T-wave changes noted. EKG compared to May 23, 2024 showing no changes. Overall, this EKG is unremarkable Medical Decision Making - Medical Decision Making Was pt. sent in by a medical professional or institution (, PA, PAN PUSHER, urgent care, hospital, or senior living...) When possible be specific @ -[No] Did you speak to anyone other than the patient for history (EMS, parent, family, police, friend...)? What history was obtained from this source @ -Some history obtained from at the bedside Did you review nursing and triage notes (agree or disagree)? Why? @ -[I reviewed and agree with nursing and triage notes] Were old charts reviewed (outside hosp., previous admission, EMS record, old EKG, old radiological studies, urgent care reports/EKG's, senior living records)? Report findings @ -[No old charts were reviewed] Differential Diagnosis (chest pain, altered mental status, abdominal pain women, abdominal pain men, vaginal bleeding, musculoskeletal, weakness, fever, dyspnea, syncope, headache, dizziness, GI bleed, back pain, seizure, CVA, palpatations, mental health)? @ -Differential Dyspnea: Coronary syndrome, arrhythmia, tamponade, asthma, COPD, pulmonary embolism, pneumonia, pneumothorax, pulmonary effusion, anaphylaxis, diabetic ketoacidosis, flailed chest, pulmonary contusion, diaphragmatic rupture, anemia, neuromuscular, this is not meant to be an all-inclusive list. EKG interpreted by me (3pts min.). @ -See above X-rays interpreted by me (1pt min.). @ -X-ray of the chest shows heart failure CT interpreted by me (1pt min.). @ -[None done] U/S interpreted by me (1pt. min.). @ -[None done] What testing was considered but not performed or refused? (CT, X-rays, U/S, labs)? Why? @ -[None] What meds were considered but not given or refused? Why? @ -[None] Was smoking cessation discussed for >3mins.? @ -[No] Were there social determinants of health that impacted care today? How? (Homelessness, low income, unemployed, alcoholism, drug addiction, transportation, low edu. Level, literacy, decrease access to med. care, half-way, rehab)? @ -[No] Was there de-escalation of care discussed even if they declined (Discuss DNR or withdrawal of care, Hospice)? DNR status @ -[No] What co-morbidities impacted this encounter? (DM, HTN, Smoking, COPD, CAD, Cancer, CVA, ARF, Chemo, Hep., AIDS, mental health diagnosis, sleep apnea, morbid obesity)? @ -Coronary artery disease Was patient admitted / discharged? Hospital course, mention meds given and route, prescriptions, significant lab abnormalities, going to OR and other pertinent info. @ -83-year-old male returns to the emergency department for shortness of kerry ath. Patient wheezy at the bedside mildly dyspneic. Vital signs upon arrival are within acceptable limits. Patient wheezing and coughing at the bedside. Laboratory evaluation obtained showing leukocytosis 14.6. He did receive a dose of steroids yesterday. Metabolic panel within acceptable limits. BNP elevated 4000. X-ray suggest heart failure. Patient given Lasix. He does have end expiratory wheezing with coughing raising suspicion of acute bronchitis. Patient given breathing treatment dose of Decadron and antibiotics. Will be admitted with consultation to pulmonology. Did you discuss the management of the patient with other professionals (professionals i.e. , PA, PAN PUSHER, lab, RT, psych nurse, sexual assault social worker, retail account executive, teacher, parole or probation officer, geriatric case manager)? Give summary @ -[No] Was critical care preformed (if so, how long)? @ -[No] Undiagnosed new problem with uncertain prognosis? @ -[No] Drug Therapy requiring intensive monitoring for toxicity (Heparin, Nitro, Insulin, Cardizem)? @ -[No] Were any procedures done? @ -[No] Diagnosis/symptom? Acute, or Chronic, or Acute on Chronic? Uncomplicated (without systemic symptoms) or Complicated (systemic symptoms)? @ -Dyspnea with increased work of breathing Side effects of treatment? @ -[No] Exacerbation, Progression, or Severe Exacerbation? @ -[No] Poses a threat to life or bodily function? How? (Chest pain, USA, NC, pneumonia, PE, COPD, DKA, ARF, appy, cholecystitis, CVA, Diverticulitis, Homicidal, Suicidal, threat to staff... and all critical care pts) @ -yes - Lab Data Result diagrams: 05/24/24 20:16 05/24/24 20:16 Lab Results 05/24/24 05/24/24 05/24/24 Range/Units 20:16 20:16 21:15 WBC 14.6 H (3.8-10.6) k/uL RBC 3.89 L (4.30-5.90) m/uL Hgb 12.0 L (13.0-17.5) gm/dL Hct 36.8 L (39.0-53.0) % MCV 94.6 (80.0-100.0) fL MCH 30.9 (25.0-35.0) pg MCHC 32.7 (31.0-37.0) g/dL RDW 12.8 (11.5-15.5) % Plt Count 224 (150-450) k/uL MPV 8.7 Neutrophils % 80 % Lymphocytes % 13 % Monocytes % 5 % Eosinophils % 2 % Basophils % 0 % Neutrophils # 11.7 H (1.3-7.7) k/uL Lymphocytes # 1.9 (1.0-4.8) k/uL Monocytes # 0.7 (0-1.0) k/uL Eosinophils # 0.2 (0-0.7) k/uL Basophils # 0.0 (0-0.2) k/uL Sodium 136 L (137-145) mmol/L Potassium 4.5 (3.5-5.1) mmol/L Chloride 107 (98-107) mmol/L Carbon Dioxide 21 L (22-30) mmol/L Anion Gap 8 mmol/L BUN 34 H (9-20) mg/dL Creatinine 0.90 (0.66-1.25) mg/dL Est GFR (CKD-EPI)AfAm >90 (>60 ml/min/1.73 sqM) Est GFR (CKD-EPI)NonAf 78 (>60 ml/min/1.73 sqM) Glucose 156 H (74-99) mg/dL Calcium 9.0 (8.4-10.2) mg/dL Troponin I (0.000-0.034) ng/mL NT-Pro-B Natriuret Pep 4560 pg/mL 05/24/24 Range/Units 21:15 WBC (3.8-10.6) k/uL RBC (4.30-5.90) m/uL Hgb (13.0-17.5) gm/dL Hct (39.0-53.0) % MCV (80.0-100.0) fL MCH (25.0-35.0) pg MCHC (31.0-37.0) g/dL RDW (11.5-15.5) % Plt Count (150-450) k/uL MPV Neutrophils % % Lymphocytes % % Monocytes % % Eosinophils % % Basophils % % Neutrophils # (1.3-7.7) k/uL Lymphocytes # (1.0-4.8) k/uL Monocytes # (0-1.0) k/uL Eosinophils # (0-0.7) k/uL Basophils # (0-0.2) k/uL Sodium (137-145) mmol/L Potassium (3.5-5.1) mmol/L Chloride (98-107) mmol/L Carbon Dioxide (22-30) mmol/L Anion Gap mmol/L BUN (9-20) mg/dL Creatinine (0.66-1.25) mg/dL Est GFR (CKD-EPI)AfAm (>60 ml/min/1.73 sqM) Est GFR (CKD-EPI)NonAf (>60 ml/min/1.73 sqM) Glucose (74-99) mg/dL Calcium (8.4-10.2) mg/dL Troponin I 0.485 H* (0.000-0.034) ng/mL NT-Pro-B Natriuret Pep pg/mL Disposition Clinical Impression: Bronchitis Disposition: ADMITTED IP TO THIS HOSP Condition: Fair Referrals: Pantera Gomez MD [Primary Care Provider] - 1-2 days Decision Time: 22:28
[2024-05-24 20:23] LABS: Basophils % (A) 0 %; Eosinophils # (A) 0.2 k/uL (0-0.7); Eosinophils % (A) 2 %; HCT 36.8 % (39.0-53.0); Lymphocytes # (A) 1.9 k/uL (1.0-4.8); Lymphocytes % (A) 13 %; MCH 30.9 pg (25.0-35.0); MCHC 32.7 g/dL (31.0-37.0); MCV 94.6 fL (80.0-100.0); Mean Platelet Volume 8.7; Monocytes # (A) 0.7 k/uL (0-1.0); Monocytes % (A) 5 %; Neutrophils # (A) 11.7 k/uL (1.3-7.7); Neutrophils % (A) 80 %; Platelet Count 224 k/uL (150-450); RBC 3.89 m/uL (4.30-5.90); RDW 12.8 % (11.5-15.5); WBC 14.6 k/uL (3.8-10.6)
[2024-05-24] MEDS: IPRATROPIUM-ALBUTEROL 3 ML NEB INHALATION STA (20:28)
[2024-05-24 20:41] LABS: African American GFR (CKD) >90 (>60 ml/min/1.73 sqM); Anion Gap 8 mmol/L; Blood Urea Nitrogen 34 mg/dL (9-20); Carbon Dioxide 21 mmol/L (22-30); Chloride 107 mmol/L (98-107); Glucose 156 mg/dL (74-99); Non-African American GFR(CKD) 78 (>60 ml/min/1.73 sqM); Sodium 136 mmol/L (137-145)
[2024-05-24 20:42] LABS: Potassium 4.5 mmol/L (3.5-5.1)
--- NOTE | 2024-05-24 20:44 | XR ---
EXAMINATION TYPE: XR chest 2V DATE OF EXAM: 05/24/2024 8:26 PM CLINICAL INDICATION:Male, 83 years old with history of sob; [facility] COMPARISON: Chest radiographs from 05/23/2024 TECHNIQUE: XR chest 2V Frontal view of the chest. FINDINGS: Lungs/Pleura: There is blunting of the bilateral costophrenic sulci secondary to opacification in the bilateral lower lung zones. There is mild interval increase in interstitial opacities in the bilater al lungs more conspicuous involving the right lung. No pneumothorax. Pulmonary vascularity: Pulmonary vascular congestion. Heart/mediastinum: Cardiomediastinal silhouette is again enlarged but obscured due to overlying and a djacent opacities. Musculoskeletal: No acute osseous pathology. Sternotomy wires are stable. Other findings: None IMPRESSION: 1. Mild interval increase in congestive process with small bilateral pleural effusions now appreciate d and more conspicuous interstitial opacification likely representing pulmonary edema. 2. Similar cardiomegaly. [facility], , 05/24/2024 8:42 PM
[2024-05-24] MEDS: DEXAMETHASONE SOD PHOSPHATE 10 MG/ML 1 ML VIAL IV STA (21:24)
[2024-05-24] MEDS: FUROSEMIDE 10 MG/ML 4 ML VIAL IV STA (22:11)
[2024-05-24] MEDS: IPRATROPIUM-ALBUTEROL 3 ML NEB INHALATION SCH (22:34)
[2024-05-25] MEDS: AZITHROMYCIN 500 MG TAB PO SCH (00:16)
[2024-05-25] MEDS: FUROSEMIDE 10 MG/ML 4 ML VIAL IV SCH (00:16)
--- NOTE | 2024-05-25 03:23 | P.CNPUL ---
History of Present Illness Consult date: 05/25/24 Requesting physician: Derick Beckett Reason for consult: dyspnea Chief complaint: Shortness of breath History of present illness: Patient is a 83-year-old white male with past medical history significant for coronary artery disease with previous CABG and subsequent PCI/stenting, heart failure, hyperlipidemia, hypertension, diabetes mellitus type 2, cervical spinal canal stenosis. Patient's, PCP is Dr. Gomez. Patient has significant cardiovascular history. Known history of coronary artery disease and CABG. Most recently admitted back in April, for non-ST elevation KS and COVID infection. Since then, did undergo a heart catheterization in October, demonstrating barrow coronary artery disease and patent bypass grafts from SVG to PDA, SVG to ramus, SVG to diagonal 1, and HERNANDEZ to LAD. He did have a heavily calcified OM1, medical management was recommended by cardiology. He does have history of severe ischemic cardiomyopathy, most recent echocardiogram done approximately 1 year ago, estimating a left ventricular ejection fraction of 30 to 35% along with moderate aortic stenosis. Patient returns to the emergency department last night complaining of shortness of breath over the last month or so, however, worse over the last 2 to 3 days. There is an associated nonproductive cough. No known history of pre-existing lung disease. Reports brief smoking history. R ecently treated in the ED on 05/23 with a Z-Matheus and sent home. He denies any recent sick contacts. Denies any runny nose, sinus pressure, sore throat. Denies any fevers, sputum production, hemoptysis, chest pain. Denies nausea, vomiting, diarrhea. Appetite and oral intake has been adequate. Does report history of heart failure; admits to lower extremity swelling. He does reportedly take Lasix on an outpatient basis, however, not listed in his home medications. Occasionally misses doses when planning to leave the house. Denies any chest pain, heart palpitations, lightheadedness/syncope, orthopnea, PND. Currently evaluating this patient in the ED. he is currently sitting up in the bed, on room air, in no acute distress. He did just use the bedside commode. Does have a congested nonproductive cough. Has remains afebrile. He does have some mild lower extremity edema. Chest x-ray showing stable cardiomegaly with increased interstitial densities and likely small bilateral pleural effusions. No obvious focal consolidations or pneumonia. NT proBNP was elevated at 4560. Serial troponins less than 0.012 and 0.485 respectively. EKG shows sinus rhythm with first-degree AV block and LBBB pattern, unchanged from previous study. CBC: WBC count 14.6, hemoglobin 12, hematocrit 36.8, platelets 224. CMP: Sodium 136, potassium 4.5, chloride 107, serum bicarb 21, BUN 34, creatinine 0.9, glucose 156. Current vital signs: Temperature 98.1 F, heart rate 98 bpm, blood pressure 111/64 mmHg, SpO2 98% on room air oxygen. Nontoxic appearance. Review of Systems Constitutional: Reports lethargy, Denies chills, Denies fever, Denies poor appetite, Denies sweats, Denies weight gain, Denies weight loss Ears, nose, mouth and throat: Denies dysphagia, Denies nasal congestion, Denies nasal discharge, Denies post-nasal drip, Denies sinus pain, Denies sinus pressure, Denies sore throat Cardiovascular: Reports as per HPI Respiratory: Reports as per HPI Gastrointestinal: Denies abdominal pain, Denies change in bowel habits, Denies diarrhea, Denies nausea, Denies vomiting Genitourinary: Denies dysuria Musculoskeletal: Reports leg numbness/tingling, Reports limitation of motion, Reports muscle weakness, Reports neck pain, Denies low back pain Integumentary: Denies rash, Denies sores Neurological: Reports numbness, Reports paresthesias, Denies balance difficulties, Denies change in speech, Denies head injury, Denies headaches, De nies paralysis, Denies seizures, Denies syncope, Denies tremors, Denies visual changes Psychiatric: Denies anxiety, Denies depression Past Medical History Past Medical History: Coronary Artery Disease (CAD), Cancer, Diabetes Mellitus, Hyperlipidemia, Hypertension Additional Past Medical History / Comment(s): See Dr Haas's H&P, had some kind of skin cancer removed as a teen-not sure what kind, no problems since. History of Any Multi-Drug Resistant Organisms: None Reported Past Surgical History: Coronary Bypass/CABG, Heart Catheterization, Heart Cat heterization With Stent Additional Past Surgical History / Comment(s): open heart 2014 CABGX4 Past Anesthesia/Blood Transfusion Reactions: No Reported Reaction Date of Last Stent Placement:: 08/11/2019 Past Psychological History: No Psychological Hx Reported Smoking Status: Never smoker Past Alcohol Use History: Rare Past Drug Use History: None Reported - Past Family History Mother Family Medical History: No Reported History, Diabetes Mellitus Additional Family Medical History / Comment(s): Mother at age 84 with history of diabetes. Father Family Medical History: Hypertension Additional Family Medical History / Comment(s): Father at age 86 from old age with history of hypertension. Brother(s) Family Medical History: Hypertension Additional Family Medical History / Comment(s): Patient has a total of 4 brothers. 2 brothers have passed, one from leukemia and one from liver cancer. Son(s) Family Medical History: Coronary Artery Disease (CAD) Additional Family Medical History / Comment(s): Then of heart attack was stopped patient has 1 daughter with underlying COPD Sister(s) Additional Family Medical History / Comment(s): Patient has 1 sister with no major medical problems. Medications and Allergies Home Medications Medication Instructions Recorded Confirmed Type glipiZIDE/METFORMIN HCL 1 tab PO DAILY 09/12/17 05/24/24 History [glipiZIDE/METFORMIN HCL 2.5-500 mg] Spironolactone 12.5 mg PO DAILY 08/10/19 05/24/24 History Atorvastatin [Lipitor] 80 mg PO HS tab 08/16/19 05/24/24 Rx Metoprolol Tartrate [Lopressor] 25 mg PO BID 08/23/19 05/24/24 History Clopidogrel Bisulfate [Plavix] 75 mg PO DAILY 04/28/22 05/24/24 History Sacubitril/Valsartan [Entresto 24 1 tab PO BID 04/28/22 05/24/24 History mg-26 mg Tablet] glipiZIDE/METFORMIN HCL 2 tab PO HS 05/09/23 05/24/24 History [glipiZIDE/METFORMIN HCL 2.5-500 mg] Azithromycin [Zithromax Z Pack] 250 mg PO DAILY #4 tab 05/23/24 05/24/24 Rx Albuterol Inhaler [Ventolin Hfa 2 puff INHALATION RT-Q6H PRN 05/24/24 05/24/24 History Inhaler] Allergies Allergy/AdvReac Type Severity Reaction Status Date / Time Penicillins Allergy Rash/Hives Verified 05/24/24 20:12 Physical Exam Vitals: Vital Signs Temp Pulse Resp BP Pulse Ox 05/24/24 23:37 98 18 111/64 98 05/24/24 21:30 64 18 111/88 98 05/24/24 20:36 72 05/24/24 20:28 76 05/24/24 19:39 98.1 F 82 16 125/81 93 L Intake and Output 05/24/24 05/24/24 05/25/24 14:59 22:59 06:59 Other: Weight 86.183 kg GENERAL EXAM: Alert, 83-year-old white male, comfortable in no apparent distress. HEAD: Normocephalic and atraumatic EYES: Normal reaction of pupils, equal size. NOSE: Clear with pink turbinates. THROAT: No erythema or exudates. NECK: No masses, no JVD. CHEST: No chest wall deformity. LUNGS: Equal air entry with n scattered rhonchi and expiratory wheezes. on room air. No conversational dyspnea or accessory muscle use.. CVS: S1 and S2 normal with soft systolic murmur, regular rhythm. No extra heart sounds ABDOMEN: No hepatosplenomegaly, active bowel sounds, no guarding or rigidity. SPINE: No scoliosis or deformity SKIN: No rashes CENTRAL NERVOUS SYSTEM: No focal deficits, tone is normal in all 4 extremities. Cranial nerves II through XII intact. Bilateral upper extremity strength graded 5/5, bilateral lower extremity strength graded 4/5. Bilateral patellar DTRs nonreactive. Neutral Babinski. EXTREMITIES: There is bilateral lower extremity edema. No clubbing, or cyanosis. Peripheral pulses are intact. Results - Laboratory Findings CBC and BMP: 05/24/24 20:16 05/24/24 20:16 Abnormal lab findings: Abnormal Labs 05/24/24 05/24/24 05/24/24 20:16 20:16 21:15 WBC 14.6 H RBC 3.89 L Hgb 12.0 L Hct 36.8 L Neutrophils # 11.7 H Sodium 136 L Carbon Dioxide 21 L BUN 34 H Glucose 156 H Troponin I 0.485 H* - Diagnostic Findings Chest x-ray: image reviewed Assessment and Plan Assessment: Acute exacerbation of systolic congestive heart failure. Possible acute bronchitis and persistent congested cough Acute on chronic dyspnea, secondary to above, chest x-ray showing stable cardiomegaly with increased interstitial densities and likely small bilateral pleural effusions. No obvious focal consolidations or pneumonia. NT proBNP was elevated at 4560. Acute leukocytosis Elevated troponins, rule out non-ST elevation KS History of coronary artery disease with previous CABG, and subsequent PCI/stenting. History of ischemic cardiomyopathy, with most recent echocardiogram done back in April 2023, estimating a left ventricular ejection fraction of 30 to 35% as well as moderate aortic stenosis Diabetes mellitus type 2 Hypertension History of hyperlipidemia History of cervical spinal canal stenosis, patient is reportedly following outpatient with Dr. Marshall. Former tobacco use, briefly smoked over 60 years ago Plan: Patient's medications, labs, imaging reviewed Currently on room air oxygen Continue with Lasix 40 mg twice daily Obtain repeat echocardiogram Repeat troponins Consult cardiology Continue azithromycin for now Check procalcitonin level Check Cepheid 4 Plex As needed short acting bronchodilator Add antitussive, Robitussin DM as needed Continue home medications including Metoprolol, Entresto, spironolactone, Plavix, atorvastatin We will continue to follow I have personally seen and examined the patient, performed the documentation and the assessment and plan as written. Number of minutes spent on the visit:20 Time with Patient: Greater than 30
[2024-05-25] MEDS: SPIRONOLACTONE 25 MG TAB PO SCH (08:31)
[2024-05-25] MEDS: SACUBITRIL/VALSARTAN 24 MG-26 MG TABLET PO SCH (08:31)
[2024-05-25] MEDS: CLOPIDOGREL 75 MG TAB PO SCH (08:31)
[2024-05-25] MEDS: METOPROLOL TARTRATE 25 MG TAB PO SCH (08:31)
[2024-05-25] MEDS ORDERED: ALBUTEROL NEBULIZED 2.5 MG/3 ML INHALATION PRN (12:34)
--- NOTE | 2024-05-25 12:35 | P.HPIM ---
History of Present Illness 83-year-old male with known history of congestive heart failure EF of around 30 to 35% came in with complaints of shortness of breath orthopnea paroxysmal nocturnal dyspnea found to be in CHF with elevated BNP chest x-ray showing pulmo nary edema patient's BNP is 4560 which is almost same as his last hospitalization. Patient also has moderate aortic stenosis patient has mild elevated troponins of 0.485 and 0.365. Patient denied any nausea vomiting abdominal pain fever chills patient does have history of coronary artery disease history of CABG in the past subsequent cardiac catheterization showed calcified obtuse marginal 1 and some coronary artery disease. Patient does have leukocytosis no fever procalcitonin 0.06. REVIEW OF SYSTEMS: All other systems are negative except those mentioned in the HPI PHYSICAL EXAMINATION: GENERAL: The patient is alert and oriented x3, not in any acute distress. Well developed, well nourished. HEENT: Pupils are round and equally reacting to light. EOMI. No scleral icterus. No conjunctival pallor. Normocephalic, atraumatic. No pharyngeal erythema. No thyromegaly. CARDIOVASCULAR: S1 and S2 present. No murmurs, rubs, or gallops. PULMONARY: Chest is clear to auscultation, no wheezing or crackles. ABDOMEN: Soft, nontender, nondistended, normoactive bowel sounds. No palpable o rganomegaly. MUSCULOSKELETAL: No joint swelling or deformity. EXTREMITIES: No cyanosis, clubbing, or pedal edema. NEUROLOGICAL: Gross neurological examination did not reveal any focal deficits. SKIN: No rashes. Assessment and plan Congestive heart failure chronic systolic function with acute exacerbation patient was started on IV Lasix 40 mg twice a day and will continue with Aldactone Entresto by monitoring kidney function -Type II NSTEMI secondary to congestive heart failure -Coronary artery disease -Type 2 diabetes mellitus -Hyperlipidemia -Hypertension -For above-mentioned chronic medical problems patient will be resumed on appropriate home medications. Hold oral hypoglycemic agents will be held patient will be on sliding scale insulin DVT prophylaxis: Lovenox Past Medical History Past Medical History: Coronary Artery Disease (CAD), Cancer, Diabetes Mellitus, Hyperlipidemia, Hypertension Additional Past Medical History / Comment(s): See Dr Haas's H&P, had some kind of skin cancer removed as a teen-not sure what kind, no problems since. History of Any Multi-Drug Resistant Organisms: None Reported Past Surgical History: Coronary Bypass/CABG, Heart Catheterization, Heart Catheterization With Stent Additional Past Surgical History / Comment(s): open heart 2014 CABGX4 Past Anesthesia/Blood Transfusion Reactions: No Reported Reaction Date of Last Stent Placement:: 08/11/2019 Past Psychological History: No Psychological Hx Reported Smoking Status: Never smoker Past Alcohol Use History: Rare Past Drug Use History: None Reported - Past Family History Mother Family Medical History: No Reported History, Diabetes Mellitus Additional Family Medical History / Comment(s): Mother at age 84 with history of diabetes. Father Family Medical History: Hypertension Additional Family Medical History / Comment(s): Father at age 86 from old age with history of hypertension. Brother(s) Family Medical History: Hypertension Additional Family Medical History / Comment(s): Patient has a total of 4 brothers. 2 brothers have passed, one from leukemia and one from liver cancer. Son(s) Family Medical History: Coronary Artery Disease (CAD) Additional Family Medical History / Comment(s): Then of heart attack was stopped patient has 1 daughter with underlying COPD Sister(s) Additional Family Medical History / Comment(s): Patient has 1 sister with no major medical problems. Medications and Allergies Home Medications Medication Instructions Recorded Confirmed Type glipiZIDE/METFORMIN HCL 1 tab PO DAILY 09/12/17 05/24/24 History [glipiZIDE/METFORMIN HCL 2.5-500 mg] Spironolactone 12.5 mg PO DAILY 08/10/19 05/24/24 History Atorvastatin [Lipitor] 80 mg PO HS tab 08/16/19 05/24/24 Rx Metoprolol Tartrate [Lopressor] 25 mg PO BID 08/23/19 05/24/24 History Clopidogrel Bisulfate [Plavix] 75 mg PO DAILY 04/28/22 05/24/24 History Sacubitril/Valsartan [Entresto 24 1 tab PO BID 04/28/22 05/24/24 History mg-26 mg Tablet] glipiZIDE/METFORMIN HCL 2 tab PO HS 05/09/23 05/24/24 History [glipiZIDE/METFORMIN HCL 2.5-500 mg] Azithromycin [Zithromax Z Pack] 250 mg PO DAILY #4 tab 05/23/24 05/24/24 Rx Albuterol Inhaler [Ventolin Hfa 2 puff INHALATION RT-Q6H PRN 05/24/24 05/24/24 History Inhaler] Allergies Allergy/AdvReac Type Severity Reaction Status Date / Time Penicillins Allergy Rash/Hives Verified 05/24/24 20:12 Physical Exam Vitals: Vital Signs Temp Pulse Resp BP Pulse Ox 05/25/24 11:30 78 05/25/24 11:22 75 05/25/24 11:00 73 18 97/46 96 05/25/24 10:00 86 19 119/75 97 05/25/24 09:00 82 12 126/73 96 05/25/24 08:00 92 16 119/62 96 05/25/24 07:13 98.2 F 83 18 120/72 96 05/25/24 06:10 96 18 109/90 96 05/25/24 04:12 78 05/25/24 04:03 94 20 128/74 95 05/25/24 04:01 72 05/25/24 02:21 89 18 122/87 95 05/24/24 23:37 98 18 111/64 98 05/24/24 21:30 64 18 111/88 98 05/24/24 20:36 72 05/24/24 20:28 76 05/24/24 19:39 98.1 F 82 16 125/81 93 L Intake and Output 05/24/24 05/25/24 05/25/24 22:59 06:59 14:59 Other: Weight 86.183 kg Results CBC & Chem 7: 05/24/24 20:16 05/24/24 20:16 Labs: Abnormal Lab Results - Last 24 Hours (Table) 05/24/24 05/24/24 05/24/24 Range/Units 20:16 20:16 21:15 WBC 14.6 H (3.8-10.6) k/uL RBC 3.89 L (4.30-5.90) m/uL Hgb 12.0 L (13.0-17.5) gm/dL Hct 36.8 L (39.0-53.0) % Neutrophils # 11.7 H (1.3-7.7) k/uL Sodium 136 L (137-145) mmol/L Carbon Dioxide 21 L (22-30) mmol/L BUN 34 H (9-20) mg/dL Glucose 156 H (74-99) mg/dL Troponin I 0.485 H* (0.000-0.034) ng/mL 05/25/24 Range/Units 01:17 WBC (3.8-10.6) k/uL RBC (4.30-5.90) m/uL Hgb (13.0-17.5) gm/dL Hct (39.0-53.0) % Neutrophils # (1.3-7.7) k/uL Sodium (137-145) mmol/L Carbon Dioxide (22-30) mmol/L BUN (9-20) mg/dL Glucose (74-99) mg/dL Troponin I 0.365 H* (0.000-0.034) ng/mL
[2024-05-25 14:49] VITALS: BMI 27.2
[2024-05-25] MEDS: ATORVASTATIN 80 MG TAB PO SCH (20:17)
[2024-05-25] MEDS: guaiFENesin-DM 100-10MG/5ML 10 ML CUP PO PRN (20:17)
--- NOTE | 2024-05-25 22:40 | CONS ---
CONSULTATION CHIEF COMPLAINT: Shortness of breath. HISTORY OF PRESENT ILLNESS: Anibal is an 83-year-old gentleman with history of coronary artery disease, chronic systolic heart failure, COPD, [id number] diabetes, who presented to hospital primarily with shortness of breath. The patient has been becoming progressively short of breath over the last several weeks. He has known CAD and has had prior bypass surgery with venous graft x3 and HERNANDEZ to LAD. He underwent a cardiac catheterization in January of 2024 and was advised medical therapy. He does not have any chest pain. Has mild elevation in troponin at 0.4 and 0.3. BNP is elevated at 4560. His renal functions are normal with a creatinine of 0.9. An echocardiogram last year revealed moderate aortic stenosis with severe LV systolic dysfunction with an ejection fraction of 30% to 35%. PAST MEDICAL HISTORY: Significant for coronary artery disease, chronic systolic heart failure, bypass surgery, diabetes, hypertension, dyslipidemia. MEDICATIONS: Include: 1. Glipizide. 2. Metformin. 3. Spironolactone. 4. Entresto. 5. Metoprolol. 6. Plavix. 7. Atorvastatin. 8. Albuterol. ALLERGIES: The patient is allergic to penicillin. FAMILY HISTORY: Negative for premature coronary artery disease. SOCIAL HISTORY: Negative for smoking, EtOH abuse, or drug abuse. REVIEW OF SYSTEMS: 14 out of 14 review of systems has been performed, pertinent are as documented. PHYSICAL EXAMINATION: GENERAL: Comfortable at rest. VITAL SIGNS: Heart rate is 86 beats per minute, blood pressure is 120/75, respiratory rate is 18, O2 saturation is 97% on room air. NECK: There is no jugular venous distention. CHEST: Reveals occasional crackles bilaterally. HEART: Reveals first and second heart sounds. Ejection systolic murmur in the aortic area. ABDOMEN: Soft. EXTREMITIES: Reveal bilateral moderate pitting edema. ASSESSMENT: 1. Acute exacerbation of chronic systolic heart failure. 2. Elevated troponin, probably with type 2 myocardial infarction. 3. Ischemic cardiomyopathy. PLAN: EKG shows left bundle branch block. There is mild elevation in troponin. Hemoglobin is normal at 12. Creatinine is 0.9. BNP is elevated. I am going to treat him with intravenous diuretics. Continue the Lipitor, Plavix, Lopressor, Entresto, and Aldactone that he is currently on. MMODL / IJN: [id number] /
[2024-05-25 23:16] LABS: Glucose,Whole Blood 198 mg/dL (70-110)
[2024-05-26 07:25] LABS: HCT 38.3 % (39.0-53.0); HGB 12.8 gm/dL (13.0-17.5); MCH 31.4 pg (25.0-35.0); MCHC 33.5 g/dL (31.0-37.0); MCV 93.6 fL (80.0-100.0); Mean Platelet Volume 8.8; Platelet Count 257 k/uL (150-450); RBC 4.09 m/uL (4.30-5.90); RDW 12.7 % (11.5-15.5); WBC 13.1 k/uL (3.8-10.6)
[2024-05-26 08:24] LABS: African American GFR (CKD) >90 (>60 ml/min/1.73 sqM); Anion Gap 10 mmol/L; Blood Urea Nitrogen 32 mg/dL (9-20); Calcium 9.1 mg/dL (8.4-10.2); Carbon Dioxide 26 mmol/L (22-30); Chloride 100 mmol/L (98-107); Glucose 147 mg/dL (74-99); Magnesium 1.5 mg/dL (1.6-2.3); Non-African American GFR(CKD) 81 (>60 ml/min/1.73 sqM); Potassium 4.1 mmol/L (3.5-5.1); Sodium 136 mmol/L (137-145)
[2024-05-26 09:34] VITALS: RESP 16
[2024-05-26] MEDS: MAGNESIUM SULFATE-D5W PMX 1 GM in DEXTROSE/WATER 1 100ML.BAG IVPB SCH (11:29)
--- NOTE | 2024-05-26 11:35 | CT ---
EXAMINATION TYPE: CT brain wo con DATE OF EXAM: 05/26/2024 COMPARISON: None CLINICAL INDICATION: Male, 83 years old with history of fall, hit head; PHH, FALL, LACERATION POSTERI OR HEAD CT DLP: 1201.4 mGycm Automated exposure control for dose reduction was used. FINDINGS: The ventricles, basal cisterns and sulci over convexities are moderately to markedly enlarged consist ent with moderate to marked atrophy. There is moderate decreased density in the periventricular white matter consistent with moderate chronic ischemic white matter demyelination. There is no mass effect or shift of the midline structures. There is no acute intra or extra-axial hemorrhage. Posterior fossa is grossly normal. The intraluminal contents appear normal and symmetric. The paranasal sinuses are well aerated. There is a small mucous retention cyst in the left maxillary sinus. There is mild fluid in the mastoid air cells. The calvarium is intact IMPRESSION: 1. MODERATE TO MARKED DEGENERATIVE CHANGES DESCRIBED. 2. NO ACUTE BLEED OR MASS EFFECT. 3. NO ACUTE TRAUMA TO THE CALVARIUM OR OVERLYING SOFT TISSUES. [facility], Workstation: MARÍA ELENA 05/26/2024 11:32 AM
[2024-05-26 11:41] VITALS: BP 110/61; PULSE 66; TEMP 97.6
[2024-05-26] MEDS: ENOXAPARIN 40 MG/0.4 ML SYRINGE SQ SCH (12:00)
--- NOTE | 2024-05-26 12:56 | P.DS ---
Providers Date of admission: 05/24/24 22:24 Attending physician: Marcel Whitmore Consults: 05/24/24 22:27 Consult Physician Routine Consulting Provider: Soraida Williamson Consult Reason/Comments: bronchitis Do you want consulting provider notified?: Yes 05/25/24 01:01 Consult Physician Stat Consulting Provider: Arthur Osorio Consult Reason/Comments: elevated troponins; chf Do you want consulting provider notified?: Yes Primary care physician: [facility] Course: 83-year-old male with known history of congestive heart failure EF of around 30 to 35% came in with complaints of shortness of breath orthopnea paroxysmal nocturnal dyspnea found to be in CHF with elevated BNP chest x-ray showing pulmonary edema patient's BNP is 4560 which is almost same as his last hospitalization. Patient also has moderate aortic stenosis patient has mild elevated troponins of 0.485 and 0.365. Patient denied any nausea vomiting abdominal pain fever chills patient does have history of coronary artery disease history of CABG in the past subsequent cardiac catheterization showed calcified obtuse marginal 1 and some coronary artery disease. Patient does have leukocytosis no fever procalcitonin 0.06. 05/26/2024 Patient CHF improved patient was switched to oral Lasix. Although patient had a fall PT and OT eval with patient today recommended subacute rehab although patient is declining subacute rehab. Patient had a laceration which patient does not wanted to be sutured. Will order bacitracin cream. If cleared by cardiology patient probably can be discharged today. Patient will be started on 40 mg twice a day of Lasix will need electrolytes to be checked in about 3 to 4 days. PHYSICAL EXAMINATION: GENERAL: The patient is alert and oriented x3, not in any acute distress. Well developed, well nourished. HEENT: Pupils are round and equally reacting to light. EOMI. No scleral icterus. No conjunctival pallor. Normocephalic, atraumatic. No pharyngeal erythema. No thyromegaly. CARDIOVASCULAR: S1 and S2 present. No murmurs, rubs, or gallops. PULMONARY: Chest is clear to auscultation, no wheezing or crackles. ABDOMEN: Soft, nontender, nondistended, normoactive bowel sounds. No palpable organomegaly. MUSCULOSKELETAL: No joint swelling or deformity. EXTREMITIES: No cyanosis, clubbing, or pedal edema. NEUROLOGICAL: Gross neurological examination did not reveal any focal deficits. SKIN: Laceration on the forehead Assessment and plan Congestive heart failure chronic systolic function with acute exacerbation improved with IV Lasix will be discharged on 40 mg twice a day for Lasix -Type II NSTEMI secondary to congestive heart failure -Coronary artery disease -Type 2 diabetes mellitus -Hyperlipidemia -Hypertension -Laceration after fall -Generalized deconditioning patient is declining subacute rehab will be discharged to home with home care. Patient Condition at Discharge: Fair Plan - Discharge Summary Discharge Rx Participant: No New Discharge Prescriptions: New Furosemide [Lasix] 40 mg PO BID@0900,1600 #60 tab Continue glipiZIDE/METFORMIN HCL [glipiZIDE/METFORMIN HCL 2.5-500 mg] 1 tab PO DAILY Spironolactone 12.5 mg PO DAILY Atorvastatin [Lipitor] 80 mg PO HS tab Metoprolol Tartrate [Lopressor] 25 mg PO BID glipiZIDE/METFORMIN HCL [glipiZIDE/METFORMIN HCL 2.5-500 mg] 2 tab PO HS Albuterol Inhaler [Ventolin Hfa Inhaler] 2 puff INHALATION RT-Q6H PRN PRN Reason: Wheezing Clopidogrel Bisulfate [Plavix] 75 mg PO DAILY Sacubitril/Valsartan [Entresto 24 mg-26 mg Tablet] 1 tab PO BID Azithromycin [Zithromax Z Pack] 250 mg PO DAILY #4 tab Discharge Medication List glipiZIDE/METFORMIN HCL [glipiZIDE/METFORMIN HCL 2.5-500 mg] 1 tab PO DAILY 09/12/17 [History] Spironolactone 12.5 mg PO DAILY 08/10/19 [History] Atorvastatin [Lipitor] 80 mg PO HS tab 08/16/19 [Rx] Metoprolol Tartrate [Lopressor] 25 mg PO BID 08/23/19 [History] Clopidogrel Bisulfate [Plavix] 75 mg PO DAILY 04/28/22 [History] Sacubitril/Valsartan [Entresto 24 mg-26 mg Tablet] 1 tab PO BID 04/28/22 [History] glipiZIDE/METFORMIN HCL [glipiZIDE/METFORMIN HCL 2.5-500 mg] 2 tab PO HS 05/09/23 [History] Azithromycin [Zithromax Z Pack] 250 mg PO DAILY #4 tab 05/23/24 [Rx] Albuterol Inhaler [Ventolin Hfa Inhaler] 2 puff INHALATION RT-Q6H PRN 05/24/24 [History] Furosemide [Lasix] 40 mg PO BID@0900,1600 #60 tab 05/26/24 [Rx] Follow up Appointment(s)/Referral(s): Pantera Gomez MD [Primary Care Provider] - 3 Days Patient Instructions/Handouts: Hypomagnesemia (DC) Discharge Disposition: HOME WITH HOME HEALTH SERVICES
--- NOTE | 2024-05-26 13:44 | P.PN ---
Subjective Progress Note Date: 05/26/24 This is an 83-year-old male with past medical history of coronary artery disease with previous CABG with venous graft x 3 and HERNANDEZ to LAD, chronic systolic heart failure, COPD, diabetes mellitus type 2. We have been asked to evaluate the patient for shortness of breath. Patient was evaluated yesterday in the emergency center. EKG revealed left bundle branch block. Patient had mild elevation in troponins and creatinine of 0.9, hemoglobin 12. Patient was started on IV diuretics and continued on his home cardiac medications. Patient underwent cardiac catheterization in January 2024 and advised medical therapy. Patient is seen today on the cardiac stepdown unit. He denies having any chest pain. His breathing is much improved. He states he is had a cough with some mucus production. Blood pressure 110/61, heart rate in the 60s, pulse ox 94% on room air. Repeat blood work reveals hemoglobin 12.8, BUN 32 creatinine 0.84 and potassium 4.1. Echocardiogram from 2022 revealed moderate aortic stenosis with severe LV systolic dysfunction with EF of 30 to 35% Physical examination: Gen: This is an 83-year-old male in no acute distress VS: reviewed HEENT: Head is atraumatic, normocephalic. Pupils equal, round. Sclerae is anicteric. NECK: Supple. No JVD. LUNGS: Few crackles. No intercostal retractions. HEART: Regular rate and rhythm. Systolic ejection murmur. ABDOMEN: Soft No tenderness. EXTREMITIES: No pedal edema. No calf tenderness. NEUROLOGICAL: Patient is awake, alert and oriented x3. Assessment: Acute on chronic systolic heart failure Elevated troponin type II IA Ischemic cardiomyopathy. Plan: Continue current cardiac medications Transition IV Lasix to 40 twice daily Patient is cleared for discharge from cardiology and will follow-up in the office in 1 to 2 weeks. Nurse practitioner note has been reviewed, I agree with documented findings and plan of care. Patient was seen and examined. Objective - Vital Signs Vital signs: Vital Signs Temp 98.0 F 05/26/24 03:21 Pulse 72 05/26/24 08:03 Resp 18 05/26/24 03:21 BP 116/53 05/26/24 03:21 Pulse Ox 95 05/26/24 03:21 FiO2 Intake & Output 05/25/24 05/26/24 05/26/24 18:59 06:59 18:59 Intake Total 120 658 Output Total 1200 Balance 120 -1200 658 Weight 86.183 kg 88.5 kg Intake: Oral 120 658 Output: Urine 1200 Other: # Voids 1 1 # Bowel Movements 1 - Labs CBC & Chem 7: 05/26/24 06:50 05/26/24 06:50 Labs: Abnormal Lab Results - Last 24 Hours (Table) 05/25/24 05/26/24 05/26/24 Range/Units 23:15 06:50 06:50 WBC 13.1 H (3.8-10.6) k/uL RBC 4.09 L (4.30-5.90) m/uL Hgb 12.8 L (13.0-17.5) gm/dL Hct 38.3 L (39.0-53.0) % Sodium 136 L (137-145) mmol/L BUN 32 H (9-20) mg/dL Glucose 147 H (74-99) mg/dL POC Glucose (mg/dL) 198 H (70-110) mg/dL Magnesium 1.5 L (1.6-2.3) mg/dL
--- NOTE | 2024-05-26 14:15 | CA ---
Transthoracic Echo Report Name: Anibal Trinh Age: 83 Gender: M : 1940 Exam Date: 05/26/2024 09:23 Exam Location: [facility] Ht (in): 70 Wt (lb): 190 Ordering Physician: Jan Peres Attending/Referring Phys: Turning Sander Operator Madelin Harvey RDCS Procedure CPT: Indications: evaluate LV function Cardiac Hx: Technical Quality: Technically difficult study Contrast 1: Definity Total Dose (mL): 2 Contrast 2: Total Dose (mL): MEASUREMENTS (Male / Female) Normal Values 2D ECHO LV Diastolic Diameter PLAX 4.5 cm 4.2 - 5.9 / 3.9 - 5.3 cm LV Systolic Diameter PLAX 3.5 cm IVS Diastolic Thickness 1.6 cm 0.6 - 1.0 / 0.6 - 0.9 cm LVPW Diastolic Thickness 1.6 cm 0.6 - 1.0 / 0.6 - 0.9 cm LV Relative Wall Thickness 0.7 RV Internal Dim ED PLAX 4.2 cm LVOT Diameter 2.5 cm LA Systolic Diameter LX 5.1 cm 3.0 - 4.0 / 2.7 - 3.8 cm LV Diastolic Volume MOD BP 151.1 cm??? 67 - 155 / 56 - 104 cm??? LV Systolic Volume MOD BP 86.4 cm??? - 58 / 19 - 49 cm??? LV Ejection Fraction MOD BP 42.8 % >= 55 % LV Cardiac Index MOD BP 2458.9 cm???/min???m??? LV Diastolic Volume MOD 4C 164.6 cm??? LV Systolic Volume MOD 4C 94.8 cm??? LV Ejection Fraction MOD 4C 42.4 % LV Cardiac Index MOD 4C 2653.5 cm???/min???m??? LV Diastolic Length 4C 8.5 cm LV Systolic Length 4C 8.4 cm LV Diastolic Volume MOD 2C 122.7 cm??? LV Systolic Volume MOD 2C 77.4 cm??? LV Ejection Fraction MOD 2C 36.9 % LV Cardiac Index MOD 2C 1723.0 cm???/min???m??? LV Diastolic Length 2C 9.7 cm LV Systolic Length 2C 8.7 cm LA Volume 68.2 cm??? 18 - 58 / 22 - 52 cm??? LA Volume Index 32.8 cm???/m??? 16 - 28 cm???/m??? M-MODE Aortic Root Diameter MM 3.7 cm AV Cusp Separation MM 1.1 cm DOPPLER AV Peak Velocity 299.8 cm/s AV Peak Gradient 36.0 mmHg AV Mean Velocity 167.8 cm/s AV Mean Gradient 14.4 mmHg AV Velocity Time Integral 65.9 cm AI Peak Velocity 392.0 cm/s AI Peak Gradient 61.5 mmHg AI Pressure Half Time 1058.3 ms LVOT Peak Velocity 179.6 cm/s LVOT Peak Gradient 12.9 mmHg LVOT Velocity Time Integral 38.8 cm LVOT Stroke Volume 195.4 cm??? LVOT Stroke Volume Index 95.7 ml/m??? LVOT Cardiac Index 7426.1 cm???/min???m??? AV Area Cont Eq vti 3.0 cm??? AV Area Cont Eq pk 3.0 cm??? MV Area PHT 6.1 cm??? Mitral E Point Velocity 69.4 cm/s Mitral A Point Velocity 115.4 cm/s Mitral E to A Ratio 0.6 MV Deceleration Time 125.4 ms TR Peak Velocity 232.5 cm/s TR Peak Gradient 21.6 mmHg Right Ventricular Systolic Press 26.6 mmHg FINDINGS Left Ventricle Left ventricular ejection fraction is estimated at 30-35 %. Moderately increased septal wall thickness. Severely increased left ventricular systolic volume. Moderately decreased left ventricular ejection fraction. Right Ventricle Severe right ventricular dilatation. Right ventricular systolic pressure within normal limits. Right Atrium Right atrium not well visualized. Left Atrium Moderately increased left atrial diameter. Mildly increased left atrial volume. Mildly increased left atrial area. Mitral Valve Mitral valve thickened. Mild mitral annular calcification. Mild mitral regurgitation. Aortic Valve Aortic valve sclerosis. [id number] aortic stenosis with a peak gradient of 36 mmHg and a mean gradient of 13 mmHg. Low flow low gradient. Mild aortic regurgitation. Tricuspid Valve Structurally normal tricuspid valve. Mild tricuspid regurgitation. Pulmonic Valve Pulmonic valve not well visualized. Pericardium No pericardial or pleural effusion. Aorta Normal size aortic root and proximal ascending aorta. CONCLUSIONS Left ventricular ejection fraction 30-35% Moderately increased left ventricular wall thickness RVSP 27 Mild to moderately dilated left atrium Mild mitral regurgitation Moderate aortic stenosis with component of low-flow low gradient however parameters pointing towards moderate aortic stenosis with dimensionless index of 0.28 Previewed by: Dr. Arthur Osorio DO (Electronically Signed) Final Date: 26 May 2024 14:14
[2024-05-26] MEDS ORDERED: FUROSEMIDE 40 MG TAB PO SCH (16:00)
--- NOTE | 2024-05-26 16:15 | P.PN ---
Subjective Progress Note Date: 05/26/24 Principal diagnosis: Acute exacerbation of systolic congestive heart. Patient is a 83-year-old white male with past medical history significant for coronary artery disease with previous CABG and subsequent PCI/stenting, heart failure, hyperlipidemia, hypertension, diabetes mellitus type 2, cervical spinal canal stenosis. Patient's, PCP is Dr. Gomez. Patient has significant cardiovascular history. Known history of coronary artery disease and CABG. Most recently admitted back in April, for non-ST elevation TX and COVID infection. Since then, did undergo a heart catheterization in October, demonstrating inupiat coronary artery disease and patent bypass grafts from SVG to PDA, SVG to ramus, SVG to diagonal 1, and HERNANDEZ to LAD. He did have a heavily calcified OM1, medical management was recommended by cardiology. He does have history of severe ischemic cardiomyopathy, most recent echocardiogram done approximately 1 year ago, estimating a left ventricular ejection fraction of 30 to 35% along with moderate aortic stenosis. Patient returns to the emergency department last night complaining of shortness of breath over the last month or so, however, w orse over the last 2 to 3 days. There is an associated nonproductive cough. No known history of pre-existing lung disease. Reports brief smoking history. Recently treated in the ED on 05/23 with a Z-Matheus and sent home. He denies any recent sick contacts. Denies any runny nose, sinus pressure, sore throat. Denies any fevers, sputum production, hemoptysis, chest pain. Denies nausea, vomiting, diarrhea. Appetite and oral intake has been adequate. Does report history of heart failure; admits to lower extremity swelling. He does reportedly take Lasix on an outpatient basis, however, not listed in his home medications. Occasionally misses doses when planning to leave the house. Denies any chest pain, heart palpitations, lightheadedness/syncope, orthopnea, PND. Currently evaluating this patient in the ED. he is currently sitting up in the bed, on room air, in no acute distress. He did just use the bedside commode. Does have a congested nonproductive cough. Has remains afebrile. He does have some mild lower extremity edema. Chest x-ray showing stable cardiomegaly with increased interstitial densities and likely small bilateral pleural effusions. No obvious focal consolidations or pneumonia. NT proBNP was elevated at 4560. Serial troponins less than 0.012 and 0.485 respectively. EKG shows sinus rhythm with first-degree AV block and LBBB pattern, unchanged from previous study. CBC: WBC count 14.6, hemoglobin 12, hematocrit 36.8, platelets 224. CMP: Sodium 136, potassium 4.5, chloride 107, serum bicarb 21, BUN 34, creatinine 0.9, glucose 156. Current vital signs: Temperature 98.1 F, heart rate 98 bpm, blood pressure 111/64 mmHg, SpO2 98% on room air oxygen. Nontoxic appearance. Patient was evaluated today on 05/26/2024, feeling much better, breathing a lot easier, patient denies any cough shortness of breath, I will clear the patient for discharge if cleared by cardiology Objective - Vital Signs Vital signs: Vital Signs Temp 97.6 F 05/26/24 11:22 Pulse 66 05/26/24 13:07 Resp 16 05/26/24 11:22 BP 110/61 05/26/24 11:22 Pulse Ox 94 L 05/26/24 11:22 FiO2 Intake & Output 05/25/24 05/26/24 05/26/24 18:59 06:59 18:59 Intake Total 120 776 Output Total 1200 Balance 120 -1200 776 Weight 86.183 kg 88.5 kg Intake: Oral 120 776 Output: Urine 1200 Other: Voiding Method Toilet Urinal # Voids 1 1 # Bowel Movements 1 - Exam GENERAL EXAM: Alert, 83-year-old white male, comfortable in no apparent distress. HEAD: Normocephalic and atraumatic EYES: Normal reaction of pupils, equal size. NOSE: Clear with pink turbinates. THROAT: No erythema or exudates. NECK: No masses, no JVD. CHEST: No chest wall deformity. LUNGS: Clear bilaterally no rhonchi no wheezes CVS: S1 and S2 normal with soft systolic murmur, regular rhythm. No extra heart sounds ABDOMEN: No hepatosplenomegaly, active bowel sounds, no guarding or rigidity. Skin: No rashes CENTRAL NERVOUS SYSTEM: Alert oriented x 3 no gross focal deficit - Labs CBC & Chem 7: 05/26/24 06:50 05/26/24 06:50 Labs: Abnormal Lab Results - Last 24 Hours (Table) 05/25/24 05/26/24 05/26/24 Range/Units 23:15 06:50 06:50 WBC 13.1 H (3.8-10.6) k/uL RBC 4.09 L (4.30-5.90) m/uL Hgb 12.8 L (13.0-17.5) gm/dL Hct 38.3 L (39.0-53.0) % Sodium 136 L (137-145) mmol/L BUN 32 H (9-20) mg/dL Glucose 147 H (74-99) mg/dL POC Glucose (mg/dL) 198 H (70-110) mg/dL Magnesium 1.5 L (1.6-2.3) mg/dL Assessment and Plan Assessment: Impression Acute exacerbation of systolic congestive heart failure. Significantly improved Acute on chronic dyspnea, secondary to above, chest x-ray showing stable cardiomegaly with increased interstitial densities and likely small bilateral pleural effusions. No obvious focal consolidations or pneumonia. NT proBNP was elevated at 4560. Acute leukocytosis Elevated troponins, addressed by cardiology History of coronary artery disease with previous CABG, and subsequent PCI/stenting. History of ischemic cardiomyopathy, with most recent echocardiogram done back in April 2023, estimating a left ventricular ejection fraction of 30 to 35% as well as moderate aortic stenosis Diabetes mellitus type 2 Hypertension History of hyperlipidemia History of cervical spinal canal stenosis, patient is reportedly following outpatient with Dr. Marshall. Former tobacco use, briefly smoked over 60 years ago Recommendation: Continue diuretics continue present medications resume home meds including metoprolol Alfred Aldactone Plavix and atorvastatin and consider discharge planning if cleared by cardio Time with Patient: Less than 30
== END 2024-05-26 14:22 | disposition home health service (06) ==
LOC: EC 19:37 → 3SCARD 22:24
PROVIDERS: ADMIT Hospitalist; ATTEND Hospitalist
DX: I11.0 Hypertensive heart disease with heart failure (principal); I50.23 Acute on chronic systolic (congestive) heart failure; I21.A1 Myocardial infarction type 2; I25.5 Ischemic cardiomyopathy; I44.7 Left bundle-branch block, unspecified; I44.0 Atrioventricular block, first degree; I35.0 Nonrheumatic aortic (valve) stenosis; I25.10 Atherosclerotic heart disease of native coronary artery without angina pectoris; E11.9 Type 2 diabetes mellitus without complications; E78.5 Hyperlipidemia, unspecified; D72.829 Elevated white blood cell count, unspecified; M48.02 Spinal stenosis, cervical region; I25.2 Old myocardial infarction; S01.81XA Laceration without foreign body of other part of head, initial encounter; W19.XXXA Unspecified fall, initial encounter; Z79.02 Long term (current) use of antithrombotics/antiplatelets; Z79.84 Long term (current) use of oral hypoglycemic drugs; Z79.899 Other long term (current) drug therapy; Z88.0 Allergy status to penicillin; Z95.1 Presence of aortocoronary bypass graft; Z95.5 Presence of coronary angioplasty implant and graft; Z86.16 Personal history of COVID-19; Z87.891 Personal history of nicotine dependence; Z11.52 Encounter for screening for COVID-19; Z11.59 Encounter for screening for other viral diseases
CPT/HCPCS: 96376 ×2; 96365; 96366; 96372; 96375; 99285; 36415; 94640 ×4; 93005; 97162; 97166; 83880; 80048 ×2; 83735; 84484 ×2; 85025; 85027; 84145; 87636; 71046; 70450; G0378 ×3; C8929; J1100; J1940 ×2; J1650; Q9957; J3475; 93306

== ENCOUNTER → 2024-09-01 | Outpatient (CLI) | payer MEDICARE, BC ==
[2024-09-01 15:22] LABS: ALT 18 U/L (10-49); AST 22 U/L (14-35); Chol/HDL Ratio 4.11 Ratio; LDL Cholesterol,Calculated 110.7 mg/dL (0.0-131.0)
== END | disposition home or self-care (01) ==
LOC: LABWHC1 08:21
PROVIDERS: ATTEND Nurse Practitioner Acute Care
DX: E78.2 Mixed hyperlipidemia (principal)
CPT/HCPCS: 36415; 80061; 84450; 84460

== ENCOUNTER 2024-12-09 12:47 | Observation (INO) | payer MEDICARE, BC ==
--- NOTE | 2024-12-09 13:17 | ED ---
General Adult HPI - General Chief complaint: Shortness of Breath Stated complaint: SOB Time Seen by Provider: 12/09/24 13:01 Source: patient, family, RN notes reviewed Mode of arrival: wheelchair Limitations: no limitations - History of Present Illness Initial comments: Patient is an 84-year-old male present to the emergency department with concerns with difficulty in breathing. Onset of symptoms was the last couple of days. Worse today. Patient has orthopnea and exertional dyspnea. Patient has CHF history with ejection fraction 30%. Patient is pending TAVR procedure with Dr. Osorio. Patient does have increased leg edema. Patient took extra Lasix today without much improvement of symptoms. - Related Data Home Medications Medication Instructions Recorded Confirmed glipiZIDE/METFORMIN HCL 1 tab PO DAILY 09/12/17 05/24/24 [glipiZIDE/METFORMIN HCL 2.5-500 mg] Spironolactone 12.5 mg PO DAILY 08/10/19 05/24/24 Metoprolol Tartrate [Lopressor] 25 mg PO BID 08/23/19 05/24/24 Clopidogrel Bisulfate [Plavix] 75 mg PO DAILY 04/28/22 05/24/24 Sacubitril/Valsartan [Entresto 24 1 tab PO BID 04/28/22 05/24/24 mg-26 mg Tablet] glipiZIDE/METFORMIN HCL 2 tab PO HS 05/09/23 05/24/24 [glipiZIDE/METFORMIN HCL 2.5-500 mg] Albuterol Inhaler [Ventolin Hfa 2 puff INHALATION RT-Q6H PRN 05/24/24 05/24/24 Inhaler] Previous Rx's Medication Instructions Recorded Atorvastatin [Lipitor] 80 mg PO HS tab 08/16/19 Azithromycin [Zithromax Z Pack] 250 mg PO DAILY #4 tab 05/23/24 Furosemide [Lasix] 40 mg PO BID@0900,1600 #60 tab 05/26/24 Allergies Allergy/AdvReac Type Severity Reaction Status Date / Time Penicillins Allergy Rash/Hives Verified 12/09/24 12:57 Review of Systems ROS Statement: Those systems with pertinent positive or pertinent negative responses have been documented in the HPI. ROS Other: All systems not noted in ROS Statement are negative. Constitutional: Denies: fever Eyes: Denies: eye pain ENT: Denies: ear pain Respiratory: Reports: as per HPI, dyspnea. Denies: cough Cardiovascular: Reports: dyspnea on exertion, orthopnea, edema. Denies: chest pain Endocrine: Reports: fatigue Gastrointestinal: Denies: abdominal pain Past Medical History Past Medical History: Coronary Artery Disease (CAD), Cancer, Diabetes Mellitus, Hyperlipidemia, Hypertension Additional Past Medical History / Comment(s): See Dr Haas's H&P, had some kind of skin cancer removed as a teen-not sure what kind, no problems since. History of Any Multi-Drug Resistant Organisms: None Reported Past Surgical History: Coronary Bypass/CABG, Heart Catheterization, Heart Catheterization With Stent Additional Past Surgical History / Comment(s): open heart 2014 CABGX4 Past Anesthesia/Blood Transfusion Reactions: No Reported Reaction Date of Last Stent Placement:: 08/11/2019 Past Psychological History: No Psychological Hx Reported Smoking Status: Never smoker Past Alcohol Use History: Rare Past Drug Use History: None Reported - Past Family History Mother Family Medical History: No Reported History, Diabetes Mellitus Additional Family Medical History / Comment(s): Mother at age 84 with h istory of diabetes. Father Family Medical History: Hypertension Additional Family Medical History / Comment(s): Father at age 86 from old a ge with history of hypertension. Brother(s) Family Medical History: Hypertension Additional Family Medical History / Comment(s): Patient has a total of 4 brothers. 2 brothers have passed, one from leukemia and one from liver cancer. Son(s) Family Medical History: Coronary Artery Disease (CAD) Additional Family Medical History / Comment(s): Then of heart attack was stopped patient has 1 daughter with underlying COPD Sister(s) Additional Family Medical History / Comment(s): Patient has 1 sister with no major medical problems. General Exam Limitations: no limitations General appearance: alert, in no apparent distress Head exam: Present: normocephalic Eye exam: Present: normal appearance Neck exam: Present: normal inspection Respiratory exam: Present: rales (Mild bilateral bases) Cardiovascular Exam: Present: regular rate, normal rhythm, systolic murmur GI/Abdominal exam: Present: soft. Absent: tenderness Extremities exam: Present: pedal edema. Absent: calf tenderness Neurological exam: Present: alert Psychiatric exam: Present: normal affect, normal mood Skin exam: Present: normal color Course Vital Signs 12/09/24 12:53 Temperature 97.4 F L Pulse Rate 74 Respiratory 22 Rate Blood Pressure 125/77 O2 Sat by Pulse 98 Oximetry EKG Findings - EKG Results: EKG: interpreted by ERIC (First we AV block with a NM of 213. PVC present. Left axis. Left under branch block. Nonspecific T waves.), sinus rhythm Medical Decision Making - Medical Decision Making Was pt. sent in by a medical professional or institution (, PA, FOOD BEVERAGE ATTENDANT, urgent ca re, hospital, or penitentiary...) When possible be specific @ -No Did you speak to anyone other than the patient for history (EMS, parent, family, police, friend...)? What history was obtained from this source @ -Family is present including son who is a physician assistant account executive who helps provide history including patient's symptoms and onset Did you review nursing and triage notes (agree or disagree)? Why? @ -I reviewed and agree with nursing and triage notes Were old charts reviewed (outside hosp., previous admission, EMS record, old EKG, old radiological studies, urgent care reports/EKG's, penitentiary records)? Report findings @ -No old charts were reviewed Differential Diagnosis (chest pain, altered mental status, abdominal pain women, abdominal pain men, vaginal bleeding, weakness, fever, dyspnea, syncope, headache, dizziness, GI bleed, back pain, seizure, CVA, palpatations, mental health, musculoskeletal)? @ -Differential Dyspnea: Coronary syndrome, arrhythmia, tamponade, asthma, COPD, pulmonary embolism, pneumonia, pneumothorax, pulmonary effusion, anaphylaxis, diabetic ketoacidosis, flailed chest, pulmonary contusion, diaphragmatic rupture, anemia, neuromuscular, this is not meant to be an all-inclusive list. EKG interpreted by me (3pts min.). @ -As above X-rays interpreted by me (1pt min.). @ -Chest x-ray shows cardiomegaly, postoperative changes, CHF CT interpreted by me (1pt min.). @ -None done U/S interpreted by me (1pt. min.). @ -None done What testing was considered but not performed or refused? (CT, X-rays, U/S, labs)? Why? @ -None What meds were considered but not given or refused? Why? @ -None Did you discuss the management of the patient with other professionals (professionals i.e. , PA, FOOD BEVERAGE ATTENDANT, lab, RT, psych nurse, social and political studies professor, assayer, teacher, animal services officer, correctional counselor/case manager)? Give summary @ -Case was discussed with Dr. Epstein who will admit covering Dr. Dee Was smoking cessation discussed for >3mins.? @ -No Was critical care preformed (if so, how long)? @ -No Were there social determinants of health that impacted care today? How? (Homelessness, low income, unemployed, alcoholism, drug addiction, transportation, low edu. Level, literacy, decrease access to med. care, detention, rehab)? @ -No Was there de-escalation of care discussed even if they declined (Discuss DNR or withdrawal of care, Hospice)? DNR status @ -No What co-morbidities impacted this encounter? (DM, HTN, Smoking, COPD, CAD, Cancer, CVA, ARF, Chemo, Hep., AIDS, mental health diagnosis, sleep apnea, morbid obesity)? @ -History of CHF Was patient admitted / discharged? Hospital course, mention meds given and route, prescriptions, significant lab abnormalities, going to OR and other pertinent info. @ -Patient presents with dyspnea, progressive over the last couple of days consistent with history of CHF. Evaluation consistent with this as well. Patient will be admitted with cardiac consult. Patient and family updated. Admission orders written. Undiagnosed new problem with uncertain prognosis? @ -No Drug Therapy requiring intensive monitoring for toxicity (Heparin, Nitro, Insulin, Cardizem)? @ -No Were any procedures done? @ -No Diagnosis/symptom? @ -CHF Acute, or Chronic, or Acute on Chronic? @ -Acute Uncomplicated (without systemic symptoms) or Complicated (systemic symptoms)? @ -Default Side effects of treatment? @ -No Exacerbation, Progression, or Severe Exacerbation? @ -No Poses a threat to life or bodily function? How? (Chest pain, [place], [place], pneumonia, PE, COPD, DKA, ARF, appy, cholecystitis, CVA, Diverticulitis, Homicidal, Suicidal, threat to staff... and all critical care pts) @ -Threat to cardiac function - Lab Data Result diagrams: 12/09/24 13:42 12/09/24 13:42 Lab Results 12/09/24 12/09/24 12/09/24 Range/Units 13:42 13:42 13:42 WBC 8.31 (4.50-10.00) 10*3/uL RBC 3.50 L (4.40-5.60) 10*6/uL Hgb 11.1 L (13.0-17.0) g/dL Hct 32.6 L (39.6-50.0) % MCV 93.1 (80.0-97.0) fL MCH 31.7 (27.0-32.0) pg MCHC 34.0 (32.0-37.0) g/dL Plt Count 218 (140-440) 10*3/uL MPV 11.4 (9.5-12.2) fL Immature Gran % (Auto) 0.5 % Neutrophils % 68.4 % Lymphocytes % 18.1 % Monocytes % 8.7 % Eosinophils % 3.7 % Basophils % 0.6 % Immature Gran # 0.04 (0.00-0.04) 10*3/uL Neutrophils # 5.69 (1.80-7.70) 10*3/uL Lymphocytes # 1.50 (0.90-5.00) 10*3/uL Monocytes # 0.72 (0.20-1.00) 10*3/uL Eosinophils # 0.31 (0.04-0.35) 10*3/uL Basophils # 0.05 (0.00-0.10) 10*3/uL PT 11.1 (10.0-12.5) sec INR 1.0 (<1.2) APTT 22.1 (22.0-30.0) sec Sodium 136 L (137-145) mmol/L Potassium 4.7 (3.5-5.1) mmol/L Chloride 102 (98-107) mmol/L Carbon Dioxide 22 (22-30) mmol/L Anion Gap 12 mmol/L BUN 34 H (9-20) mg/dL Creatinine 0.92 (0.66-1.25) mg/dL Est GFR (CKD-EPI)AfAm 88 (>60 ml/min/1.73 sqM) Est GFR (CKD-EPI)NonAf 76 (>60 ml/min/1.73 sqM) Glucose 94 (74-99) mg/dL Calcium 10.0 (8.4-10.2) mg/dL Magnesium 1.6 (1.6-2.3) mg/dL Total Bilirubin 1.9 H (0.2-1.3) mg/dL AST 26 (17-59) U/L ALT 19 (4-49) U/L Alkaline Phosphatase 52 (38-126) U/L Troponin I (0.000-0.034) ng/mL NT-Pro-B Natriuret Pep 8340 pg/mL Total Protein 7.0 (6.3-8.2) g/dL Albumin 4.2 (3.5-5.0) g/dL 12/09/24 Range/Units 13:42 WBC (4.50-10.00) 10*3/uL RBC (4.40-5.60) 10*6/uL Hgb (13.0-17.0) g/dL Hct (39.6-50.0) % MCV (80.0-97.0) fL MCH (27.0-32.0) pg MCHC (32.0-37.0) g/dL Plt Count (140-440) 10*3/uL MPV (9.5-12.2) fL Immature Gran % (Auto) % Neutrophils % % Lymphocytes % % Monocytes % % Eosinophils % % Basophils % % Immature Gran # (0.00-0.04) 10*3/uL Neutrophils # (1.80-7.70) 10*3/uL Lymphocytes # (0.90-5.00) 10*3/uL Monocytes # (0.20-1.00) 10*3/uL Eosinophils # (0.04-0.35) 10*3/uL Basophils # (0.00-0.10) 10*3/uL PT (10.0-12.5) sec INR (<1.2) APTT (22.0-30.0) sec Sodium (137-145) mmol/L Potassium (3.5-5.1) mmol/L Chloride (98-107) mmol/L Carbon Dioxide (22-30) mmol/L Anion Gap mmol/L BUN (9-20) mg/dL Creatinine (0.66-1.25) mg/dL Est GFR (CKD-EPI)AfAm (>60 ml/min/1.73 sqM) Est GFR (CKD-EPI)NonAf (>60 ml/min/1.73 sqM) Glucose (74-99) mg/dL Calcium (8.4-10.2) mg/dL Magnesium (1.6-2.3) mg/dL Total Bilirubin (0.2-1.3) mg/dL AST (17-59) U/L ALT (4-49) U/L Alkaline Phosphatase (38-126) U/L Troponin I 0.015 (0.000-0.034) ng/mL NT-Pro-B Natriuret Pep pg/mL Total Protein (6.3-8.2) g/dL Albumin (3.5-5.0) g/dL Disposition Clinical Impression: Congestive heart failure Disposition: ADMITTED IP TO THIS HOSP Is patient prescribed a controlled substance at d/c from ED?: No Referrals: Pantera Gomez MD [Primary Care Provider] - 1-2 days Time of Disposition: 14:41
[2024-12-09] MEDS: NITROGLYCERIN OINT 1 INCH/GM PACKET TOPICAL STA (13:52)
[2024-12-09] MEDS: FUROSEMIDE 10 MG/ML 4 ML VIAL IV STA (13:52)
[2024-12-09 13:56] LABS: Basophils # (A) 0.05 10*3/uL (0.00-0.10); Basophils % (A) 0.6 %; Eosinophils # (A) 0.31 10*3/uL (0.04-0.35); Eosinophils % (A) 3.7 %; HCT 32.6 % (39.6-50.0); HGB 11.1 g/dL (13.0-17.0); Lymphocytes % (A) 18.1 %; MCH 31.7 pg (27.0-32.0); MCV 93.1 fL (80.0-97.0); Mean Platelet Volume 11.4 fL (9.5-12.2); Monocytes # (A) 0.72 10*3/uL (0.20-1.00); Monocytes % (A) 8.7 %; Neutrophils # (A) 5.69 10*3/uL (1.80-7.70); Neutrophils % (A) 68.4 %; Platelet Count 218 10*3/uL (140-440); RDW 14.1 % (11.5-14.5); WBC 8.31 10*3/uL (4.50-10.00)
[2024-12-09 14:04] LABS: ALT 19 U/L (4-49); AST 26 U/L (17-59); African American GFR (CKD) 88 (>60 ml/min/1.73 sqM); Albumin 4.2 g/dL (3.5-5.0); Alkaline Phosphatase 52 U/L (38-126); Anion Gap 12 mmol/L; Blood Urea Nitrogen 34 mg/dL (9-20); Carbon Dioxide 22 mmol/L (22-30); Chloride 102 mmol/L (98-107); Glucose 94 mg/dL (74-99); Magnesium 1.6 mg/dL (1.6-2.3); Non-African American GFR(CKD) 76 (>60 ml/min/1.73 sqM); Potassium 4.7 mmol/L (3.5-5.1); Sodium 136 mmol/L (137-145); Total Bilirubin 1.9 mg/dL (0.2-1.3)
[2024-12-09 14:09] LABS: Partial Thromboplastin Time 22.1 sec (22.0-30.0); Prothrombin Time 11.1 sec (10.0-12.5)
--- NOTE | 2024-12-09 14:09 | XR ---
EXAMINATION TYPE: XR chest 2V DATE OF EXAM: 12/09/2024 1:51 PM COMPARISON: Chest radiographs from 05/24/2024 CLINICAL INDICATION: Male, 84 years old with history of difficulty breathing; TECHNIQUE: XR chest 2V Frontal and lateral views of the chest. FINDINGS: Lungs/Pleura: There is no evidence of pleural effusion, focal consolidation, or pneumothorax. Pulmonary vascularity: Unremarkable. Heart/mediastinum: Cardiomediastinal silhouette is enlarged. Musculoskeletal: No acute osseous pathology. Midline sternotomy wires are noted. IMPRESSION: Cardiomegaly and mild pulmonary vascular congestion. Correlate with BNP for congestive heart failure. [facility], , 12/09/2024 2:07 PM
[2024-12-09 14:12] LABS: NT-Pro-B-Type Natriuretic Pept 8340 pg/mL
[2024-12-09] MEDS: ASPIRIN 325 MG TAB PO STA (16:05)
[2024-12-09] MEDS: FUROSEMIDE 10 MG/ML 4 ML VIAL IV SCH (17:40)
[2024-12-09] MEDS: NITROGLYCERIN OINT 1 INCH/GM PACKET TOPICAL SCH (17:40)
[2024-12-09 20:25] LABS: Glucose,Whole Blood 152 mg/dL (70-110)
[2024-12-09] MEDS: KETOROLAC 0.5% OPHTH DROPS 5 ML BTL RIGHT EYE SCH (21:07)
[2024-12-09] MEDS: METOPROLOL TARTRATE 25 MG TAB PO SCH (21:11)
[2024-12-09] MEDS: MELATONIN 3 MG TABLET PO PRN (23:49)
[2024-12-10 02:09] VITALS: PULSE 67
[2024-12-10 05:58] LABS: Glucose,Whole Blood 138 mg/dL (70-110)
[2024-12-10 07:43] VITALS: BP 133/64; RESP 17; TEMP 98.1
[2024-12-10] MEDS: CLOPIDOGREL 75 MG TAB PO SCH (08:45)
[2024-12-10] MEDS: SPIRONOLACTONE 25 MG TAB PO SCH (08:45)
[2024-12-10] MEDS: ATORVASTATIN 80 MG TAB PO SCH (08:45)
[2024-12-10] MEDS: ASPIRIN 325 MG TAB PO SCH (08:45)
--- NOTE | 2024-12-10 12:26 | P.CRDCN ---
History of Present Illness Consult date: 12/10/24 History of present illness: .......................................... HPI: Known to Dr. Osorio present to the hospital because of increased worsening shortness of breath. He was given extra dose of IV Lasix in the ER x 2 and he feels back to his baseline. He was recently prescribed SGLT2 on outpatient basis however it was not picked up because of high cost burden. He is very eager to go home and is not wanting to stay in the hospital for further workup. I will optimize his medications increase his Lasix to 40 twice daily and Aldactone to 25 mg daily He is awaiting outpatient TAVR workup BP 118/65, heart rate 66 bpm, Hb 11, BUN 34, creatinine 0.9, troponins were negative x 3, NT-proBNP 8000, EKG shows sinus rhythm left bundle branch block Chest x-ray shows mild increase interstitial markings cystoscopy mild fluid overload .......................................... PHYSICAL EXAMINATION: CVS: Regular pulse, Normal S1 and S2, systolic murmur radiated to carotids. 2+ pitting edema bilateral extremity Vascular: Delayed carotid upstrokes. No bruits. Normal radial pulses bilaterally. Respi: Good air entry in b/l lung stanley, mild crackles audible GI: Non distented Neuro: No focal neurological deficit. Detailed neuro exam was not performed. ...................................... ASSESSMENT: # Mild HFpEF exacerbation # Severe symptomatic aortic stenosis # Essential hypertension # CAD status post CABG, patent HERNANDEZ to LAD and SVG grafts to 3 vessels from heart cath in 2023 ..................................... PLAN: Optimized his medication. Increase Lasix from 20 mg twice daily to 40 m twice daily. Increase Aldactone from 12.5 to 25 mg daily He cannot afford SGLT2. Reduce metoprolol to 12.5 twice daily because of low resting heart rate in low 60s when resting along with history of severe . Continue other home medication without any changes. Lipitor 80, Plavix 75, Patient is cleared to be discharged from cardiovascular standpoint Recommend outpatient follow-up with Dr. Osorio for awaited outpatient aortic stenosis workup Past Medical History Past Medical History: Coronary Artery Disease (CAD), Cancer, Diabetes Mellitus, Hyperlipidemia, Hypertension Additional Past Medical History / Comment(s): See Dr Haas's H&P, had some kind of skin cancer removed as a teen-not sure what kind, no problems since. aortic stenosis, needs a TAVR/Pacemaker (12/09/2024), CHF,needs back surgery History of Any Multi-Drug Resistant Organisms: None Reported Past Surgical History: Coronary Bypass/CABG, Heart Catheterization, Heart Catheterization With Stent Additional Past Surgical History / Comment(s): open heart 2014 CABGX4, Past Anesthesia/Blood Transfusion Reactions: No Reported Reaction Date of Last Stent Placement:: 08/11/2019 Past Psychological History: No Psychological Hx Reported Smoking Status: Never smoker Past Alcohol Use History: Rare Additional Past Alcohol Use History / Comment(s): Patient is a lifelong nonsmoker. Patient drinks 3 ounces of wine every other day, no marijuana or illicit drug use. Past Drug Use History: None Reported - Past Family History Mother Family Medical History: No Reported History, Diabetes Mellitus Additional Family Medical History / Comment(s): Mother at age 84 with history of diabetes. Father Family Medical History: Hypertension Additional Family Medical History / Comment(s): Father at age 86 from old age with history of hypertension. Brother(s) Family Medical History: Hypertension Additional Family Medical History / Comment(s): Patient has a total of 4 brothe rs. 2 brothers have passed, one from leukemia and one from liver cancer. Son(s) Family Medical History: Coronary Artery Disease (CAD) Additional Family Medical History / Comment(s): Then of heart attack was stopped patient has 1 daughter with underlying COPD Sister(s) Additional Family Medical History / Comment(s): Patient has 1 sister with no major medical problems. Medications and Allergies Home Medications Medication Instructions Recorded Confirmed Type glipiZIDE/METFORMIN HCL 1 tab PO DAILY 09/12/17 12/09/24 History [glipiZIDE/METFORMIN HCL 2.5-500 mg] Spironolactone 12.5 mg PO DAILY 08/10/19 12/09/24 History Metoprolol Tartrate [Lopressor] 25 mg PO BID 08/23/19 12/09/24 History Clopidogrel Bisulfate [Plavix] 75 mg PO DAILY 04/28/22 12/09/24 History glipiZIDE/METFORMIN HCL 2 tab PO HS 05/09/23 12/09/24 History [glipiZIDE/METFORMIN HCL 2.5-500 mg] Atorvastatin [Lipitor] 80 mg PO DAILY 12/09/24 12/09/24 History Furosemide [Lasix] 20 - 40 mg PO DAILY 12/09/24 12/09/24 History Ketorolac 0.5% Ophth Soln [Acular 1 drops RIGHT EYE QID 12/09/24 12/09/24 History 0.5%] Losartan [Cozaar] 25 mg PO DAILY 12/09/24 12/09/24 History Nitroglycerin Sl Tabs [Nitrostat] 0.4 mg SUBLINGUAL Q5M PRN 12/09/24 12/09/24 History Allergies Allergy/AdvReac Type Severity Reaction Status Date / Time Penicillins Allergy Rash/Hives Verified 12/09/24 12:57 Physical Exam Vitals: Vital Signs Temp Pulse Pulse Resp BP BP Pulse Ox 12/10/24 07:12 98.1 F 67 17 133/64 96 12/10/24 02:09 67 16 144/86 97 12/09/24 19:22 97.7 F 68 17 118/65 98 12/09/24 17:57 18 12/09/24 17:48 65 17 99/66 96 12/09/24 16:00 60 20 104/65 96 12/09/24 12:53 97.4 F L 74 22 125/77 98 Intake and Output 12/09/24 12/10/24 12/10/24 22:59 06:59 14:59 Other: Voiding Method Toilet Toilet # Voids 2 4 Weight 86.183 kg Results 12/09/24 13:42 12/09/24 13:42 Cardiac Enzymes 12/09/24 12/09/24 12/09/24 Range/Units 13:42 13:42 19:49 AST 26 (17-59) U/L Troponin I 0.015 0.016 (0.000-0.034) ng/mL 12/09/24 Range/Units 23:17 AST (17-59) U/L Troponin I 0.017 (0.000-0.034) ng/mL Coagulation 12/09/24 Range/Units 13:42 PT 11.1 (10.0-12.5) sec APTT 22.1 (22.0-30.0) sec CBC 12/09/24 Range/Units 13:42 WBC 8.31 (4.50-10.00) 10*3/uL RBC 3.50 L (4.40-5.60) 10*6/uL Hgb 11.1 L (13.0-17.0) g/dL Hct 32.6 L (39.6-50.0) % Plt Count 218 (140-440) 10*3/uL Comprehensive Metabolic Panel 12/09/24 Range/Units 13:42 Sodium 136 L (137-145) mmol/L Potassium 4.7 (3.5-5.1) mmol/L Chloride 102 (98-107) mmol/L Carbon Dioxide 22 (22-30) mmol/L BUN 34 H (9-20) mg/dL Creatinine 0.92 (0.66-1.25) mg/dL Glucose 94 (74-99) mg/dL Calcium 10.0 (8.4-10.2) mg/dL AST 26 (17-59) U/L ALT 19 (4-49) U/L Alkaline Phosphatase 52 (38-126) U/L Total Protein 7.0 (6.3-8.2) g/dL Albumin 4.2 (3.5-5.0) g/dL Current Medications Generic Name Dose Route Start Last Admin Trade Name Freq PRN Reason Stop Dose Admin Atorvastatin Calcium 80 mg 12/10/24 09:00 12/10/24 08:45 Atorvastatin 80 Mg Tab PO 80 mg DAILY [facility] Administration Clopidogrel Bisulfate 75 mg 12/10/24 09:00 12/10/24 08:45 Clopidogrel 75 Mg Tab PO 75 mg DAILY JUD Administration Furosemide 40 mg 12/10/24 16:00 Furosemide 40 Mg Tab PO BID@0900,1600 [facility] Ketorolac Tromethamine 1 drops 12/09/24 22:00 12/10/24 08:48 Ketorolac 0.5% Ophth Drops 5 Ml Btl RIGHT EYE Not Given QID JUD Melatonin 6 mg 12/09/24 23:12 12/09/24 23:49 Melatonin 3 Mg Tablet PO 6 mg HS PRN Administration Insomnia Metoprolol Tartrate 12.5 mg 12/10/24 21:00 Metoprolol Tartrate 12.5 Mg Tab PO BID JUD Nitroglycerin 1 inch 12/09/24 18:00 12/10/24 11:09 Nitroglycerin Oint 1 Inch/Gm Packet TOPICAL 12/10/24 17:59 Not Given Q6HR JUD Spironolactone 25 mg 12/11/24 09:00 Spironolactone 25 Mg Tab PO DAILY JUD Intake and Output 12/09/24 12/10/24 12/10/24 22:59 06:59 14:59 Other: Voiding Method Toilet Toilet # Voids 2 4 Weight 86.183 kg 12/09/24 13:42 12/09/24 13:42
[2024-12-10] MEDS ORDERED: FUROSEMIDE 40 MG TAB PO SCH (16:00)
[2024-12-10] MEDS ORDERED: METOPROLOL TARTRATE 12.5 MG TAB PO SCH (21:00)
[2024-12-11] MEDS ORDERED: SPIRONOLACTONE 25 MG TAB PO SCH (09:00)
== END 2024-12-10 12:47 | disposition home or self-care (01) ==
LOC: EC 12:47 → 6NMEDSUR 14:42
PROVIDERS: ADMIT Internal Medicine; ATTEND Internal Medicine
DX: I11.0 Hypertensive heart disease with heart failure (principal); I50.30 Unspecified diastolic (congestive) heart failure; E11.9 Type 2 diabetes mellitus without complications; E78.5 Hyperlipidemia, unspecified; I25.10 Atherosclerotic heart disease of native coronary artery without angina pectoris; I35.0 Nonrheumatic aortic (valve) stenosis; I44.7 Left bundle-branch block, unspecified; Z79.02 Long term (current) use of antithrombotics/antiplatelets; Z79.899 Other long term (current) drug therapy; Z95.1 Presence of aortocoronary bypass graft; Z95.5 Presence of coronary angioplasty implant and graft; Z88.0 Allergy status to penicillin; Z79.84 Long term (current) use of oral hypoglycemic drugs
CPT/HCPCS: 96376; 96374; 99285; 36415; 93005; 83880; 80053; 83605; 83735; 84484; 85025; 85610; 85730; 71046; G0378 ×2; J1938 ×2

== ENCOUNTER → 2024-12-20 | Day surgery (SDC) | payer MEDICARE, BC ==
[~2024-12-20] MED LIST changes: -ASPIRIN 325 MG TAB PO STA; +HEPARIN SODIUM,PORCINE (1 ML) 2,500 UNIT in SODIUM CHLORIDE 0.9% 250 ML IRRIGATION PRN; +HEPARIN SODIUM,PORCINE 10,000 UNIT in SODIUM CHLORIDE 0.9% 1,000 ML IRRIGATION PRN
[2024-12-20] MEDS: IV FLUID CONTINUATION 1,000 ML IV ONE (09:05)
[2024-12-20 09:19] VITALS: TEMP 98.2
[2024-12-20 09:19] LABS: Glucose,Whole Blood 126 mg/dL (70-110)
[2024-12-20] MEDS: ASPIRIN 325 MG TAB PO STA (09:21)
[2024-12-20] MEDS: SODIUM CHLORIDE 0.9% 1,000 ML in EMPTY BAG 1 BAG IV SCH (09:22)
[2024-12-20] MEDS: BENZOCAINE SPRAY 1 EACH MM ONE ×2 (10:44→10:49)
[2024-12-20] MEDS: MIDAZOLAM 2 MG/2 ML VIAL IVP ONE ×2 (10:49→10:55)
[2024-12-20] MEDS: fentaNYL (PF) 50 MCG/1 ML VIAL IVP ONE ×2 (10:49→10:55)
[2024-12-20] MEDS: SODIUM CHLORIDE 0.9% 1,000 ML IV ONE (11:24)
[2024-12-20] MEDS: HEPARIN SODIUM 1,000 UN/ML (10ML VL) IVP ONE (11:29)
[2024-12-20] MEDS: VERAPAMIL 2.5 MG/ML 4 ML VIAL INTRAARTER ONE (11:34)
[2024-12-20] MEDS: HEPARIN SODIUM,PORCINE 10,000 UNIT in SODIUM CHLORIDE 0.9% 1,000 ML IRRIGATION ONE (11:37)
[2024-12-20] MEDS: HEPARIN SODIUM,PORCINE (1 ML) 2,500 UNIT in SODIUM CHLORIDE 0.9% 250 ML IRRIGATION ONE (11:37)
[2024-12-20] MEDS: IOPAMIDOL-370 100ML BTL INTRATHECA ONE (12:10)
--- NOTE | 2024-12-20 12:23 | P.TEE ---
Description of Procedure(s): Procedure performed: Transesophageal Echocardiogram with color flow doppler, pulsed wave doppler and continuous wave doppler, moderate conscious sedation Moderate conscious sedation: Moderate conscious sedation was supplied with direct supervision of myself using Versed and Fentanyl. Complications: none Indications: Aortic stenosis PROCEDURE: After the risks, benefits and alternatives of the above mentioned procedure was explained in detail with the patient, informed consent was obtained. Patient was brought to the lab in a fasting state. Patient was given IV Versed and Fentanyl for sedation. The throat was sprayed with Hurricane to anesthetize the throat. A lubricated Omni probe was then introduced into the esophagus and stomach and multiple views were obtained. 2D echo with color flow doppler, pulsed wave doppler and continuous wave doppler was utilized. Agitated saline bubbles were injected to assess for any intra-atrial shunt. The probe was then removed. Patient tolerated the procedure well. Patient was transferred to the post procedure area in stable and satisfactory condition. FINDINGS: 1. The aortic valve is tricuspid with severe aortic stenosis with aortic valve area 0.9 cm by planimetry. 2. The mitral valve appears be normal with mild to moderate mitral regurgitation. 3. Tricuspid valve has mild tricuspid regurgitation. 4. The interatrial septum is intact. No evidence of PFO. 5. Left atrial appendage is free of clot. 6. Left ventricular ejection fraction 30 to 35%
[2024-12-20 12:25] LABS: O2 Sat Blood Gas 71.4 %
[2024-12-20 12:26] LABS: O2 Sat Blood Gas 99.4 %
[2024-12-20 12:27] LABS: O2 Sat Blood Gas 73.6 %
--- NOTE | 2024-12-20 12:30 | P.CARDCATH ---
Description of Procedure: PROCEDURES PERFORMED: Left coronary angiography, ultrasound guided arterial access, SVG to diagonal, SVG to ramus, SVG to PDA and HERNANDEZ to LAD angiography, right heart catheterization INDICATION: Aortic stenosis CONSENT:I have discussed the risks, benefits and alternative therapies for the above-mentioned procedure and for both sedation/analgesia as well as necessary blood product administration, if indicated, as they pertain to this patient. The patient has indicated understanding and acceptance of the risks and procedures discussed. PROCEDURE: After the risks, benefits and alternatives of the above mentioned procedure explained in detail with the patient, informed consent was obtained. Patient was taken to the catheterization lab and prepped and draped in usual fashion. Ultrasound guidance was used to assess for arterial access. 1% lidocaine was used to anesthetize the left radial artery. A 6-Nigerian sheath was placed in the left radial artery using modified Seldinger technique and ultrasound guidance. A 6 Nigerian sheath was placed in the right brachial vein using ultrasound guidance. A 5 Nigerian [place] catheter was inserted into the right atrium, right ventricle, pulmonary artery and pulmonary capillary wedge position. Pressure measurements and oxygen saturations were obtained. Left coronary angiography was performed with a 6-Nigerian CLS 4.0 guide catheter. Right coronary angiography was not performed as is known to be 100% occluded. SVG to PDA angio was performed with a multipurpose 1 guide, SVG to SVG to ramus angio was performed with a 5Fr multipurpose A2. HERNANDEZ to LAD was performed with a 6 FR BIJAN catheter. Due to contrast threshold, length of case and backfilling of diagonal branch, no images of SVG to diagonal branch were performed. The left radial sheath was removed and a TR band was placed with hemostasis achieved. The patient tolerated the procedure well. Patient was transported back to the post catheterization holding area in stable condition. Conscious Sedation: Patient was monitored under the direct supervision of myself for conscious sedation using Versed and fentanyl for a total duration of 60 minutes HEMODYNAMICS: Ao: 110/54 PCWP: 9 PA: 42/6 RV: 52/4 RA: 5 Left radial oxygen saturation: 99% Pulmonary artery oxygen saturation: 71% Right atrium oxygen saturation: 74% Cardiac output by Carolyne: 7.6 L/min Cardiac index by Carolyne: 3.7 L/min Cardiac output by thermodilution: 4.9 L/min Cardiac index by Carolyne: 2.4 L/min/m SELECTIVE CORONARY ARTERIOGRAPHY: LEFT MAIN: The left main is a large caliber vessel which trifurcates (and nearly splits into 4) into the LAD, ramus and circumflex/ high OM1. There is mild 10- 20% calcified left main stenosis LEFT ANTERIOR DESCENDING CORONARY ARTERY: LAD is a large caliber vessel which wraps around to the apex. There is 100% ostial LAD stenosis. RAMUS INTERMEDIUS: The ramus is a moderate heavily calcified 80% stenosis LEFT CIRCUMFLEX CORONARY ARTERY: Left circumflex is a moderate caliber vessel without significant stenosis. There is a "high" OM1 with 100% stenosis which is a progression from 10/2023. The circumflex itself is small caliber and gives off AV circumflex and small caliber OM2 RIGHT CORONARY ARTERY: The right coronary artery was not imaged however known to be 100% occluded SVG to PDA: patent with patent stent at the anastamosis SVG to ramus: patent SVG to diagonal 1: patent, with backfilling noted HERNANDEZ to LAD: patent FINAL IMPRESSION: 1. Robinson CAD as described above including 100% LAD, 80% ramus, 100% OM1, 100% RCA stenosis 2. Patent SVG x 3 and HERNANDEZ to LAD 3. Normal left and right filling pressures. 4. Normal cardiac output/cardiac index PLAN: 1. Aggressive risk factor modification per most recent ACC/AHA guidelines. 2. Only progression is of small caliber OM1 100% stenosis with otherwise patent grafts. Evaluate for aortic valve replacement
[2024-12-20 17:07] VITALS: BP 118/50; PULSE 70; RESP 18
== END ==
LOC: CATHCVL 08:43
PROVIDERS: ATTEND Internal Medicine
DX: I25.10 Atherosclerotic heart disease of native coronary artery without angina pectoris (principal); I08.3 Combined rheumatic disorders of mitral, aortic and tricuspid valves; I10 Essential (primary) hypertension; E78.5 Hyperlipidemia, unspecified; I25.5 Ischemic cardiomyopathy; E11.9 Type 2 diabetes mellitus without complications; I44.7 Left bundle-branch block, unspecified; I71.21 Aneurysm of the ascending aorta, without rupture; Z79.02 Long term (current) use of antithrombotics/antiplatelets; Z79.84 Long term (current) use of oral hypoglycemic drugs; Z79.899 Other long term (current) drug therapy; Z88.0 Allergy status to penicillin
CPT/HCPCS: 99152; 99153; 93312; 93320; 93325; 93461; 85018; 82810; C1769 ×2; C1887 ×2; C1894; C1751; J2250; J1644 ×3; Q9967; J3010

== ENCOUNTER → 2024-12-27 | Outpatient (CLI) | payer MEDICARE, BC ==
[2024-12-27 09:57] LABS: Basophils # (A) 0.06 10*3/uL (0.00-0.10); Basophils % (A) 0.7 %; Eosinophils # (A) 0.24 10*3/uL (0.04-0.35); Eosinophils % (A) 2.8 %; HCT 36.9 % (39.6-50.0); HGB 12.3 g/dL (13.0-17.0); Lymphocytes # (A) 0.99 10*3/uL (0.90-5.00); Lymphocytes % (A) 11.6 %; MCH 31.5 pg (27.0-32.0); MCHC 33.3 g/dL (32.0-37.0); MCV 94.4 fL (80.0-97.0); Monocytes # (A) 0.81 10*3/uL (0.20-1.00); Monocytes % (A) 9.5 %; Neutrophils # (A) 6.37 10*3/uL (1.80-7.70); Neutrophils % (A) 75.0 %; Platelet Count 245 10*3/uL (140-440); RBC 3.91 10*6/uL (4.40-5.60); RDW 13.9 % (11.5-14.5); WBC 8.50 10*3/uL (4.50-10.00)
[2024-12-27 09:58] LABS: Bilirubin,Urine Negative (Negative); Blood,Urine Negative (Negative); Color,Urine Yellow; Glucose,Urine (UA) 4+ (Negative); Ketones,Urine Negative (Negative); Leukocyte Esterase,Urine Negative (Negative); Nitrite,Urine Negative (Negative); PH, Urine 6.0 (5.0-8.0); Protein,Urine Negative (Negative); Specific Gravity,Urine 1.031 (1.001-1.035); Urobilinogen,Urine 8.0 mg/dL (<2.0)
[2024-12-27 10:04] LABS: ALT 17 U/L (4-49); AST 24 U/L (17-59); African American GFR (CKD) 71 (>60 ml/min/1.73 sqM); Albumin 4.3 g/dL (3.5-5.0); Albumin/Globulin Ratio 1.4; Alkaline Phosphatase 63 U/L (38-126); Anion Gap 10 mmol/L; Bilirubin,Unconjugated 1.9 mg/dL (0.0-1.1); Blood Urea Nitrogen 32 mg/dL (9-20); Calcium 9.6 mg/dL (8.4-10.2); Carbon Dioxide 27 mmol/L (22-30); Chloride 101 mmol/L (98-107); Globulin 3.0 g/dL; Glucose 165 mg/dL (74-99); Magnesium 2.0 mg/dL (1.6-2.3); Non-African American GFR(CKD) 62 (>60 ml/min/1.73 sqM); Potassium 4.7 mmol/L (3.5-5.1); Sodium 138 mmol/L (137-145); Total Protein 7.3 g/dL (6.3-8.2)
[2024-12-27 10:07] LABS: INR 1.0 (<1.2); Partial Thromboplastin Time 22.4 sec (22.0-30.0); Prothrombin Time 11.0 sec (10.0-12.5)
[2024-12-27 10:13] LABS: NT-Pro-B-Type Natriuretic Pept 4690 pg/mL
[2024-12-27 11:06] LABS: T4, Free (Free Thyroxine) 1.39 ng/dL (0.78-2.19)
--- NOTE | 2024-12-27 11:18 | US ---
EXAMINATION TYPE: US carotid duplex BILAT DATE OF EXAM: 12/27/2024 COMPARISON: NONE CLINICAL INDICATION: Male, 84 years old with history of I35.1 Z01.818 E87.8 Z79.899 R58 E07.9 R35.0 Z 79.01; Additional History: .... TECHNIQUE: Grayscale, color Doppler and spectral Doppler evaluation of the bilateral carotid systems and vertebral arteries. Indirect Doppler criteria was utilized. FINDINGS: EXAM MEASUREMENTS: RIGHT: Peak Systolic Velocity (PSV) cm/sec ----- Right CCA: 35.3 ----- Right ICA: 46.4 ----- Right ECA: 76.4 ICA/CCA ratio: 1.3 RIGHT: End Diastole cm/sec ----- Right CCA: 7.3 ----- Right ICA: 11.3 ----- Right ECA: 10.1 LEFT: Peak Systolic Velocity (PSV) cm/sec ----- Left CCA: 57.2 ----- Left ICA: 77.3 ----- Left ECA: 76.4 ICA/CCA ratio: 1.4 LEFT: End Diastole cm/sec ----- Left CCA: 8.4 ----- Left ICA: 18.8 ----- Left ECA: 8.4 VERTEBRALS (direction of flow): Right Vertebral: Antegrade Left Vertebral: Antegrade Rhythm: Normal MONUMENTAL STONEMASON NOTES: NO elevated velocities or significant stenosis seen, bilat plaque seen within bulb Very limited scan due to vessel tortuosity Color Doppler imaging shows patency with blood flow throughout the carotid artery. Spectral waveforms are within normal limits. IMPRESSION: Mild atherosclerotic plaque within the bilateral carotid bifurcation. Right: No hemodynamically significant stenosis. Left: No hemodynamically significant stenosis. Criteria for Assigning % of Stenosis / Diameter reduction (Estimation based on the indirect measurements of the internal carotid artery velocities (ICA PSV). 1. Normal (no stenosis)=ICA PSV < 180 cm/s: ratio < 2.0: ICA EDV<40 cm/s. 2. Less than 50% stenosis=ICA PSV < 180 cm/s: ratio < 2.0: ICA EDV<40 cm/s. 3. 50 to 69% stenosis=ICA PSV of 180 to 230 cm/s: ration 2.0 ? 4.0: ICA EDV 40-100 cm/s. PSV 125-180 cm/sec and ICA/CCA PSV Ratio ? 2.0 is also consistent with 50-69% stenosis 4. Greater than 70% stenosis to near occlusion= ICA PSV > 230 cm/s: ratio > 4.0: ICA EDV > 100 cm/s. 5. Near occlusion= ICA PSV velocities may be low or undetectable: variable ratio and ICA EDV. 6. Total occlusion=unable to detect flow. [facility], , 12/27/2024 11:15 AM
--- NOTE | 2024-12-27 12:18 | CT ---
EXAMINATION TYPE: CT TAVR Planning CTA scan of the Neck, chest, abdomen and pelvis is performed DATE OF EXAM: 12/27/2024 COMPARISON: CT CLINICAL INDICATION: Male, 84 years old with history of I35.1 NONRHEUMATIC AORTIC (VALVE) INSUFFICIEN CY; pre surgical tavr TECHNIQUE: CTA scan of the Neck, chest, abdomen and pelvis is performed with IV contrast; Helical imaging obtain ed through the chest, abdomen and pelvis during arterial phase dynamic administration of radiographic contrast intravenously. MIP imaging performed on a [employer] work station and submitted for review. CONTRAST: 100 ml mL of Isovue 370. CT DLP: 2050.30 mGycm, Automated exposure control for dose reduction was used. FINDINGS: See report from [employer] regarding preprocedural planning HEART AND PERICARDIUM: The heart is moderately enlarged. There is no pericardial effusion. Moderate t o severe coronary artery atherosclerosis. AV Calcification Severity: Moderate/Severe ARTERIAL VASCULATURE: The aortic arch and thoracic aorta demonstrate a normal course and caliber. The pulmonary outflow tra ct appears within normal limits for size. The thoracic aorta is normal in course and caliber. There is no evidence of aortic dissection, aneurysm or acute aortic injury. Great arch vessels patent and n ormal in course and caliber. PULMONARY ARTERIAL VASCULATURE: Dilated up to 38 mm No evidence for central filling defect. NECK AND THYROID: No significant findings. The carotid bifurcations are patent. CHEST: LUNGS: Mild centrilobular emphysema changes. Scattered reticular lung markings. No focal consolidatio n, pneumothorax or pleural effusion. LARGE AIRWAYS: Central airways are patent. PLEURAL: No pleural effusion or thickening. No pneumothorax. MEDIASTINUM AND CATHY: No mediastinal or hilar lymphadenopathy or soft tissue mass. Prominent lymph no de in the right low paratracheal region measuring up to 11 mm in short axis. SOFT TISSUES/LYMPH NODES: Unremarkable.Normal. MUSCULOSKELETAL: No acute osseous abnormalities. Wires are present.7 ABDOMEN/PELVIS: Please note arterial phase of the imaging limits detailed evaluation of the solid abdominal organs. ABDOMEN LIVER: Unremarkable GALLBLADDER AND BILE DUCTS: Layering increased densities within the lumen consistent with gallstones are present. PANCREAS: Unremarkable. SPLEEN: Unremarkable. ADRENAL GLANDS: Unremarkable. KIDNEYS AND URETERS: No evidence of hydronephrosis or renal calculus. The ureters are unremarkable. PELVIS BLADDER: Unremarkable REPRODUCTIVE: Prostate is enlarged in size measuring 5.1 cm in transverse dimension. ABDOMEN & PELVIS STOMACH AND BOWEL: No evidence of bowel obstruction. Scattered colonic diverticula. Small hiatal porfirio ia. PERITONEUM/RETROPERITONEUM: No evidence of pneumoperitoneum or free fluid. VASCULATURE: No evidence of aortic aneurysm. MUSCULOSKELETAL: No acute osseous abnormalities LYMPH NODES: No gross evidence for lymphadenopathy. SOFT TISSUE/ABDOMINAL WALL: Right fat containing inguinal hernia. Other Lines/Tubes/Devices/Hardware: None IMPRESSION: 1. Moderate/Severe calcifications of the aortic valve. 2. No acute process. 3. See report from [employer] regarding preprocedural planning 4. Moderate cardiomegaly. 5. Moderate to severe coronary artery atherosclerosis. 6. Pulmonary hypertension. 7. Clonic diverticulosis. 8. Prostatomegaly, correlate with serum PSA. 9. Cholelithiasis 10. Small hiatal hernia. [facility], , 12/27/2024 12:16 PM
[2024-12-27 15:26] LABS: Cholesterol 92.00 mg/dL (0.00-200.00); HDL Cholesterol 36.40 mg/dL (40.00-60.00); LDL Cholesterol,Calculated 30.4 mg/dL (0.0-131.0); Triglycerides 126.00 mg/dL (0.00-149.00); VLDL Calculation 25.20 mg/dL (5.00-40.00)
== END | disposition home or self-care (01) ==
LOC: LABWHC1 09:03
PROVIDERS: ATTEND Thoracic Surgery (Cardiothoracic Vascular Surgery)
DX: Z01.818 Encounter for other preprocedural examination (principal); I35.0 Nonrheumatic aortic (valve) stenosis; E87.8 Other disorders of electrolyte and fluid balance, not elsewhere classified; E07.9 Disorder of thyroid, unspecified; E11.9 Type 2 diabetes mellitus without complications; E78.5 Hyperlipidemia, unspecified; N28.9 Disorder of kidney and ureter, unspecified; R35.0 Frequency of micturition; R58 Hemorrhage, not elsewhere classified; Z79.01 Long term (current) use of anticoagulants; Z79.899 Other long term (current) drug therapy
CPT/HCPCS: 94150; 84439; 83880; 80061; 80053; 84443; 82248; 83735; 85025; 85610; 85730; 81003; 87086; 83036; 93880; 71275; 36415 ×2; 74174; Q9967

== ENCOUNTER 2024-12-30 16:21 | Inpatient (IN) | payer MEDICARE, BC ==
--- NOTE | 2024-12-30 16:55 | XR ---
EXAMINATION TYPE: XR chest 2V DATE OF EXAM: 12/30/2024 4:51 PM COMPARISON: Chest radiographs from 12/09/2024 TECHNIQUE: XR chest 2V Frontal and lateral views of the chest. CLINICAL INDICATION:Male, 84 years old with history of Weakness; FINDINGS: Patient is rotated which was evaluation. Lungs/Pleura: There is no evidence of pleural effusion, focal consolidation, or pneumothorax. Pulmonary vascularity: Mild pulmonary vascular congestion. Heart/mediastinum: Cardiomediastinal silhouette is unremarkable. Musculoskeletal: Multiple level degenerative disc disease changes seen throughout the spine. Midline sternotomy wires are noted and stable. IMPRESSION: Cardiomegaly and mild pulmonary vascular congestion. Correlate with BNP for possible congestive heart failure. [facility], , 12/30/2024 4:53 PM
[2024-12-30 16:56] LABS: Basophils # (A) 0.05 10*3/uL (0.00-0.10); Basophils % (A) 0.5 %; Eosinophils # (A) 0.25 10*3/uL (0.04-0.35); Eosinophils % (A) 2.7 %; HCT 34.0 % (39.6-50.0); HGB 11.6 g/dL (13.0-17.0); Lymphocytes # (A) 1.05 10*3/uL (0.90-5.00); Lymphocytes % (A) 11.5 %; MCH 31.7 pg (27.0-32.0); MCHC 34.1 g/dL (32.0-37.0); MCV 92.9 fL (80.0-97.0); Monocytes # (A) 0.77 10*3/uL (0.20-1.00); Monocytes % (A) 8.5 %; Neutrophils # (A) 6.96 10*3/uL (1.80-7.70); Neutrophils % (A) 76.5 %; Platelet Count 233 10*3/uL (140-440); RBC 3.66 10*6/uL (4.40-5.60); RDW 14.0 % (11.5-14.5); WBC 9.11 10*3/uL (4.50-10.00)
[2024-12-30 17:07] LABS: INR 1.0 (<1.2); Partial Thromboplastin Time 22.1 sec (22.0-30.0); Prothrombin Time 10.7 sec (10.0-12.5)
[2024-12-30 17:08] LABS: ALT 19 U/L (4-49); AST 34 U/L (17-59); African American GFR (CKD) 88 (>60 ml/min/1.73 sqM); Albumin 4.2 g/dL (3.5-5.0); Alkaline Phosphatase 63 U/L (38-126); Anion Gap 13 mmol/L; Blood Urea Nitrogen 32 mg/dL (9-20); Calcium 9.6 mg/dL (8.4-10.2); Carbon Dioxide 22 mmol/L (22-30); Chloride 100 mmol/L (98-107); Glucose 200 mg/dL (74-99); Non-African American GFR(CKD) 76 (>60 ml/min/1.73 sqM); Potassium 4.5 mmol/L (3.5-5.1); Sodium 135 mmol/L (137-145); Total Protein 7.2 g/dL (6.3-8.2)
[2024-12-30 18:16] LABS: NT-Pro-B-Type Natriuretic Pept 6850 pg/mL
[2024-12-30 18:38] LABS: Bilirubin,Urine Negative (Negative); Blood,Urine Negative (Negative); Color,Urine Colorless; Glucose,Urine (UA) 4+ (Negative); Ketones,Urine Negative (Negative); Leukocyte Esterase,Urine Negative (Negative); Nitrite,Urine Negative (Negative); PH, Urine 5.0 (5.0-8.0); Protein,Urine Negative (Negative); Specific Gravity,Urine 1.015 (1.001-1.035); Urobilinogen,Urine <2.0 mg/dL (<2.0)
--- NOTE | 2024-12-30 18:43 | CT ---
EXAMINATION TYPE: CT brain cspine wo con CT DLP: 1450.5 mGycm, Automated exposure control for dose reduction was used. DATE OF EXAM: 12/30/2024 6:17 PM COMPARISON: MRI cervical spine 02/05/2024. CLINICAL INDICATION:Male, 84 years old with history of weakness; weakness, ams TECHNIQUE: Brain: Multiple axial CT images of the brain were obtained without IV contrast. Cspine: Axial CT images from the skull base to the inferior aspect of T2 we obtained without intraven ous contrast. Coronal and sagittal reformatted images were also reviewed. . FINDINGS: Brain: Extra-axial spaces: No abnormal extra-axial fluid collections. Ventricular system: Dilatation in proportion to cerebral atrophy. Cerebral parenchyma: Cerebral atrophy. No acute intraparenchymal hemorrhage or mass effect. The morillo -white junction is well differentiated. Cerebellum: Unremarkable. Mass effect: No evidence of midline shift. Intracranial vasculature: Atherosclerotic calcifications of the intracranial vessels. Soft tissues: Normal. Calvarium/osseous structures: No acute depressed skull fracture. Paranasal sinuses and mastoid air cells: Mild scattered mucosal thickening and or secretions. Trace f luid noted in the mastoid air cells bilaterally. Visualized orbits: Right aphakia Cervical spine: Fracture: No acute fractures. Osseous structures: Osteopenia. There is ankylosis of the mid and lower cervical spine vertebral bodi es. Mild dextroscoliotic curvature of the cervical spine. Multilevel degenerative changes. Vertebral alignment: Within normal limits. Spinal canal/Neural Foramina: Multilevel disc osteophyte complexes and facet arthropathy are seen mos t notably on the right side most pronounced at C3-C4 where there is severe spinal canal stenosis. Mul tilevel [id number] bilateral neural foraminal stenosis right greater than left noted in the mid to lower cervical spine. Neck soft tissues: Prevertebral soft tissues are within normal limits. Other: The airway is patent. The lung apices are clear. IMPRESSION: No acute intracranial process. No evidence of acute cervical spine fracture. Severe multilevel degenerative disc disease most pronounced at C3-C4 there is severe spinal canal clau nosis. [facility], , 12/30/2024 6:41 PM
[2024-12-30 19:11] LABS: T4, Free (Free Thyroxine) 1.43 ng/dL (0.78-2.19)
--- NOTE | 2024-12-30 20:23 | ED ---
General Adult HPI - General Chief complaint: Weakness Stated complaint: Unable to walk, SOB Time Seen by Provider: 12/30/24 16:25 Source: patient Mode of arrival: wheelchair Limitations: no limitations - History of Present Illness Initial comments: 84-year-old male presents emergency department with weakness. His is at bedside and provides majority of the history. States that the patient had 3 falls today. He feels as if he is extremely weak in his lower extremities from his knees to his ankles. They buckled on him 3 times today and the patient slowly fell to the ground. He did sustain an abrasion to the left knee but denies any other injuries. No head trauma. denies any confusion. States that he recently went through testing to have a heart valve replaced. The surgery is planned for next month. No report of any fevers. No chest pain. No shortness of breath. No abdominal pain. No changes in his bowel or bladder habits. No recent medication changes. No other alleviating, precipitating or modifying factors - Related Data Home Medications Medication Instructions Recorded Confirmed glipiZIDE/METFORMIN HCL 1 tab PO BID 09/12/17 12/30/24 [glipiZIDE/METFORMIN HCL 2.5-500 mg] Clopidogrel Bisulfate [Plavix] 75 mg PO DAILY 04/28/22 12/30/24 Atorvastatin [Lipitor] 80 mg PO DAILY 12/09/24 12/30/24 Losartan [Cozaar] 25 mg PO DAILY 12/09/24 12/30/24 Nitroglycerin Sl Tabs [Nitrostat] 0.4 mg SUBLINGUAL Q5M PRN 12/09/24 12/30/24 Empagliflozin [Jardiance] 10 mg PO DAILY 12/16/24 12/30/24 Previous Rx's Medication Instructions Recorded Furosemide [Lasix] 40 mg PO BID@0900,1600 30 Days #60 12/10/24 tab Metoprolol Tartrate [Lopressor] 12.5 mg PO BID 30 Days #30 tab 12/10/24 Spironolactone [Aldactone] 25 mg PO DAILY 30 Days #30 tab 12/10/24 Allergies Allergy/AdvReac Type Severity Reaction Status Date / Time Penicillins Allergy Rash/Hives Verified 12/30/24 18:10 Review of Systems ROS Statement: Those systems with pertinent positive or pertinent negative responses have been documented in the HPI. ROS Other: All systems not noted in ROS Statement are negative. Past Medical History Past Medical History: Coronary Artery Disease (CAD), Cancer, Heart Failure, Diabetes Mellitus, Hyperlipidemia, Hypertension Additional Past Medical History / Comment(s): had some kind of skin cancer removed as a teen-not sure what kind, no problems since, DDD, "silent [place]" 2023 History of Any Multi-Drug Resistant Organisms: None Reported Past Surgical History: Heart Catheterization With Stent Additional Past Surgical History / Comment(s): open heart 2014 CABGX4, Past Anesthesia/Blood Transfusion Reactions: No Reported Reaction Date of Last Stent Placement:: 08/11/2019 Past Psychological History: No Psychological Hx Reported Smoking Status: Never smoker Past Alcohol Use History: Rare Past Drug Use History: None Reported - Past Family History Mother Family Medical History: Diabetes Mellitus Additional Family Medical History / Comment(s): Mother at age 84 with history of diabetes. Father Family Medical History: Hypertension Additional Family Medical History / Comment(s): Father at age 86 from old age with history of hypertension. Brother(s) Family Medical History: Hypertension Additional Family Medical History / Comment(s): Patient has a total of 4 brothers. 2 brothers have passed, one from leukemia and one from liver cancer. Son(s) Family Medical History: Coronary Artery Disease (CAD), Memory Impairment Additional Family Medical History / Comment(s): heart attack age 47 Sister(s) Additional Family Medical History / Comment(s): Patient has 1 sister with no major medical problems. General Exam Limitations: no limitations General appearance: alert, in no apparent distress Head exam: Present: atraumatic, normocephalic, normal inspection Eye exam: Present: normal appearance, PERRL, EOMI. Absent: scleral icterus, conjunctival injection, periorbital swelling ENT exam: Present: normal exam, mucous membranes moist Neck exam: Present: normal inspection. Absent: tenderness, meningismus, lymphadenopathy Respiratory exam: Present: normal lung sounds bilaterally. Absent: respiratory distress, wheezes, rales, rhonchi, stridor Cardiovascular Exam: Present: regular rate, normal rhythm, systolic murmur. Absent: diastolic murmur, rubs, gallop, clicks GI/Abdominal exam: Present: soft, normal bowel sounds. Absent: distended, tenderness, guarding, rebound, rigid Extremities exam: Present: normal inspection, full ROM, normal capillary refill. Absent: tenderness, pedal edema, joint swelling, calf tenderness Back exam: Present: normal inspection Neurological exam: Present: alert, oriented X3, CN II-XII intact Psychiatric exam: Present: normal affect, normal mood Skin exam: Present: warm, dry, intact, normal color. Absent: rash Course Vital Signs 12/30/24 12/30/24 12/30/24 16:23 17:35 18:00 Temperature 98.8 F Pulse Rate 78 67 79 Respiratory 20 18 18 Rate Blood Pressure 124/81 102/65 132/74 O2 Sat by Pulse 96 97 99 Oximetry 12/30/24 12/30/24 12/30/24 20:00 21:00 22:00 Temperature 98.3 F Pulse Rate 72 96 85 Respiratory 20 24 22 Rate Blood Pressure 115/72 112/79 107/74 O2 Sat by Pulse 95 96 97 Oximetry Medical Decision Making - Medical Decision Making Was pt. sent in by a medical professional or institution (KHANG Rosas, RADAR SYSTEMS ENGINEER, urgent care, hospital, or penitentiary...) When possible be specific @ -No Did you speak to anyone other than the patient for history (EMS, parent, family, police, friend...)? What history was obtained from this source @ -Spoke with the for history Did you review nursing and triage notes (agree or disagree)? Why? @ -I reviewed and agree with nursing and triage notes Were old charts reviewed (outside hosp., previous admission, EMS record, old EKG, old radiological studies, urgent care reports/EKG's, penitentiary records)? Report findings @ -I reviewed the heart cath that the patient had December 20 Differential Diagnosis (chest pain, altered mental status, abdominal pain women, abdominal pain men, vaginal bleeding, weakness, fever, dyspnea, syncope, headache, dizziness, GI bleed, back pain, seizure, CVA, palpatations, mental health, musculoskeletal)? @ -Differential Weakness: Hypoglycemia, shock, sepsis, hyponatremia, anemia, infection, [place], ETOH, adverse medicine reaction, overdose, stroke, this is not meant to be an all-inclusive list. EKG interpreted by me (3pts min.). @ -Yes and demonstrates sinus rhythm with a rate of 76. NH interval 214. QRS 185. QTc of 466. Left bundle branch block. Negative for sgarbossa X-rays interpreted by me (1pt min.). @ -Yes which demonstrates pulmonary vascular congestion CT interpreted by me (1pt min.). @ -Yes which demonstrates no acute intracranial process U/S interpreted by me (1pt. min.). @ -None done What testing was considered but not performed or refused? (CT, X-rays, U/S, labs)? Why? @ -None What meds were considered but not given or refused? Why? @ -None Did you discuss the management of the patient with other professionals (professionals i.e. , PA, RADAR SYSTEMS ENGINEER, lab, RT, psych nurse, social media coordinator, horseback riding instructor, teacher, investigation officer, telephonic case manager)? Give summary @ -Spoke with Shade from [facility] who admitted the patient Was smoking cessation discussed for >3mins.? @ -No Was critical care preformed (if so, how long)? @ -No Were there social determinants of health that impacted care today? How? (Homelessness, low income, unemployed, alcoholism, drug addiction, transportation, low edu. Level, literacy, decrease access to med. care, senior living, rehab)? @ -No Was there de-escalation of care discussed even if they declined (Discuss DNR or withdrawal of care, Hospice)? DNR status @ -No What co-morbidities impacted this encounter? (DM, HTN, Smoking, COPD, CAD, Cancer, CVA, ARF, Chemo, Hep., AIDS, mental health diagnosis, sleep apnea, morbid obesity)? @ -Coronary artery disease, valvular heart disease Was patient admitted / discharged? Hospital course, mention meds given and route, prescriptions, significant lab abnormalities, going to OR and other pertinent info. @ -Upon arrival patient seen and evaluated in bed 2. Thorough history and physical exam was performed. Twelve-lead EKG was performed. Laboratory studies were conducted. CT of the brain and chest x-ray was performed. Patient does have signs of volume overload. reports to 3 falls and therefore I do feel it is unsafe to send the patient home. Patient will be admitted for safety concerns and diuresis. Spoke with Shade from [facility] for the admission Undiagnosed new problem with uncertain prognosis? @ -No Drug Therapy requiring intensive monitoring for toxicity (Heparin, Nitro, Insulin, Cardizem)? @ -No Were any procedures done? @ -No Diagnosis/symptom? @ -Acute bilateral lower extremity weakness, multiple falls, acute exacerbation of CHF Acute, or Chronic, or Acute on Chronic? @ -Acute Uncomplicated (without systemic symptoms) or Complicated (systemic symptoms)? @ -Complicated Side effects of treatment? @ -No Exacerbation, Progression, or Severe Exacerbation? @ -No Poses a threat to life or bodily function? How? (Chest pain, [place], [place], pneumonia, PE, COPD, DKA, ARF, appy, cholecystitis, CVA, Diverticulitis, Homicidal, Suicidal, threat to staff... and all critical care pts) @ -No - Lab Data Result diagrams: 12/31/24 04:13 12/31/24 04:05 Lab Results 12/30/24 12/30/24 12/30/24 Range/Units 16:34 16:34 16:34 WBC 9.11 (4.50-10.00) 10*3/uL RBC 3.66 L (4.40-5.60) 10*6/uL Hgb 11.6 L (13.0-17.0) g/dL Hct 34.0 L (39.6-50.0) % MCV 92.9 (80.0-97.0) fL MCH 31.7 (27.0-32.0) pg MCHC 34.1 (32.0-37.0) g/dL Plt Count 233 (140-440) 10*3/uL MPV 11.2 (9.5-12.2) fL Immature Gran % (Auto) 0.3 % Neutrophils % 76.5 % Lymphocytes % 11.5 % Monocytes % 8.5 % Eosinophils % 2.7 % Basophils % 0.5 % Immature Gran # 0.03 (0.00-0.04) 10*3/uL Neutrophils # 6.96 (1.80-7.70) 10*3/uL Lymphocytes # 1.05 (0.90-5.00) 10*3/uL Monocytes # 0.77 (0.20-1.00) 10*3/uL Eosinophils # 0.25 (0.04-0.35) 10*3/uL Basophils # 0.05 (0.00-0.10) 10*3/uL PT 10.7 (10.0-12.5) sec INR 1.0 (<1.2) APTT 22.1 (22.0-30.0) sec Sodium 135 L (137-145) mmol/L Potassium 4.5 (3.5-5.1) mmol/L Chloride 100 (98-107) mmol/L Carbon Dioxide 22 (22-30) mmol/L Anion Gap 13 mmol/L BUN 32 H (9-20) mg/dL Creatinine 0.92 (0.66-1.25) mg/dL Est GFR (CKD-EPI)AfAm 88 (>60 ml/min/1.73 sqM) Est GFR (CKD-EPI)NonAf 76 (>60 ml/min/1.73 sqM) Glucose 200 H (74-99) mg/dL Calcium 9.6 (8.4-10.2) mg/dL Total Bilirubin 1.5 H (0.2-1.3) mg/dL AST 34 (17-59) U/L ALT 19 (4-49) U/L Alkaline Phosphatase 63 (38-126) U/L Troponin I (0.000-0.034) ng/mL NT-Pro-B Natriuret Pep pg/mL Total Protein 7.2 (6.3-8.2) g/dL Albumin 4.2 (3.5-5.0) g/dL TSH (0.465-4.680) mIU/L Free T4 (0.78-2.19) ng/dL Urine Color Urine Appearance (Clear) Urine pH (5.0-8.0) Ur Specific Welling (1.001-1.035) Urine Protein (Negative) Urine Glucose (UA) (Negative) Urine Ketones (Negative) Urine Blood (Negative) Urine Nitrite (Negative) Urine Bilirubin (Negative) Urine Urobilinogen (<2.0) mg/dL Ur Leukocyte Esterase (Negative) 12/30/24 12/30/24 12/30/24 Range/Units 16:34 16:34 18:26 WBC (4.50-10.00) 10*3/uL RBC (4.40-5.60) 10*6/uL Hgb (13.0-17.0) g/dL Hct (39.6-50.0) % MCV (80.0-97.0) fL MCH (27.0-32.0) pg MCHC (32.0-37.0) g/dL Plt Count (140-440) 10*3/uL MPV (9.5-12.2) fL Immature Gran % (Auto) % Neutrophils % % Lymphocytes % % Monocytes % % Eosinophils % % Basophils % % Immature Gran # (0.00-0.04) 10*3/uL Neutrophils # (1.80-7.70) 10*3/uL Lymphocytes # (0.90-5.00) 10*3/uL Monocytes # (0.20-1.00) 10*3/uL Eosinophils # (0.04-0.35) 10*3/uL Basophils # (0.00-0.10) 10*3/uL PT (10.0-12.5) sec INR (<1.2) APTT (22.0-30.0) sec Sodium (137-145) mmol/L Potassium (3.5-5.1) mmol/L Chloride (98-107) mmol/L Carbon Dioxide (22-30) mmol/L Anion Gap mmol/L BUN (9-20) mg/dL Creatinine (0.66-1.25) mg/dL Est GFR (CKD-EPI)AfAm (>60 ml/min/1.73 sqM) Est GFR (CKD-EPI)NonAf (>60 ml/min/1.73 sqM) Glucose (74-99) mg/dL Calcium (8.4-10.2) mg/dL Total Bilirubin (0.2-1.3) mg/dL AST (17-59) U/L ALT (4-49) U/L Alkaline Phosphatase (38-126) U/L Troponin I <0.012 (0.000-0.034) ng/mL NT-Pro-B Natriuret Pep 6850 pg/mL Total Protein (6.3-8.2) g/dL Albumin (3.5-5.0) g/dL TSH 7.740 H (0.465-4.680) mIU/L Free T4 1.43 (0.78-2.19) ng/dL Urine Color Colorless Urine Appearance Clear (Clear) Urine pH 5.0 (5.0-8.0) Ur Specific Welling 1.015 (1.001-1.035) Urine Protein Negative (Negative) Urine Glucose (UA) 4+ H (Negative) Urine Ketones Negative (Negative) Urine Blood Negative (Negative) Urine Nitrite Negative (Negative) Urine Bilirubin Negative (Negative) Urine Urobilinogen <2.0 (<2.0) mg/dL Ur Leukocyte Esterase Negative (Negative) Disposition Clinical Impression: Weakness, Acute exacerbation of CHF (congestive heart failure), Aortic stenosis Disposition: ADMITTED IP TO THIS [facility] Condition: Stable Is patient prescribed a controlled substance at d/c from ED?: No Time of Disposition: 20:29 Decision to Admit Reason: Admit from EC Decision Date: 12/30/24 Decision Time: 20:29
[2024-12-30] MEDS ORDERED: NALOXONE 0.4 MG/ML 1 ML VIAL IV PRN (20:30)
[2024-12-30] MEDS: FUROSEMIDE 10 MG/ML 10 ML VIAL IV STA (20:52)
--- NOTE | 2024-12-30 22:17 | XR ---
EXAMINATION TYPE: XR lumbar spine 2 or 3V DATE OF EXAM: 12/30/2024 9:11 PM CLINICAL INDICATION:Male, 84 years old with history of leg weakness; PHH, pain COMPARISON: Lumbar spine radiograph 10/22/2022 TECHNIQUE: XR lumbar spine 2 or 3V - Frontal, lateral and coned in L5-S1 lateral views of the spine. FINDINGS: Mild retrolisthesis of L3 on L4 is suggested. Multilevel syndesmophytes are seen. No acute fracture i s identified. Degenerative changes of the sacroiliac joints and visualized bony pelvis. Partially vis ualized nonspecific bowel gas pattern. Atherosclerotic changes of the aorta incidentally noted. IMPRESSION: 1. No acute fracture. 2. Multilevel degenerative disease. [facility], , 12/30/2024 10:15 PM
[2024-12-30] MEDS ORDERED: DEXTROSE 50% SYRINGE 50 ML IVP PRN ×2 (23:23)
[2024-12-30] MEDS: MELATONIN 5 MG TABLET PO PRN (23:55)
[2024-12-31 05:49] LABS: Glucose,Whole Blood 149 mg/dL (70-110)
[2024-12-31] MEDS: INSULIN LISPRO (HumaLOG) 100 UNIT/ML 10 mL VL SQ SCH (05:58)
[2024-12-31] MEDS: FUROSEMIDE 10 MG/ML 4 ML VIAL IV SCH (08:38)
[2024-12-31 08:46] LABS: Basophils # (A) 0.06 X 10*3/uL (0.00-0.10); Basophils % (A) 0.6 %; Eosinophils # (A) 0.35 X 10*3/uL (0.04-0.35); Eosinophils % (A) 3.7 %; HCT 35.3 % (39.6-50.0); HGB 11.5 g/dL (13.0-17.0); Immature Grans, Automated 0.30 %; Lymphocytes # (A) 1.28 X 10*3/uL (0.90-5.00); Lymphocytes % (A) 13.6 %; MCH 30.6 pg (27.0-32.0); MCHC 32.6 g/dL (32.0-37.0); MCV 93.9 FL (80.0-97.0); Monocytes # (A) 1.07 X 10*3/uL (0.20-1.00); Monocytes % (A) 11.3 %; NRBC Per 100 WBC 0 X 10*3/uL (0.00-0.01); Neutrophils # (A) 6.64 X 10*3/uL (1.80-7.70); Neutrophils % (A) 70.5 %; Platelet Count 252 X 10*3/uL (140-440); RBC 3.76 X 10*6/uL (4.40-5.60); RDW 14.1 % (11.5-14.5); WBC 9.43 X 10*3/uL (4.50-10.00)
[2024-12-31 08:57] LABS: Anion Gap 14.70 mmol/L (4.00-12.00); BUN/Creat Ratio 22.73 Ratio (12.00-20.00); Blood Urea Nitrogen 25.0 mg/dL (9.0-27.0); Calcium 9.0 mg/dL (8.7-10.3); Carbon Dioxide 23.3 mmol/L (21.6-31.8); Chloride 101 mmol/L (96-109); Glucose 136 mg/dL (70-110); Potassium 3.9 mmol/L (3.5-5.5); Sodium 139 mmol/L (135-145)
[2024-12-31] MEDS ORDERED: NITROGLYCERIN SL TABS 0.4 MG TAB SUBLINGUAL PRN (12:08)
[2024-12-31 12:36] LABS: Glucose,Whole Blood 345 mg/dL (70-110)
[2024-12-31] MEDS: DAPAGLIFLOZIN PROPANEDIOL 5 MG TABLET PO SCH (13:04)
[2024-12-31] MEDS: CLOPIDOGREL 75 MG TAB PO SCH (13:04)
[2024-12-31] MEDS: ATORVASTATIN 80 MG TAB PO SCH (13:04)
--- NOTE | 2024-12-31 15:19 | P.HPIM ---
History of Present Illness H&P Date: 12/31/24 History of present illness; patient 84-year-old gentleman with past medical history significant for coronary disease, heart failure, diabetes mellitus presents the ER because of generalized weakness. Patient stated for the last couple of days he has been noticing that he is getting more weaker. Patient is complaining of weakness of lower extremities. Patient had multiple falls at home, patient did not pass out or lost consciousness patient denies any chest pain. There is no complaint of orthopnea or PND. Patient denies any swelling of feet. Denies any nausea, vomiting abdominal pain. Patient denies any complaint of dizziness. There is no complaint of headache. Because generalized weakness, patient came to the ER Initial lab work done in the ER showed WBC 9.11, hemoglobin 0.6, platelet count 223, sodium 138, potassium 4.5, BUN 32, creatinine 0.92, glucose 200, bilirubin 1.5 AST 234, ALT 19, troponin 0.012, proBNP 6850, UA negative for infection EKG done in the ER showed heart rate of 78, no ST segment elevation or depression seen, no T-wav T wave inversion seen in lead V6 Chest x-ray done in the ER showed cardiomegaly and mild pulmonary congestion CT head done showed no acute intracranial process CT cervical spine showed no evidence of cervical spine fracture X-ray lumbar spine showed no acute fractures Patient admitted to internal medicine service REVIEW OF SYSTEMS: CONSTITUTIONAL: No fever, no malaise, no fatigue. HEENT: No recent visual problems or hearing problems. Denied any sore throat. CARDIOVASCULAR: As mentioned above. PULMONARY: As mentioned above Gastrointestinal;, no vomiting, no abdominal pain. NEUROLOGICAL: No headaches, no weakness, no numbness. HEMATOLOGICAL: Denies any bleeding or petechiae. GENITOURINARY: Denies any burning micturition, frequency, or urgency. MUSCULOSKELETAL/RHEUMATOLOGICAL: Denies any joint pain, swelling, or any muscle pain. ENDOCRINE: Denies any polyuria or polydipsia. The rest of the 14-point review of systems is negative. PHYSICAL EXAMINATION: GENERAL: The patient is alert and oriented x3, not in any acute distress. Well developed, well nourished. HEENT: Pupils are round and equally reacting to light. EOMI. No scleral icterus. No conjunctival pallor. Normocephalic, atraumatic. No pharyngeal erythema. No thyromegaly. CARDIOVASCULAR: S1 and S2 present. No murmurs, rubs, or gallops. PULMONARY: Chest is clear to auscultation, no wheezing or crackles. ABDOMEN: Soft, nontender, nondistended, normoactive bowel sounds. No palpable organomegaly. MUSCULOSKELETAL: No joint swelling or deformity. EXTREMITIES: No cyanosis, clubbing, or pedal edema. NEUROLOGICAL: Gross neurological examination did not reveal any focal deficits. SKIN: No rashes. Assessment and plan Generalized weakness Recurrent falls Acute on chronic heart failure with preserved EF Severe symptomatic aortic stenosis Essential hypertension Coronary artery disease s/p CABG History of diabetes mellitus Monitor vital signs Monitor CBC Monitor CMP Continue telemetry monitoring Strict I's and O's and daily weights Continue IV Lasix 40 mg twice daily resume Plavix Resume statin Resume losartan Resume Lopressor Ordered PT Ordered OT Cardiology consulted Labs and medication were reviewed.. Continue same treatment. Continue with symptomatic treatment. Resume home medication. Monitor labs and vitals. DVT and GI prophylaxis. Further recommendations as per clinical course of the patient Dictation was produced using [employer] dictation software. please excuse any grammatical, word or spelling errors. Past Medical History Past Medical History: Coronary Artery Disease (CAD), Cancer, Heart Failure, Diabetes Mellitus, Hyperlipidemia, Hypertension Additional Past Medical History / Comment(s): had some kind of skin cancer removed as a teen-not sure what kind, no problems since, DDD, "silent [place]" 2023 History of Any Multi-Drug Resistant Organisms: None Reported Past Surgical History: Heart Catheterization With Stent Additional Past Surgical History / Comment(s): open heart 2014 CABGX4 Past Anesthesia/Blood Transfusion Reactions: No Reported Reaction Date of Last Stent Placement:: 08/11/2019 Past Psychological History: No Psychological Hx Reported Smoking Status: Never smoker Past Alcohol Use History: Rare Additional Past Alcohol Use History / Comment(s): Patient is a lifelong nonsmoker. Past Drug Use History: None Reported - Past Family History Mother Family Medical History: Diabetes Mellitus Additional Family Medical History / Comment(s): Mother at age 84 with history of diabetes. Father Family Medical History: Hypertension Additional Family Medical History / Comment(s): Father at age 86 from old age with history of hypertension. Brother(s) Family Medical History: Hypertension Additional Family Medical History / Comment(s): Patient has a total of 4 brothers. 2 brothers have passed, one from leukemia and one from liver cancer. Son(s) Family Medical History: Coronary Artery Disease (CAD), Memory Impairment Additional Family Medical History / Comment(s): heart attack age 47 Sister(s) Additional Family Medical History / Comment(s): Patient has 1 sister with no major medical problems. Medications and Allergies Home Medications Medication Instructions Recorded Confirmed Type glipiZIDE/METFORMIN HCL 1 tab PO BID 09/12/17 12/30/24 History [glipiZIDE/METFORMIN HCL 2.5-500 mg] Clopidogrel Bisulfate [Plavix] 75 mg PO DAILY 04/28/22 12/30/24 History Atorvastatin [Lipitor] 80 mg PO DAILY 12/09/24 12/30/24 History Losartan [Cozaar] 25 mg PO DAILY 12/09/24 12/30/24 History Nitroglycerin Sl Tabs [Nitrostat] 0.4 mg SUBLINGUAL Q5M PRN 12/09/24 12/30/24 History Furosemide [Lasix] 40 mg PO BID@0900,1600 30 Days #60 12/10/24 12/30/24 Rx tab Metoprolol Tartrate [Lopressor] 12.5 mg PO BID 30 Days #30 tab 12/10/24 12/30/24 Rx Spironolactone [Aldactone] 25 mg PO DAILY 30 Days #30 tab 12/10/24 12/30/24 Rx Empagliflozin [Jardiance] 10 mg PO DAILY 12/16/24 12/30/24 History Allergies Allergy/AdvReac Type Severity Reaction Status Date / Time Penicillins Allergy Rash/Hives Verified 12/30/24 18:10 Physical Exam Vitals: Vital Signs Temp Pulse Pulse Resp BP BP Pulse Ox 12/31/24 07:00 98.6 F 78 13 121/71 95 12/31/24 00:05 98.1 F 91 18 104/70 96 12/30/24 22:33 97.5 F L 96 18 125/83 97 12/30/24 22:00 98.3 F 85 22 107/74 97 12/30/24 21:00 96 24 112/79 96 12/30/24 20:00 72 20 115/72 95 12/30/24 18:00 79 18 132/74 99 12/30/24 17:35 67 18 102/65 97 12/30/24 16:23 98.8 F 78 20 124/81 96 Intake and Output 12/30/24 12/31/24 12/31/24 22:59 06:59 14:59 Output Total 300 750 Balance -300 -750 Output: Urine 300 750 Other: Voiding Method External Catheter External Catheter # Bowel Movements 0 Weight 86.183 kg Results CBC & Chem 7: 12/31/24 04:13 12/31/24 04:05 Labs: Abnormal Lab Results - Last 24 Hours (Table) 12/30/24 12/30/24 12/30/24 Range/Units 16:34 16:34 16:34 RBC 3.66 L (4.40-5.60) 10*6/uL Hgb 11.6 L (13.0-17.0) g/dL Hct 34.0 L (39.6-50.0) % Monocytes # (0.20-1.00) X 10*3/uL Sodium 135 L (137-145) mmol/L Anion Gap (4.00-12.00) mmol/L BUN 32 H (9-20) mg/dL BUN/Creatinine Ratio (12.00-20.00) Ratio Glucose 200 H (74-99) mg/dL POC Glucose (mg/dL) (70-110) mg/dL Hemoglobin A1c (<=6.0) % Total Bilirubin 1.5 H (0.2-1.3) mg/dL TSH 7.740 H (0.465-4.680) mIU/L Urine Glucose (UA) (Negative) 12/30/24 12/31/24 12/31/24 Range/Units 18:26 04:05 04:13 RBC 3.76 L (4.40-5.60) 10*6/uL Hgb 11.5 L (13.0-17.0) g/dL Hct 35.3 L (39.6-50.0) % Monocytes # 1.07 H (0.20-1.00) X 10*3/uL Sodium (137-145) mmol/L Anion Gap 14.70 H (4.00-12.00) mmol/L BUN (9-20) mg/dL BUN/Creatinine Ratio 22.73 H (12.00-20.00) Ratio Glucose 136 H (74-99) mg/dL POC Glucose (mg/dL) (70-110) mg/dL Hemoglobin A1c (<=6.0) % Total Bilirubin (0.2-1.3) mg/dL TSH (0.465-4.680) mIU/L Urine Glucose (UA) 4+ H (Negative) 12/31/24 12/31/24 Range/Units 04:13 05:48 RBC (4.40-5.60) 10*6/uL Hgb (13.0-17.0) g/dL Hct (39.6-50.0) % Monocytes # (0.20-1.00) X 10*3/uL Sodium (137-145) mmol/L Anion Gap (4.00-12.00) mmol/L BUN (9-20) mg/dL BUN/Creatinine Ratio (12.00-20.00) Ratio Glucose (74-99) mg/dL POC Glucose (mg/dL) 149 H (70-110) mg/dL Hemoglobin A1c 6.8 H (<=6.0) % Total Bilirubin (0.2-1.3) mg/dL TSH (0.465-4.680) mIU/L Urine Glucose (UA) (Negative) Thrombosis Risk Factor Assmnt - Choose All That Apply Each Factor Represents 1 point: Obesity (BMI >25) Each Risk Factor Represents 3 Points: Age 75 years or older Thrombosis Risk Factor Assessment Total Risk Factor Score: 4 Thrombosis Risk Factor Assessment Level: Moderate Risk
--- NOTE | 2024-12-31 17:12 | P.CRDCN ---
History of Present Illness Consult date: 12/31/24 History of present illness: HISTORY OF PRESENTING ILLNESS: 77-year-old known to Dr. Osorio. Is undergoing TAVR workup. He had a recent heart catheterization which showed severe [place] vessel disease and patent vein grafts. Also showed evidence of severe aortic stenosis. He presents to hospital because of increased worsening generalized weakness, lower extremity edema. He also reports having fall at home but he attributes it to his weakness and he reports that he has not lost consciousness or passed out. In the ER he got IV diuretics and at this time he appears to have optimized from heart failure standpoint. Home cardiac medications include Aldactone 25, metoprolol 12.5 twice daily, losartan 25, Lasix 40 twice daily, Jardiance 10, Plavix, Lipitor ..... ................................................................................ ......................................................... Hb 11, BUN 32, creatinine 0.9 NT-proBNP 6800 TSH 7.7, free T41.4 ................................................................................ .............................................................. REVIEW OF SYSTEMS: 14 point review of system is negative except what is mentioned above in HPI. .......................................................... ................................................................................ .... PHYSICAL EXAMINATION: Neck: Brisk carotid upstroke, no jugular venous distention. Lungs: Poor respiratory effort with mild crackles in bilateral lower lungs Heart: Regular rate and rhythm, systolic murmur with pulses parvus at tardus Abdomen: Soft nontender, positive bowel sounds. Extremities: No significant swelling in the legs Neuro: Alert, oritented, no focal deficits. Detailed neuro exam was not performed. ................................................................................ .............................................................. ASSESSMENT: # Generalized weakness and increased fatigue # Mild HFpEF exacerbation # Severe aortic stenosis awaiting TAVR workup, planned in early January # CAD status post CABG, recent heart cath did not show any new worsening CAD with patent grafts # Debility and frailty PLAN: Seems like patient is failing p.o. Lasix. I will transition Lasix to Bumex. Generalized weakness and fatigue is a nature of the disease of severe aortic stenosis. No clear indication for emergent balloon valvuloplasty at this time. Continue Lipitor 80, Plavix 75, Continue Farxiga 10 mg, Lasix 40 IV twice daily today, transition to p.o. tomorrow to Bumex 1 mg p.o. twice daily Continue losartan 25, Aldactone 25, If patient feels back to baseline tomorrow and kidney functions are stable, he can be cleared to be discharged from cardiovascular standpoint in next 24 to 48 hours Ruben Burk MD, [facility], [facility] Past Medical History Past Medical History: Coronary Artery Disease (CAD), Cancer, Heart Failure, Diabetes Mellitus, Hyperlipidemia, Hypertension Additional Past Medical History / Comment(s): had some kind of skin cancer removed as a teen-not sure what kind, no problems since, DDD, "silent [place]" 2023 History of Any Multi-Drug Resistant Organisms: None Reported Past Surgical History: Heart Catheterization With Stent Additional Past Surgical History / Comment(s): open heart 2014 CABGX4, Past Anesthesia/Blood Transfusion Reactions: No Reported Reaction Date of Last Stent Placement:: 08/11/2019 Past Psychological History: No Psychological Hx Reported Smoking Status: Never smoker Past Alcohol Use History: Rare Past Drug Use History: None Reported - Past Family History Mother Family Medical History: Diabetes Mellitus Additional Family Medical History / Comment(s): Mother at age 84 with history of diabetes. Father Family Medical History: Hypertension Additional Family Medical History / Comment(s): Father at age 86 from old age with history of hypertension. Brother(s) Family Medical History: Hypertension Additional Family Medical History / Comment(s): Patient has a total of 4 brothers. 2 brothers have passed, one from leukemia and one from liver cancer. Son(s) Family Medical History: Coronary Artery Disease (CAD), Memory Impairment Additional Family Medical History / Comment(s): heart attack age 47 Sister(s) Additional Family Medical History / Comment(s): Patient has 1 sister with no major medical problems. Medications and Allergies Home Medications Medication Instructions Recorded Confirmed Type glipiZIDE/METFORMIN HCL 1 tab PO BID 09/12/17 12/30/24 History [glipiZIDE/METFORMIN HCL 2.5-500 mg] Clopidogrel Bisulfate [Plavix] 75 mg PO DAILY 04/28/22 12/30/24 History Atorvastatin [Lipitor] 80 mg PO DAILY 12/09/24 12/30/24 History Losartan [Cozaar] 25 mg PO DAILY 12/09/24 12/30/24 History Nitroglycerin Sl Tabs [Nitrostat] 0.4 mg SUBLINGUAL Q5M PRN 12/09/24 12/30/24 History Furosemide [Lasix] 40 mg PO BID@0900,1600 30 Days #60 12/10/24 12/30/24 Rx tab Metoprolol Tartrate [Lopressor] 12.5 mg PO BID 30 Days #30 tab 12/10/24 12/30/24 Rx Spironolactone [Aldactone] 25 mg PO DAILY 30 Days #30 tab 12/10/24 12/30/24 Rx Empagliflozin [Jardiance] 10 mg PO DAILY 12/16/24 12/30/24 History Allergies Allergy/AdvReac Type Severity Reaction Status Date / Time Penicillins Allergy Rash/Hives Verified 12/30/24 18:10 Physical Exam Vitals: Vital Signs Temp Pulse Pulse Resp BP BP Pulse Ox 12/31/24 14:18 97.7 F 79 17 120/72 96 12/31/24 07:00 98.6 F 78 13 121/71 95 12/31/24 00:05 98.1 F 91 18 104/70 96 12/30/24 22:33 97.5 F L 96 18 125/83 97 12/30/24 22:00 98.3 F 85 22 107/74 97 12/30/24 21:00 96 24 112/79 96 12/30/24 20:00 72 20 115/72 95 12/30/24 18:00 79 18 132/74 99 12/30/24 17:35 67 18 102/65 97 Intake and Output 12/31/24 12/31/24 12/31/24 06:59 14:59 22:59 Intake Total 318 Output Total 750 Balance -750 318 Intake: Oral 318 Output: Urine 750 Other: Voiding Method External Catheter Results 12/31/24 04:13 12/31/24 04:05 Cardiac Enzymes 12/30/24 Range/Units 16:34 Troponin I <0.012 (0.000-0.034) ng/mL CBC 12/31/24 Range/Units 04:13 WBC 9.43 (4.50-10.00) X 10*3/uL RBC 3.76 L (4.40-5.60) X 10*6/uL Hgb 11.5 L (13.0-17.0) g/dL Hct 35.3 L (39.6-50.0) % Plt Count 252 (140-440) X 10*3/uL Comprehensive Metabolic Panel 12/31/24 Range/Units 04:05 Sodium 139 (135-145) mmol/L Potassium 3.9 (3.5-5.5) mmol/L Chloride 101 (96-109) mmol/L Carbon Dioxide 23.3 (21.6-31.8) mmol/L BUN 25.0 (9.0-27.0) mg/dL Creatinine 1.1 (0.6-1.5) mg/dL Glucose 136 H (70-110) mg/dL Calcium 9.0 (8.7-10.3) mg/dL Current Medications Generic Name Dose Route Start Last Admin Trade Name Freq PRN Reason Stop Dose Admin Atorvastatin Calcium 80 mg 12/31/24 12:15 12/31/24 13:04 Atorvastatin 80 Mg Tab PO 80 mg DAILY JUD Administration Bumetanide 1 mg 01/01/25 17:09 Bumetanide 1 Mg Tab PO BID@0900,1600 [facility] Clopidogrel Bisulfate 75 mg 12/31/24 12:15 12/31/24 13:04 Clopidogrel 75 Mg Tab PO 75 mg DAILY JUD Administration Dapagliflozin 5 mg 12/31/24 12:15 12/31/24 13:04 Dapagliflozin Propanediol 5 Mg Tablet PO 5 mg DAILY JUD Administration Dextrose/Water 25 ml 12/30/24 23:23 Dextrose 50% Syringe 50 Ml IVP PER PROTOCOL PRN Hypoglycemia Protocol Dextrose/Water 50 ml 12/30/24 23:23 Dextrose 50% Syringe 50 Ml IVP PER PROTOCOL PRN Hypoglycemia Protocol Glipizide 2.5 mg 12/31/24 17:30 Glipizide 5 Mg Tab PO BID-W/MEALS [facility] Insulin Human Lispro 0 unit 12/31/24 07:30 12/31/24 13:04 Insulin Lispro (Humalog) 100 Unit/Ml 10 Ml Vl SQ 8 unit ACHS JUD Administration Protocol Losartan Potassium 25 mg 01/01/25 09:00 Losartan 25 Mg Tab PO DAILY JUD Melatonin 5 mg 12/30/24 23:22 12/30/24 23:55 Melatonin 5 Mg Tablet PO 5 mg HS PRN Administration Insomnia Metformin HCl 500 mg 12/31/24 17:30 Metformin 500 Mg Tab PO BID-W/MEALS [facility] Metoprolol Tartrate 12.5 mg 12/31/24 21:00 Metoprolol Tartrate 12.5 Mg Tab PO BID JUD Naloxone HCl 0.2 mg 12/30/24 20:30 Naloxone 0.4 Mg/Ml 1 Ml Vial IV Q2M PRN Opioid Reversal Nitroglycerin 0.4 mg 12/31/24 12:08 Nitroglycerin Sl Tabs 0.4 Mg Tab SUBLINGUAL Q5M PRN Chest Pain Spironolactone 25 mg 01/01/25 09:00 Spironolactone 25 Mg Tab PO DAILY UJD Intake and Output 12/31/24 12/31/24 12/31/24 06:59 14:59 22:59 Intake Total 318 Output Total 750 Balance -750 318 Intake: Oral 318 Output: Urine 750 Other: Voiding Method External Catheter 12/31/24 04:13 12/31/24 04:05
[2024-12-31 17:19] LABS: Glucose,Whole Blood 116 mg/dL (70-110)
[2024-12-31] MEDS: glipiZIDE 5 MG TAB PO SCH (18:11)
[2024-12-31] MEDS: metFORMIN 500 MG TAB PO SCH (18:12)
[2024-12-31 19:56] LABS: Glucose,Whole Blood 242 mg/dL (70-110)
[2024-12-31] MEDS: METOPROLOL TARTRATE 12.5 MG TAB PO SCH (20:37)
[2024-12-31] MEDS ORDERED: METFORMIN HCL PO SCH (21:00)
[2024-12-31] MEDS ORDERED: [UNRECOGNIZED DRUG - OTHER] PO SCH (21:00)
[2024-12-31] MEDS ORDERED: GLIPIZIDE PO SCH (21:00)
[2025-01-01 05:54] LABS: Glucose,Whole Blood 164 mg/dL (70-110)
[2025-01-01] MEDS: LOSARTAN 25 MG TAB PO SCH (08:24)
[2025-01-01] MEDS: SPIRONOLACTONE 25 MG TAB PO SCH (08:24)
[2025-01-01 11:31] LABS: Glucose,Whole Blood 181 mg/dL (70-110)
--- NOTE | 2025-01-01 14:04 | P.PN ---
Subjective Progress Note Date: 01/01/25 HISTORY OF PRESENTING ILLNESS: 77-year-old known to Dr. Osorio. Is undergoing TAVR workup. He had a recent heart catheterization which showed severe [place] vessel disease and patent vein grafts. Also showed evidence of severe aortic stenosis. He presents to hospital because of increased worsening generalized weakness, lower extremity edema. He also reports having fall at home but he attributes it to his weakness and he reports that he has not lost consciousness or passed out. In the ER he got IV diuretics and at this time he appears to have optimized from heart failure standpoint. Home cardiac medications include Aldactone 25, metoprolol 12.5 twice daily, losartan 25, Lasix 40 twice daily, Jardiance 10, Plavix, Lipitor .................................................................... .......................................................................... Hb 11, BUN 32, creatinine 0.9 NT-proBNP 6800 TSH 7.7, free T41.4 ............................................................ ................................................................................ .. Progress note 01/01/2025 Seen and examined at bedside this a.m. BP 147/77, heart rate 84 bpm, Reports feeling better however feels very unsteady on feet. Reports that he his legs would not be able to take his weight. He does not feel comfortable walking. He will need PT OT evaluation and assess if he is safe at home or not if not then maybe he will need to be transferred to rehab. .............................. ................................................................................ ................................ PHYSICAL EXAMINATION: Neck: Brisk carotid upstroke, no jugular venous distention. Lungs: Poor respiratory effort with mild crackles in bilateral lower lungs Heart: Regular rate and rhythm, systolic murmur with pulses parvus at tardus Abdomen: Soft nontender, positive bowel sounds. Extremities: No significant swelling in the legs Neuro: Alert, oritented, no focal deficits. Detailed neuro exam was not performed. ........................................................................ ...................................................................... ASSESSMENT: # Generalized weakness and increased fatigue # Mild HFpEF exacerbation # Severe aortic stenosis awaiting TAVR workup, planned in early January # CAD status post CABG, recent heart cath did not show any new worsening CAD with patent grafts # Debility and frailty PLAN: Bumex 1 mg p.o. twice daily Generalized weakness and fatigue is a nature of the disease of severe aortic stenosis. No clear indication for emergent balloon valvuloplasty at this time. Reduce Lipitor to 40 Continue Plavix 75, Continue Farxiga 10 mg, Continue losartan 25, Aldactone 25, Repeat BMP tomorrow PT OT evaluation to assess safety for home. Outpatient TAVR workup If patient gets hypotensive, or gets in congestive heart failure exacerbation, may need balloon valvuloplasty before TAVR. Ruben Burk MD, FACC, RPVI Objective - Vital Signs Vital signs: Vital Signs Temp 98.2 F 01/01/25 11:30 Pulse 73 01/01/25 11:30 Resp 18 01/01/25 07:20 BP 95/60 01/01/25 11:30 Pulse Ox 94 L 01/01/25 11:30 FiO2 Intake & Output 12/31/24 01/01/25 01/01/25 18:59 06:59 18:59 Intake Total 318 200 Output Total 900 400 Balance -582 -400 200 Intake: Oral 318 200 Output: Urine 900 400 Other: Voiding Method Bedside Commode Diaper # Voids 1 - Labs CBC & Chem 7: 12/31/24 04:13 12/31/24 04:05 Labs: Abnormal Lab Results - Last 24 Hours (Table) 12/31/24 12/31/24 01/01/25 Range/Units 17:17 19:53 05:52 POC Glucose (mg/dL) 116 H 242 H 164 H (70-110) mg/dL 01/01/25 Range/Units 11:28 POC Glucose (mg/dL) 181 H (70-110) mg/dL
--- NOTE | 2025-01-01 15:25 | P.PN ---
Subjective Progress Note Date: 01/01/25 84-year-old gentleman with past medical history significant for coronary disease, heart failure, diabetes mellitus presents the ER because of generalized weakness. Patient stated for the last couple of days he has been noticing that he is getting more weaker. Patient is complaining of weakness of lower e xtremities. Patient had multiple falls at home, patient did not pass out or lost consciousness patient denies any chest pain. There is no complaint of orthopnea or PND. Patient denies any swelling of feet. Denies any nausea, vomiting abdominal pain. Patient denies any complaint of dizziness. There is no complaint of headache. Because generalized weakness, patient came to the ER Initial lab work done in the ER showed WBC 9.11, hemoglobin 0.6, platelet count 223, sodium 138, potassium 4.5, BUN 32, creatinine 0.92, glucose 200, bilirubin 1.5 AST 234, ALT 19, troponin 0.012, proBNP 6850, UA negative for infection EKG done in the ER showed heart rate of 78, no ST segment elevation or depres jabier seen, no T-wav T wave inversion seen in lead V6 Chest x-ray done in the ER showed cardiomegaly and mild pulmonary congestion CT head done showed no acute intracranial process CT cervical spine showed no evidence of cervical spine fracture X-ray lumbar spine showed no acute fractures Patient admitted to internal medicine service 01/01. Patient seen and examined. Swelling of legs has improved, cardiology switched diuretics to oral Bumex. REVIEW OF SYSTEMS: CONSTITUTIONAL: No fever, no malaise,. CARDIOVASCULAR: No chest pain, no palpitations, no syncope. PULMONARY: No shortness of breath, no cough, GASTROINTESTINAL: No diarrhea, no nausea, no vomiting, no abdominal pain. NEUROLOGICAL: No headaches, no weakness, PHYSICAL EXAMINATION: GENERAL: The patient is alert and oriented x3, not in any acute distress. Well developed, well nourished. HEENT: Pupils are round and equally reacting to light. EOMI. No scleral icterus. No conjunctival pallor. Normocephalic, atraumatic. No pharyngeal erythema. No thyromegaly. CARDIOVASCULAR: S1 and S2 present. No murmurs, rubs, or gallops. PULMONARY: Chest is clear to auscultation, no wheezing or crackles. ABDOMEN: Soft, nontender, nondistended, normoactive bowel sounds. No palpable organomegaly. MUSCULOSKELETAL: No joint swelling or deformity. EXTREMITIES: No cyanosis, clubbing, 1+ pitting edema of the lower extremities bilaterally NEUROLOGICAL: Gross neurological examination did not reveal any focal deficits. SKIN: No rashes. Assessment and plan Generalized weakness Recurrent falls Acute on chronic heart failure with preserved EF Severe symptomatic aortic stenosis Essential hypertension Coronary artery disease s/p CABG History of diabetes mellitus Monitor vital signs Monitor CBC Monitor CMP Continue telemetry monitoring Strict I's and O's and daily weights Continue Bumex Continue Plavix, statin Continue losartan Continue Lopressor PT and OT consulted Cardiology following Labs and medication were reviewed.. Continue same treatment. Continue with symptomatic treatment. Resume home medication. Monitor labs and vitals. DVT and GI prophylaxis. Further recommendations as per clinical course of the patient Dictation was produced using [employer] dictation software. please excuse any grammatical, word or spelling errors. Objective - Vital Signs Vital signs: Vital Signs Temp 98.2 F 01/01/25 11:30 Pulse 73 01/01/25 11:30 Resp 18 01/01/25 07:20 BP 95/60 01/01/25 11:30 Pulse Ox 94 L 01/01/25 11:30 FiO2 Intake & Output 12/31/24 01/01/25 01/01/25 18:59 06:59 18:59 Intake Total 318 200 Output Total 900 400 Balance -582 -400 200 Intake: Oral 318 200 Output: Urine 900 400 Other: Voiding Method Bedside Commode Diaper # Voids 1 - Labs CBC & Chem 7: 12/31/24 04:13 12/31/24 04:05 Labs: Abnormal Lab Results - Last 24 Hours (Table) 12/31/24 12/31/24 12/31/24 Range/Units 12:33 17:17 19:53 POC Glucose (mg/dL) 345 H 116 H 242 H (70-110) mg/dL 01/01/25 01/01/25 Range/Units 05:52 11:28 POC Glucose (mg/dL) 164 H 181 H (70-110) mg/dL
[2025-01-01 17:34] LABS: Glucose,Whole Blood 176 mg/dL (70-110)
[2025-01-01] MEDS: BUMETANIDE 1 MG TAB PO SCH (18:25)
[2025-01-01 20:11] LABS: Glucose,Whole Blood 202 mg/dL (70-110)
[2025-01-01] MEDS: DEXAMETHASONE SOD PHOSPHATE 10 MG/ML 1 ML VIAL IVP STA (21:11)
[2025-01-02] MEDS: DEXAMETHASONE SOD PHOSPHATE 4 MG/ML 1 ML VIAL IVP SCH (00:47)
[2025-01-02 05:50] LABS: Glucose,Whole Blood 224 mg/dL (70-110)
[2025-01-02 07:52] LABS: HCT 35.5 % (39.6-50.0); HGB 11.7 g/dL (13.0-17.0); MCH 31.0 pg (27.0-32.0); MCHC 33.0 g/dL (32.0-37.0); MCV 93.9 FL (80.0-97.0); NRBC Per 100 WBC 0 X 10*3/uL (0.00-0.01); Platelet Count 245 X 10*3/uL (140-440); RBC 3.78 X 10*6/uL (4.40-5.60); RDW 13.8 % (11.5-14.5); WBC 8.19 X 10*3/uL (4.50-10.00)
[2025-01-02 08:01] LABS: Magnesium 2.0 mg/dL (1.5-2.4)
[2025-01-02 08:16] LABS: Anion Gap 17.30 mmol/L (4.00-12.00); BUN/Creat Ratio 26.58 Ratio (12.00-20.00); Blood Urea Nitrogen 31.9 mg/dL (9.0-27.0); Calcium 8.7 mg/dL (8.7-10.3); Carbon Dioxide 20.7 mmol/L (21.6-31.8); Chloride 98 mmol/L (96-109); Glucose 212 mg/dL (70-110); Potassium 4.2 mmol/L (3.5-5.5); Sodium 136 mmol/L (135-145)
[2025-01-02] MEDS: ATORVASTATIN 40 MG TAB PO SCH (09:47)
--- NOTE | 2025-01-02 12:15 | P.CNOR ---
History of Present Illness - [facility] Consult date: 01/02/25 History of present illness: Patient is an 84-year-old male who presents to the emergency department onset 12/30/2024 due to weakness. Patient does have a past medical history significant for coronary artery disease, heart failure, diabetes. orthopedics was consulted due to spinal stenosis degenerative disc disease and weakness in his lower extremities. Patient was seen at bedside this morning on 6 N. lying in the semirecumbent position and was present during the encounter and gave majority of the history. Patient's mentions that he has had 3 falls recently. Patient's notes that he has been extremely weak in his lower extremities from his knees to his ankles over the past several months and it seemed to have worsened. Patient normally ambulates with a walker at home. Patient was planning to have surgery performed Dr. Marshall in May 2020 for however he did not receive cardiac clearance. Patient's 's states that patient had a cardiac cath on 12/20/2024 and surgery has been scheduled for January 2025. Denies any reports of fevers or chest pain denies any saddle esthesia or loss of bowel/bladder control. Patient mentions he does have some weakness in the upper extremities as well. Denies any other issues at this time. Past Medical History Past Medical History: Coronary Artery Disease (CAD), Cancer, Heart Failure, Diabetes Mellitus, Hyperlipidemia, Hypertension Additional Past Medical History / Comment(s): had some kind of skin cancer removed as a teen-not sure what kind, no problems since, DDD, "[place]ent [place]" 2023 History of Any Multi-Drug Resistant Organisms: None Reported Past Surgical History: Heart Catheterization With Stent Additional Past Surgical History / Comment(s): open heart 2014 CABGX4, Past Anesthesia/Blood Transfusion Reactions: No Reported Reaction Date of Last Stent Placement:: 08/11/2019 Past Psychological History: No Psychological Hx Reported Smoking Status: Never smoker Past Alcohol Use History: Rare Past Drug Use History: None Reported - Past Family History Mother Family Medical History: Diabetes Mellitus Additional Family Medical History / Comment(s): Mother at age 84 with history of diabetes. Father Family Medical History: Hypertension Additional Family Medical History / Comment(s): Father at age 86 from old age with history of hypertension. Brother(s) Family Medical History: Hypertension Additional Family Medical History / Comment(s): Patient has a total of 4 brothers. 2 brothers have passed, one from leukemia and one from liver cancer. Son(s) Family Medical History: Coronary Artery Disease (CAD), Memory Impairment Additional Family Medical History / Comment(s): heart attack age 47 Sister(s) Additional Family Medical History / Comment(s): Patient has 1 sister with no major medical problems. Medications and Allergies Home Medications Medication Instructions Recorded Confirmed Type glipiZIDE/METFORMIN HCL 1 tab PO BID 09/12/17 12/30/24 History [glipiZIDE/METFORMIN HCL 2.5-500 mg] Clopidogrel Bisulfate [Plavix] 75 mg PO DAILY 04/28/22 12/30/24 History Atorvastatin [Lipitor] 80 mg PO DAILY 12/09/24 12/30/24 History Losartan [Cozaar] 25 mg PO DAILY 12/09/24 12/30/24 History Nitroglycerin Sl Tabs [Nitrostat] 0.4 mg SUBLINGUAL Q5M PRN 12/09/24 12/30/24 History Furosemide [Lasix] 40 mg PO BID@0900,1600 30 Days #60 12/10/24 12/30/24 Rx tab Metoprolol Tartrate [Lopressor] 12.5 mg PO BID 30 Days #30 tab 12/10/24 12/30/24 Rx Spironolactone [Aldactone] 25 mg PO DAILY 30 Days #30 tab 12/10/24 12/30/24 Rx Empagliflozin [Jardiance] 10 mg PO DAILY 12/16/24 12/30/24 History Allergies Allergy/AdvReac Type Severity Reaction Status Date / Time Penicillins Allergy Rash/Hives Verified 12/30/24 18:10 Physical Examination Negative for any open fractures, significant erythema/ecchymosis or open wounds. Sensation is somewhat diminished in bilateral lower extremities in feet. sensation is equal, symmetric, bilaterally intact throughout the rest of the upper and lower extremities on exam. There is some generalized tenderness to patient over the cervical spine and lumbar spine at midline on exam. Patient does have limited range of motion of bilateral shoulders in forward elevation, abduction and external/internal rotation. Patient also does have limited range of motion in the bilateral hips and knees in flexion extension secondary referred pain and stiffness in the back. Patient does have limited dorsi and plantarflexion of the bilateral ankles. 4-/5 in all major motor groups in bilate ral upper and lower extremities. Negative Alecia bilaterally. Negative clonus bilaterally. Negative Homans bilaterally. Radial pulse intact bilaterally. Results - Labs Labs: Abnormal Lab Results - Last 24 Hours (Table) 01/01/25 01/01/25 01/01/25 Range/Units 11:28 17:32 20:09 RBC (4.40-5.60) X 10*6/uL Hgb (13.0-17.0) g/dL Hct (39.6-50.0) % Carbon Dioxide (21.6-31.8) mmol/L Anion Gap (4.00-12.00) mmol/L BUN (9.0-27.0) mg/dL Est GFR (CKD-EPI) (>=60) BUN/Creatinine Ratio (12.00-20.00) Ratio Glucose (70-110) mg/dL POC Glucose (mg/dL) 181 H 176 H 202 H (70-110) mg/dL 01/02/25 01/02/25 01/02/25 Range/Units 05:12 05:12 05:49 RBC 3.78 L (4.40-5.60) X 10*6/uL Hgb 11.7 L (13.0-17.0) g/dL Hct 35.5 L (39.6-50.0) % Carbon Dioxide 20.7 L (21.6-31.8) mmol/L Anion Gap 17.30 H (4.00-12.00) mmol/L BUN 31.9 H (9.0-27.0) mg/dL Est GFR (CKD-EPI) 59 L (>=60) BUN/Creatinine Ratio 26.58 H (12.00-20.00) Ratio Glucose 212 H (70-110) mg/dL POC Glucose (mg/dL) 224 H (70-110) mg/dL H & H 12/30/24 12/31/24 01/02/25 Range/Units 16:34 04:13 05:12 Hgb 11.6 L 11.5 L 11.7 L (13.0-17.0) g/dL Hct 34.0 L 35.3 L 35.5 L (39.6-50.0) % Coagulation 12/30/24 Range/Units 16:34 INR 1.0 (<1.2) Result Diagrams: 01/02/25 05:12 01/02/25 05:12 - Diagnostic results CT scan - cervical: report reviewed, image reviewed (CT scan of the cervical spine does reveal severe central canal stenosis at C3-C4 as well as bilateral neuroforaminal stenosis in the mid to lower cervical spine.) Lumbar AP/lateral x-ray: report reviewed, image reviewed (X-ray of the lumbar spine does not reveal any acute fracture there is evidence for lumbar spondylosis and degenerative disc disease as well as retrolisthesis of L3 on L4.) Assessment and Plan Assessment: 1. C3-C4 central canal stenosis; cervical neuroforaminal stenosis; degenerative disc disease; retrolisthesis L3-L4; lumbar spondylosis; bilateral lower extremity weakness; bilateral upper extremity weakness 2. Multiple medical comorbidities Plan: 1. C3-C4 central canal stenosis; cervical neuroforaminal stenosis; degenerative disc disease; retrolisthesis L3-L4; lumbar spondylosis; bilateral lower extremity weakness; bilateral upper extremity weakness - CT scan of the cervical spine does reveal severe central canal stenosis at C3-C4 as well as bilateral neuroforaminal stenosis in the mid to lower cervical spine. X-ray of the lumbar spine does not reveal any acute fracture there is evidence for lumbar spondylosis and degenerative disc disease as well as retrolisthesis of L3 on L4. Due to the patient's complex cardiac history not recommending any orthopedic spine surgical intervention at this time. Continue with conservative measures with PT/OT and pain medication. We do recommend patient to follow-up in the outpatient setting with Dr. Marshall as needed after his cardiac procedure in January. Patient stable from orthopedic standpoint for discharge. At this time orthopedics is signing off. Please do not hesitate to contact us for any further questions. 2. Appreciate medical management 3. Pain management recs 4. DVT prophylaxis - plavix 5. GI prophylaxis recs 6. PT/OT -bearing as tolerated with walker and assistance 7. Encourage incentive spirometer use 8. Appreciate consult Time with Patient: Less than 30
[2025-01-02 12:24] LABS: Glucose,Whole Blood 252 mg/dL (70-110)
--- NOTE | 2025-01-02 13:25 | P.PN ---
Subjective HISTORY OF PRESENT ILLNESS: 77-year-old known to Dr. Osorio. Is undergoing TAVR workup. He had a recent heart catheterization which showed severe [place] vessel disease and patent vein grafts. Also showed evidence of severe aortic stenosis. He presents to hospital because of increased worsening generalized weakness, lower extremity edema. He also reports having fall at home but he attributes it to his weakness and he reports that he has not lost consciousness or passed out. In the ER he got IV diuretics and at this time he appears to have optimized from heart failure standpoint. Home cardiac medications include Aldactone 25, metoprolol 12.5 twice daily, losartan 25, Lasix 40 twice daily, Jardiance 10, Plavix, Lipitor Progress note 01/01/2025 Seen and examined at bedside this a.m. BP 147/77, heart rate 84 bpm, Reports feeling better however feels very unsteady on feet. Reports that he his legs would not be able to take his weight. He does not feel comfortable walking. He will need PT OT evaluation and assess if he is safe at home or not if not then maybe he will need to be transferred to rehab. 01/02/2025 Patient examined this morning at the bedside. Patient currently denies chest pain or pressure. He denies shortness of breath. Vital signs are stable. PHYSICAL EXAM: VITAL SIGNS: Reviewed. GENERAL: Well-developed in no acute distress. NECK: Supple. No JVD or thyromegaly LUNGS: Respirations even and unlabored. Lungs essentially clear to auscultation bilaterally. HEART: Regular rate and rhythm. S1 and S2 heard. EXTREMITIES: Normal range of motion. No clubbing or cyanosis. Peripheral pulses intact. No lower extremity edema ASSESSMENT: Generalized weakness and increased fatigue Mild acute on chronic heart failure with preserved EF Severe aortic stenosis, awaiting TAVR Coronary artery disease with previous CABG PLAN: Obtain 2D echo to assess gradient across aortic valve Continue current cardiac medications Patient to follow up post discharge in the TAVR clinic Further recommendations pending patient course Nurse practitioner note has been reviewed by physician. Signing provider agrees with the documented findings, assessment, and plan of care documented by PIPE FITTINGS MOLDER as a scribe. Objective - Vital Signs Vital signs: Vital Signs Temp 98.3 F 01/02/25 07:00 Pulse 74 01/02/25 07:00 Resp 17 01/02/25 07:00 BP 112/67 01/02/25 07:00 Pulse Ox 94 L 01/02/25 07:00 FiO2 Intake & Output 01/01/25 01/02/25 01/02/25 18:59 06:59 18:59 Intake Total 318 118 Output Total 200 375 Balance 118 -375 118 Intake: Oral 318 118 Output: Urine 200 375 Other: Voiding Method Incontinent Urinal Urinal Diaper Diaper # Voids 2 1 - Labs CBC & Chem 7: 01/02/25 05:12 01/02/25 05:12 Labs: Abnormal Lab Results - Last 24 Hours (Table) 01/01/25 01/01/25 01/02/25 Range/Units 17:32 20:09 05:12 RBC 3.78 L (4.40-5.60) X 10*6/uL Hgb 11.7 L (13.0-17.0) g/dL Hct 35.5 L (39.6-50.0) % Carbon Dioxide (21.6-31.8) mmol/L Anion Gap (4.00-12.00) mmol/L BUN (9.0-27.0) mg/dL Est GFR (CKD-EPI) (>=60) BUN/Creatinine Ratio (12.00-20.00) Ratio Glucose (70-110) mg/dL POC Glucose (mg/dL) 176 H 202 H (70-110) mg/dL 01/02/25 01/02/25 01/02/25 Range/Units 05:12 05:49 12:20 RBC (4.40-5.60) X 10*6/uL Hgb (13.0-17.0) g/dL Hct (39.6-50.0) % Carbon Dioxide 20.7 L (21.6-31.8) mmol/L Anion Gap 17.30 H (4.00-12.00) mmol/L BUN 31.9 H (9.0-27.0) mg/dL Est GFR (CKD-EPI) 59 L (>=60) BUN/Creatinine Ratio 26.58 H (12.00-20.00) Ratio Glucose 212 H (70-110) mg/dL POC Glucose (mg/dL) 224 H 252 H (70-110) mg/dL
--- NOTE | 2025-01-02 14:18 | P.PN ---
Subjective Progress Note Date: 01/02/25 84-year-old gentleman with past medical history significant for coronary disease, heart failure, diabetes mellitus presents the ER because of generalized weakness. Patient stated for the last couple of days he has been noticing that he is getting more weaker. Patient is complaining of weakness of lower e xtremities. Patient had multiple falls at home, patient did not pass out or lost consciousness patient denies any chest pain. There is no complaint of orthopnea or PND. Patient denies any swelling of feet. Denies any nausea, vomiting abdominal pain. Patient denies any complaint of dizziness. There is no complaint of headache. Because generalized weakness, patient came to the ER Initial lab work done in the ER showed WBC 9.11, hemoglobin 0.6, platelet count 223, sodium 138, potassium 4.5, BUN 32, creatinine 0.92, glucose 200, bilirubin 1.5 AST 234, ALT 19, troponin 0.012, proBNP 6850, UA negative for infection EKG done in the ER showed heart rate of 78, no ST segment elevation or depres jabier seen, no T-wav T wave inversion seen in lead V6 Chest x-ray done in the ER showed cardiomegaly and mild pulmonary congestion CT head done showed no acute intracranial process CT cervical spine showed no evidence of cervical spine fracture X-ray lumbar spine showed no acute fractures Patient admitted to internal medicine service 01/01. Patient seen and examined. Swelling of legs has improved, cardiology switched diuretics to oral Bumex. 01/02. Patient seen and examined. Swelling of legs is improving, denies any shortness of breath. PT and OT evaluated the patient, patient is weak, they are recommending rehab REVIEW OF SYSTEMS: CONSTITUTIONAL: No fever, no malaise,. CARDIOVASCULAR: No chest pain, no palpitations, no syncope. PULMONARY: No shortness of breath, no cough, GASTROINTESTINAL: No diarrhea, no nausea, no vomiting, no abdominal pain. NEUROLOGICAL: No headaches, no weakness, PHYSICAL EXAMINATION: GENERAL: The patient is alert and oriented x3, not in any acute distress. Well developed, well nourished. HEENT: Pupils are round and equally reacting to light. EOMI. No scleral icterus. No conjunctival pallor. Normocephalic, atraumatic. No pharyngeal erythema. No thyromegaly. CARDIOVASCULAR: S1 and S2 present. No murmurs, rubs, or gallops. PULMONARY: Chest is clear to auscultation, no wheezing or crackles. ABDOMEN: Soft, nontender, nondistended, normoactive bowel sounds. No palpable organomegaly. MUSCULOSKELETAL: No joint swelling or deformity. EXTREMITIES: No cyanosis, clubbing, 1+ pitting edema of the lower extremities bilaterally NEUROLOGICAL: Gross neurological examination did not reveal any focal deficits. SKIN: No rashes. Assessment and plan Generalized weakness Recurrent falls Acute on chronic heart failure with preserved EF Severe symptomatic aortic stenosis Essential hypertension Coronary artery disease s/p CABG History of diabetes mellitus Monitor vital signs Monitor CBC Monitor CMP Continue telemetry monitoring Strict I's and O's and daily weights Continue Bumex Continue Plavix, statin Continue losartan Continue Lopressor PT and OT commend rehab Cardiology following Labs and medication were reviewed.. Continue same treatment. Continue with symptomatic treatment. Resume home medication. Monitor labs and vitals. DVT a nd GI prophylaxis. Further recommendations as per clinical course of the patient Dictation was produced using [employer] dictation software. please excuse any grammatical, word or spelling errors. Objective - Vital Signs Vital signs: Vital Signs Temp 98.3 F 01/02/25 07:00 Pulse 74 01/02/25 07:00 Resp 17 01/02/25 07:00 BP 112/67 01/02/25 07:00 Pulse Ox 94 L 01/02/25 07:00 FiO2 Intake & Output 01/01/25 01/02/25 01/02/25 18:59 06:59 18:59 Intake Total 318 118 Output Total 200 375 300 Balance 118 -375 -182 Intake: Oral 318 118 Output: Urine 200 375 300 Other: Voiding Method Incontinent Urinal Urinal Diaper Diaper # Voids 2 1 - Labs CBC & Chem 7: 01/02/25 05:12 01/02/25 05:12 Labs: Abnormal Lab Results - Last 24 Hours (Table) 01/01/25 01/01/25 01/02/25 Range/Units 17:32 20:09 05:12 RBC 3.78 L (4.40-5.60) X 10*6/uL Hgb 11.7 L (13.0-17.0) g/dL Hct 35.5 L (39.6-50.0) % Carbon Dioxide (21.6-31.8) mmol/L Anion Gap (4.00-12.00) mmol/L BUN (9.0-27.0) mg/dL Est GFR (CKD-EPI) (>=60) BUN/Creatinine Ratio (12.00-20.00) Ratio Glucose (70-110) mg/dL POC Glucose (mg/dL) 176 H 202 H (70-110) mg/dL 01/02/25 01/02/25 01/02/25 Range/Units 05:12 05:49 12:20 RBC (4.40-5.60) X 10*6/uL Hgb (13.0-17.0) g/dL Hct (39.6-50.0) % Carbon Dioxide 20.7 L (21.6-31.8) mmol/L Anion Gap 17.30 H (4.00-12.00) mmol/L BUN 31.9 H (9.0-27.0) mg/dL Est GFR (CKD-EPI) 59 L (>=60) BUN/Creatinine Ratio 26.58 H (12.00-20.00) Ratio Glucose 212 H (70-110) mg/dL POC Glucose (mg/dL) 224 H 252 H (70-110) mg/dL
[2025-01-02 17:20] LABS: Glucose,Whole Blood 300 mg/dL (70-110)
[2025-01-02 20:06] LABS: Glucose,Whole Blood 302 mg/dL (70-110)
[2025-01-03 06:00] LABS: Glucose,Whole Blood 198 mg/dL (70-110)
--- NOTE | 2025-01-03 08:59 | CA ---
Transthoracic Echo Report Name: Anibal Trinh Age: 84 Gender: M : 1940 Exam Date: 01/02/2025 14:37 Exam Location: [place] [facility] Ht (in): 70 Wt (lb): 190 Ordering Physician: Linda Serna Attending/Referring Phys: [id number], [facility] Receptionist Assistant Mayda Yang RDCS Procedure CPT: Indications: aortic stenosis, pending discharge Cardiac Hx: Technical Quality: Poor Contrast 1: Definity Total Dose (mL): 2 Contrast 2: Total Dose (mL): MEASUREMENTS (Male / Female) Normal Values 2D ECHO LV Diastolic Diameter PLAX 5.3 cm 4.2 - 5.9 / 3.9 - 5.3 cm LV Systolic Diameter PLAX 5.0 cm IVS Diastolic Thickness 1.4 cm 0.6 - 1.0 / 0.6 - 0.9 cm LVPW Diastolic Thickness 1.4 cm 0.6 - 1.0 / 0.6 - 0.9 cm LV Relative Wall Thickness 0.5 RV Internal Dim ED PLAX 3.1 cm LVOT Diameter 2.4 cm LA Systolic Diameter LX 5.6 cm 3.0 - 4.0 / 2.7 - 3.8 cm M-MODE Aortic Root Diameter MM 3.8 cm LA Systolic Diameter MM 5.0 cm LA Ao Ratio MM 1.3 AV Cusp Separation MM 0.8 cm DOPPLER AV Peak Velocity 339.5 cm/s AV Peak Gradient 46.1 mmHg AV Mean Velocity 251.8 cm/s AV Mean Gradient 28.1 mmHg AV Velocity Time Integral 69.8 cm AI Peak Velocity 293.5 cm/s AI Peak Gradient 34.5 mmHg AI Pressure Half Time 869.8 ms LVOT Peak Velocity 64.7 cm/s LVOT Peak Gradient 1.7 mmHg LVOT Velocity Time Integral 16.7 cm LVOT Stroke Volume 75.9 cm??? LVOT Stroke Volume Index 37.1 ml/m??? LVOT Cardiac Index 3285.2 cm???/min???m??? AV Area Cont Eq vti 1.1 cm??? AV Area Cont Eq pk 0.9 cm??? Mitral E Point Velocity 89.8 cm/s Mitral A Point Velocity 123.8 cm/s Mitral E to A Ratio 0.7 MV Deceleration Time 185.7 ms MV E' Velocity 3.0 cm/s Mitral E to MV E' Ratio 30.0 TR Peak Velocity 331.9 cm/s TR Peak Gradient 44.1 mmHg FINDINGS Left Ventricle Left ventricular ejection fraction is estimated at 10-15%. Mildly increased septal wall thickness. Left ventricular cavity size normal. Severely reduced global left ventricular systolic function. Right Ventricle Right ventricle not well visualized. Mild pulmonary hypertension. Right Atrium Mild right atrial dilatation. Left Atrium Severely increased left atrial diameter. Mitral Valve Mitral valve thickened. Moderate mitral regurgitation. No mitral stenosis. Aortic Valve Severe low-flow low-gradient aortic stenosis with a peak velocity of 3.4 m/s, peak gradient 46mmHg, mean gradient 28mmHg, and estimated aortic valve area of .9cm???. Trace to mild aortic regurgitation. Tricuspid Valve Structurally normal tricuspid valve. Trace to mild tricuspid regurgitation. No tricuspid stenosis. Pulmonic Valve Pulmonic valve not well visualized. Trace pulmonic regurgitation. No pulmonic stenosis. Pericardium No pericardial or pleural effusion. Aorta Mild aortic dilatation at the level of the sinuses of valsalva (root). CONCLUSIONS Impaired LV function with EF between 10 to 15% with global hypokinesia Heavily calcified aortic valve with a mean gradient of 28 mmHg. Low-flow low gradient aortic stenosis Mild pulmonary hypertension No pericardial effusion Previewed by: Dr. Bud Allred MD (Electronically Signed) Final Date: 03 January 2025 08:58
--- NOTE | 2025-01-03 11:58 | P.PN ---
Subjective HISTORY OF PRESENT ILLNESS: 77-year-old known to Dr. Osorio. Is undergoing TAVR workup. He had a recent heart catheterization which showed severe [place] vessel disease and patent vein grafts. Also showed evidence of severe aortic stenosis. He presents to hospital because of increased worsening generalized weakness, lower extremity edema. He also reports having fall at home but he attributes it to his weakness and he reports that he has not lost consciousness or passed out. In the ER he got IV diuretics and at this time he appears to have optimized from heart failure standpoint. Home cardiac medications include Aldactone 25, metoprolol 12.5 twice daily, losartan 25, Lasix 40 twice daily, Jardiance 10, Plavix, Lipitor Progress note 01/01/2025 Seen and examined at bedside this a.m. BP 147/77, heart rate 84 bpm, Reports feeling better however feels very unsteady on feet. Reports that he his legs would not be able to take his weight. He does not feel comfortable walking. He will need PT OT evaluation and assess if he is safe at home or not if not then maybe he will need to be transferred to rehab. 01/02/2025 Patient examined this morning at the bedside. Patient currently denies chest pain or pressure. He denies shortness of breath. Vital signs are stable. 01/03/2025 Patient examined this morning at bedside. Patient currently denies chest pain or pressure. He denies shortness of breath. Vital signs are stable. Echocardiogram performed revealing ejection fraction 10 to 15%, heavily calcified aortic valve with mean gradient of 28 mmHg, low-flow low gradient aortic stenosis, mild pulmonary hypertension PHYSICAL EXAM: VITAL SIGNS: Reviewed. GENERAL: Well-developed in no acute distress. NECK: Supple. No JVD or thyromegaly LUNGS: Respirations even and unlabored. Lungs essentially clear to auscultation bilaterally. HEART: Regular rate and rhythm. S1 and S2 heard. EXTREMITIES: Normal range of motion. No clubbing or cyanosis. Peripheral pulses intact. No lower extremity edema ASSESSMENT: Generalized weakness and increased fatigue Mild acute on chronic heart failure with reduced EF Severe aortic stenosis, awaiting TAVR Coronary artery disease with previous CABG PLAN: Continue current cardiac medications Patient to follow up post discharge in the TAVR clinic Patient is stable for discharge from a cardiac standpoint Further recommendations pending patient course Nurse practitioner note has been reviewed by physician. Signing provider agrees with the documented findings, assessment, and plan of care documented by AIRLINE MANAGERIAL SUPERVISOR as a scribe. Objective - Vital Signs Vital signs: Vital Signs Temp 97.9 F 01/03/25 07:19 Pulse 80 01/03/25 07:19 Resp 16 01/03/25 07:19 BP 93/61 01/03/25 07:19 Pulse Ox 94 L 01/03/25 07:19 FiO2 Intake & Output 01/02/25 01/03/25 01/03/25 18:59 06:59 18:59 Intake Total 118 120 Output Total 300 Balance -182 120 Intake: Oral 118 120 Output: Urine 300 Other: Voiding Method Urinal Urinal Urinal Diaper Diaper Diaper # Voids 1 3 400 - Labs CBC & Chem 7: 01/02/25 05:12 01/02/25 05:12 Labs: Abnormal Lab Results - Last 24 Hours (Table) 01/02/25 01/02/25 01/02/25 Range/Units 12:20 17:17 20:04 POC Glucose (mg/dL) 252 H 300 H 302 H (70-110) mg/dL 01/03/25 Range/Units 05:59 POC Glucose (mg/dL) 198 H (70-110) mg/dL
[2025-01-03 12:24] LABS: Glucose,Whole Blood 305 mg/dL (70-110)
--- NOTE | 2025-01-03 14:26 | P.PN ---
Subjective Progress Note Date: 01/03/25 84-year-old gentleman with past medical history significant for coronary disease, heart failure, diabetes mellitus presents the ER because of generalized weakness. Patient stated for the last couple of days he has been noticing that he is getting more weaker. Patient is complaining of weakness of lower e xtremities. Patient had multiple falls at home, patient did not pass out or lost consciousness patient denies any chest pain. There is no complaint of orthopnea or PND. Patient denies any swelling of feet. Denies any nausea, vomiting abdominal pain. Patient denies any complaint of dizziness. There is no complaint of headache. Because generalized weakness, patient came to the ER Initial lab work done in the ER showed WBC 9.11, hemoglobin 0.6, platelet count 223, sodium 138, potassium 4.5, BUN 32, creatinine 0.92, glucose 200, bilirubin 1.5 AST 234, ALT 19, troponin 0.012, proBNP 6850, UA negative for infection EKG done in the ER showed heart rate of 78, no ST segment elevation or depres jabier seen, no T-wav T wave inversion seen in lead V6 Chest x-ray done in the ER showed cardiomegaly and mild pulmonary congestion CT head done showed no acute intracranial process CT cervical spine showed no evidence of cervical spine fracture X-ray lumbar spine showed no acute fractures Patient admitted to internal medicine service 01/01. Patient seen and examined. Swelling of legs has improved, cardiology switched diuretics to oral Bumex. 01/02. Patient seen and examined. Swelling of legs is improving, denies any shortness of breath. PT and OT evaluated the patient, patient is weak, they are recommending rehab 01/03. Patient seen and examined. Still has generalized weakness. Waiting on rehab placement. 2D echo done showed impaired LV function with EF of 10 to 18% with global hypokinesia, heavily calcified aortic valve with a mean gradient of 28 mm REVIEW OF SYSTEMS: CONSTITUTIONAL: No fever, no malaise,. CARDIOVASCULAR: No chest pain, no palpitations, no syncope. PULMONARY: No shortness of breath, no cough, GASTROINTESTINAL: No diarrhea, no nausea, no vomiting, no abdominal pain. NEUROLOGICAL: No headaches, no weakness, PHYSICAL EXAMINATION: GENERAL: The patient is alert and oriented x3, not in any acute distress. Well developed, well nourished. HEENT: Pupils are round and equally reacting to light. EOMI. No scleral icterus. No conjunctival pallor. Normocephalic, atraumatic. No pharyngeal erythema. No thyromegaly. CARDIOVASCULAR: S1 and S2 present. No murmurs, rubs, or gallops. PULMONARY: Chest is clear to auscultation, no wheezing or crackles. ABDOMEN: Soft, nontender, nondistended, normoactive bowel sounds. No palpable organomegaly. MUSCULOSKELETAL: No joint swelling or deformity. EXTREMITIES: No cyanosis, clubbing, 1+ pitting edema of the lower extremities bilaterally NEUROLOGICAL: Gross neurological examination did not reveal any focal deficits. SKIN: No rashes. Assessment and plan Generalized weakness Recurrent falls Acute systolic CHF Chronic diastolic CHF Severe symptomatic aortic stenosis Essential hypertension Coronary artery disease s/p CABG History of diabetes mellitus Monitor vital signs Monitor CBC Monitor CMP Continue telemetry monitoring Strict I's and O's and daily weights Continue Bumex 1 mg twice daily Continue Plavix, statin Continue losartan Continue Lopressor PT and OT commend rehab Cardiology following Labs and medication were reviewed.. Continue same treatment. Continue with symptomatic treatment. Resume home medication. Monitor labs and vitals. DVT and GI prophylaxis. Further recommendations as per clinical course of the patient Dictation was produced using [employer] dictation software. please excuse any grammatical, word or spelling errors. Objective - Vital Signs Vital signs: Vital Signs Temp 97.9 F 01/03/25 07:19 Pulse 80 01/03/25 07:19 Resp 16 01/03/25 07:19 BP 93/61 01/03/25 07:19 Pulse Ox 94 L 01/03/25 07:19 FiO2 Intake & Output 01/02/25 01/03/25 01/03/25 18:59 06:59 18:59 Intake Total 118 120 Output Total 300 Balance -182 120 Intake: Oral 118 120 Output: Urine 300 Other: Voiding Method Urinal Urinal Urinal Diaper Diaper Diaper # Voids 1 3 - Labs CBC & Chem 7: 01/02/25 05:12 01/02/25 05:12 Labs: Abnormal Lab Results - Last 24 Hours (Table) 01/02/25 01/02/25 01/02/25 Range/Units 12:20 17:17 20:04 POC Glucose (mg/dL) 252 H 300 H 302 H (70-110) mg/dL 01/03/25 Range/Units 05:59 POC Glucose (mg/dL) 198 H (70-110) mg/dL
[2025-01-03 17:33] LABS: Glucose,Whole Blood 128 mg/dL (70-110)
[2025-01-03 20:20] LABS: Glucose,Whole Blood 242 mg/dL (70-110)
[2025-01-04 05:50] LABS: Glucose,Whole Blood 161 mg/dL (70-110)
[2025-01-04 12:12] LABS: Glucose,Whole Blood 165 mg/dL (70-110)
--- NOTE | 2025-01-04 13:03 | P.PN ---
Subjective Progress Note Date: 01/04/25 84-year-old gentleman with past medical history significant for coronary disease, heart failure, diabetes mellitus presents the ER because of generalized weakness. Patient stated for the last couple of days he has been noticing that he is getting more weaker. Patient is complaining of weakness of lower e xtremities. Patient had multiple falls at home, patient did not pass out or lost consciousness patient denies any chest pain. There is no complaint of orthopnea or PND. Patient denies any swelling of feet. Denies any nausea, vomiting abdominal pain. Patient denies any complaint of dizziness. There is no complaint of headache. Because generalized weakness, patient came to the ER Initial lab work done in the ER showed WBC 9.11, hemoglobin 0.6, platelet count 223, sodium 138, potassium 4.5, BUN 32, creatinine 0.92, glucose 200, bilirubin 1.5 AST 234, ALT 19, troponin 0.012, proBNP 6850, UA negative for infection EKG done in the ER showed heart rate of 78, no ST segment elevation or depres jabier seen, no T-wav T wave inversion seen in lead V6 Chest x-ray done in the ER showed cardiomegaly and mild pulmonary congestion CT head done showed no acute intracranial process CT cervical spine showed no evidence of cervical spine fracture X-ray lumbar spine showed no acute fractures Patient admitted to internal medicine service 01/01. Patient seen and examined. Swelling of legs has improved, cardiology switched diuretics to oral Bumex. 01/02. Patient seen and examined. Swelling of legs is improving, denies any shortness of breath. PT and OT evaluated the patient, patient is weak, they are recommending rehab 01/03. Patient seen and examined. Still has generalized weakness. Waiting on rehab placement. 2D echo done showed impaired LV function with EF of 10 to 18% with global hypokinesia, heavily calcified aortic valve with a mean gradient of 28 mm 01/04. Patient seen and examined. No acute issues overnight. Possible discharge to rehab tomorrow REVIEW OF SYSTEMS: CONSTITUTIONAL: No fever, no malaise,. CARDIOVASCULAR: No chest pain, no palpitations, no syncope. PULMONARY: No shortness of breath, no cough, GASTROINTESTINAL: No diarrhea, no nausea, no vomiting, no abdominal pain. NEUROLOGICAL: No headaches, no weakness, PHYSICAL EXAMINATION: GENERAL: The patient is alert and oriented x3, not in any acute distress. Well developed, well nourished. HEENT: Pupils are round and equally reacting to light. EOMI. No scleral icterus. No conjunctival pallor. Normocephalic, atraumatic. No pharyngeal erythema. No thyromegaly. CARDIOVASCULAR: S1 and S2 present. No murmurs, rubs, or gallops. PULMONARY: Chest is clear to auscultation, no wheezing or crackles. ABDOMEN: Soft, nontender, nondistended, normoactive bowel sounds. No palpable organomegaly. MUSCULOSKELETAL: No joint swelling or deformity. EXTREMITIES: No cyanosis, clubbing, 1+ pitting edema of the lower extremities bilaterally NEUROLOGICAL: Gross neurological examination did not reveal any focal deficits. SKIN: No rashes. Assessment and plan Generalized weakness Recurrent falls Acute systolic CHF Chronic diastolic CHF Severe symptomatic aortic stenosis Essential hypertension Coronary artery disease s/p CABG History of diabetes mellitus Monitor vital signs Monitor CBC Monitor CMP Continue telemetry monitoring Strict I's and O's and daily weights Continue Bumex 1 mg twice daily Continue Plavix, statin Continue losartan Continue Lopressor PT and OT commend rehab Cardiology following Labs and medication were reviewed.. Continue same treatment. Continue with symptomatic treatment. Resume home medication. Monitor labs and vitals. DVT and GI prophylaxis. Further recommendations as per clinical course of the patient Dictation was produced using [employer] dictation software. please excuse any grammatical, word or spelling errors. Objective - Vital Signs Vital signs: Vital Signs Temp 98.1 F 01/04/25 07:01 Pulse 81 01/04/25 07:01 Resp 18 01/04/25 07:01 BP 130/68 01/04/25 07:01 Pulse Ox 100 01/04/25 07:01 FiO2 Intake & Output 01/03/25 01/04/25 01/04/25 18:59 06:59 18:59 Intake Total 358 540 118 Output Total 300 600 Balance 58 -60 118 Intake: Oral 358 540 118 Output: Urine 300 600 Other: Voiding Method Urinal Urinal Urinal Diaper Diaper Diaper # Voids 400 - Labs CBC & Chem 7: 01/02/25 05:12 01/02/25 05:12 Labs: Abnormal Lab Results - Last 24 Hours (Table) 01/03/25 01/03/25 01/03/25 Range/Units 12:21 17:29 20:18 POC Glucose (mg/dL) 305 H 128 H 242 H (70-110) mg/dL 01/04/25 Range/Units 05:48 POC Glucose (mg/dL) 161 H (70-110) mg/dL
--- NOTE | 2025-01-04 13:05 | P.PN ---
Subjective HISTORY OF PRESENT ILLNESS: 77-year-old known to Dr. Osorio. Is undergoing TAVR workup. 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 Also showed evidence of severe aortic stenosis. He presents to hospital because of increased worsening generalized weakness, lower extremity edema. He also reports having fall at home but he attributes it to his weakness and he reports that he has not lost consciousness or passed out. In the ER he got IV diuretics and at this time he appears to have optimized from heart failure standpoint. Home cardiac medications include Aldactone 25, metoprolol 12.5 twice daily, losartan 25, Lasix 40 twice daily, Jardiance 10, Plavix, Lipitor Progress note 01/01/2025 Seen and examined at bedside this a.m. BP 147/77, heart rate 84 bpm, Reports feeling better however feels very unsteady on feet. Reports that he his legs would not be able to take his weight. He does not feel comfortable walking. He will need PT OT evaluation and assess if he is safe at home or not if not then maybe he will need to be transferred to rehab. 01/02/2025 Patient examined this morning at the bedside. Patient currently denies chest pain or pressure. He denies shortness of breath. Vital signs are stable. 01/03/2025 Patient examined this morning at bedside. Patient currently denies chest pain or pressure. He denies shortness of breath. Vital signs are stable. Echocardiogram performed revealing ejection fraction 10 to 15%, heavily calcified aortic valve with mean gradient of 28 mmHg, low-flow low gradient aortic stenosis, mild pulmonary hypertension 01/04/2025 Patient examined this morning at bedside. Patient currently denies chest pain or pressure. He denies shortness of breath. Vital signs are stable. He is awaiting discharge to rehab. PHYSICAL EXAM: VITAL SIGNS: Reviewed. GENERAL: Well-developed in no acute distress. NECK: Supple. No JVD or thyromegaly LUNGS: Respirations even and unlabored. Lungs essentially clear to auscultation bilaterally. HEART: Regular rate and rhythm. S1 and S2 heard. EXTREMITIES: Normal range of motion. No clubbing or cyanosis. Peripheral pulses intact. No lower extremity edema ASSESSMENT: Generalized weakness and increased fatigue Mild acute on chronic heart failure with reduced EF Severe aortic stenosis, awaiting TAVR Coronary artery disease with previous CABG PLAN: Continue current cardiac medications Patient to follow up post discharge in the TAVR clinic Patient is stable for discharge from a cardiac standpoint We will sign off. Please reconsult if needed. Nurse practitioner note has been reviewed by physician. Signing provider agrees with the documented findings, assessment, and plan of care documented by [employer] as a scribe. Objective - Vital Signs Vital signs: Vital Signs Temp 98.1 F 01/04/25 07:01 Pulse 81 01/04/25 07:01 Resp 18 01/04/25 07:01 BP 130/68 01/04/25 07:01 Pulse Ox 100 01/04/25 07:01 FiO2 Intake & Output 01/03/25 01/04/25 01/04/25 18:59 06:59 18:59 Intake Total 358 540 118 Output Total 300 600 Balance 58 -60 118 Intake: Oral 358 540 118 Output: Urine 300 600 Other: Voiding Method Urinal Urinal Urinal Diaper Diaper Diaper # Voids 400 - Labs CBC & Chem 7: 01/02/25 05:12 01/02/25 05:12 Labs: Abnormal Lab Results - Last 24 Hours (Table) 01/03/25 01/03/25 01/04/25 Range/Units 17:29 20:18 05:48 POC Glucose (mg/dL) 128 H 242 H 161 H (70-110) mg/dL 01/04/25 Range/Units 12:10 POC Glucose (mg/dL) 165 H (70-110) mg/dL
[2025-01-04 17:12] LABS: Glucose,Whole Blood 212 mg/dL (70-110)
[2025-01-04 20:04] LABS: Glucose,Whole Blood 163 mg/dL (70-110)
[2025-01-05 06:27] LABS: Glucose,Whole Blood 154 mg/dL (70-110)
[2025-01-05 08:03] VITALS: BP 131/80; PULSE 77; RESP 16; TEMP 97.6
--- NOTE | 2025-01-05 09:59 | P.DS ---
Providers Date of admission: 01/02/25 07:49 Expected date of discharge: 01/05/25 Attending physician: Marcel Whitmore Consults: 01/01/25 18:59 Consult Physician Routine Consulting Provider: Mike Marshall Consult Reason/Comments: Weakness, DDD, Stenosis of spine Do you want consulting provider notified?: Yes Primary care physician: Pantera Gomez Hospital Course: Discharge diagnoses; Generalized weakness Recurrent falls Acute systolic CHF Chronic diastolic CHF Severe symptomatic aortic stenosis Essential hypertension Coronary artery disease s/p CABG History of diabetes mellitus Hospital course; 84-year-old gentleman with past medical history significant for coronary disease, heart failure, diabetes mellitus presents the ER because of generalized weakness. Patient stated for the last couple of days he has been noticing that he is getting more weaker. Patient is complaining of weakness of lower extremities. Patient had multiple falls at home, patient did not pass out or lost consciousness patient denies any chest pain. There is no complaint of orthopnea or PND. Patient denies any swelling of feet. Denies any nausea, vomiting abdominal pain. Patient denies any complaint of dizziness. There is no complaint of headache. Because generalized weakness, patient came to the ER Initial lab work done in the ER showed WBC 9.11, hemoglobin 0.6, platelet count 223, sodium 138, potassium 4.5, BUN 32, creatinine 0.92, glucose 200, bilirubin 1.5 AST 234, ALT 19, troponin 0.012, proBNP 6850, UA negative for infection EKG done in the ER showed heart rate of 78, no ST segment elevation or depression seen, no T-wav T wave inversion seen in lead V6 Chest x-ray done in the ER showed cardiomegaly and mild pulmonary congestion CT head done showed no acute intracranial process CT cervical spine showed no evidence of cervical spine fracture X-ray lumbar spine showed no acute fractures Patient admitted to internal medicine service 01/01. Patient seen and examined. Swelling of legs has improved, cardiology switched diuretics to oral Bumex. 01/02. Patient seen and examined. Swelling of legs is improving, denies any shortness of breath. PT and OT evaluated the patient, patient is weak, they are recommending rehab 01/03. Patient seen and examined. Still has generalized weakness. Waiting on rehab placement. 2D echo done showed impaired LV function with EF of 10 to 18% with global hypokinesia, heavily calcified aortic valve with a mean gradient of 28 mm 01/04. Patient seen and examined. No acute issues overnight. Possible discharge to rehab tomorrow 01/05. Patient seen and examined. Being discharged on Bumex 1 mg twice daily per cardiology recommendation. Outpatient follow with cardiology and PCP being discharged to rehab PHYSICAL EXAMINATION: GENERAL: The patient is alert and oriented x3, not in any acute distress. Well developed, well nourished. HEENT: Pupils are round and equally reacting to light. EOMI. No scleral icterus. No conjunctival pallor. Normocephalic, atraumatic. No pharyngeal erythema. No thyromegaly. CARDIOVASCULAR: S1 and S2 present. No murmurs, rubs, or gallops. PULMONARY: Chest is clear to auscultation, no wheezing or crackles. ABDOMEN: Soft, nontender, nondistended, normoactive bowel sounds. No palpable organomegaly. MUSCULOSKELETAL: No joint swelling or deformity. EXTREMITIES: No cyanosis, clubbing, or pedal edema. NEUROLOGICAL: Gross neurological examination did not reveal any focal deficits. SKIN: No rashes. Dictation was produced using [employer] dictation software. please excuse any grammatical, word or spelling errors. Patient Condition at Discharge: Stable Plan - Discharge Summary Discharge Rx Participant: No New Discharge Prescriptions: New Atorvastatin [Lipitor] 40 mg PO DAILY 30 Days #30 tab Bumetanide [BUMEX] 1 mg PO BID@0900,1600 30 Days #60 tab Continue glipiZIDE/METFORMIN HCL [glipiZIDE/METFORMIN HCL 2.5-500 mg] 1 tab PO BID Losartan [Cozaar] 25 mg PO DAILY Nitroglycerin Sl Tabs [Nitrostat] 0.4 mg SUBLINGUAL Q5M PRN PRN Reason: Chest Pain Spironolactone [Aldactone] 25 mg PO DAILY 30 Days #30 tab Empagliflozin [Jardiance] 10 mg PO DAILY Clopidogrel Bisulfate [Plavix] 75 mg PO DAILY Metoprolol Tartrate [Lopressor] 12.5 mg PO BID 30 Days #30 tab Discontinued Furosemide [Lasix] 40 mg PO BID@0900,1600 30 Days #60 tab Atorvastatin [Lipitor] 80 mg PO DAILY Discharge Medication List glipiZIDE/METFORMIN HCL [glipiZIDE/METFORMIN HCL 2.5-500 mg] 1 tab PO BID 09/12/17 [History] Clopidogrel Bisulfate [Plavix] 75 mg PO DAILY 04/28/22 [History] Losartan [Cozaar] 25 mg PO DAILY 12/09/24 [History] Nitroglycerin Sl Tabs [Nitrostat] 0.4 mg SUBLINGUAL Q5M PRN 12/09/24 [History] Metoprolol Tartrate [Lopressor] 12.5 mg PO BID 30 Days #30 tab 12/10/24 [Rx] Spironolactone [Aldactone] 25 mg PO DAILY 30 Days #30 tab 12/10/24 [Rx] Empagliflozin [Jardiance] 10 mg PO DAILY 12/16/24 [History] Atorvastatin [Lipitor] 40 mg PO DAILY 30 Days #30 tab 01/05/25 [Rx] Bumetanide [BUMEX] 1 mg PO BID@0900,1600 30 Days #60 tab 01/05/25 [Rx] Follow up Appointment(s)/Referral(s): Pantera Gomez MD [Primary Care Provider] - 1-2 days Ruben Burk MD [Medical Doctor] - 1 Week Discharge Disposition: TRANSFER TO SNF/ECF
== END 2025-01-05 11:41 | DRG 291 ==
LOC: EC 16:21 → 6NMEDSUR 20:36 → OBSVTOIN 01-02 07:49
PROVIDERS: ADMIT Hospitalist; ATTEND Hospitalist
DX: I11.0 Hypertensive heart disease with heart failure (principal); I50.43 Acute on chronic combined systolic (congestive) and diastolic (congestive) heart failure; I27.20 Pulmonary hypertension, unspecified; Z95.1 Presence of aortocoronary bypass graft; E11.9 Type 2 diabetes mellitus without complications; I35.0 Nonrheumatic aortic (valve) stenosis; E78.5 Hyperlipidemia, unspecified; I25.10 Atherosclerotic heart disease of native coronary artery without angina pectoris; M43.16 Spondylolisthesis, lumbar region; W19.XXXA Unspecified fall, initial encounter; Y92.009 Unspecified place in unspecified non-institutional (private) residence as the place of occurrence of the external cause; Z79.02 Long term (current) use of antithrombotics/antiplatelets; Z79.84 Long term (current) use of oral hypoglycemic drugs; S80.212A Abrasion, left knee, initial encounter; R29.6 Repeated falls; Z79.899 Other long term (current) drug therapy; Z82.49 Family history of ischemic heart disease and other diseases of the circulatory system; Z85.828 Personal history of other malignant neoplasm of skin; M48.02 Spinal stenosis, cervical region; M51.369 Other intervertebral disc degeneration, lumbar region without mention of lumbar back pain or lower extremity pain; M50.31 Other cervical disc degeneration, high cervical region; M47.896 Other spondylosis, lumbar region; M47.816 Spondylosis without myelopathy or radiculopathy, lumbar region; Z88.0 Allergy status to penicillin
CPT/HCPCS: 36415; 70450; 71046; 72100; 72125; 80048; 80053; 81003; 83036; 83735; 83880; 84439; 84443; 84484; 85025; 85027; 85610; 85730; 93005; 93306; 96374; 99285